=== PATIENT | female | born 1960 | race Caucasian/White ===

== ENCOUNTER → 2021-02-15 14:53 | Outpatient (BNVA) | payer MEDICARE, SELFPAY | PROVIDERS: Visit Provider Urology ==

== ENCOUNTER 2021-02-23 00:18 | Emergency (ER) | payer MEDICARE, MEDICAID, SELFPAY ==
--- NOTE | ~2021-02-23 | XR_ITS ---
EXAMINATION: XR ANKLE, LEFT CLINICAL INFORMATION: Pain, swelling COMPARISON: 08/26/2012 TECHNIQUE: AP, lateral, and mortise views of the left ankle. FINDINGS: Osseous alignment is anatomic. No acute fracture is seen. There is prominent soft tissue swelling about the ankle. There is mild degenerative change at the tibiotalar articulation. Plantar calcaneal spur is noted. XR/XR ankle LT min 3V IMPRESSION: Soft tissue swelling without acute osseous findings.
[2021-02-23 00:33] VITALS: BP 150/86; PULSE 94; PULSE 97; RESP 18; TEMP 36.7; O2SAT 100; O2SAT 97; BMI 43.4
[2021-02-23 00:37] VITALS: BP 139/63; PULSE 94; RESP 18; TEMP 36.7; O2SAT 100
--- NOTE | 2021-02-23 01:03 | ED_ITS ---
HPI - General Adult General Chief complaint: General Medical Stated complaint: LOWER LEG PAIN W/ CELLULITIS Time Seen by Provider: 02/23/21 00:25 Source: patient Mode of arrival: EMS History of Present Illness HPI narrative: 60-year-old female with history of bipolar and anxiety presents via EMS for increasing pain to her left ankle that has been ongoing for over a week. Patient states that she was seen by her primary care provider on Thursday and prescribed cephalexin which she states she his been taking inconsistently and that the redness, swelling worsened along with the pain to the point that is uncomfortable for her to walk. She denies any trauma to the ankle and states that an ultrasound was done to evaluate for DVT and that it was negative. Patient denies any associated fevers or chills. Related Data Previous Rx's Medication Instructions Recorded doxycycline hyclate 100 mg capsule 100 mg PO BID 5 Days #10 cap 02/23/21 Allergies Allergy/AdvReac Type Severity Reaction Status Date / Time No Known Drug Allergies Allergy Unknown NONE Verified 02/23/21 00:40 [NO KNOWN DRUG ALLERGIES] Review of Systems Review of Systems: Pertinent positives and negatives as stated in HPI 10 point review of systems is otherwise negative. PMFSH Past Medical History Source: nursing notes reviewed Social History Social History Alcohol intake: never Patient Tobacco Use Status: Never used Tobacco Use of substances other than those prescribed or required for medical reasons: No Advance Directives: No Physical Exam Vital Signs: Vital Signs: Last Vital Signs Temp 98.1 F 02/23/21 02:54 Pulse 94 02/23/21 02:54 Resp 18 02/23/21 02:54 BP 140/62 H 02/23/21 02:54 Pulse Ox 100 02/23/21 02:54 Body Mass Index 43.4 VITAL SIGNS: Reviewed. GENERAL: Well developed, well nourished, in no acute distress. HEAD: Normocephalic/atraumatic EYES: PERRLA, EOMI EARS: Ext canals without abnormality OROPHARYNX: no oral lesions noted, posterior pharynx clear LUNGS: Normal breath sounds. No adventitious sounds or accessory muscle use. SpO2<100> CARDIOVASCULAR: Regular rate and rhythm without noted murmurs, no JVD or lower extremity edema. ABDOMEN: Obesity, Soft, non-tender, non-distended with bowel sounds. LEFT LOWER EXTREMITY: Erythema, mild induration, no crepitus, pain on palpation, palpable DP/PT, good capillary refill SKIN: Inspection of the skin reveals no rashes NEUROLOGIC: Alert and oriented x 4. Strength and sensation to light touch were grossly intact x 4. Course Course Course Narrative: 60-year-old female with history and clinical presentation consistent with worsening cellulitis secondary to poor antibiotic adherence. Will evaluate with x-ray, provide analgesics, and then provided an Ran wrap and add additional doxycycline for antibiotic coverage. In addition, awaiting basic labs. Review of all investigations otherwise negative for acute findings, placed in Ran wrap to help reduce pressure into the lower extremity, administered initial doxycycline antibiotic and patient will be discharged on a 5 day course which should be taken with the cephalexin. Patient received all of these instructions and was recommended to follow-up with her primary care provider on Thursday morning. Medical Decision Making Lab Data Result diagrams: 02/23/21 01:23 02/23/21 01:23 Labs: Lab Results 02/23/21 02/23/21 Range/Units 01:23 01:23 WBC 7.5 (4.8-10.8) X10*3/uL RBC 3.98 L (4.20-5.50) X10*6/uL Hgb 11.7 L (12.0-16.0) g/dl Hct 36.3 L (37-47) % MCV 91.2 (80-98) fL MCH 29.4 (27.0-33.0) pg MCHC 32.2 (31.0-35.0) g/dl RDW 13.2 (11.0-16.0) % Plt Count 261 (160-400) X10*3/uL MPV 10.4 (9.4-12.3) fL Immature Gran % (Auto) 0.1 (0.0-0.4) % Neut % (Auto) 70.2 (45-73) % Lymph % (Auto) 22.6 (20-40) % [place] % (Auto) 6.2 (2-11) % Eos % (Auto) 0.5 (0-4) % Baso % (Auto) 0.4 (0-2) % Lymph # (Auto) 1.7 (1.2-4.9) X10*3/uL [place] # (Auto) 0.5 (0.1-1.2) X10*3/uL Eos # (Auto) 0.0 (0.0-0.4) X10*3/uL Baso # (Auto) 0.0 (0.0-0.2) X10*3/uL Abs Immat Gran (auto) 0.01 (0.00-0.03) X10*3/uL Absolute Neuts (auto) 5.3 (2.0-8.3) X10*3/uL Absolute Nucleated RBC 0.000 (0.0-0.012) X10*3/uL Nucleated RBC % (auto) 0.0 (0.0-0.2) /100WBC Sodium 142 (135-145) mmol/L Potassium 3.6 (3.3-5.1) mmol/L Chloride 106 (96-108) mmol/L Carbon Dioxide 29 (22-29) mmol/L Anion Gap 11 L (12-20) BUN 19 H (9-16) mg/dL Creatinine 0.77 (0.5-1.4) mg/dL Estim Creat Clear Calc 103.4 Estimated GFR > 60 Random Glucose 100 (60-115) mg/dL Calcium 8.8 (8.4-10.2) mg/dL Total Bilirubin 0.3 (0.0-1.0) mg/dL AST 28 (5-31) U/L ALT 37 H (0-31) U/L Alkaline Phosphatase 81 (39-117) U/L Total Protein 7.0 (6.5-8.0) g/dL Albumin 4.0 (3.5-5.0) g/dL Discharge Plan Discharge Clinical Impression: Cellulitis Patient Disposition: Home, Self-Care Instructions: Cellulitis (ED) Additional Instructions: 1. Recommend using [id number] Tylenol/ibuprofen as needed for pain control. Also recommend elevating extremity when possible, but when walking placing the Ran wrap will benefit and help to control the pain. 2. Strongly recommend completing the entire course of antibiotics that you have been provided. 3. Please follow-up with your primary care provider on Thursday for re-evaluation and further outpatient management. Return to the ER for acute worsening of your symptoms. Prescriptions: New doxycycline hyclate 100 mg capsule 100 mg PO BID 5 Days Qty: 10 RF: 0 Referrals: Toyb Gale MD [Primary Care Provider] - 2 days (Re-evaluation right lower extremity cellulitis. Started on doxycycline in conjunction with prescribed cephalexin.)
[2021-02-23 01:28] LABS: MANUAL DIFF FLAG NO
[2021-02-23 01:29] LABS: Basophils Percent Auto 0.4 % (0-2); Eosinophils Percent Auto 0.5 % (0-4); Hematocrit 36.3 % (37-47); Hemoglobin 11.7 g/dl (12.0-16.0); Imm Gran Abs Auto 0.01 X10*3/uL (0.00-0.03); Imm Gran Pct Auto 0.1 % (0.0-0.4); Lymphocytes Absolute Auto 1.7 X10*3/uL (1.2-4.9); Lymphocytes Percent Auto 22.6 % (20-40); Mean Corpuscular HGB Conc 32.2 g/dl (31.0-35.0); Mean Corpuscular Hemoglobin 29.4 pg (27.0-33.0); Mean Corpuscular Volume 91.2 fL (80-98); Mean Platelet Volume 10.4 fL (9.4-12.3); Monocytes Absolute Auto 0.5 X10*3/uL (0.1-1.2); Monocytes Percent Auto 6.2 % (2-11); Neutrophils Absolute Auto 5.3 X10*3/uL (2.0-8.3); Neutrophils Percent Auto 70.2 % (45-73); Platelet Count 261 X10*3/uL (160-400); Red Blood Count 3.98 X10*6/uL (4.20-5.50); Red Cell Distribution Width 13.2 % (11.0-16.0); White Blood Count 7.5 X10*3/uL (4.8-10.8)
[2021-02-23] MEDS: Acetaminophen 325 MG TABLET 975 MG PO (01:38)
[2021-02-23] MEDS: Ketorolac Tromethamine 15 MG/ML VIAL IM (01:38)
[2021-02-23 01:50] LABS: Alanine Aminotransferase 37 U/L (0-31); Alkaline Phosphatase 81 U/L (39-117); Anion Gap 11 (12-20); Aspartate Amino Transferase 28 U/L (5-31); Bilirubin Total 0.3 mg/dL (0.0-1.0); Blood Urea Nitrogen 19 mg/dL (9-16); Calcium 8.8 mg/dL (8.4-10.2); Carbon Dioxide 29 mmol/L (22-29); Chloride 106 mmol/L (96-108); Creatinine Clr Calc Pharmacy 103.4; Estimated Glomerular Filt Rate > 60; Glucose Random 100 mg/dL (60-115); Potassium 3.6 mmol/L (3.3-5.1); Sodium 142 mmol/L (135-145)
[2021-02-23 02:54] VITALS: BP 140/62; PULSE 94; RESP 18; TEMP 36.7; O2SAT 100
== END 2021-02-23 03:37 | disposition home or self-care (01) ==
PROVIDERS: Emergency Provider Student in an Organized Health Care Education/Training Program; PCP Internal Medicine
DX: L03.116 Cellulitis of left lower limb (principal); Z79.899 Other long term (current) drug therapy
CPT/HCPCS: 36415; 73610; 80053; 85025; 96372; 99284; J1885

== ENCOUNTER 2021-03-01 19:21 | Inpatient (IN) | payer MEDICARE, MEDICAID, SELFPAY ==
--- NOTE | ~2021-03-01 | US_ITS ---
EXAMINATION: US VENOUS ULTRASOUND WITH DOPPLER LOWER EXTREMITY, LEFT CLINICAL INFORMATION: Edema. Skin changes. COMPARISON: None TECHNIQUE: Ultrasound of the deep veins is performed from the hip to the calf with compression sonography and color and pulse Doppler assessment. Spectral analysis with color-flow imaging is performed. FINDINGS: There is normal venous compression and respiratory variation and augmented flow. The visualized common femoral vein, superficial femoral vein, profunda femoral vein, popliteal vein, and the trifurcation region shows no evidence of deep venous thrombosis. There is no significant popliteal fossa cyst. There are morphologically normal-appearing lymph nodes, fatty nicolas, in the left groin. If the patient's symptoms persist, followup ultrasound in 5 days 7 days might be of value to exclude proximal propagation from a non-visualized calf vein. US/US venous duplex LE IMPRESSION: No DVT demonstrated in the left lower extremity.
--- NOTE | ~2021-03-01 | US_ITS ---
EXAMINATION: US VENOUS ULTRASOUND WITH DOPPLER LOWER EXTREMITY, RIGHT CLINICAL INFORMATION: Right lower extremity edema and pain. COMPARISON: Left lower extremity ultrasound done earlier today at 8:40 PM. TECHNIQUE: Ultrasound of the deep veins is performed from the hip to the calf with compression sonography and color and pulse Doppler assessment. Spectral analysis with color-flow imaging is performed. FINDINGS: There is normal venous compression and respiratory variation and augmented flow. The visualized common femoral vein, superficial femoral vein, profunda femoral vein, popliteal vein, and the trifurcation region shows no evidence of deep venous thrombosis. There is no significant popliteal fossa cyst. Similar to the left side, there are prominent but benign-appearing inguinal lymph nodes measuring up to 1.1 cm in maximum short axis. If the patient's symptoms persist, followup ultrasound in 5 days 7 days might be of value to exclude proximal propagation from a non-visualized calf vein. US/US venous duplex LE RT IMPRESSION: No DVT demonstrated in the right lower extremity.
[2021-03-01 19:30] VITALS: BP 139/65; BP 162/78; PULSE 95; RESP 18; TEMP 36.6; O2SAT 100; O2SAT 99; BMI 36.6
--- NOTE | 2021-03-01 19:36 | ED.LOWEXIN ---
HPI - Extremity Injury (Lower) General Chief Complaint: Wound/Laceration Stated Complaint: cellulitis, not better with antibiotics Time Seen by Provider: 03/01/21 19:28 Source: patient and EMS Mode of arrival: EMS Limitations: no limitations History of Present Illness HPI Narrative: 60-year-old female came in by ambulance for evaluation of left leg cellulitis. Patient just finished a course of doxycycline for left lower leg cellulitis, patient returned today for persistent of the infection and increase the pain to the left lower extremities, patient was seen and evaluated full left lower extremities cellulitis 6 days ago and was prescribed doxycycline patient claimed that she has she has been compliant with her medication. Related Data Home Medications Medication Instructions Recorded Confirmed bupropion HCl 300 mg 24 hr tablet, 300 mg PO DAILY 03/01/21 03/01/21 extended release lisdexamfetamine 60 mg capsule 60 mg PO DAILY 03/01/21 03/01/21 (Vyvanse) multivitamin 1 tab PO DAILY 03/01/21 03/01/21 quetiapine 25 mg tablet 25 mg PO BEDTIME 03/01/21 03/01/21 topiramate 50 mg tablet 50 mg PO BID 03/01/21 03/01/21 Allergies Allergy/AdvReac Type Severity Reaction Status Date / Time No Known Drug Allergies Allergy Unknown NONE Verified 02/23/21 00:40 [NO KNOWN DRUG ALLERGIES] Review of Systems Review of Systems: All other systems are reviewed and are negative Constitutional: Reports as per HPI and Reports no additional constitutional complaints Eyes: Reports as per HPI and Reports no additional eye complaints Reports system reviewed and no additional complaints, except as documented Cardiovascular: Reports as per HPI and Reports no additional cardiovascular complaints Respiratory: Reports as per HPI and Reports no additional respiratory complaints Gastrointestinal: Reports as per HPI and Reports no additional gastrointestinal complaints Genitourinary: Reports no additional female genitourinary complaints Musculoskeletal: Reports no additional musculoskeletal complaints Skin/Breast: Reports system reviewed and no additional complaints, except as docu Psychiatric: Reports no additional psychiatric complaints Endocrine: Reports no additional endocrine complaints Hematologic/Lymphatic: Reports no additional hematologic/lymphatic complaints Allergic/Immunologic: Reports no additional allergic/immunologic complaints Reports system reviewed and no additional complaints, except as documented and Reports Abnormal speech present [facility] Social History Social History Alcohol intake: never Patient Tobacco Use Status: Never used Tobacco Advance Directives: No Advance Directives Information Provided: Yes Physical Exam Vital Signs: Vital Signs: Last Vital Signs Temp 98 F 03/01/21 19:30 Pulse 95 03/01/21 19:30 Resp 18 03/01/21 19:30 BP 139/65 03/01/21 19:30 Pulse Ox 99 03/01/21 19:30 Body Mass Index 36.6 Vital signs have been reviewed as appeared to be correct. Blood pressure normal. Heart rate normal. Respiration rate normal. Temperature normal. Oxygen saturation normal. Appearance: Alert. Oriented X3. No acute distress. Head: Normal external exam. Normocephalic. Atraumatic. No Khan signs noted. No raccoon eyes noted Eyes: PERRLA. EOMI. Conjunctiva and sclera normal. Eyelids normal. ENT: TM's Normal. Pharynx normal. Uvula midline. Moist mucous membranes. No trismus noted. No drooling noted. No muffled voice noted. Neck: Normal inspection. Neck supple. FROM. No adenopathy. Thyroid Normal. No meningeal signs. No neck mass noted. CVS: Normal heart rate and rhythm. Heart sound normal. No murmurs noted. Pulses normal throughout. Respiratory: No respiratory distress. Painless inspiration. Breath sounds normal. No wheezes/rales/rhonchi noted. Chest nontender. No accessory muscle usage noted or decreased air movement noted. Abdomen: Soft and nontender. Bowel sounds normal in all 4 quadrants. No distention noted. No organomegaly noted. No visible injury noted. Back: No CVA tenderness. Full range of motion noted. Skin: Skin warm and dry. 7 x 5 cm area of redness, hotness, tenderness in the anterior aspect of lower left leg, no fluctuation, no abscess is appreciated. Extremities: No lower extremity edema. Extremities exhibit normal range of motion. Extremities nontender. Neuro: Oriented X 3. Cranial nerve exam: II-XII are grossly intact No motor deficit. No sensory deficit. Reflexes normal. Course Course Course Narrative: Assessment and plan. Left lower extremity cellulitis that is not responding to p.o. doxycycline, will admit the patient for IV Zosyn/vancomycin and pain control. MDM - Extremity Injury (Lower) Medical Records Attestation: I reviewed the patient's medical records. Lab Data Attestation: I reviewed the patient's lab results. Result diagrams: 03/01/21 19:55 03/01/21 19:55 Labs: Lab Results 03/01/21 03/01/21 03/01/21 Range/Units 19:55 19:55 19:55 WBC 7.3 (4.8-10.8) X10*3/uL RBC 3.96 L (4.20-5.50) X10*6/uL Hgb 11.5 L (12.0-16.0) g/dl Hct 36.5 L (37.0-47.0) % MCV 92.2 (80.0-98.0) fL MCH 29.0 (27.0-33.0) pg MCHC 31.5 (31.0-35.0) g/dl RDW 13.2 (11.0-16.0) % Plt Count 226 (160-400) X10*3/uL MPV 10.7 (9.4-12.3) fL Immature Gran % (Auto) 0.3 (0.0-0.4) % Neut % (Auto) 63.8 (45-73) % Lymph % (Auto) 29.5 (20-40) % [place] % (Auto) 4.8 (2-11) % Eos % (Auto) 1.1 (0-4) % Baso % (Auto) 0.5 (0-2) % Lymph # (Auto) 2.2 (1.2-4.9) X10*3/uL [place] # (Auto) 0.4 (0.1-1.2) X10*3/uL Eos # (Auto) 0.1 (0.0-0.4) X10*3/uL Baso # (Auto) 0.0 (0.0-0.2) X10*3/uL Abs Immat Gran (auto) 0.02 (0.00-0.03) X10*3/uL Absolute Neuts (auto) 4.7 (2.0-8.3) x10*3/uL Absolute Nucleated RBC 0.000 (0.0-0.012) X10*3/uL Nucleated RBC % (auto) 0.0 (0.0-0.2) /100WBC Sodium 142 (135-145) mmol/L Potassium 4.1 (3.3-5.1) mmol/L Chloride 106 (96-108) mmol/L Carbon Dioxide 27 (22-29) mmol/L Anion Gap 13 (12-20) BUN 12 (9-16) mg/dL Creatinine 0.75 (0.5-1.4) mg/dL Estim Creat Clear Calc 93.3 Estimated GFR > 60 Random Glucose 110 (60-115) mg/dL Lactic Acid 1.3 (0.5-2.0) mmol/L Calcium 8.7 (8.4-10.2) mg/dL Total Bilirubin 0.2 (0.0-1.0) mg/dL Direct Bilirubin < 0.2 (0.0-0.5) mg/dL AST 29 (5-31) U/L ALT 34 H (0-31) U/L Alkaline Phosphatase 73 (39-117) U/L B-Natriuretic Peptide (<100) pg/mL Total Protein 7.1 (6.5-8.0) g/dL Albumin 4.0 (3.5-5.0) g/dL Lipase 30 (8-78) U/L Urine Color Urine Appearance Urine pH (5.0-8.0) Ur Specific [place] (1.005-1.025) Urine Protein (NEG-TRACE) MG/DL Urine Glucose (UA) (NEG) MG/DL Urine Ketones (NEG) MG/DL Urine Blood (NEG) Urine Nitrite (NEG) Ur Leukocyte Esterase (NEG) Urine RBC (0) /HPF Urine WBC (0-4) /HPF Ur Squamous Epith Cells /LPF Urine Bacteria /LPF COVID-19 (JAMIE) (Negative) COVID-19 Clin Com 03/01/21 03/01/21 03/01/21 Range/Units 19:55 19:55 20:34 WBC (4.8-10.8) X10*3/uL RBC (4.20-5.50) X10*6/uL Hgb (12.0-16.0) g/dl Hct (37.0-47.0) % MCV (80.0-98.0) fL MCH (27.0-33.0) pg MCHC (31.0-35.0) g/dl RDW (11.0-16.0) % Plt Count (160-400) X10*3/uL MPV (9.4-12.3) fL Immature Gran % (Auto) (0.0-0.4) % Neut % (Auto) (45-73) % Lymph % (Auto) (20-40) % [place] % (Auto) (2-11) % Eos % (Auto) (0-4) % Baso % (Auto) (0-2) % Lymph # (Auto) (1.2-4.9) X10*3/uL [place] # (Auto) (0.1-1.2) X10*3/uL Eos # (Auto) (0.0-0.4) X10*3/uL Baso # (Auto) (0.0-0.2) X10*3/uL Abs Immat Gran (auto) (0.00-0.03) X10*3/uL Absolute Neuts (auto) (2.0-8.3) x10*3/uL Absolute Nucleated RBC (0.0-0.012) X10*3/uL Nucleated RBC % (auto) (0.0-0.2) /100WBC Sodium (135-145) mmol/L Potassium (3.3-5.1) mmol/L Chloride (96-108) mmol/L Carbon Dioxide (22-29) mmol/L Anion Gap (12-20) BUN (9-16) mg/dL Creatinine (0.5-1.4) mg/dL Estim Creat Clear Calc Estimated GFR Random Glucose (60-115) mg/dL Lactic Acid (0.5-2.0) mmol/L Calcium (8.4-10.2) mg/dL Total Bilirubin (0.0-1.0) mg/dL Direct Bilirubin (0.0-0.5) mg/dL AST (5-31) U/L ALT (0-31) U/L Alkaline Phosphatase (39-117) U/L B-Natriuretic Peptide 40 (<100) pg/mL Total Protein (6.5-8.0) g/dL Albumin (3.5-5.0) g/dL Lipase (8-78) U/L Urine Color YELLOW Urine Appearance CLEAR Urine pH 7.0 (5.0-8.0) Ur Specific [place] <= 1.005 (1.005-1.025) Urine Protein NEG (NEG-TRACE) MG/DL Urine Glucose (UA) NEG (NEG) MG/DL Urine Ketones NEG (NEG) MG/DL Urine Blood NEG (NEG) Urine Nitrite NEG (NEG) Ur Leukocyte Esterase TRACE H (NEG) Urine RBC 0 (0) /HPF Urine WBC 5-9 H (0-4) /HPF Ur Squamous Epith Cells 1+ /LPF Urine Bacteria NONE /LPF COVID-19 (JAMIE) Negative (Negative) COVID-19 Clin Com See Note Imaging Data Left lower extremities ultrasound: Radiologist's impression: No DVT demonstrated in the left lower extremity. Discharge Plan Discharge Clinical Impression: Cellulitis of left leg Patient Disposition: Admitted As Inpatient Prescriptions: No Action quetiapine 25 mg tablet 25 mg PO BEDTIME RF: 0 bupropion HCl 300 mg tablet extended release 24 hr 300 mg PO DAILY RF: 0 topiramate 50 mg tablet 50 mg PO BID RF: 0 Vyvanse 60 mg capsule 60 mg PO DAILY RF: 0 multivitamin Tablet 1 tab PO DAILY RF: 0
--- NOTE | 2021-03-01 19:56 | PC.NURSE ---
IV established, all labs including Covid, BCX x 2 and lactic obtained and sent. Pt ambulating to the bathroom for urine sample.
[2021-03-01 20:01] LABS: MANUAL DIFF FLAG NO
[2021-03-01 20:05] LABS: Basophils Percent Auto 0.5 % (0-2); Eosinophils Absolute Auto 0.1 X10*3/uL (0.0-0.4); Eosinophils Percent Auto 1.1 % (0-4); Hematocrit 36.5 % (37.0-47.0); Hemoglobin 11.5 g/dl (12.0-16.0); Imm Gran Abs Auto 0.02 X10*3/uL (0.00-0.03); Imm Gran Pct Auto 0.3 % (0.0-0.4); Lymphocytes Absolute Auto 2.2 X10*3/uL (1.2-4.9); Lymphocytes Percent Auto 29.5 % (20-40); Mean Corpuscular HGB Conc 31.5 g/dl (31.0-35.0); Mean Corpuscular Volume 92.2 fL (80.0-98.0); Mean Platelet Volume 10.7 fL (9.4-12.3); Monocytes Absolute Auto 0.4 X10*3/uL (0.1-1.2); Monocytes Percent Auto 4.8 % (2-11); Neutrophils Absolute Auto 4.7 x10*3/uL (2.0-8.3); Neutrophils Percent Auto 63.8 % (45-73); Platelet Count 226 X10*3/uL (160-400); Red Blood Count 3.96 X10*6/uL (4.20-5.50); Red Cell Distribution Width 13.2 % (11.0-16.0); White Blood Count 7.3 X10*3/uL (4.8-10.8)
--- NOTE | 2021-03-01 20:11 | PC.NURSE ---
Pharm at bedside for Med Rec, pt aware of plan for admission. IVF infusing per MAR.
[2021-03-01 20:18] LABS: COVID-19 Test Negative (Negative)
[2021-03-01] MEDS: 0.9 % Sodium Chloride 1,000 ML 999 ML IVCONT (20:18)
[2021-03-01 20:24] LABS: B Type Natriuretic Peptide 40 pg/mL (<100)
[2021-03-01 20:26] LABS: Alanine Aminotransferase 34 U/L (0-31); Alkaline Phosphatase 73 U/L (39-117); Anion Gap 13 (12-20); Aspartate Amino Transferase 29 U/L (5-31); Bilirubin Direct < 0.2 mg/dL (0.0-0.5); Bilirubin Total 0.2 mg/dL (0.0-1.0); Blood Urea Nitrogen 12 mg/dL (9-16); Calcium 8.7 mg/dL (8.4-10.2); Carbon Dioxide 27 mmol/L (22-29); Chloride 106 mmol/L (96-108); Creatinine Clr Calc Pharmacy 93.3; Estimated Glomerular Filt Rate > 60; Glucose Random 110 mg/dL (60-115); Lipase 30 U/L (8-78); Potassium 4.1 mmol/L (3.3-5.1); Sodium 142 mmol/L (135-145); Total Protein 7.1 g/dL (6.5-8.0)
[2021-03-01 20:35] LABS: Lactic Acid 1.3 mmol/L (0.5-2.0)
[2021-03-01 20:39] LABS: Appearance Urine CLEAR; Color Urine YELLOW; Glucose Urine UA NEG (NEG); Leukocyte Esterase Urine TRACE (NEG); Nitrite Urine NEG (NEG); Specific Gravity - Urine <= 1.005 (1.005-1.025); UACC Culture Trigger YES; Urine Blood NEG (NEG); Urine Ketones NEG (NEG); Urine Protein NEG (NEG-TRACE)
[2021-03-01] MEDS: Piperacillin Sodium/Tazobactam 3.375 GM in 0.9 % Sodium Chloride 50 ML IV (20:41)
--- NOTE | 2021-03-01 20:45 | PHA.MEDREC ---
Pharmacy Consult ? Medication Reconciliation Pharmacy has completed the medication reconciliation. Patient has been so focus on taking her abx that she has not been adherent to other medications. She did report taking Tylenol Arthritis 4 tablet every 6 hours. This would be about 10,000 mg daily. Her liver enzymes test were WNL so what she is reporting may be incorrect. Jacquelin WiseD
[2021-03-01 20:48] LABS: RBC Urine 0 /HPF (0); Squamous Epithelial Cell Urine 1+ /LPF
[2021-03-01 21:29] VITALS: BP 136/62; PULSE 81; RESP 16; TEMP 36.6
--- NOTE | 2021-03-01 22:18 | P.HPHOSP_ITS ---
History of Present Illness Date of Service: 03/01/21 Chief Complaint: Cellulitis of left lower extremity 6-year-old female with past medical history of bipolar, depression, anxiety who presents to the hospital with complaints of worsening left lower extremity cellulitis. Patient reports that her symptoms started about 2 weeks ago, she was seen by her PCP, was given antibiotics but she did not complete the anti biotics and was not taking them appropriately therefore her symptoms did not improve, about 1 week ago she presented to ED and was started on doxycycline, but returns today stating that although she completed the 7 day course of doxycycline she continues to have swelling, significant pain, as well as worsening redness of her lower extremity. She denies any fever, reports chills, denies any chest pain, no shortness of breath, no abdominal pain nausea or vomiting, no diarrhea constipation, no urinary symptoms and no lower extremity edema except what is mentioned of the cellulitis On arrival to the ED patient hemodynamically stable with no significant abnormal vitals Labs are significant for WBC count of 7.3, hemoglobin of 11.5 which is around her baseline, labs otherwise unremarkable. Given failed outpatient therapy patient will be admitted for further management Review of Systems Review of Systems: Yes all other systems are reviewed and are negative [facility] Medical History (Updated 03/02/21 @ 06:36 by Yeison Anderson MD) Bipolar disorder Depression with anxiety Family History (Updated 03/02/21 @ 06:37 by Yeison Anderson MD) Mother Hypertension Diabetes CHF (congestive heart failure) Pertinent family history: CHF diabetes hypertension Surgical History (Updated 03/02/21 @ 06:37 by Yeison Anderson MD) History of Social History Alcohol intake: never Patient Tobacco Use Status: Never used Tobacco Use of substances other than those prescribed or required for medical reasons: No Advance Directives: No Advance Directives Information Provided: Yes Meds Allergies Allergy/AdvReac Type Severity Reaction Status Date / Time No Known Drug Allergies Allergy Unknown NONE Verified 02/23/21 00:40 [NO KNOWN DRUG ALLERGIES] Active Medications: Current Medications Pharmacy Consult (Consult Rx Perform Med Rec) 1 each MISCELLANE ONCE PRN PRN Reason: Consult order Home Medications Medication Instructions Recorded Confirmed Last Taken Type bupropion HCl 300 mg 24 hr tablet, 300 mg PO DAILY 03/01/21 03/01/21 Unknown History extended release lisdexamfetamine 60 mg capsule 60 mg PO DAILY 03/01/21 03/01/21 Unknown History ([place]) multivitamin 1 tab PO DAILY 03/01/21 03/01/21 Unknown History quetiapine 25 mg tablet 25 mg PO BEDTIME 03/01/21 03/01/21 Unknown History topiramate 50 mg tablet 50 mg PO BID 03/01/21 03/01/21 Unknown History Physical Exam Vital Signs and Narrative: Vital Signs: Last Vital Signs Temp 97.8 F 03/01/21 21:29 Pulse 81 03/01/21 21:29 Resp 16 03/01/21 21:29 BP 136/62 03/01/21 21:29 Pulse Ox 99 03/01/21 19:30 Body Mass Index 36.6 Const: General: cooperative and no acute distress Orientation/consciousness: patient oriented x3 Eyes: General: appearance normal, both eyes and all related structures Resp: Effort & Inspection: normal respiratory effort Auscultation: clear to auscultation bilaterally Cardio: Rate: regular rate Rhythm: regular rhythm GI: Palpation (GI): Soft to palpation Auscultation: normal bowel sounds Skin: Other: Left lower extremity erythema, warmth, tenderness, ED extending from the ankle to the mid kinney Neuro: General: patient oriented x3 Cognition (Neuro): normal cognition Extrem: Other: Edema, erythema, warmth, tenderness of left lower extremity General: Yes normal to inspection Results Labs CBC and Chem 7: 03/01/21 19:55 03/01/21 19:55 Labs: Laboratory Results - last 24 hr 03/01/21 03/01/21 03/01/21 19:55 19:55 19:55 MCV 92.2 MCH 29.0 MCHC 31.5 RDW 13.2 Plt Count 226 MPV 10.7 Immature Gran % (Auto) 0.3 Neut % (Auto) 63.8 Lymph % (Auto) 29.5 [place] % (Auto) 4.8 Eos % (Auto) 1.1 Baso % (Auto) 0.5 Lymph # (Auto) 2.2 [place] # (Auto) 0.4 Eos # (Auto) 0.1 Baso # (Auto) 0.0 Abs Immat Gran (auto) 0.02 Absolute Neuts (auto) 4.7 Absolute Nucleated RBC 0.000 Nucleated RBC % (auto) 0.0 Anion Gap 13 Estim Creat Clear Calc 93.3 Estimated GFR > 60 Random Glucose 110 Lactic Acid 1.3 Calcium 8.7 Total Bilirubin 0.2 Direct Bilirubin < 0.2 AST 29 ALT 34 H Alkaline Phosphatase 73 B-Natriuretic Peptide Total Protein 7.1 Albumin 4.0 Lipase 30 Urine Color Urine Appearance Urine pH Ur Specific [place] Urine Protein Urine Glucose (UA) Urine Ketones Urine Blood Urine Nitrite Ur Leukocyte Esterase Urine RBC Urine WBC Ur Squamous Epith Cells Urine Bacteria COVID-19 (JAMIE) COVID-19 Clin Com 03/01/21 03/01/21 03/01/21 19:55 19:55 20:34 MCV MCH MCHC RDW Plt Count MPV Immature Gran % (Auto) Neut % (Auto) Lymph % (Auto) [place] % (Auto) Eos % (Auto) Baso % (Auto) Lymph # (Auto) [place] # (Auto) Eos # (Auto) Baso # (Auto) Abs Immat Gran (auto) Absolute Neuts (auto) Absolute Nucleated RBC Nucleated RBC % (auto) Anion Gap Estim Creat Clear Calc Estimated GFR Random Glucose Lactic Acid Calcium Total Bilirubin Direct Bilirubin AST ALT Alkaline Phosphatase B-Natriuretic Peptide 40 Total Protein Albumin Lipase Urine Color YELLOW Urine Appearance CLEAR Urine pH 7.0 Ur Specific [place] <= 1.005 Urine Protein NEG Urine Glucose (UA) NEG Urine Ketones NEG Urine Blood NEG Urine Nitrite NEG Ur Leukocyte Esterase TRACE H Urine RBC 0 Urine WBC 5-9 H Ur Squamous Epith Cells 1+ Urine Bacteria NONE COVID-19 (JAMIE) Negative COVID-19 Clin Com See Note Imaging Radiologist's Impressions: Impressions Venous Duplex 03/01/21 19:32 IMPRESSION: No DVT demonstrated in the left lower extremity. Assessment and Plan (1) Cellulitis of left leg: Status: Acute 60-year-old female with past medical history of depression anxiety and bipolar d isorder presents to the hospital after failing outpatient therapy for cellulitis # cellulitis of left lower extremity - failed outpatient therapy - will start her on IV antibiotic - follow culture - no evidence of DVT # mood disorder - continue home medications DVT ppx: lovenox Quality Stroke Does the patient have a stroke diagnosis?: No VTE Prior VTE?: No VTE Risk Level:: Medical - moderate - high VTE Device Contraindication: Treatment Not Indicated VTE Drug Contraindication: N/A - Med Ordered
[2021-03-01 23:53] VITALS: BP 155/72; PULSE 82; TEMP 36.6
[2021-03-01] MEDS: Ketorolac Tromethamine 15 MG/ML VIAL 30 MG IVPUSH (23:55)
[2021-03-01] MEDS: Acetaminophen 325 MG TABLET PO (23:55)
[2021-03-02] MEDS: Enoxaparin Sodium 40 MG/0.4 ML SYRINGE SUBCUT ×2 (00:01→21:58)
[2021-03-02] MEDS: QUEtiapine Fumarate 25 MG TABLET PO ×3 (00:01→21:58)
--- NOTE | 2021-03-02 00:05 | PC.NURSE ---
medicated per Mar. left leg area marked and dated. positive pulses by Doppler.
[2021-03-02] MEDS: 0.9 % Sodium Chloride Flush 3 ML SYRINGE IVFLUSH ×3 (02:19→16:37)
--- NOTE | 2021-03-02 03:35 | PC.NURSE ---
medicated pt per jun. pt requested additional medication for bed time.
[2021-03-02 07:18] LABS: MANUAL DIFF FLAG NO
[2021-03-02 07:26] LABS: Basophils Percent Auto 0.5 % (0-2); Eosinophils Absolute Auto 0.1 X10*3/uL (0.0-0.4); Eosinophils Percent Auto 1.1 % (0-4); Hematocrit 34.4 % (37.0-47.0); Hemoglobin 10.8 g/dl (12.0-16.0); Imm Gran Abs Auto 0.02 X10*3/uL (0.00-0.03); Imm Gran Pct Auto 0.3 % (0.0-0.4); Lymphocytes Absolute Auto 1.7 X10*3/uL (1.2-4.9); Lymphocytes Percent Auto 26.8 % (20-40); Mean Corpuscular HGB Conc 31.4 g/dl (31.0-35.0); Mean Corpuscular Hemoglobin 28.8 pg (27.0-33.0); Mean Corpuscular Volume 91.7 fL (80.0-98.0); Mean Platelet Volume 10.9 fL (9.4-12.3); Monocytes Absolute Auto 0.4 X10*3/uL (0.1-1.2); Monocytes Percent Auto 6.5 % (2-11); Neutrophils Absolute Auto 4.1 x10*3/uL (2.0-8.3); Neutrophils Percent Auto 64.8 % (45-73); Platelet Count 212 X10*3/uL (160-400); Red Blood Count 3.75 X10*6/uL (4.20-5.50); Red Cell Distribution Width 13.2 % (11.0-16.0); White Blood Count 6.3 X10*3/uL (4.8-10.8)
[2021-03-02 07:38] LABS: Anion Gap 13 (12-20); Blood Urea Nitrogen 10 mg/dL (9-16); Carbon Dioxide 25 mmol/L (22-29); Chloride 109 mmol/L (96-108); Creatinine Clr Calc Pharmacy 104.5; Estimated Glomerular Filt Rate > 60; Glucose Random 92 mg/dL (60-115); Sodium 143 mmol/L (135-145)
[2021-03-02] MEDS: Multivitamin TABLET 1 TAB PO (08:27)
[2021-03-02] MEDS: oxyCODONE HCl Immed Release 5 MG TABLET PO ×2 (08:27→18:22)
[2021-03-02] MEDS: Topiramate 25 MG TABLET 50 MG PO ×2 (08:27→21:57)
[2021-03-02] MEDS: polyethylene glycoL 3350 17 GM POWD.PACK PO (08:27)
[2021-03-02 08:31] VITALS: BP 117/66; PULSE 94; RESP 18; TEMP 36.2; O2SAT 97
--- NOTE | 2021-03-02 08:35 | PC.NURSE ---
Pt awaiting room assignment. Medicated for 8/10 pain. She appears comfortable at this time. VSS.
--- NOTE | 2021-03-02 12:25 | PC.NURSE ---
patient a&ox3, sitting at side of the bed, pt has 4/10 pain which she states has decreased from earlier, pt awaiting inpt bed, will continue to monitor
--- NOTE | 2021-03-02 15:09 | HO.PM.IMPN ---
Subjective Subjective Date of Service: 03/02/21 Interval History: Note improvement since admission with IV antibiotics. Also notes lower extremity be itchy Review of Systems Denies chest pain Denies shortness of breath Denies nausea vomiting diarrhea Physical Exam Vital Signs: Vital Signs: Last Vital Signs Temp 97.1 F 03/02/21 08:31 Pulse 94 03/02/21 08:31 Resp 18 03/02/21 08:31 BP 117/66 03/02/21 08:31 Pulse Ox 97 03/02/21 08:31 Body Mass Index 36.6 Const: Other: Awake alert oriented x3 no acute distress HENMT: Other: Oropharynx moist Resp: Other: Clear to auscultation bilaterally no rales rhonchi or wheezes Cardio: Other: No S4 were; positive S1-S2; no S3 murmurs rubs or gallops GI: Other: Soft nontender nondistended with normoactive bowel sounds Neuro: Other: Cranial nerves 2-12 grossly intact as tested motor 5/5 all extremities sensation intact cognition appropriate Extrem: Other: Erythema and warmth left lower extremity mid tibia distally. Marked with skin marker. Mild improvement noted since initial marking Objective Data Active Medications Acetaminophen (Acetaminophen 325 Mg Tablet) 650 mg PO Q6H PRN PRN Reason: Pain, Mild (Pain Scale 1-3) Bupropion HCl (Bupropion Hcl Xl 300 Mg Tab.Er.24h) 300 mg PO DAILY [facility] Last Admin: 03/02/21 08:30 Dose: Not Given Documented by: MARY JO Non-Admin Reason: pt states she is not taking Docusate Sodium (Docusate Sodium 100 Mg Capsule) 100 mg PO DAILY PRN PRN Reason: Constipation Enoxaparin Sodium (Enoxaparin Sodium 40 Mg/0.4 Ml Syringe) 40 mg SUBCUT Q24H [facility] Last Admin: 03/02/21 00:01 Dose: 40 mg Documented by: RIVAS Ceftriaxone Sodium 1 gm/ (Sodium Chloride) 50 mls @ 100 mls/hr IV Q24H [facility] Last Admin: 03/01/21 23:59 Dose: Not Given Documented by: RIVAS Non-Admin Reason: See Note Multivitamins/Vitamin C (Multivitamin Tablet) 1 tab PO DAILY [facility] Last Admin: 03/02/21 08:27 Dose: 1 tab Documented by: MARY JO Non-Formulary Medication (Lisdexamfetamine [Vyvanse]) 60 mg PO DAILY [facility] Ondansetron HCl (Ondansetron Hcl 4 Mg/2 Ml Vial) 4 mg IVPUSH Q8H PRN PRN Reason: Nausea and Vomiting Oxycodone HCl (Oxycodone Hcl Immed Release 5 Mg Tablet) 5 mg PO Q6H PRN PRN Reason: Pain, Severe (Pain Scale 7-10) Last Admin: 03/02/21 08:27 Dose: 5 mg Documented by: MARY JO Pharmacy Consult (Consult Rx Perform Med Rec) 1 each MISCELLANE ONCE PRN PRN Reason: Consult order Polyethylene Glycol (Polyethylene Glycol 3350 17 Gm Powd.Pack) 17 gm PO DAILY [facility] Last Admin: 03/02/21 08:27 Dose: 17 gm Documented by: MARY JO Quetiapine Fumarate (Quetiapine Fumarate 25 Mg Tablet) 25 mg PO BEDTIME [facility] Last Admin: 03/02/21 00:01 Dose: 25 mg Documented by: RIVAS Sodium Chloride (0.9 % Sodium Chloride Flush 3 Ml Syringe) 3 ml IVFLUSH QSHIFT [facility] Last Admin: 03/02/21 08:29 Dose: 3 ml Documented by: MARY JO Topiramate (Topiramate 25 Mg Tablet) 50 mg PO BID [facility] Last Admin: 03/02/21 08:27 Dose: 50 mg Documented by: MARY JO Labs CBC & Chem 7: 03/02/21 07:02 03/02/21 07:02 Labs: Laboratory Results - last 24 hr 03/01/21 03/01/21 03/01/21 19:55 19:55 19:55 MCV 92.2 MCH 29.0 MCHC 31.5 RDW 13.2 Plt Count 226 MPV 10.7 Immature Gran % (Auto) 0.3 Neut % (Auto) 63.8 Lymph % (Auto) 29.5 [place] % (Auto) 4.8 Eos % (Auto) 1.1 Baso % (Auto) 0.5 Lymph # (Auto) 2.2 [place] # (Auto) 0.4 Eos # (Auto) 0.1 Baso # (Auto) 0.0 Abs Immat Gran (auto) 0.02 Absolute Neuts (auto) 4.7 Absolute Nucleated RBC 0.000 Nucleated RBC % (auto) 0.0 Anion Gap 13 Estim Creat Clear Calc 93.3 Estimated GFR > 60 Random Glucose 110 Lactic Acid 1.3 Calcium 8.7 Total Bilirubin 0.2 Direct Bilirubin < 0.2 AST 29 ALT 34 H Alkaline Phosphatase 73 B-Natriuretic Peptide Total Protein 7.1 Albumin 4.0 Lipase 30 Urine Color Urine Appearance Urine pH Ur Specific [place] Urine Protein Urine Glucose (UA) Urine Ketones Urine Blood Urine Nitrite Ur Leukocyte Esterase Urine RBC Urine WBC Ur Squamous Epith Cells Urine Bacteria COVID-19 (JAMIE) COVID-19 Clin Com 03/01/21 03/01/21 03/01/21 19:55 19:55 20:34 MCV MCH MCHC RDW Plt Count MPV Immature Gran % (Auto) Neut % (Auto) Lymph % (Auto) [place] % (Auto) Eos % (Auto) Baso % (Auto) Lymph # (Auto) [place] # (Auto) Eos # (Auto) Baso # (Auto) Abs Immat Gran (auto) Absolute Neuts (auto) Absolute Nucleated RBC Nucleated RBC % (auto) Anion Gap Estim Creat Clear Calc Estimated GFR Random Glucose Lactic Acid Calcium Total Bilirubin Direct Bilirubin AST ALT Alkaline Phosphatase B-Natriuretic Peptide 40 Total Protein Albumin Lipase Urine Color YELLOW Urine Appearance CLEAR Urine pH 7.0 Ur Specific [place] <= 1.005 Urine Protein NEG Urine Glucose (UA) NEG Urine Ketones NEG Urine Blood NEG Urine Nitrite NEG Ur Leukocyte Esterase TRACE H Urine RBC 0 Urine WBC 5-9 H Ur Squamous Epith Cells 1+ Urine Bacteria NONE COVID-19 (JAMIE) Negative COVID-19 Clin Com See Note 03/02/21 03/02/21 07:02 07:02 MCV 91.7 MCH 28.8 MCHC 31.4 RDW 13.2 Plt Count 212 MPV 10.9 Immature Gran % (Auto) 0.3 Neut % (Auto) 64.8 Lymph % (Auto) 26.8 [place] % (Auto) 6.5 Eos % (Auto) 1.1 Baso % (Auto) 0.5 Lymph # (Auto) 1.7 [place] # (Auto) 0.4 Eos # (Auto) 0.1 Baso # (Auto) 0.0 Abs Immat Gran (auto) 0.02 Absolute Neuts (auto) 4.1 Absolute Nucleated RBC 0.000 Nucleated RBC % (auto) 0.0 Anion Gap 13 Estim Creat Clear Calc 104.5 Estimated GFR > 60 Random Glucose 92 Lactic Acid Calcium 8.0 L D Total Bilirubin Direct Bilirubin AST ALT Alkaline Phosphatase B-Natriuretic Peptide Total Protein Albumin Lipase Urine Color Urine Appearance Urine pH Ur Specific [place] Urine Protein Urine Glucose (UA) Urine Ketones Urine Blood Urine Nitrite Ur Leukocyte Esterase Urine RBC Urine WBC Ur Squamous Epith Cells Urine Bacteria COVID-19 (JAMIE) COVID-19 Clin Com Microbiology Microbiology Results: Microbiology 03/01/21 20:44 Urine Culture - Preliminary Urine clean catch - Urine encarnacion top No growth to date. Assessment and Plan (1) Cellulitis of left leg: Status: Acute Assessment and Plan: 60-year-old female with past medical history of depression anxiety and bipolar disorder presents to the hospital after failing 7 day course of doxycycline for left leg cellulitis. Ultrasound negative for DVT 1. Left lower extremity cellulitis Given vancomycin and Zosyn in ER; notes improvement after dosing. Will switch back to vancomycin and Zosyn and follow clinically. Check routine labs in the morning 2.Mood disorder - continue home medications DVT ppx: lovenox Quality Stroke Does the patient have a stroke diagnosis?: No VTE Prior VTE?: No VTE Risk Level:: Medical - moderate - high VTE Device Contraindication: Treatment Not Indicated VTE Drug Contraindication: N/A - Med Ordered
[2021-03-02 18:08] VITALS: BP 139/92; PULSE 93; RESP 18; TEMP 37; O2SAT 99
[2021-03-02] MEDS: Piperacillin Sodium/Tazobactam 3.375 GM in 0.9 % Sodium Chloride 50 ML IV (18:13)
--- NOTE | 2021-03-02 18:27 | PC.NURSE ---
patient medicated per order, pt c/o pain- medicated for pain will continue to monitor.
--- NOTE | 2021-03-02 19:46 | PC.NURSE ---
awaiting for IV pumps to be brought from storage to administer vanco
[2021-03-02] MEDS: vancomycin HCL 750 MG in 0.9 % Sodium Chloride 250 ML 265 MG IV (19:51)
--- NOTE | 2021-03-02 19:54 | PC.NURSE ---
patient a&ox3, pt talking on the phone, c/o /10 pain but states its much better than earlier, pt ate 100% of dinner, iv antibiotics running per order in new iv site to rt arm, will continue to monitor.
--- NOTE | 2021-03-02 22:01 | PC.NURSE ---
patient medicated per order, pt moved to room 7, is in bathroom washing up
[2021-03-03] MEDS: Piperacillin Sodium/Tazobactam 3.375 GM in 0.9 % Sodium Chloride 50 ML IV ×5 (00:18→23:55)
[2021-03-03] MEDS: 0.9 % Sodium Chloride Flush 3 ML SYRINGE IVFLUSH ×3 (00:23→23:55)
--- NOTE | 2021-03-03 01:21 | PC.NURSE ---
pt is sleeping at this time. no sign of distress. medicated per MAR
--- NOTE | 2021-03-03 01:25 | PC.NURSE ---
left Iv removed. Iv infiltrated prior to my shift, Area is warm to touch and red. Will continue to monitor.
--- NOTE | 2021-03-03 01:33 | PC.NURSE ---
Called to give report, was placed on park for five minute Multiple calls to the unit with no answers. Third call spoke to Rn that is unable to locate nurse who is taking report. Will be transporting pt and will give beside report per charge nurse.
--- NOTE | 2021-03-03 01:40 | PC.NURSE ---
Report given and pt transferred by PCT
[2021-03-03 01:42] VITALS: BMI 45.8
[2021-03-03 01:55] VITALS: BP 115/56; PULSE 65; RESP 18; TEMP 36.3; O2SAT 98
[2021-03-03] MEDS: vancomycin HCL 750 MG in 0.9 % Sodium Chloride 250 ML 265 MG IV ×3 (02:08→18:50)
[2021-03-03] MEDS: oxyCODONE HCl Immed Release 5 MG TABLET PO ×3 (02:12→20:45)
[2021-03-03 05:40] LABS: MANUAL DIFF FLAG NO
[2021-03-03 05:50] LABS: Basophils Percent Auto 0.4 % (0-2); Eosinophils Percent Auto 0.3 % (0-4); Hematocrit 33.4 % (37.0-47.0); Hemoglobin 10.4 g/dl (12.0-16.0); Imm Gran Abs Auto 0.02 X10*3/uL (0.00-0.03); Imm Gran Pct Auto 0.3 % (0.0-0.4); Lymphocytes Absolute Auto 1.9 X10*3/uL (1.2-4.9); Lymphocytes Percent Auto 27.4 % (20-40); Mean Corpuscular HGB Conc 31.1 g/dl (31.0-35.0); Mean Corpuscular Hemoglobin 28.8 pg (27.0-33.0); Mean Corpuscular Volume 92.5 fL (80.0-98.0); Mean Platelet Volume 10.8 fL (9.4-12.3); Monocytes Absolute Auto 0.5 X10*3/uL (0.1-1.2); Monocytes Percent Auto 6.7 % (2-11); Neutrophils Absolute Auto 4.5 x10*3/uL (2.0-8.3); Neutrophils Percent Auto 64.9 % (45-73); Platelet Count 221 X10*3/uL (160-400); Red Blood Count 3.61 X10*6/uL (4.20-5.50); Red Cell Distribution Width 13.2 % (11.0-16.0); White Blood Count 6.9 X10*3/uL (4.8-10.8)
[2021-03-03 06:09] LABS: Alanine Aminotransferase 28 U/L (0-31); Albumin Level 3.3 g/dL (3.5-5.0); Alkaline Phosphatase 58 U/L (39-117); Anion Gap 12 (12-20); Aspartate Amino Transferase 21 U/L (5-31); Bilirubin Total 0.3 mg/dL (0.0-1.0); Blood Urea Nitrogen 15 mg/dL (9-16); Calcium 8.4 mg/dL (8.4-10.2); Carbon Dioxide 25 mmol/L (22-29); Chloride 107 mmol/L (96-108); Creatinine Clr Calc Pharmacy 113.5; Estimated Glomerular Filt Rate > 60; Glucose Fasting 97 mg/dL (60-99); Potassium 3.9 mmol/L (3.3-5.1); Sodium 140 mmol/L (135-145); Total Protein 5.9 g/dL (6.5-8.0)
[2021-03-03 07:18] VITALS: BP 168/72; PULSE 76; RESP 20; TEMP 36.2; O2SAT 100
[2021-03-03] MEDS: Multivitamin TABLET 1 TAB PO (08:01)
[2021-03-03] MEDS: polyethylene glycoL 3350 17 GM POWD.PACK PO (08:02)
[2021-03-03 12:00] VITALS: BP 195/84; PULSE 105; RESP 18; TEMP 36.6; O2SAT 100
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
[2021-03-03 16:00] VITALS: BP 180/90; PULSE 73; RESP 16; TEMP 36.6; O2SAT 94
--- NOTE | 2021-03-03 16:09 | HO.PM.IMPN ---
Subjective Subjective Date of Service: 03/03/21 Interval History: States legs improved overnight with antibiotics however remain significantly itchy. No fevers overnight Review of Systems Denies chest pain Denies shortness of breath Denies nausea vomiting diarrhea Physical Exam Vital Signs: Vital Signs: Last Vital Signs Temp 97.9 F 03/03/21 12:00 Pulse 105 H 03/03/21 12:00 Resp 18 03/03/21 12:00 BP 195/84 H 03/03/21 12:00 Pulse Ox 100 03/03/21 12:00 Body Mass Index 45.8 Const: Other: Awake alert oriented x3 no acute distress HENMT: Other: Oropharynx moist Resp: Other: Clear to auscultation bilaterally no rales rhonchi or wheezes Cardio: Other: No S4 were; positive S1-S2; no S3 murmurs rubs or gallops GI: Other: Soft nontender nondistended with normoactive bowel sounds Neuro: Other: Cranial nerves 2-12 grossly intact as tested motor 5/5 all extremities sensation intact cognition appropriate Extrem: Other: Erythema and warmth left lower extremity mid tibia distally. Marked with skin marker. Mild improvement noted since initial marking Objective Data Active Medications Acetaminophen (Acetaminophen 325 Mg Tablet) 650 mg PO Q6H PRN PRN Reason: Pain, Mild (Pain Scale 1-3) Bupropion HCl (Bupropion Hcl Xl 300 Mg Tab.Er.24h) 300 mg PO DAILY [facility] Last Admin: 03/03/21 08:01 Dose: Not Given Documented by: JACINTA Non-Admin Reason: Patient Refused Docusate Sodium (Docusate Sodium 100 Mg Capsule) 100 mg PO DAILY PRN PRN Reason: Constipation Enoxaparin Sodium (Enoxaparin Sodium 40 Mg/0.4 Ml Syringe) 40 mg SUBCUT Q24H [facility] Last Admin: 03/02/21 21:58 Dose: 40 mg Documented by: NOEMI Piperacillin Sod/Tazobactam (Sod 3.375 gm/ Sodium Chloride) 50 mls @ 100 mls/hr IV Q6H [facility] Last Infusion: 03/03/21 12:21 Dose: 100 mls/hr Documented by: JACINTA Vancomycin HCl 750 mg/ Sodium (Chloride) 265 mls @ 265 mls/hr IV Q8H [facility] Last Infusion: 03/03/21 11:48 Dose: 265 mls/hr Documented by: JACINTA Multivitamins/Vitamin C (Multivitamin Tablet) 1 tab PO DAILY [facility] Last Admin: 03/03/21 08:01 Dose: 1 tab Documented by: JACINTA Ondansetron HCl (Ondansetron Hcl 4 Mg/2 Ml Vial) 4 mg IVPUSH Q8H PRN PRN Reason: Nausea and Vomiting Oxycodone HCl (Oxycodone Hcl Immed Release 5 Mg Tablet) 5 mg PO Q6H PRN PRN Reason: Pain, Severe (Pain Scale 7-10) Last Admin: 03/03/21 10:47 Dose: 5 mg Documented by: JACINTA Pharmacy Consult (Consult Rx Perform Med Rec) 1 each MISCELLANE ONCE PRN PRN Reason: Consult order Pharmacy Consult (Consult Rx Vancomycin Dosing) 1 each MISCELLANE DAILY PRN PRN Reason: Consult order Polyethylene Glycol (Polyethylene Glycol 3350 17 Gm Powd.Pack) 17 gm PO DAILY [facility] Last Admin: 03/03/21 08:02 Dose: 17 gm Documented by: JACINTA Quetiapine Fumarate (Quetiapine Fumarate 25 Mg Tablet) 25 mg PO BEDTIME [facility] Last Admin: 03/02/21 21:58 Dose: 25 mg Documented by: RAZSOC Sodium Chloride (0.9 % Sodium Chloride Flush 3 Ml Syringe) 3 ml IVFLUSH QSHIFT [facility] Last Admin: 03/03/21 08:10 Dose: Not Given Documented by: JACINTA Non-Admin Reason: IV Running Topiramate (Topiramate 25 Mg Tablet) 50 mg PO BID [facility] Last Admin: 03/03/21 08:01 Dose: Not Given Documented by: JACINTA Non-Admin Reason: Patient Refused Labs CBC & Chem 7: 03/03/21 05:22 03/03/21 05:22 Labs: Laboratory Results - last 24 hr 03/03/21 03/03/21 05:22 05:22 MCV 92.5 MCH 28.8 MCHC 31.1 RDW 13.2 Plt Count 221 MPV 10.8 Immature Gran % (Auto) 0.3 Neut % (Auto) 64.9 Lymph % (Auto) 27.4 [place] % (Auto) 6.7 Eos % (Auto) 0.3 Baso % (Auto) 0.4 Lymph # (Auto) 1.9 [place] # (Auto) 0.5 Eos # (Auto) 0.0 Baso # (Auto) 0.0 Abs Immat Gran (auto) 0.02 Absolute Neuts (auto) 4.5 Absolute Nucleated RBC 0.000 Nucleated RBC % (auto) 0.0 Anion Gap 12 Estim Creat Clear Calc 113.5 Estimated GFR > 60 Fasting Glucose 97 Calcium 8.4 Total Bilirubin 0.3 AST 21 ALT 28 Alkaline Phosphatase 58 D Total Protein 5.9 L Albumin 3.3 L Microbiology Microbiology Results: Microbiology 03/01/21 20:44 Urine Culture - Final Urine clean catch - Urine encarnacion top No growth. 03/01/21 19:55 Blood Culture - Preliminary Blood - Venous No growth after 24 hours. 03/01/21 19:55 Blood Culture - Preliminary Blood - Venous No growth after 24 hours. Assessment and Plan (1) Cellulitis of left leg: Status: Acute Assessment and Plan: 60-year-old female with past medical history of depression anxiety and bipolar disorder presents to the hospital after failing 7 day course of doxycycline for left leg cellulitis. Ultrasound negative for DVT 1. Left lower extremity cellulitis On IV vancomycin/Zosyn with improving results; blood cultures and urine cultures negative Re-evaluate in a.m.; hopefully DC to home on oral therapies Check routine labs in the morning 2.Mood disorder - continue home medications DVT ppx: lovenox Quality Stroke Does the patient have a stroke diagnosis?: No VTE Prior VTE?: No VTE Risk Level:: Medical - moderate - high VTE Device Contraindication: Treatment Not Indicated VTE Drug Contraindication: N/A - Med Ordered
[2021-03-03 17:23] LABS: Vancomycin Random 10.6 mcg/mL (15-20)
[2021-03-03 19:37] VITALS: BP 136/68; PULSE 82; RESP 16; TEMP 36.6; O2SAT 100
[2021-03-03] MEDS: QUEtiapine Fumarate 25 MG TABLET PO (20:36)
[2021-03-03] MEDS: Topiramate 25 MG TABLET 50 MG PO (20:36)
[2021-03-03 23:18] VITALS: BP 114/55; PULSE 75; RESP 16; TEMP 35.8; O2SAT 95
[2021-03-03] MEDS: Enoxaparin Sodium 40 MG/0.4 ML SYRINGE SUBCUT (23:55)
[2021-03-04] MEDS: vancomycin HCL 750 MG in 0.9 % Sodium Chloride 250 ML 265 MG IV ×2 (01:48→10:15)
[2021-03-04 03:56] VITALS: BP 133/81; PULSE 74; RESP 16; TEMP 36.2; O2SAT 99
[2021-03-04] MEDS: Piperacillin Sodium/Tazobactam 3.375 GM in 0.9 % Sodium Chloride 50 ML IV ×3 (05:25→18:05)
[2021-03-04 06:09] LABS: MANUAL DIFF FLAG NO
[2021-03-04 06:14] LABS: Basophils Percent Auto 0.5 % (0-2); Eosinophils Percent Auto 0.5 % (0-4); Hematocrit 36.7 % (37.0-47.0); Hemoglobin 11.3 g/dl (12.0-16.0); Imm Gran Abs Auto 0.02 X10*3/uL (0.00-0.03); Imm Gran Pct Auto 0.2 % (0.0-0.4); Lymphocytes Absolute Auto 2.2 X10*3/uL (1.2-4.9); Lymphocytes Percent Auto 25.7 % (20-40); Mean Corpuscular HGB Conc 30.8 g/dl (31.0-35.0); Mean Corpuscular Hemoglobin 28.5 pg (27.0-33.0); Mean Corpuscular Volume 92.7 fL (80.0-98.0); Mean Platelet Volume 11.2 fL (9.4-12.3); Monocytes Absolute Auto 0.4 X10*3/uL (0.1-1.2); Monocytes Percent Auto 5.3 % (2-11); Neutrophils Absolute Auto 5.7 x10*3/uL (2.0-8.3); Neutrophils Percent Auto 67.8 % (45-73); Platelet Count 240 X10*3/uL (160-400); Red Blood Count 3.96 X10*6/uL (4.20-5.50); Red Cell Distribution Width 13.2 % (11.0-16.0); White Blood Count 8.4 X10*3/uL (4.8-10.8)
[2021-03-04 06:52] LABS: Alanine Aminotransferase 38 U/L (0-31); Albumin Level 3.9 g/dL (3.5-5.0); Alkaline Phosphatase 71 U/L (39-117); Anion Gap 11 (12-20); Aspartate Amino Transferase 29 U/L (5-31); Bilirubin Total 0.3 mg/dL (0.0-1.0); Blood Urea Nitrogen 14 mg/dL (9-16); Calcium 8.7 mg/dL (8.4-10.2); Carbon Dioxide 25 mmol/L (22-29); Chloride 106 mmol/L (96-108); Creatinine Clr Calc Pharmacy 107.4; Estimated Glomerular Filt Rate > 60; Glucose Fasting 99 mg/dL (60-99); Potassium 4.2 mmol/L (3.3-5.1); Sodium 138 mmol/L (135-145); Total Protein 6.7 g/dL (6.5-8.0)
[2021-03-04 07:19] VITALS: BP 133/72; PULSE 89; RESP 18; TEMP 36.6; O2SAT 100
[2021-03-04] MEDS: oxyCODONE HCl Immed Release 5 MG TABLET PO ×3 (07:25→20:51)
[2021-03-04] MEDS: 0.9 % Sodium Chloride Flush 3 ML SYRINGE IVFLUSH ×2 (07:25→17:06)
[2021-03-04] MEDS: polyethylene glycoL 3350 17 GM POWD.PACK PO (07:26)
[2021-03-04] MEDS: Topiramate 25 MG TABLET 50 MG PO ×2 (07:26→20:51)
[2021-03-04] MEDS: Multivitamin TABLET 1 TAB PO (07:26)
--- NOTE | 2021-03-04 09:56 | MHC.CM.PN ---
NURSE SAUSAGE CANNER NOTE EL;ECTRONIC MEDICAL RECORD REVIEWED. PATIENT PER DOCUMENTATION ADMITTED FOR WORSENING CELLULITIS (FAILED OUTPATIENT TREATMENT) IV PIPERCILIN AND IV VANCMYCIN CONTINUES WITH SC LOVENOX AND PO OXYCODONE FOR PAIN MANGEMENT DISCHARGE PLAN HOME NO SERVICES AT THIS TIME SAUSAGE CANNER TO CONTINUE TO FOLLOW FOR DISCHARGE NEEDS OR CHANGES
--- NOTE | 2021-03-04 11:18 | MHC.CM.PN ---
PLAN IS ONE MORE DAY OF IV ABX. DC HOME AT DISCHARGE.
[2021-03-04 11:37] VITALS: BP 152/88; PULSE 92; RESP 18; TEMP 36.2; O2SAT 100
[2021-03-04] MEDS: QUEtiapine Fumarate 25 MG TABLET PO ×2 (13:59→20:51)
--- NOTE | 2021-03-04 15:37 | HO.PM.IMPN ---
Subjective Subjective Date of Service: 03/04/21 Interval History: LLE redness and now skin peeling. No abscesses/drainage. Very painful. No fever. Has Interstim for OAB and needs lead changed C/o vaginal irritation/discharge similar to prior yeast infections. Review of Systems Review of Systems: Yes all other systems are reviewed and are negative Physical Exam Vital Signs: Vital Signs: Last Vital Signs Temp 97.2 F 03/04/21 11:37 Pulse 92 03/04/21 11:37 Resp 18 03/04/21 11:37 BP 152/88 H 03/04/21 11:37 Pulse Ox 100 03/04/21 11:37 Body Mass Index 45.8 Gen: in no acute distress HEENT: sclera anicteric, moist mucus membranes Neck: supple Lungs: clear to auscultation bilaterally Heart: regular rate and rhythm, no murmurs Abd: soft, non-tender, non-distended; obese Ext: no edema Skin: warm/well-perfused, extensive erythema and desquamation of LLE Neuro: alert and oriented x3, no focal findings Psych: appropriate affect Objective Data Active Medications Acetaminophen (Acetaminophen 325 Mg Tablet) 650 mg PO Q6H PRN PRN Reason: Pain, Mild (Pain Scale 1-3) Bupropion HCl (Bupropion Hcl Xl 300 Mg Tab.Er.24h) 300 mg PO DAILY [facility] Last Admin: 03/04/21 07:26 Dose: Not Given Documented by: JERRY Non-Admin Reason: Patient Refused Clotrimazole (Clotrimazole 1 % Vaginal Cream 45 Gm Tube) 1 appl VAGINAL BEDTIME [facility] Stop: 03/10/21 21:01 Docusate Sodium (Docusate Sodium 100 Mg Capsule) 100 mg PO DAILY PRN PRN Reason: Constipation Enoxaparin Sodium (Enoxaparin Sodium 40 Mg/0.4 Ml Syringe) 40 mg SUBCUT Q24H [facility] Last Admin: 03/03/21 23:55 Dose: 40 mg Documented by: UCHE Piperacillin Sod/Tazobactam (Sod 3.375 gm/ Sodium Chloride) 50 mls @ 100 mls/hr IV Q6H [facility] Last Infusion: 03/04/21 14:46 Dose: 100 mls/hr Documented by: JERRY Vancomycin HCl 750 mg/ Sodium (Chloride) 265 mls @ 265 mls/hr IV Q8H [facility] Last Infusion: 03/04/21 11:51 Dose: 265 mls/hr Documented by: JERRY Multivitamins/Vitamin C (Multivitamin Tablet) 1 tab PO DAILY [facility] Last Admin: 03/04/21 07:26 Dose: 1 tab Documented by: JERRY Ondansetron HCl (Ondansetron Hcl 4 Mg/2 Ml Vial) 4 mg IVPUSH Q8H PRN PRN Reason: Nausea and Vomiting Oxycodone HCl (Oxycodone Hcl Immed Release 5 Mg Tablet) 5 mg PO Q6H PRN PRN Reason: Pain, Severe (Pain Scale 7-10) Last Admin: 03/04/21 13:58 Dose: 5 mg Documented by: JERRY Pharmacy Consult (Consult Rx Perform Med Rec) 1 each MISCELLANE ONCE PRN PRN Reason: Consult order Pharmacy Consult (Consult Rx Vancomycin Dosing) 1 each MISCELLANE DAILY PRN PRN Reason: Consult order Polyethylene Glycol (Polyethylene Glycol 3350 17 Gm Powd.Pack) 17 gm PO DAILY [facility] Last Admin: 03/04/21 07:26 Dose: 17 gm Documented by: JERRY Quetiapine Fumarate (Quetiapine Fumarate 25 Mg Tablet) 25 mg PO BEDTIME [facility] Last Admin: 03/03/21 20:36 Dose: 25 mg Documented by: UCHE Quetiapine Fumarate (Quetiapine Fumarate 25 Mg Tablet) 25 mg PO Q12H PRN PRN Reason: anxiety Last Admin: 03/04/21 13:59 Dose: 25 mg Documented by: JERRY Sodium Chloride (0.9 % Sodium Chloride Flush 3 Ml Syringe) 3 ml IVFLUSH QSHIFT [facility] Last Admin: 03/04/21 07:25 Dose: 3 ml Documented by: JERRY Topiramate (Topiramate 25 Mg Tablet) 50 mg PO BID [facility] Last Admin: 03/04/21 07:26 Dose: 50 mg Documented by: JERRY Labs CBC & Chem 7: 03/04/21 05:25 03/04/21 05:25 Labs: Laboratory Results - last 24 hr 03/03/21 03/04/21 03/04/21 16:54 05:25 05:25 MCV 92.7 MCH 28.5 MCHC 30.8 L RDW 13.2 Plt Count 240 MPV 11.2 Immature Gran % (Auto) 0.2 Neut % (Auto) 67.8 Lymph % (Auto) 25.7 [place] % (Auto) 5.3 Eos % (Auto) 0.5 Baso % (Auto) 0.5 Lymph # (Auto) 2.2 [place] # (Auto) 0.4 Eos # (Auto) 0.0 Baso # (Auto) 0.0 Abs Immat Gran (auto) 0.02 Absolute Neuts (auto) 5.7 Absolute Nucleated RBC 0.000 Nucleated RBC % (auto) 0.0 Anion Gap 11 L Estim Creat Clear Calc 107.4 Estimated GFR > 60 Fasting Glucose 99 Calcium 8.7 Total Bilirubin 0.3 AST 29 ALT 38 H Alkaline Phosphatase 71 D Total Protein 6.7 Albumin 3.9 Random Vancomycin 10.6 L Microbiology Microbiology Results: Microbiology 03/01/21 19:55 Blood Culture - Preliminary Blood - Venous No growth after 48 hours. 03/01/21 19:55 Blood Culture - Preliminary Blood - Venous No growth after 48 hours. Assessment and Plan (1) Cellulitis of left leg: Status: Acute Assessment and Plan: hospital d#4 60yo F with bipolar depression and OAB admitted for cellulitis after failing outpt 7-day course of doxycycline # LLE cellulitis - d#4 IV vanco + pip/tony - BCx negative # vulvovaginal candidiasis - clotrimazole # overactive bladder - Urology consult for Interstim lead change # bipolar depression - continue bupropion, topiramate, quetiapine # VTE ppx - LMWH Quality Stroke Does the patient have a stroke diagnosis?: No VTE Prior VTE?: No VTE Risk Level:: Medical - moderate - high VTE Device Contraindication: Treatment Not Indicated VTE Drug Contraindication: N/A - Med Ordered
[2021-03-04 15:38] VITALS: BP 174/86; PULSE 100; RESP 16; TEMP 36.1; O2SAT 100
[2021-03-04 17:19] LABS: Vancomycin Trough 12.6 mcg/mL (10.0-20.0)
--- NOTE | 2021-03-04 17:33 | HE.PHANOTE ---
VANCOMYCIN DOSE ADJUSTMENT BASED ON TROUGH OF 12.6 ON 02/01 DOSE RECALC TO BE 1250 Q 12 WITH TARGET AUC OF 439 AND PREDICTED TROUGH OF 13.1
[2021-03-04] MEDS: vancomycin HCL 1,250 MG in 0.9 % Sodium Chloride 250 ML 166.67 MG IV (19:29)
[2021-03-04 20:00] VITALS: BP 142/58; PULSE 98; RESP 16; TEMP 36.3
[2021-03-04] MEDS: Clotrimazole 1 % Vaginal Cream 45 GM TUBE 1 APPL VAGINAL (20:52)
[2021-03-04] MEDS: Enoxaparin Sodium 40 MG/0.4 ML SYRINGE SUBCUT (22:24)
[2021-03-04 23:23] VITALS: BP 146/88; PULSE 104; RESP 18; TEMP 35.7; O2SAT 100
[2021-03-05] MEDS: 0.9 % Sodium Chloride Flush 3 ML SYRINGE IVFLUSH (00:19)
[2021-03-05] MEDS: Piperacillin Sodium/Tazobactam 3.375 GM in 0.9 % Sodium Chloride 50 ML IV ×2 (00:19→05:13)
[2021-03-05 04:00] VITALS: RESP 16
[2021-03-05] MEDS: oxyCODONE HCl Immed Release 5 MG TABLET PO (05:31)
[2021-03-05 06:15] LABS: MANUAL DIFF FLAG NO
[2021-03-05] MEDS: vancomycin HCL 1,250 MG in 0.9 % Sodium Chloride 250 ML 166.67 MG IV (06:17)
[2021-03-05 06:38] LABS: Alanine Aminotransferase 39 U/L (0-31); Albumin Level 3.9 g/dL (3.5-5.0); Alkaline Phosphatase 73 U/L (39-117); Anion Gap 11 (12-20); Aspartate Amino Transferase 25 U/L (5-31); Bilirubin Total 0.4 mg/dL (0.0-1.0); Blood Urea Nitrogen 14 mg/dL (9-16); Calcium 9.1 mg/dL (8.4-10.2); Carbon Dioxide 27 mmol/L (22-29); Chloride 107 mmol/L (96-108); Creatinine Clr Calc Pharmacy 103.2; Estimated Glomerular Filt Rate > 60; Glucose Fasting 102 mg/dL (60-99); Sodium 141 mmol/L (135-145); Total Protein 6.8 g/dL (6.5-8.0)
[2021-03-05 06:40] LABS: Basophils Percent Auto 0.4 % (0-2); Eosinophils Absolute Auto 0.1 X10*3/uL (0.0-0.4); Eosinophils Percent Auto 0.8 % (0-4); Hematocrit 36.1 % (37.0-47.0); Hemoglobin 11.2 g/dl (12.0-16.0); Imm Gran Abs Auto 0.04 X10*3/uL (0.00-0.03); Imm Gran Pct Auto 0.4 % (0.0-0.4); Lymphocytes Absolute Auto 1.9 X10*3/uL (1.2-4.9); Lymphocytes Percent Auto 20.3 % (20-40); Mean Corpuscular Hemoglobin 28.8 pg (27.0-33.0); Mean Corpuscular Volume 92.8 fL (80.0-98.0); Mean Platelet Volume 11.2 fL (9.4-12.3); Monocytes Absolute Auto 0.6 X10*3/uL (0.1-1.2); Monocytes Percent Auto 6.4 % (2-11); Neutrophils Absolute Auto 6.6 x10*3/uL (2.0-8.3); Neutrophils Percent Auto 71.7 % (45-73); Platelet Count 240 X10*3/uL (160-400); Red Blood Count 3.89 X10*6/uL (4.20-5.50); Red Cell Distribution Width 13.4 % (11.0-16.0); White Blood Count 9.2 X10*3/uL (4.8-10.8)
[2021-03-05 07:25] VITALS: BP 141/69; PULSE 87; RESP 18; TEMP 36.6; O2SAT 100
[2021-03-05] MEDS: Multivitamin TABLET 1 TAB PO (08:19)
[2021-03-05] MEDS: Topiramate 25 MG TABLET 50 MG PO (08:20)
[2021-03-05] MEDS: polyethylene glycoL 3350 17 GM POWD.PACK PO (08:22)
--- NOTE | 2021-03-05 11:09 | MHC.CM.PN ---
PLAN IS FOR PATIENT TO RETURN HOME TODAY - SELF CARE. FAMILY TO TACTICAL/MOBILE WATCH OFFICER AWARE OF PLAN.
--- NOTE | 2021-03-05 11:51 | PM.DS ---
DS: Providers Provider Date of Service: 03/05/21 Date of admission: 03/01/21 22:17 Primary care physician: Toby Gale MD Consults: 03/04/21 10:41 Consult to Urology Routine Consulting Provider: Karlos Davis Reason for consultation: Interstim- needs lead change DS: Diagnosis Discharge Diagnosis (1) Cellulitis of left leg: Status: Acute (2) Vulvovaginal candidiasis: Status: Acute DS: Summary Hospital Course Hospital Course: from admission H+P by hospitalist Yeison Anderson MD, 03/01/21: [age]]-year-old female with past medical history of bipolar, depression, anxiety who presents to the hospital with complaints of worsening left lower extremity cellulitis.? Patient reports that her symptoms started about 2 weeks ago, she was seen by her PCP, was given antibiotics but she did not complete the antibiotics and was not taking them appropriately therefore her symptoms did not improve, about 1 week ago she presented to ED and was started on doxycycline, but returns today stating that although she completed the 7 day course of doxycycline she continues to have swelling, significant pain, as well as worsening redness of her lower extremity.? She denies any fever, reports chills, denies any chest pain, no shortness of breath, no abdominal pain nausea or vomiting, no diarrhea constipation, no urinary symptoms and no lower extremity edema except what is mentioned of the cellulitis On arrival to the ED patient hemodynamically stable with no significant abnormal vitals Labs are significant for WBC count of 7.3, hemoglobin of 11.5 which is around her baseline, labs otherwise unremarkable. The patinet was admitted to the medical/surgical floor and treated with IV vancomycin and piperacillin/tazobactam. Blood cultures were negative. She was not septic. She improved clinically and was discharged home on a 7-day course of doxycycline plus amoxicillin/clavulanate. She was given clotrimazole for vulvovaginal candidiasis. She will follow up with her primary care doctor in 1 week. She also needs Urology follow up for Interstim device lead change. Time Spent with Patient Time attestation: Total time spent providing and/or coordinating discharge services: Discharge coordination time: Greater than 30 minutes Quality: Stroke Does the patient have a stroke diagnosis?: No Physical Exam Vital Signs: Vital Signs: Last Vital Signs Temp 97.8 F 03/05/21 07:25 Pulse 87 03/05/21 07:25 Resp 18 03/05/21 07:25 BP 141/69 H 03/05/21 07:25 Pulse Ox 100 03/05/21 07:25 Body Mass Index 45.8 Gen: in no acute distress HEENT: sclera anicteric, moist mucus membranes Neck: supple Lungs: clear to auscultation bilaterally Heart: regular rate and rhythm, no murmurs Abd: soft, non-tender, non-distended; obese Ext: no edema Skin: warm/well-perfused, improving erythema and desquamation of LLE without any fluid collections Neuro: alert and oriented x3, no focal findings Psych: appropriate affect DS: Data Data Completed and Pending Completed studies during hospitalization [Text1]: Laboratory Results WBC 9.2 X10*3/uL (4.8-10.8) 03/05/21 05:52 RBC 3.89 X10*6/uL (4.20-5.50) L 03/05/21 05:52 Hgb 11.2 g/dl (12.0-16.0) L 03/05/21 05:52 Hct 36.1 % (37.0-47.0) L 03/05/21 05:52 MCV 92.8 fL (80.0-98.0) 03/05/21 05:52 MCH 28.8 pg (27.0-33.0) 03/05/21 05:52 MCHC 31.0 g/dl (31.0-35.0) 03/05/21 05:52 RDW 13.4 % (11.0-16.0) 03/05/21 05:52 Plt Count 240 X10*3/uL (160-400) 03/05/21 05:52 MPV 11.2 fL (9.4-12.3) 03/05/21 05:52 Immature Gran % (Auto) 0.4 % (0.0-0.4) 03/05/21 05:52 Neut % (Auto) 71.7 % (45-73) 03/05/21 05:52 Lymph % (Auto) 20.3 % (20-40) 03/05/21 05:52 [place] % (Auto) 6.4 % (2-11) 03/05/21 05:52 Eos % (Auto) 0.8 % (0-4) 03/05/21 05:52 Baso % (Auto) 0.4 % (0-2) 03/05/21 05:52 Lymph # (Auto) 1.9 X10*3/uL (1.2-4.9) 03/05/21 05:52 [place] # (Auto) 0.6 X10*3/uL (0.1-1.2) 03/05/21 05:52 Eos # (Auto) 0.1 X10*3/uL (0.0-0.4) 03/05/21 05:52 Baso # (Auto) 0.0 X10*3/uL (0.0-0.2) 03/05/21 05:52 Abs Immat Gran (auto) 0.04 X10*3/uL (0.00-0.03) H 03/05/21 05:52 Absolute Neuts (auto) 6.6 x10*3/uL (2.0-8.3) 03/05/21 05:52 Absolute Nucleated RBC 0.000 X10*3/uL (0.0-0.012) 03/05/21 05:52 Nucleated RBC % (auto) 0.0 /100WBC (0.0-0.2) 03/05/21 05:52 Sodium 141 mmol/L (135-145) 03/05/21 05:52 Potassium 4.0 mmol/L (3.3-5.1) 03/05/21 05:52 Chloride 107 mmol/L (96-108) 03/05/21 05:52 Carbon Dioxide 27 mmol/L (22-29) 03/05/21 05:52 Anion Gap 11 (12-20) L 03/05/21 05:52 BUN 14 mg/dL (9-16) 03/05/21 05:52 Creatinine 0.77 mg/dL (0.5-1.4) 03/05/21 05:52 Estim Creat Clear Calc 103.2 03/05/21 05:52 Estimated GFR > 60 03/05/21 05:52 Random Glucose 92 mg/dL (60-115) 03/02/21 07:02 Fasting Glucose 102 mg/dL (60-99) H 03/05/21 05:52 Lactic Acid 1.3 mmol/L (0.5-2.0) 03/01/21 19:55 Calcium 9.1 mg/dL (8.4-10.2) 03/05/21 05:52 Total Bilirubin 0.4 mg/dL (0.0-1.0) 03/05/21 05:52 Direct Bilirubin < 0.2 mg/dL (0.0-0.5) 03/01/21 19:55 AST 25 U/L (5-31) 03/05/21 05:52 ALT 39 U/L (0-31) H 03/05/21 05:52 Alkaline Phosphatase 73 U/L (39-117) 03/05/21 05:52 B-Natriuretic Peptide 40 pg/mL (<100) 03/01/21 19:55 Total Protein 6.8 g/dL (6.5-8.0) 03/05/21 05:52 Albumin 3.9 g/dL (3.5-5.0) 03/05/21 05:52 Lipase 30 U/L (8-78) 03/01/21 19:55 Urine Color YELLOW 03/01/21 20:34 Urine Appearance CLEAR 03/01/21 20:34 Urine pH 7.0 (5.0-8.0) 03/01/21 20:34 Ur Specific [place] <= 1.005 (1.005-1.025) 03/01/21 20:34 Urine Protein NEG MG/DL (NEG-TRACE) 03/01/21 20:34 Urine Glucose (UA) NEG MG/DL (NEG) 03/01/21 20:34 Urine Ketones NEG MG/DL (NEG) 03/01/21 20:34 Urine Blood NEG (NEG) 03/01/21 20:34 Urine Nitrite NEG (NEG) 03/01/21 20:34 Ur Leukocyte Esterase TRACE (NEG) H 03/01/21 20:34 Urine RBC 0 /HPF (0) 03/01/21 20:34 Urine WBC 5-9 /HPF (0-4) H 03/01/21 20:34 Ur Squamous Epith Cells 1+ /LPF 03/01/21 20:34 Urine Bacteria NONE /LPF 03/01/21 20:34 Vancomycin Trough 12.6 mcg/mL (10.0-20.0) 03/04/21 16:46 Random Vancomycin 10.6 mcg/mL (15-20) L 03/03/21 16:54 COVID-19 (JAMIE) Negative (Negative) 03/01/21 19:55 COVID-19 Clin Com See Note 03/01/21 19:55 Impressions Venous Duplex 03/01/21 22:17 IMPRESSION: No DVT demonstrated in the right lower extremity. Discharge Plan Discharge Patient Disposition: Home, Self-Care Discharge Diagnosis: cellulitis of leg, yeast infection Referrals: Toby Gale MD [Primary Care Provider] - 1 Week Discharge Medications: New doxycycline monohydrate 100 mg tablet 100 mg PO BID Qty: 14 RF: 0 amoxicillin-pot clavulanate 875-125 mg tablet 1 tab PO BID Qty: 14 RF: 0 clotrimazole 1 % Cream 1 appl vaginal BEDTIME Qty: 5 RF: 0 Continued quetiapine 25 mg tablet 25 mg PO BEDTIME RF: 0 bupropion HCl 300 mg tablet extended release 24 hr 300 mg PO DAILY RF: 0 topiramate 50 mg tablet 50 mg PO BID RF: 0 Vyvanse 60 mg capsule 60 mg PO DAILY RF: 0 multivitamin Tablet 1 tab PO DAILY RF: 0 Discharge Orders: Discharge Order (Routine); Ordered 03/05/21 Ordered By: Robert Sandoval Diet: advance to usual diet Activity on Discharge: As tolerated Stand Alone Forms: Patient Portal Discharge page Care Plan Goals: resolution of cellulitis, yeast infection Health Concerns: cellulitis, yeast infection Plan of Treatment: take doxycycline 100 mg and amoxicillin/clavaulanate 875/125 mg, both twice daily for 7 days; use clotrimazole vaginal cream daily for 5 days; see your primary care doctor in 1 week Assessment: See Discharge Summary Patient Instructions: Cellulitis (DC)
[2021-03-05 12:00] VITALS: BP 163/73; PULSE 96; RESP 18; TEMP 36.6; O2SAT 100
== END 2021-03-05 16:06 | disposition home or self-care (01) | DRG 603 ==
LOC: HO.ED 21:32 → HO.EDOVER 22:31 → HO.S3 03-03 01:01
PROVIDERS: Hospitalist; Admitting Provider Internal Medicine; Emergency Provider Emergency Medicine; PCP Internal Medicine; Visit Provider Family Medicine
DX: L03.116 Cellulitis of left lower limb (principal); N32.81 Overactive bladder; B37.3 Candidiasis of vulva and vagina; F39 Unspecified mood [affective] disorder; Z20.822 Contact with and (suspected) exposure to COVID-19; Z79.899 Other long term (current) drug therapy
CPT/HCPCS: 36415; 80048; 80053; 80076; 80202; 81001; 83605; 83690; 83880; 85025; 87040; 87086; 87635; 93971; 96361; 96365; 96366; 96367; 96375; 99285; J1650; J1885; J2543; J3370

== ENCOUNTER 2021-03-08 04:47 | Observation (INO) | payer MEDICARE, MEDICAID, SELFPAY ==
[2021-03-08 05:09] VITALS: BP 129/52; BP 140/90; PULSE 91; PULSE 92; RESP 16; TEMP 36.8; O2SAT 100; O2SAT 99; BMI 42.3
[2021-03-08 05:49] LABS: MANUAL DIFF FLAG NO
[2021-03-08 05:50] LABS: Basophils Percent Auto 0.5 % (0-2); Eosinophils Percent Auto 0.1 % (0-4); Hematocrit 33.6 % (37.0-47.0); Hemoglobin 10.7 g/dl (12.0-16.0); Imm Gran Abs Auto 0.02 X10*3/uL (0.00-0.03); Imm Gran Pct Auto 0.3 % (0.0-0.4); Lymphocytes Absolute Auto 1.7 X10*3/uL (1.2-4.9); Lymphocytes Percent Auto 22.5 % (20-40); Mean Corpuscular HGB Conc 31.8 g/dl (31.0-35.0); Mean Corpuscular Hemoglobin 28.9 pg (27.0-33.0); Mean Corpuscular Volume 90.8 fL (80.0-98.0); Mean Platelet Volume 10.9 fL (9.4-12.3); Monocytes Absolute Auto 0.4 X10*3/uL (0.1-1.2); Neutrophils Absolute Auto 5.2 x10*3/uL (2.0-8.3); Neutrophils Percent Auto 70.6 % (45-73); Platelet Count 227 X10*3/uL (160-400); Red Cell Distribution Width 13.2 % (11.0-16.0); White Blood Count 7.4 X10*3/uL (4.8-10.8)
[2021-03-08 05:59] LABS: Lactic Acid 0.7 mmol/L (0.5-2.0)
[2021-03-08] MEDS: oxyCODONE HCl Immed Release 5 MG TABLET PO ×2 (06:02→14:48)
[2021-03-08 06:04] LABS: Alanine Aminotransferase 30 U/L (0-31); Albumin Level 3.8 g/dL (3.5-5.0); Alkaline Phosphatase 76 U/L (39-117); Anion Gap 11 (12-20); Aspartate Amino Transferase 21 U/L (5-31); Bilirubin Total 0.2 mg/dL (0.0-1.0); Blood Urea Nitrogen 20 mg/dL (9-16); C Reactive Protein 5.64 mg/dL (< or = 0.50); Carbon Dioxide 26 mmol/L (22-29); Chloride 105 mmol/L (96-108); Creatinine Clr Calc Pharmacy 111.2; Estimated Glomerular Filt Rate > 60; Glucose Random 105 mg/dL (60-115); Potassium 3.5 mmol/L (3.3-5.1); Sodium 138 mmol/L (135-145); Total Protein 6.8 g/dL (6.5-8.0)
--- NOTE | 2021-03-08 06:26 | ED.LOWEXIN ---
HPI - Extremity Injury (Lower) General Chief Complaint: Extremity Injury, Lower Stated Complaint: cellulitis Time Seen by Provider: 03/08/21 05:23 Source: patient Mode of arrival: EMS History of Present Illness HPI Narrative: 60-year-old female who presents via EMS with complaints that her left lower extremity has become worse and that now she is having problems with her right lower extremity. She describes this as worsening pain, erythema, and states that she has been taking her antibiotics as prescribed in that she was just discharged on Thursday. She states she is having chills but otherwise denies fevers, shortness of breath, nausea, vomiting. Related Data Home Medications Medication Instructions Recorded Confirmed bupropion HCl 300 mg 24 hr tablet, 300 mg PO DAILY 03/01/21 03/01/21 extended release lisdexamfetamine 60 mg capsule 60 mg PO DAILY 03/01/21 03/01/21 (Vyvanse) multivitamin 1 tab PO DAILY 03/01/21 03/01/21 quetiapine 25 mg tablet 25 mg PO BEDTIME 03/01/21 03/01/21 topiramate 50 mg tablet 50 mg PO BID 03/01/21 03/01/21 Previous Rx's Medication Instructions Recorded amoxicillin 875 mg-potassium 1 tab PO BID #14 tab 03/05/21 clavulanate 125 mg tablet clotrimazole 1 % vaginal cream 1 appl VAGINAL BEDTIME #5 ea 03/05/21 doxycycline monohydrate 100 mg 100 mg PO BID #14 tab 03/05/21 tablet Allergies Allergy/AdvReac Type Severity Reaction Status Date / Time No Known Drug Allergies Allergy Unknown NONE Verified 02/23/21 00:40 [NO KNOWN DRUG ALLERGIES] Review of Systems Review of Systems: Pertinent positives and negatives as stated in HPI 10 point review of systems is otherwise negative. [facility] Past Medical History Source: nursing notes reviewed Medical History Bipolar disorder Depression with anxiety Surgical History History of Family History Family History Mother Hypertension Diabetes CHF (congestive heart failure) Social History Social History Household Members: Family Housing: Apartment Alcohol intake: never Patient Tobacco Use Status: Never used Tobacco Use of substances other than those prescribed or required for medical reasons: No Advance Directives: No Advance Directives Information Provided: No service: No Current occupational status: unemployed Physical Exam Vital Signs: Vital Signs: Last Vital Signs Temp 98.2 F 03/08/21 05:09 Pulse 91 03/08/21 05:09 Resp 16 03/08/21 05:09 BP 129/52 L 03/08/21 05:09 Pulse Ox 100 03/08/21 05:09 Body Mass Index 42.3 VITAL SIGNS: Reviewed. GENERAL: Well developed, well nourished, in no acute distress. HEAD: Normocephalic/atraumatic EYES: PERRLA, EOMI OROPHARYNX: no oral lesions noted, posterior pharynx clear NECK: Supple, no adenopathy LUNGS: Normal breath sounds. SpO2<100> CARDIOVASCULAR: Regular rate and rhythm without noted murmurs ABDOMEN: Soft, non-tender, non-distended with bowel sounds. LEFT LOWER EXTREMITY: SWELLING THAT IS NONPITTING IN NATURE UP TO MID CALF WITH ERYTHEMA AND NOTED TO HAS SIGNIFICANT TACTILE PAIN Right lower extremity: Erythema, swelling up to ankle with significant pain on palpation dorsum of foot. NEUROLOGIC: Alert and oriented x 4. Strength and sensation to light touch were grossly intact x 4. Course Course Course Narrative: 60-year-old female with history and clinical presentation cellulitis with poor response to doxycycline and recently discharged on p.o. antibiotics without improvement and now is presenting with similar symptoms to the right lower extremity. Basic labs and antibiotics were provided and this case was discussed with the inpatient hospitalist team who accepts admission. Patient was also provided with p.o. pain medication. On review of all investigations once again patient has no leukocytosis but noted ESR/CRP elevation. Patient is otherwise stable for admission to inpatient hospice was. Patient has noted UTI and was given initial dose of levofloxacin. MDM - Extremity Injury (Lower) Lab Data Result diagrams: 03/08/21 05:36 03/08/21 05:36 Labs: Lab Results 03/08/21 03/08/21 03/08/21 Range/Units 05:36 05:36 05:36 WBC 7.4 (4.8-10.8) X10*3/uL RBC 3.70 L (4.20-5.50) X10*6/uL Hgb 10.7 L (12.0-16.0) g/dl Hct 33.6 L (37.0-47.0) % MCV 90.8 (80.0-98.0) fL MCH 28.9 (27.0-33.0) pg MCHC 31.8 (31.0-35.0) g/dl RDW 13.2 (11.0-16.0) % Plt Count 227 (160-400) X10*3/uL MPV 10.9 (9.4-12.3) fL Immature Gran % (Auto) 0.3 (0.0-0.4) % Neut % (Auto) 70.6 (45-73) % Lymph % (Auto) 22.5 (20-40) % [place] % (Auto) 6.0 (2-11) % Eos % (Auto) 0.1 (0-4) % Baso % (Auto) 0.5 (0-2) % Lymph # (Auto) 1.7 (1.2-4.9) X10*3/uL [place] # (Auto) 0.4 (0.1-1.2) X10*3/uL Eos # (Auto) 0.0 (0.0-0.4) X10*3/uL Baso # (Auto) 0.0 (0.0-0.2) X10*3/uL Abs Immat Gran (auto) 0.02 (0.00-0.03) X10*3/uL Absolute Neuts (auto) 5.2 (2.0-8.3) x10*3/uL Absolute Nucleated RBC 0.000 (0.0-0.012) X10*3/uL Nucleated RBC % (auto) 0.0 (0.0-0.2) /100WBC ESR 37 H (0-20) MM/HR Sodium 138 (135-145) mmol/L Potassium 3.5 (3.3-5.1) mmol/L Chloride 105 (96-108) mmol/L Carbon Dioxide 26 (22-29) mmol/L Anion Gap 11 L (12-20) BUN 20 H (9-16) mg/dL Creatinine 0.73 (0.5-1.4) mg/dL Estim Creat Clear Calc 111.2 Estimated GFR > 60 Random Glucose 105 (60-115) mg/dL Lactic Acid (0.5-2.0) mmol/L Calcium 9.0 (8.4-10.2) mg/dL Total Bilirubin 0.2 (0.0-1.0) mg/dL AST 21 (5-31) U/L ALT 30 (0-31) U/L Alkaline Phosphatase 76 (39-117) U/L C-Reactive Protein 5.64 H (< or = 0.50) mg/dL Total Protein 6.8 (6.5-8.0) g/dL Albumin 3.8 (3.5-5.0) g/dL 03/08/21 Range/Units 05:36 WBC (4.8-10.8) X10*3/uL RBC (4.20-5.50) X10*6/uL Hgb (12.0-16.0) g/dl Hct (37.0-47.0) % MCV (80.0-98.0) fL MCH (27.0-33.0) pg MCHC (31.0-35.0) g/dl RDW (11.0-16.0) % Plt Count (160-400) X10*3/uL MPV (9.4-12.3) fL Immature Gran % (Auto) (0.0-0.4) % Neut % (Auto) (45-73) % Lymph % (Auto) (20-40) % [place] % (Auto) (2-11) % Eos % (Auto) (0-4) % Baso % (Auto) (0-2) % Lymph # (Auto) (1.2-4.9) X10*3/uL [place] # (Auto) (0.1-1.2) X10*3/uL Eos # (Auto) (0.0-0.4) X10*3/uL Baso # (Auto) (0.0-0.2) X10*3/uL Abs Immat Gran (auto) (0.00-0.03) X10*3/uL Absolute Neuts (auto) (2.0-8.3) x10*3/uL Absolute Nucleated RBC (0.0-0.012) X10*3/uL Nucleated RBC % (auto) (0.0-0.2) /100WBC ESR (0-20) MM/HR Sodium (135-145) mmol/L Potassium (3.3-5.1) mmol/L Chloride (96-108) mmol/L Carbon Dioxide (22-29) mmol/L Anion Gap (12-20) BUN (9-16) mg/dL Creatinine (0.5-1.4) mg/dL Estim Creat Clear Calc Estimated GFR Random Glucose (60-115) mg/dL Lactic Acid 0.7 (0.5-2.0) mmol/L Calcium (8.4-10.2) mg/dL Total Bilirubin (0.0-1.0) mg/dL AST (5-31) U/L ALT (0-31) U/L Alkaline Phosphatase (39-117) U/L C-Reactive Protein (< or = 0.50) mg/dL Total Protein (6.5-8.0) g/dL Albumin (3.5-5.0) g/dL Discharge Plan Discharge Clinical Impression: Cellulitis of left leg, Intractable pain, UTI (urinary tract infection) Patient Disposition: Admitted As Inpatient Prescriptions: No Action quetiapine 25 mg tablet 25 mg PO BEDTIME RF: 0 bupropion HCl 300 mg tablet extended release 24 hr 300 mg PO DAILY RF: 0 topiramate 50 mg tablet 50 mg PO BID RF: 0 Vyvanse 60 mg capsule 60 mg PO DAILY RF: 0 multivitamin Tablet 1 tab PO DAILY RF: 0 doxycycline monohydrate 100 mg tablet 100 mg PO BID Qty: 14 RF: 0 amoxicillin-pot clavulanate 875-125 mg tablet 1 tab PO BID Qty: 14 RF: 0 clotrimazole 1 % Cream 1 appl vaginal BEDTIME Qty: 5 RF: 0
[2021-03-08 06:30] LABS: Erythrocyte Sedimentation Rate 37 MM/HR (0-20)
[2021-03-08] MEDS: vancomycin HCL 1,500 MG in 0.9 % Sodium Chloride 500 ML 333.33 MG IV (07:44)
[2021-03-08] MEDS: levoFLOXacin 250 MG TABLET PO (07:44)
[2021-03-08 08:54] LABS: Appearance Urine CLEAR; Color Urine STRAW; Glucose Urine UA NEG (NEG); Leukocyte Esterase Urine 1+ (NEG); Nitrite Urine NEG (NEG); Specific Gravity - Urine <= 1.005 (1.005-1.025); UACC Culture Trigger YES; Urine Blood NEG (NEG); Urine Ketones NEG (NEG); Urine Protein NEG (NEG-TRACE)
[2021-03-08 09:05] LABS: COVID-19 Test Negative (Negative); IDNOW Serial# 9DD0AD1C
--- NOTE | 2021-03-08 09:13 | PC.NURSE ---
Patient due for IV vanco. RN not aware that all blood cultures were not drawn on previous shift. IV vanco was started before cultures were drawn.
[2021-03-08 09:14] LABS: RBC Urine 0 /HPF (0); Squamous Epithelial Cell Urine TRACE /LPF; WBC Urine 0-2 /HPF (0-4)
--- NOTE | 2021-03-08 10:27 | PHA.MEDREC ---
Pharmacy Consult ? Medication Reconciliation Pharmacy has completed the medication reconciliation. Patient has no been taking so of her psych medications. She is working with her doctor to wean off them. Patient has prescritpion for but is not taking: - Bupropion XL 300 mg daily - Hydroxyzine BID - Vyvance 60 mg daily Pt reports being adherent to ABX prescribed last time she was here. Jacquelin Ingram, BillieD
--- NOTE | 2021-03-08 12:00 | P.HPHOSP_ITS ---
History of Present Illness Date of Service: 03/08/21 Chief Complaint: Chills, leg pain/burning/throbbing This is a 60 yo F with a PMH as outlined below who was admitted to [facility] from 03/01 to 03/05 where she was treated for LLE cellulitis with IV vancomyin/zosyn and transitioned to oral doxy/augmentin. The patient reported initial improvement at home but over the last 48 hours, she began having worsening pain in the LLE and chills, which is what prompted her to come to the ED. She reported no fevers. She reported compliant with her prescribed antibiotics at home. In regards to the history of his left lower extremity issue -- she reports that it has been on going for at least the last 1 month. She was prescribed antibiotics initially, but unclear if she completed the course. She was subsequently seen in the ED on 02/23/21 when she was prescribed doxycycline. She was finally admitted from 03/01 to 03/05. Upon arrival to the ED, she was found to have LLE erythem and warmth and tenderness. She had blood cultures drawn, was given IV vancomcyin and oral levaquin. She was admitted for further management. Review of Systems Review of Systems: negative except what is mentioned in the [facility] Medical History Bipolar disorder Depression with anxiety Family History Mother Hypertension Diabetes CHF (congestive heart failure) Surgical History History of Social History Household Members: Family Housing: Apartment Alcohol intake: never Patient Tobacco Use Status: Never used Tobacco Use of substances other than those prescribed or required for medical reasons: No Advance Directives: No Advance Directives Information Provided: No service: No Current occupational status: unemployed Meds Allergies Allergy/AdvReac Type Severity Reaction Status Date / Time No Known Drug Allergies Allergy Unknown NONE Verified 02/23/21 00:40 [NO KNOWN DRUG ALLERGIES] Active Medications: Current Medications Acetaminophen (Acetaminophen 325 Mg Tablet) 650 mg PO Q6H PRN PRN Reason: Pain, Mild (Pain Scale 1-3) Linezolid (Zyvox/D5w) 600 mg in 300 mls @ 300 mls/hr IV Q12H CHITO Ondansetron HCl (Ondansetron Hcl 4 Mg/2 Ml Vial) 4 mg IVPUSH Q8H PRN PRN Reason: Nausea and Vomiting Pharmacy Consult (Consult Rx Vancomycin Dosing) 1 each MISCELLANE DAILY PRN PRN Reason: Consult order Sodium Chloride (0.9 % Sodium Chloride Flush 3 Ml Syringe) 3 ml IVFLUSH QSHIFT [facility] Home Medications Medication Instructions Recorded Confirmed Last Taken Type multivitamin 1 tab PO DAILY 03/01/21 03/08/21 Unknown History quetiapine 25 mg tablet 25 mg PO DAILY PRN 03/01/21 03/08/21 Unknown History topiramate 50 mg tablet 50 mg PO BID 03/01/21 03/08/21 Unknown History naproxen sodium 220 mg capsule 220 mg PO Q12H PRN 03/08/21 03/08/21 Unknown History (Aleshaq) Physical Exam Vital Signs and Narrative: Vital Signs: Last Vital Signs Temp 98.2 F 03/08/21 05:09 Pulse 91 03/08/21 05:09 Resp 16 03/08/21 05:09 BP 129/52 L 03/08/21 05:09 Pulse Ox 100 03/08/21 05:09 Body Mass Index 42.3 Const: Other: Constitutional - Awake and Alert, No apparent distress Eyes - PERRLA, EOMI Cardiovascular - S1S2, RRR, No edema Respiratory - Normal lung expansion, Normal respiratory effort, No respiratory distress, CTA bilaterally Gastrointestinal - NT / ND; +BS; No rebound or guarding - No CVA tenderness Musculoskeletal - Normal inspection, normal ROM Skin - see pictures below Neurological - Alert & oriented x3, No focal deficit Psychological - Appropriate affect Skin: Other: LLE: Results Labs CBC and Chem 7: 03/08/21 05:36 03/08/21 05:36 Labs: Laboratory Results - last 24 hr 03/08/21 03/08/21 03/08/21 05:36 05:36 05:36 MCV 90.8 MCH 28.9 MCHC 31.8 RDW 13.2 Plt Count 227 MPV 10.9 Immature Gran % (Auto) 0.3 Neut % (Auto) 70.6 Lymph % (Auto) 22.5 [place] % (Auto) 6.0 Eos % (Auto) 0.1 Baso % (Auto) 0.5 Lymph # (Auto) 1.7 [place] # (Auto) 0.4 Eos # (Auto) 0.0 Baso # (Auto) 0.0 Abs Immat Gran (auto) 0.02 Absolute Neuts (auto) 5.2 Absolute Nucleated RBC 0.000 Nucleated RBC % (auto) 0.0 ESR 37 H Anion Gap 11 L Estim Creat Clear Calc 111.2 Estimated GFR > 60 Random Glucose 105 Lactic Acid Calcium 9.0 Total Bilirubin 0.2 AST 21 ALT 30 Alkaline Phosphatase 76 C-Reactive Protein 5.64 H Total Protein 6.8 Albumin 3.8 Urine Color Urine Appearance Urine pH Ur Specific [place] Urine Protein Urine Glucose (UA) Urine Ketones Urine Blood Urine Nitrite Ur Leukocyte Esterase Urine RBC Urine WBC Ur Squamous Epith Cells Urine Bacteria COVID-19 (JAMIE) COVID-19 Clin Com 03/08/21 03/08/21 03/08/21 05:36 08:42 08:42 MCV MCH MCHC RDW Plt Count MPV Immature Gran % (Auto) Neut % (Auto) Lymph % (Auto) [place] % (Auto) Eos % (Auto) Baso % (Auto) Lymph # (Auto) [place] # (Auto) Eos # (Auto) Baso # (Auto) Abs Immat Gran (auto) Absolute Neuts (auto) Absolute Nucleated RBC Nucleated RBC % (auto) ESR Anion Gap Estim Creat Clear Calc Estimated GFR Random Glucose Lactic Acid 0.7 Calcium Total Bilirubin AST ALT Alkaline Phosphatase C-Reactive Protein Total Protein Albumin Urine Color STRAW Urine Appearance CLEAR Urine pH 6.0 Ur Specific [place] <= 1.005 Urine Protein NEG Urine Glucose (UA) NEG Urine Ketones NEG Urine Blood NEG Urine Nitrite NEG Ur Leukocyte Esterase 1+ H Urine RBC 0 Urine WBC 0-2 Ur Squamous Epith Cells TRACE Urine Bacteria NONE COVID-19 (JAMIE) Negative COVID-19 Clin Com See Note Assessment and Plan (1) Cellulitis of left leg: Status: Acute This is a 60 yo F who was admitted to [facility] from 03/01-03/05 for the treatment of cellulitis (broad spec -- Vancomycin/Zoysn, d/c on Augmentin/Doxy) who now returns with complaints of chills and worsening LLE pain. She will be admitted for further treatment and evaluation. 1. Possible LLE cellulitis Has been treated with multiple oral and IV courses. Clinically her erythema appears stable since her discharge (per discussion with discharging provider). However, she reports chills and worsening pain. Question if this is toxin related. Will start IV Zyvox and consult infectious disease. Follow up cultures. 2. Bipolar depression continue baseline meds 3. Recent history of vulvovaginal candidiasis complete clotrimazole course Full Code DVT pptx, Lovenox Quality Stroke Does the patient have a stroke diagnosis?: No VTE Prior VTE?: No VTE Risk Level:: Medical - moderate - high VTE Device Contraindication: Treatment Not Indicated VTE Drug Contraindication: N/A - Med Ordered
[2021-03-08 14:46] VITALS: BP 140/54; PULSE 70; RESP 18; TEMP 36.7; O2SAT 98
[2021-03-08] MEDS: Enoxaparin Sodium 40 MG/0.4 ML SYRINGE SUBCUT (14:48)
[2021-03-08] MEDS: 0.9 % Sodium Chloride Flush 3 ML SYRINGE IVFLUSH (16:24)
--- NOTE | 2021-03-08 16:51 | MHC.CM.PN ---
CM met with patient in observation, with a bed assignment pending. SIEGEL reviewed and signed per protocol 03/08/2021@1630. HCP on file. HCP/spouse Manuel Lake ([phone]) and alternate HCP/sister Hedy Bartholomew ([phone]). , had a stroke in September. Is slowly improving, using cane and speech improved. Now with outpatient therapy at [place]. Pt is stressed about her medical issues and her husbands. Son, Thad is very helpful. She would like him as a contact. Thad Lake ([phone]). Pt is Jehovah Witness and will not accept blood transfusions, on medical record. PCP is Dr. Celestin. Pt has [facility]. Pt lives with and son. Uses no DME or services. Is fully vaccinated with Moderna. D/C plan is home without services. Son to provide transportation home. CM to follow for d/c needs.
--- NOTE | 2021-03-08 21:42 | P.CNID_ITS ---
History of Present Illness Data of Consult Service Date: 03/08/21 Requesting physician: Alejandro Bean Primary Care Provider: Unknown Physician HPI Reason for consult: reddened left leg She presents to hospital with left leg erythema and discomfort. She has had redness in leg and received antibiotics over last twelve days with no improvement. She was given po Doxycycline on 02/23. She presented to hospital and was admitted 03/01-03/05. She was started on po Augmentin and Doxycycline after and no better. She has some scaliness She has no fever or chills. Review of Systems Review of Systems: Yes all other systems are reviewed and are negative [facility] Past Medical History Medical History (Updated 03/08/21 @ 21:52 by Raven Hensley MD) Allergic arthritis of lower leg Bipolar disorder Depression with anxiety Family History Family History Mother Hypertension Diabetes CHF (congestive heart failure) Family history: reviewed and not pertinent Surgical History Surgical History History of Social History Social History Household Members: Family Housing: Apartment Alcohol intake: never Patient Tobacco Use Status: Never used Tobacco Use of substances other than those prescribed or required for medical reasons: No Advance Directives: No Advance Directives Information Provided: No service: No Current occupational status: unemployed Meds Allergies Allergy/AdvReac Type Severity Reaction Status Date / Time No Known Drug Allergies Allergy Unknown NONE Verified 02/23/21 00:40 [NO KNOWN DRUG ALLERGIES] Active Medications: Current Medications Acetaminophen (Acetaminophen 325 Mg Tablet) 650 mg PO Q6H PRN PRN Reason: Pain, Mild (Pain Scale 1-3) Clotrimazole (Clotrimazole 1 % Vaginal Cream 45 Gm Tube) 1 appl VAGINAL BEDTIME [facility] Enoxaparin Sodium (Enoxaparin Sodium 40 Mg/0.4 Ml Syringe) 40 mg SUBCUT Q24H [facility] Last Admin: 03/08/21 14:48 Dose: 40 mg Documented by: Linezolid (Zyvox/D5w) 600 mg in 300 mls @ 300 mls/hr IV Q12H [facility] Last Admin: 03/08/21 15:30 Dose: Not Given Documented by: Multivitamins/Vitamin C (Multivitamin Tablet) 1 tab PO DAILY [facility] Ondansetron HCl (Ondansetron Hcl 4 Mg/2 Ml Vial) 4 mg IVPUSH Q8H PRN PRN Reason: Nausea and Vomiting Oxycodone HCl (Oxycodone Hcl Immed Release 5 Mg Tablet) 5 mg PO Q6H PRN PRN Reason: Pain, Moderate (Pain Scale 4-6 Last Admin: 03/08/21 14:48 Dose: 5 mg Documented by: Quetiapine Fumarate (Quetiapine Fumarate 25 Mg Tablet) 25 mg PO BEDTIME PRN PRN Reason: Anxiety Sodium Chloride (0.9 % Sodium Chloride Flush 3 Ml Syringe) [address] [facility] Last Admin: 03/08/21 16:24 Dose: 3 ml Documented by: Topiramate (Topiramate 25 Mg Tablet) 50 mg PO BID [facility] Home Medications Medication Instructions Recorded Confirmed Last Taken Type multivitamin 1 tab PO DAILY 03/01/21 03/08/21 Unknown History quetiapine 25 mg tablet 25 mg PO BEDTIME PRN 03/01/21 03/08/21 Unknown History topiramate 50 mg tablet 50 mg PO BID 03/01/21 03/08/21 Unknown History naproxen sodium 220 mg capsule 220 mg PO Q12H PRN 03/08/21 03/08/21 Unknown History (Aleve) Physical Exam Vital Signs: Vital Signs: Last Vital Signs Temp 98.1 F 03/08/21 14:46 Pulse 70 03/08/21 14:46 Resp 18 03/08/21 14:46 BP 140/54 H 03/08/21 14:46 Pulse Ox 98 03/08/21 14:46 Body Mass Index 42.3 Const: General: cooperative Eyes: General: appearance normal, both eyes and all related structures Resp: Effort & Inspection: normal respiratory effort Cardio: Rate: regular rate Rhythm: regular rhythm GI: Palpation (GI): Soft to palpation and nontender : General: Yes no CVA tenderness Back/Spine/Pelvis: Back: no CVA tenderness Skin: General skin exam: no rashes or lesions noted Extrem: Other: left leg scaliness plus two edema maculopapular itching Results Labs CBC & Chem 7: 03/08/21 05:36 03/08/21 05:36 Labs: Short CBC 03/08/21 Range/Units 05:36 WBC 7.4 (4.8-10.8) X10*3/uL Hgb 10.7 L (12.0-16.0) g/dl Hct 33.6 L (37.0-47.0) % Plt Count 227 (160-400) X10*3/uL BMP 03/08/21 05:36 Sodium 138 Potassium 3.5 Chloride 105 Carbon Dioxide 26 BUN 20 H Creatinine 0.73 Calcium 9.0 Liver Function 03/08/21 Range/Units 05:36 Total Bilirubin 0.2 (0.0-1.0) mg/dL AST 21 (5-31) U/L ALT 30 (0-31) U/L Alkaline Phosphatase 76 (39-117) U/L Albumin 3.8 (3.5-5.0) g/dL Urine 03/08/21 Range/Units 08:42 Urine Color STRAW Urine Appearance CLEAR Urine pH 6.0 (5.0-8.0) Ur Specific [place] <= 1.005 (1.005-1.025) Urine Protein NEG (NEG-TRACE) MG/DL Urine Glucose (UA) NEG (NEG) MG/DL Assessment and Plan (1) Allergic arthritis of lower leg: Status: Acute She has no response to antibiotics all types She has itchy area leg and multiple applications of tea tree and essential oils She has venous stasis changes more than cellulitis She has had multiple vein procedures with Dr Castro in past Steroid cream to legs Hold antibiotics for now. Consider po linezolid if still no improvement day or two.
[2021-03-08] MEDS: Topiramate 25 MG TABLET 50 MG PO (23:02)
[2021-03-08] MEDS: QUEtiapine Fumarate 25 MG TABLET PO (23:43)
[2021-03-09] VITALS: BP 145/70; PULSE 90; RESP 16; TEMP 36.7; O2SAT 97
[2021-03-09] MEDS: 0.9 % Sodium Chloride Flush 3 ML SYRINGE IVFLUSH (02:57)
[2021-03-09 04:00] VITALS: BP 141/67; PULSE 86; RESP 16; TEMP 36.2; O2SAT 98
[2021-03-09 06:32] LABS: Hematocrit 36.5 % (37.0-47.0); Hemoglobin 11.4 g/dl (12.0-16.0); Mean Corpuscular HGB Conc 31.2 g/dl (31.0-35.0); Mean Corpuscular Hemoglobin 28.5 pg (27.0-33.0); Mean Corpuscular Volume 91.3 fL (80.0-98.0); Mean Platelet Volume 10.9 fL (9.4-12.3); Platelet Count 266 X10*3/uL (160-400); Red Cell Distribution Width 13.2 % (11.0-16.0); White Blood Count 7.1 X10*3/uL (4.8-10.8)
[2021-03-09 07:01] LABS: Anion Gap 14 (12-20); Blood Urea Nitrogen 13 mg/dL (9-16); Carbon Dioxide 23 mmol/L (22-29); Chloride 110 mmol/L (96-108); Creatinine Clr Calc Pharmacy 122.9; Estimated Glomerular Filt Rate > 60; Glucose Random 98 mg/dL (60-115); Potassium 4.1 mmol/L (3.3-5.1); Sodium 143 mmol/L (135-145)
[2021-03-09 07:33] VITALS: BP 167/107; PULSE 93; RESP 18; TEMP 36; O2SAT 100
[2021-03-09 08:45] LABS: Atypical Lymph Absolute Manual 0.1 x10*3/uL; Atypical Lymphs Percent Manual 2 % (0-6); Band Neutrophils Percent 1 % (3-5); Eosinophils Absolute Manual 0.1 X10*3/uL (0.0-0.4); Eosinophils Percent Manual 2 % (0-4); Lymphocytes Absolute Manual 1.5 X10*3/uL (1.2-4.9); Lymphocytes Percent Manual 21 % (20-40); Monocytes Absolute Manual 0.3 X10*3/uL (0.1-1.2); Monocytes Percent Manual 4 % (2-11); Neutrophils Percent Manual 70 % (45-73)
[2021-03-09 08:46] LABS: Platelet Estimate NORMAL (NORMAL); Platelet Morphology Comment NORMAL; RBC Morphology NORMAL
[2021-03-09] MEDS: Betamethasone Dip Aug 0.05% Cr 15 GM TUBE 1 APPL TOPICAL (10:31)
[2021-03-09] MEDS: Multivitamin TABLET 1 TAB PO (10:31)
[2021-03-09 11:33] VITALS: BP 178/81; PULSE 85; RESP 18; TEMP 36.1; O2SAT 95
--- NOTE | 2021-03-09 12:25 | P.DS_ITS ---
DS: Providers Provider Date of Service: 03/09/21 Date of admission: 03/08/21 11:52 Primary care physician: Unknown Physician Consults: 03/08/21 11:56 Consult to Infectious Diseases Routine Consulting Provider: Raven Hensley Reason for consultation: cellulitis, not improving DS: Diagnosis Discharge Diagnosis (1) Cellulitis of left leg: Status: Acute (2) Venous insufficiency: Status: Acute DS: Summary Hospital Course Hospital Course: from admission H+P by hospitalist Alejandro Bean MD, 03/08/21: This is a 60 yo F with a PMH as outlined below who was admitted to [facility] from 03/01 to 03/05 where she was treated for LLE cellulitis with IV vancomyin/zosyn and transitioned to oral doxy/augmentin. The patient reported initial improvement at home but over the last 48 hours, she began having worsening pain in the LLE and chills, which is what prompted her to come to the ED. She reported no fevers. She reported compliant with her prescribed antibiotics at [facility]. In regards to the history of his left lower extremity issue -- she reports that it has been on going for at least the last 1 month. She was prescribed antibiotics initially, but unclear if she completed the course. She was subsequently seen in the ED on 02/23/21 when she was prescribed doxycycline. She was finally admitted from 03/01 to 03/05. Upon arrival to the ED, she was found to have LLE erythem and warmth and tenderness. She had blood cultures drawn, was given IV vancomcyin and oral levaquin. She was admitted for further management. The patient was admitted to the medical/surgical floor and treated with IV linezolid. Infectious Diseases was consulted and thought that the changes in her legs were more likely due to venous stasis rather than cellultiis. She has had multiple vein procedures in the past. She was given steroid cream to the legs. The erythema and warmth and tenderness improved considerably and she was discharged home on hospital d#2. She was instructed to complete the previously prescribed doxycycline and amoxcillin/clavulanate, apply betamethasone cream, and follow up with her primary care doctor and vascular surgeon. Consideration may be given to compression stockings once the infection resolves. Escin [horsechestnut extract] was also prescribed for relief of venous insufficiency symptoms. Time Spent with Patient Time attestation: Total time spent providing and/or coordinating discharge services: Discharge coordination time: Greater than 30 minutes Quality: Stroke Does the patient have a stroke diagnosis?: No Physical Exam Vital Signs: Vital Signs: Last Vital Signs Temp 96.9 F 03/09/21 11:33 Pulse 85 03/09/21 11:33 Resp 18 03/09/21 11:33 BP 178/81 H 03/09/21 11:33 Pulse Ox 95 03/09/21 11:33 Body Mass Index 42.3 Gen: in no acute distress HEENT: sclera anicteric, moist mucus membranes Neck: supple Lungs: clear to auscultation bilaterally Heart: regular rate and rhythm, no murmurs Abd: soft, non-tender, non-distended; obese Ext: no edema Skin: warm/well-perfused, LLE>RLE hyperpigmentation, resolving scaling of LLE Neuro: alert and oriented x3, no focal findings Psych: appropriate affec DS: Data Data Completed and Pending Completed studies during hospitalization [Text1]: Laboratory Results WBC 7.1 X10*3/uL (4.8-10.8) 03/09/21 05:58 RBC 4.00 X10*6/uL (4.20-5.50) L 03/09/21 05:58 Hgb 11.4 g/dl (12.0-16.0) L 03/09/21 05:58 Hct 36.5 % (37.0-47.0) L 03/09/21 05:58 MCV 91.3 fL (80.0-98.0) 03/09/21 05:58 MCH 28.5 pg (27.0-33.0) 03/09/21 05:58 MCHC 31.2 g/dl (31.0-35.0) 03/09/21 05:58 RDW 13.2 % (11.0-16.0) 03/09/21 05:58 Plt Count 266 X10*3/uL (160-400) 03/09/21 05:58 MPV 10.9 fL (9.4-12.3) 03/09/21 05:58 Immature Gran % (Auto) 0.3 % (0.0-0.4) 03/08/21 05:36 Neut % (Auto) 70.6 % (45-73) 03/08/21 05:36 Lymph % (Auto) 22.5 % (20-40) 03/08/21 05:36 Garrett % (Auto) 6.0 % (2-11) 03/08/21 05:36 Eos % (Auto) 0.1 % (0-4) 03/08/21 05:36 Baso % (Auto) 0.5 % (0-2) 03/08/21 05:36 Lymph # (Auto) 1.7 X10*3/uL (1.2-4.9) 03/08/21 05:36 Garrett # (Auto) 0.4 X10*3/uL (0.1-1.2) 03/08/21 05:36 Eos # (Auto) 0.0 X10*3/uL (0.0-0.4) 03/08/21 05:36 Baso # (Auto) 0.0 X10*3/uL (0.0-0.2) 03/08/21 05:36 Abs Immat Gran (auto) 0.02 X10*3/uL (0.00-0.03) 03/08/21 05:36 Absolute Neuts (auto) 5.2 x10*3/uL (2.0-8.3) 03/08/21 05:36 Absolute Nucleated RBC 0.000 X10*3/uL (0.0-0.012) 03/09/21 05:58 Nucleated RBC % (auto) 0.0 /100WBC (0.0-0.2) 03/09/21 05:58 Neutrophils % (Manual) 70 % (45-73) 03/09/21 05:58 Band Neutrophils % 1 % (3-5) L 03/09/21 05:58 Lymphocytes % (Manual) 21 % (20-40) 03/09/21 05:58 Atypical Lymphs % (Man) 2 % (0-6) 03/09/21 05:58 Monocytes % (Manual) 4 % (2-11) 03/09/21 05:58 Eosinophils % (Manual) 2 % (0-4) 03/09/21 05:58 Abs Neuts (Manual) 5.0 X10*3/uL (2.0-8.3) 03/09/21 05:58 Lymphocytes # (Manual) 1.5 X10*3/uL (1.2-4.9) 03/09/21 05:58 Atyp Lymphs # (Manual) 0.1 x10*3/uL 03/09/21 05:58 Monocytes # (Manual) 0.3 X10*3/uL (0.1-1.2) 03/09/21 05:58 Eosinophils # (Manual) 0.1 X10*3/uL (0.0-0.4) 03/09/21 05:58 Platelet Estimate NORMAL (NORMAL) 03/09/21 05:58 Plt Morphology Comment NORMAL 03/09/21 05:58 RBC Morphology NORMAL 03/09/21 05:58 ESR 37 MM/HR (0-20) H 03/08/21 05:36 Sodium 143 mmol/L (135-145) 03/09/21 05:58 Potassium 4.1 mmol/L (3.3-5.1) 03/09/21 05:58 Chloride 110 mmol/L (96-108) H 03/09/21 05:58 Carbon Dioxide 23 mmol/L (22-29) 03/09/21 05:58 Anion Gap 14 (12-20) 03/09/21 05:58 BUN 13 mg/dL (9-16) 03/09/21 05:58 Creatinine 0.66 mg/dL (0.5-1.4) 03/09/21 05:58 Estim Creat Clear Calc 122.9 03/09/21 05:58 Estimated GFR > 60 03/09/21 05:58 Random Glucose 98 mg/dL (60-115) 03/09/21 05:58 Lactic Acid 0.7 mmol/L (0.5-2.0) 03/08/21 05:36 Calcium 9.0 mg/dL (8.4-10.2) 03/09/21 05:58 Total Bilirubin 0.2 mg/dL (0.0-1.0) 03/08/21 05:36 AST 21 U/L (5-31) 03/08/21 05:36 ALT 30 U/L (0-31) 03/08/21 05:36 Alkaline Phosphatase 76 U/L (39-117) 03/08/21 05:36 C-Reactive Protein 5.64 mg/dL (< or = 0.50) H 03/08/21 05:36 Total Protein 6.8 g/dL (6.5-8.0) 03/08/21 05:36 Albumin 3.8 g/dL (3.5-5.0) 03/08/21 05:36 Urine Color STRAW 03/08/21 08:42 Urine Appearance CLEAR 03/08/21 08:42 Urine pH 6.0 (5.0-8.0) 03/08/21 08:42 Ur Specific [place] <= 1.005 (1.005-1.025) 03/08/21 08:42 Urine Protein NEG MG/DL (NEG-TRACE) 03/08/21 08:42 Urine Glucose (UA) NEG MG/DL (NEG) 03/08/21 08:42 Urine Ketones NEG MG/DL (NEG) 03/08/21 08:42 Urine Blood NEG (NEG) 03/08/21 08:42 Urine Nitrite NEG (NEG) 03/08/21 08:42 Ur Leukocyte Esterase 1+ (NEG) H 03/08/21 08:42 Urine RBC 0 /HPF (0) 03/08/21 08:42 Urine WBC 0-2 /HPF (0-4) 03/08/21 08:42 Ur Squamous Epith Cells TRACE /LPF 03/08/21 08:42 Urine Bacteria NONE /LPF 03/08/21 08:42 COVID-19 (JAMIE) Negative (Negative) 03/08/21 08:42 COVID-19 Clin Com See Note 03/08/21 08:42 Discharge Plan Discharge Patient Disposition: Home, Self-Care Discharge Diagnosis: cellulitis, venous stasis Referrals: Leon Rubio MD [Physician] - 1 Week Toby Gale MD [Physician] - 1 Week Discharge Medications: New betamethasone, augmented 0.05 % Cream 1 appl topical BID Qty: 50 RF: 0 horse chestnut 300 mg capsule 300 mg PO BID Qty: 60 RF: 0 Continued naproxen sodium [Aleve] 220 mg Capsule 220 mg PO Q12H PRN (Reason: Pain) RF: 0 quetiapine 25 mg tablet 25 mg PO BEDTIME PRN (Reason: Anxiety) RF: 0 topiramate 50 mg tablet 50 mg PO BID RF: 0 multivitamin Tablet 1 tab PO DAILY RF: 0 doxycycline monohydrate 100 mg tablet 100 mg PO BID Qty: 14 RF: 0 amoxicillin-pot clavulanate 875-125 mg tablet 1 tab PO BID Qty: 14 RF: 0 clotrimazole 1 % Cream 1 appl vaginal BEDTIME Qty: 5 RF: 0 Discharge Orders: Discharge Order (Routine); Ordered 03/09/21 Ordered By: Robert Sandoval Diet: advance to usual diet Activity on Discharge: elevate le Stand Alone Forms: Patient Portal Discharge page Care Plan Goals: cure of cellultiis relief of venous stasis Health Concerns: cellulitis venous stasis Plan of Treatment: complete antibiotics as previously prescribed elevate legs follow up with primary care and Vascular Surgery, obtain compression stockings once infection healed, and consider horsechestnut extract at a dose of 300 mg (standardized to 50 mg of escin, the active compound) twice daily? Assessment: See Discharge Summary Patient Instructions: Venous Insufficiency (DC)
--- NOTE | 2021-03-09 13:13 | MHC.CM.PN ---
PATIENT IS DISCHARGED HOME - [facility] IS PROVIDING TRANSPORTATION. RN AWARE OF PLAN.
== END 2021-03-09 13:40 | disposition home or self-care (01) ==
LOC: HO.ED 07:14 → HO.EDOVER 13:55 → HO.S3 21:30
PROVIDERS: Admitting Provider Family Medicine; Emergency Provider Student in an Organized Health Care Education/Training Program; Visit Provider Family Medicine
DX: L03.116 Cellulitis of left lower limb (principal); N39.0 Urinary tract infection, site not specified; I87.2 Venous insufficiency (chronic) (peripheral); M13.869 Other specified arthritis, unspecified knee; M13.88 Other specified arthritis, other site; F31.9 Bipolar disorder, unspecified; F41.8 Other specified anxiety disorders; Z66 Do not resuscitate; Z53.1 Procedure and treatment not carried out because of patient's decision for reasons of belief and group pressure; Z20.822 Contact with and (suspected) exposure to COVID-19; Z83.3 Family history of diabetes mellitus; Z82.49 Family history of ischemic heart disease and other diseases of the circulatory system; Z79.891 Long term (current) use of opiate analgesic; Z79.899 Other long term (current) drug therapy
CPT/HCPCS: 36415; 80048; 80053; 81001; 83605; 85007; 85025; 85027; 85652; 86140; 87040; 87086; 87635; 96365; 99218; 99285; J1650; J3370

== ENCOUNTER → 2021-03-26 10:11 | Outpatient (BNVA) | payer MEDICARE, MEDICAID, SELFPAY | PROVIDERS: PCP Internal Medicine; Visit Provider Surgery Vascular Surgery | DX: I83.11 Varicose veins of right lower extremity with inflammation (principal) | CPT/HCPCS: 99202 ==

== ENCOUNTER 2021-04-11 13:09 | Outpatient (REF) | payer MEDICARE, MEDICAID, SELFPAY ==
--- NOTE | ~2021-04-11 | US_ITS ---
EXAMINATION: US LOWER EXTREMITY VENOUS (REFLUX EXAM), BILATERAL CLINICAL INDICATION: This is a 60-year-old female with varicose veins and venous insufficiency. COMPARISON: None. TECHNIQUE: Color flow triplex imaging and compression Doppler was performed to evaluate both the deep and the superficial systems bilaterally. To evaluate the superficial system, the examination was performed in the upright position. Color-flow Doppler ultrasound and compression ultrasound were utilized. In addition, maneuvers were utilized to demonstrate reflux. FINDINGS: 1. DEEP VENOUS ULTRASOUND OF THE RIGHT LOWER EXTREMITY: Common Femoral Vein: Compressible, normal respiratory variation and augmented flow. Femoral vein: Compressible, normal color flow and augmentation. Popliteal Vein: Compressible, normal augmentation. Deep Reflux: There is no evidence of reflux in the deep system in either the common femoral vein or the popliteal vein. There is no evidence of a Reed's cyst. 2. SUPERFICIAL ULTRASOUND WITH DOPPLER OF RIGHT LOWER EXTREMITY: GREAT SAPHENOUS VEIN: Saphenofemoral Junction: 0.8 cm Mid Thigh: 0.4 cm Above Knee: 0.2 cm Below Knee: Not seen Mid Calf: Not seen Ankle: Not seen GSV REFLUX: No evidence of reflux. DUPLICATED GREAT SAPHENOUS VEIN: There is a 0.2 cm lateral duplicated great saphenous vein without reflux. SMALL SAPHENOUS VEIN: Proximal: 0.2 cm Distal: 0.3 cm SSV REFLUX: No evidence of reflux. VEIN OF GIACOMINI: None Imaged. PERFORATORS: None Imaged VARICOSITIES: There are 0.5 cm and 0.4 cm thigh varicose veins without evidence of reflux. 3. DEEP VENOUS ULTRASOUND OF THE LEFT LOWER EXTREMITY: Common Femoral Vein: Compressible, normal respiratory variation and augmented flow. Femoral Vein: Compressible, normal color flow and augmentation. Popliteal Vein: Compressible, normal augmentation. Deep Reflux: There is no evidence of reflux in the deep system in either the common femoral vein or the popliteal vein. There is no evidence of a Reed's cyst. 4. SUPERFICIAL ULTRASOUND WITH DOPPLER OF LEFT LOWER EXTREMITY: GREAT SAPHENOUS VEIN: Saphenofemoral Junction: 1.1 cm Mid Thigh: 0.4 cm Above Knee: 0.3 cm Below Knee: 0.3 cm Mid Calf: 0.4 cm Ankle: 0.4 cm GSV REFLUX: No evidence of reflux. DUPLICATED GREAT SAPHENOUS VEIN: None SMALL SAPHENOUS VEIN: The small saphenous vein is not seen. SSV REFLUX: No evidence of reflux. VEIN OF GIACOMINI: None Imaged. PERFORATORS: None Imaged VARICOSITIES: There are 0.3 cm and 0.4 cm, respectively, mid thigh and distal calf varicose veins without reflux. US/US venous duplex LE BI IMPRESSION: 1. There are multiple lymph nodes in the groins. However, some of these lymph nodes lack a central fatty hilum and are enlarged and suspicious. On the right there is a 4.0 x 1.9 x 3.4 cm lymph node. On the left there is a 3.2 x 1.8 x 3.2 cm lymph node. Clinical correlation and possible biopsy is recommended. 2. There are bilateral patent great saphenous veins without evidence of reflux. 3. There is a patent right small saphenous vein without evidence of reflux. 4. There are bilateral varicose veins without evidence of reflux.
== END 2021-04-11 13:10 | disposition home or self-care (01) ==
LOC: HO.US 13:09
PROVIDERS: PCP Internal Medicine; Visit Provider Surgery Vascular Surgery
DX: I83.11 Varicose veins of right lower extremity with inflammation (principal)
CPT/HCPCS: 93970

== ENCOUNTER → 2021-04-16 10:33 | Outpatient (BNVA) | payer MEDICARE, MEDICAID, SELFPAY | PROVIDERS: PCP Internal Medicine; Visit Provider Surgery Vascular Surgery | DX: I89.0 Lymphedema, not elsewhere classified (principal); E66.01 Morbid (severe) obesity due to excess calories; Z68.41 Body mass index [BMI] 40.0-44.9, adult | CPT/HCPCS: 99212 ==

== ENCOUNTER 2021-05-24 10:06 | Outpatient (RCR) | payer MEDICARE, MEDICAID, SELFPAY | END 2021-06-27 09:16 | disposition home or self-care (01) | LOC: HO.WCC 10:06 | PROVIDERS: PCP Internal Medicine; Visit Provider Physician Assistant | DX: I87.312 Chronic venous hypertension (idiopathic) with ulcer of left lower extremity (principal); L97.322 Non-pressure chronic ulcer of left ankle with fat layer exposed; I89.0 Lymphedema, not elsewhere classified | CPT/HCPCS: 11042; 97597; 99212 ==

== ENCOUNTER 2021-06-10 10:33 | Day surgery (SDC) | payer MEDICARE, MEDICAID, SELFPAY ==
--- NOTE | 2021-06-07 10:07 | HO.ANESPROP2 ---
Documented by User: Shala De La Paz NP 06/07/21 10:13 HPI - Anesthesia Eval Consult details Narrative: 60yo F for Interstim Generator and Lead Change PMFSH Active Problems Active Problems: All Active Problems (Updated 04/18/21 @ 14:26 by Leon Rubio MD) Lymphedema (Acute) Varicose veins of right lower extremity with inflammation (Acute) Venous insufficiency (Acute) Vulvovaginal candidiasis (Acute) Past Medical History Medical History Allergic arthritis of lower leg Bipolar disorder Cellulitis of left leg Depression with anxiety History of urinary incontinence Intractable pain Lymphedema UTI (urinary tract infection) Family History Family History Mother Hypertension Diabetes CHF (congestive heart failure) Surgical History Surgical History (Updated 06/10/21 @ 10:47 by Marah Jacobson RN) History of Hx of cholecystectomy Social History Social History Household Members: Family Housing: Apartment Alcohol intake: never Patient Tobacco Use Status: Never used Tobacco service: No Current occupational status: unemployed Meds Allergies Allergy/AdvReac Type Severity Reaction Status Date / Time enoxaparin [From Lovenox] AdvReac Unknown headache, Verified 04/16/21 10:37 electric reaction, heat Home Medications Medication Instructions Recorded Confirmed Last Taken Type multivitamin 1 tab PO DAILY 03/01/21 03/08/21 Unknown History quetiapine 25 mg tablet 25 mg PO BEDTIME PRN 03/01/21 03/08/21 06/10/21 09:15 History topiramate 50 mg tablet 50 mg PO BID 03/01/21 03/08/21 Unknown History naproxen sodium 220 mg capsule 220 mg PO Q12H PRN 03/08/21 03/08/21 Unknown History (Aleve) furosemide 20 mg tablet 20 mg PO DAILY 04/16/21 Unknown History gabapentin 100 mg capsule 100 mg PO DAILY 04/16/21 Unknown History Exam Exam Date and Time: June 07, 2021 1007 Pertinent Lab Results Pertinent Lab Results: Laboratory Tests 03/09/21 03/09/21 05:58 05:58 WBC 7.1 Hgb 11.4 L Hct 36.5 L Plt Count 266 Sodium 143 Potassium 4.1 Chloride 110 H Carbon Dioxide 23 BUN 13 Creatinine 0.66 Assessment and Plan Assessment Anesthesia Assessment: Chart Reviewed Documented by User: Anastacio Crenshaw 06/10/21 17:05 [facility] Past Medical History Medical History Allergic arthritis of lower leg Bipolar disorder Cellulitis of left leg Depression with anxiety History of urinary incontinence Intractable pain Lymphedema UTI (urinary tract infection) Family History Family History Mother Hypertension Diabetes CHF (congestive heart failure) Family history of problems with anesthesia: No Surgical History Surgical History (Updated 06/10/21 @ 10:47 by Marah Jacobson RN) History of Hx of cholecystectomy History of Problems with Anesthesia: No Social History Social History Household Members: Family Housing: Apartment Alcohol intake: never Patient Tobacco Use Status: Never used Tobacco service: No Current occupational status: unemployed Meds Allergies Allergy/AdvReac Type Severity Reaction Status Date / Time enoxaparin [From Lovenox] AdvReac Unknown headache, Verified 04/16/21 10:37 electric reaction, heat Home Medications Medication Instructions Recorded Confirmed Last Taken Type multivitamin 1 tab PO DAILY 03/01/21 03/08/21 Unknown History quetiapine 25 mg tablet 25 mg PO BEDTIME PRN 03/01/21 03/08/21 06/10/21 09:15 History topiramate 50 mg tablet 50 mg PO BID 03/01/21 03/08/21 Unknown History naproxen sodium 220 mg capsule 220 mg PO Q12H PRN 03/08/21 03/08/21 Unknown History (Aleve) furosemide 20 mg tablet 20 mg PO DAILY 04/16/21 Unknown History gabapentin 100 mg capsule 100 mg PO DAILY 04/16/21 Unknown History Exam Airway Mallampati Class: III TM Dist: >3cm Neck ROM: Full Loose/Missing/Broken Teeth: Yes (Fillings ) Heart: rrr Lungs: bl breath sounds Assessment and Plan Assessment Anesthesia Assessment: Anesthesia Plan Discussed Final Anesthetic Review Family History of Problems with Anesthesia: No History of Problems with Anesthesia: No NPO: Yes ASA Class: III Final Preanesthetic Review: Meds/Allgs Chart Reviewed, Consent Obtained/Reviewed and Anes Risks/Benef Reviewed Patient Risk: High Procedure Risk: Intermediate Anesthetic Plan Anesthetic Plan: MAC: Disposition: Standard PACU
--- NOTE | ~2021-06-10 | FL_ITS ---
EXAMINATION: XR FLUOROSCOPY WITH IMAGES CLINICAL INFORMATION: Interstim generator change COMPARISON: AP pelvis 08/26/2012 TECHNIQUE: Fluoroscopy performed by Dr. Karlos Davis. Fluoroscopy time: 0.83 minutes Cumulative dose: 44.87 mGy Images: 2 FINDINGS: The stimulator lead previously overlying the right sacrum has been exchanged with lead now seen overlying left sacrum. There is threadlike density overlying left lumbosacral junction possibly sponge overlying the patient. Clinically correlate. FL/FL guidance in OR IMPRESSION: Fluoroscopy for urologic procedure.
[2021-06-10 10:49] VITALS: BMI 39.1
[2021-06-10 11:09] VITALS: BP 118/64; PULSE 72; RESP 16; TEMP 36.6; O2SAT 99
[2021-06-10] MEDS: Lactated Ringers 1,000 ML 100 ML IVCONT (11:14)
--- NOTE | 2021-06-10 12:45 | P.HPSUR_ITS ---
Pre-Procedural Eval Section A Date of Service: 06/10/21 The patient is an INPATIENT: No Changes since office visit: No Cold of Flu in the past 2 weeks, No New Medical Problems, No Changes in Medication and No Patient answered all questions The History & Physical has been completed within 30 days and I have reviewed it.: No Section B Chief Complaint: Urge Incontinence Details of Present Illness: nonfunctional InterStim device. Plan for replacement of InterStim lead and InterStim battery. Device was interrogated in office and found to be non operable by interstim merchandiser retail representative. Relevant Family History (Specify if Yes): No Relevant Social History: None Present Medications: None Medical History: No relevant PMH History of Previous Operations: Relevant previous surgery/procedure and date(s) Allergies: Allergies Allergy/AdvReac Type Severity Reaction Status Date / Time enoxaparin [From Lovenox] AdvReac Unknown headache, Verified 04/16/21 10:37 electric reaction, heat Review of Systems Sugical H&P ROS: Negative: Constitution, Cardiovascular, Respiratory, Neurological, Psychiatric, Hem-Onc, Allergic/Immunologic, Gastrointestinal, Gen itourinary, Musculoskeletal, Integumentary, Endocrine and Eyes/Ears/Nose/Throat Exam Surgical H&P Exam: Normal: HEENT, Normal: Heart, Normal: Lungs, Normal: Extremities, Normal: Abdomen, Normal: Skin and Normal: Neurological Plan Diagnosis/Plan: Unchanged ( Plan for removal and replacement of both InterStim lead and InterStim battery.) I have reviewed the history and physical and performed a pertinent physical examination on my patient. No changes have occurred unless specified.
--- NOTE | 2021-06-10 14:11 | W.PM.OPN ---
Operative Note Operative Note Date of Service: 06/10/21 Narrative: PreOperative Diagnosis: Overactive bladder with urinary urgency and frequency Post Operative Diagnosis: Overactive bladder with urinary urgency and frequency Procedure: 1.) Removal of InterStim lead 2.) Removal of InterStim battery 3.) Placement of InterStim lead 4.) Placement of InterStim battery Surgeon: Dr Karlos Davis Anesthesia: sedation Indications for procedure: this is a 60-year-old female who previously had an stim placed which had been successful. Subsequently had change of battery and generator which did not help although testing in office indicated lead may have had corruption. Presents today for removal of lead and replacement of lead and battery. Procedure: After informed consent was verified the patient was brought to the operating room. Sedation anesthesia was administered per protocol. the patient was placed in a prone position and prepped and draped in a sterile fashion. Safety pause time-out was performed. Local anesthetic was infiltrated around the initial battery pocket incision on her lateral superior buttock. Incision was made and taken down till the battery was encountered. The battery pocket was opened and a battery brought out to the skin. Using the C-arm and a snap the lead entering S3 on the left side was targeted. This was below the original sacral incision. Local anesthetic was infiltrated around the prior incision and incision made through the skin. Using blunt dissection the original lead was isolated and brought up through our skin incision. This was get disconnected from the battery to give us the full lead in the sacral position. The lead was dissected down until we could palpate the transition to the thickened plastic. Using a right angle clamp we were able to fully withdrawal the old lead from its position in the S3 foramen. Using the C-arm in an AP and lateral view the finding needle was introduced into the S3 foramen running from a caudad to chordal direction. This was done medial and superior to the prior lead placement. Initial position showed placement at S4. The needle was removed and repositioned showing placement into S3. Using the lead ingot molder we could confirm good toe movement and Jud response. The internal introducer from the needle was removed and the control lead placed. The finder needle was removed and the dilator sheath introduced. Under fluoroscopic guidance the dilator sheath was advanced till the marker was seen mid point through the sacral bone on the lateral image. The internal cannula from the dilator was removed. The guidewire was removed. The active lead was then introduced through the dilator sheath and advanced so that the 3rd and 4th marked electrodes crossed the internal boundary line of the sacrum. The testing electrode was then hooked up to each of the wire electrodes 0 through 3 and good Jud and toe response is was seen at low amplitude 2.0 amps. This confirmed the clinically relevant position of the live wire. Positions to and 3 had toe movement at 0.4 milliamps. Under live fluoroscopy the introducer sheath was removed deploying the tines of the wire ensuring that the live wire remained in the previously described position. The tunneling device was then used to bridge the distance between the sacral vertical incision and the desired location of the battery pocket. The live wire was placed through the tunneling device and brought out into the battery pocket. The sacral incision was washed with water. A new battery was connected to the live wire and placed into the subcutaneous pocket. The battery was tested and had positive cotton picking machine operator and displayed normal impedance on all 4 channels. The battery pocket had been washed with sterile water prior to placement of the battery. Interrupted 3-0 Vicryl sutures were used to close the defect spaces and bring skin edges together. Running 4-0 Monocryl sutures were used to appose skin edges. Incisions were dressed using skin glue followed by Tegaderm dressing. Patient tolerated procedure well was extubated in operating room transferred in stable condition to the recovery area. CPT full device replacement 38084, [id number], [id number]
[2021-06-10 14:18] VITALS: BP 108/88; PULSE 65; RESP 16; TEMP 36.2; O2SAT 100
[2021-06-10] MEDS: oxyCODONE HCl Immed Release 5 MG TABLET PO (14:28)
[2021-06-10] MEDS: Acetaminophen 325 MG TABLET 650 MG PO (14:28)
[2021-06-10 14:33] VITALS: BP 126/81; PULSE 69; RESP 16; O2SAT 100
[2021-06-10 14:50] VITALS: BP 135/74; PULSE 60; RESP 16; O2SAT 98
[2021-06-10 15:05] VITALS: BP 127/68; PULSE 58; RESP 16; O2SAT 98
[2021-06-10 15:40] VITALS: BP 128/58; PULSE 56; RESP 16; TEMP 36.2; O2SAT 98
== END 2021-06-10 16:16 | disposition home or self-care (01) ==
PROVIDERS: PCP Internal Medicine; Visit Provider Urology
PROC: (CPT 63685; principal; 2021-06-10 12:10)
DX: Z45.42 Encounter for adjustment and management of neurostimulator (principal); N39.41 Urge incontinence; N32.81 Overactive bladder; R35.0 Frequency of micturition; F31.9 Bipolar disorder, unspecified; I89.0 Lymphedema, not elsewhere classified; Z79.899 Other long term (current) drug therapy
CPT/HCPCS: 64561; 64590; C1767; C1778; C1787; J0690; J2370; J3010; J3370

== ENCOUNTER → 2021-06-26 10:53 | Outpatient (BNVA) | payer MEDICARE, MEDICAID, SELFPAY | PROVIDERS: PCP Internal Medicine; Visit Provider Urology | DX: N32.81 Overactive bladder (principal) | CPT/HCPCS: 99212 ==

== ENCOUNTER 2022-11-05 20:49 | Inpatient (IN) | payer MEDICARE, MEDICAID, SELFPAY ==
--- NOTE | ~2022-11-05 | CT_ITS ---
EXAMINATION: CT HEAD WITHOUT CONTRAST CLINICAL INFORMATION: New-onset confusion. COMPARISON: None available. TECHNIQUE: Contiguous axial imaging was performed from the skull base to vertex without intravenous administration of contrast. This CT examination was performed using dose optimization techniques as appropriate, variously including the following: *Automated exposure control. *Adjustment of mA and/or kV according to patient size (this includes techniques or standardized protocols for targeted exams where dose is matched to indication/reason for exam; i.e. extremities or head). *Use of iterative reconstruction technique. DLP: 777 mGy-cm FINDINGS: There is no evidence of acute intracranial hemorrhage or edematous territorial infarction. Mckeon-white matter differentiation is preserved. A few foci of hypoattenuation in the periventricular and deep white matter are consistent with mild microangiopathy. The ventricles are normal in morphology and size. No evidence for obstructive hydrocephalus. Moderate expansile of the sella turcica with flattening of the pituitary gland. No abnormal mass effect or midline shift. No extra-axial fluid collections. No acute soft tissue or osseous abnormalities. Mild mucosal thickening of the paranasal sinuses. The mastoid air cells and middle ear cavities are clear. CT/CT head/brain wo IV con IMPRESSION: 1. No evidence of acute intracranial hemorrhage or edematous territorial infarction. 2. Mild underlying microangiopathy.
[2022-11-05 21:01] VITALS: BP 170/90; BP 198/102; PULSE 80; PULSE 87; RESP 20; TEMP 36.4; O2SAT 100; O2SAT 98; BMI 45.2
[2022-11-05 21:13] VITALS: BP 198/102; PULSE 80; RESP 20; TEMP 36.4; O2SAT 98
[2022-11-05 21:26] LABS: MANUAL DIFF FLAG NO
[2022-11-05 21:27] LABS: Basophils Absolute Auto 0.1 X10*3/uL (0.0-0.2); Basophils Percent Auto 0.5 % (0-2); Eosinophils Absolute Auto 0.1 X10*3/uL (0.0-0.4); Eosinophils Percent Auto 0.5 % (0-4); Hematocrit 43.2 % (37.0-47.0); Hemoglobin 13.9 g/dl (12.0-16.0); Imm Gran Abs Auto 0.05 X10*3/uL (0.00-0.03); Imm Gran Pct Auto 0.5 % (0.0-0.4); Lymphocytes Absolute Auto 2.5 X10*3/uL (1.2-4.9); Lymphocytes Percent Auto 22.4 % (20-40); Mean Corpuscular HGB Conc 32.2 g/dl (31.0-35.0); Mean Corpuscular Hemoglobin 28.5 pg (27.0-33.0); Mean Corpuscular Volume 88.7 fL (80.0-98.0); Mean Platelet Volume 10.5 fL (9.4-12.3); Monocytes Absolute Auto 0.7 X10*3/uL (0.1-1.2); Monocytes Percent Auto 6.1 % (2-11); Neutrophils Absolute Auto 7.8 x10*3/uL (2.0-8.3); Platelet Count 286 X10*3/uL (160-400); Red Blood Count 4.87 X10*6/uL (4.20-5.50); Red Cell Distribution Width 14.6 % (11.0-16.0); White Blood Count 11.1 X10*3/uL (4.8-10.8)
--- NOTE | 2022-11-05 21:33 | PC.NURSE ---
patient was brought in from home patient son stated that the patient has started acting bizarre patient stop responding when approached patient has a psych medications and medical medications that was sent by the son patient vitals are elevated doctor will be notified patient son was called and made aware that mother was here safely patient will continue to be monitored for safety
--- NOTE | 2022-11-05 21:42 | ED_ITS ---
HPI - Psych General Chief Complaint: Psychiatric Symptoms Stated Complaint: PSYCH Time Seen by Provider: 11/05/22 21:18 Source: patient and family Mode of arrival: ambulatory Limitations: no limitations History of Present Illness HPI Narrative: Patient is a 62-year-old female with a past medical history of venous i nsufficiency presents to the emergency department after her son sent her due to her acting ?bizarre ?. Patient refusing to participate in conversation however when I asked with going on she says everything , denies SI and HI. Patient has flat affect. Patient is ambulating. Patient denied fever, chills, night sweats, nausea, vomiting, chest pain, shortness of breath, numbness, tingling. Related Data Home Medications Medication Instructions Recorded Confirmed multivitamin 1 tab PO DAILY 03/01/21 03/08/21 quetiapine 25 mg tablet 25 mg PO BEDTIME PRN Anxiety 03/01/21 03/08/21 topiramate 50 mg tablet 50 mg PO BID 03/01/21 03/08/21 naproxen sodium 220 mg capsule 220 mg PO Q12H PRN Pain 03/08/21 03/08/21 (Aleve) furosemide 20 mg tablet 20 mg PO DAILY 04/16/21 gabapentin 100 mg capsule 100 mg PO DAILY 04/16/21 ammonium lactate 12 % lotion topical 06/26/21 gabapentin 300 mg capsule 300 mg PO TID 06/26/21 lisdexamfetamine 60 mg capsule 60 mg PO QAM 06/26/21 (Vyvanse) quetiapine 50 mg tablet mg PO 06/26/21 Previous Rx's Medication Instructions Recorded amoxicillin 875 mg-potassium 1 tab PO BID #14 tabs 03/05/21 clavulanate 125 mg tablet clotrimazole 1 % vaginal cream 1 appl vaginal BEDTIME #5 ea 03/05/21 doxycycline monohydrate 100 mg 100 mg PO BID #14 tabs 03/05/21 tablet betamethasone, augmented 0.05 % 1 appl topical BID #50 grams 03/09/21 topical cream horse chestnut 300 mg capsule 300 mg PO BID #60 caps 03/09/21 sulfamethoxazole 400 1 tab PO DAILY 5 days #5 tabs 06/10/21 mg-trimethoprim 80 mg tablet (Bactrim) tramadol 50 mg tablet 50 mg PO Q6H PRN pain (scale score 06/10/21 1-3) 7 days #8 tabs Allergies Allergy/AdvReac Type Severity Reaction Status Date / Time enoxaparin [From Lovenox] AdvReac Unknown headache, Verified 12/27/21 08:23 electric reaction, heat Review of Systems Review of Systems: Constitutional : No Weight loss, No Fever, No Chills, No Fatigue, No Malaise ENT/Mouth : No sore throat, No Rhinorrhea Eyes: No Eye Pain, No Swelling, No Redness Cardiovascular : No Chest Pain, No SOB, No Dyspnea on Exertion, No Orthopnea, No Edema, No Palpitations Respiratory : No Cough, No Sputum, No Wheezing Gastrointestinal : No Nausea, No Vomiting, No Diarrhea, No Constipation, No abdominal Pain, No Hematochezia, No Melena Genitourinary : No Dysuria, No Urinary Frequency, No Hematuria, Musculoskeletal : No joint pain, No Myalgias, No Joint Swelling Skin : No Skin Lesions, No rash Neuro : No Weakness, No Numbness, No Dizziness, No Headache Psych : + Anxiety/Panic, + Depression All other systems reviewed and are negative Yes all other systems are reviewed and are negative [facility] Past Medical History Attestation statement: The following information was validated with the patient. Source: old records reviewed and nursing notes reviewed Medical History Allergic arthritis of lower leg Bipolar disorder Cellulitis of left leg Depression with anxiety History of urinary incontinence Intractable pain Lymphedema UTI (urinary tract infection) Surgical History History of Hx of cholecystectomy Family History Family History Mother Hypertension Diabetes CHF (congestive heart failure) Social History Social History Household Members: Family Housing: Apartment Alcohol intake: never Patient Tobacco Use Status: Never used Tobacco Smoked in Last 30 Days: No Use of substances other than those prescribed or required for medical reasons: No Advance Directives: Yes Advance Directives on File: Yes Advance Directives Date on File: 03/02/21 Patient : No service: No Current occupational status: unemployed Physical Exam Vital Signs: Vital Signs: Last Vital Signs Temp 97.6 F 11/05/22 21:13 Pulse 80 11/05/22 21:13 Resp 20 11/05/22 21:13 BP 198/102 H 11/05/22 21:13 Pulse Ox 98 11/05/22 21:13 O2 Del Method Room Air 11/05/22 21:13 BMI result Body Mass Index 45.2 vss Appearance: Alert.? Oriented X3.? No acute distress.? Head: Normocephalic, atraumatic, no step-offs or deformities Eyes: Pupils equal, round and reactive to light.? CVS: Normal heart rate and rhythm.? Pulses normal.? Respiratory: No respiratory distress.? Breath sounds normal.? Abdomen: Soft and nontender.? Skin: Skin warm and dry.? Normal skin color.? Normal skin turgor.? Extremities: No lower extremity edema.? No calf ttp. 5/5 strength to bilateral upper and lower extremities Neuro: Oriented X 3.? No motor deficit.? No sensory deficit. CN 2-12 intact Course Reevaluation(s) Reevaluation #1: CBC with slight leukoctosis likely reactive from aggitation. Chemistry unremarkable, appears to be at baseline. Transaminiases slightly elevated however I do not suspect an acute process at this time no abdominal tenderness to palpation. Patient well-appearing. Ethanol negative. Urine pending. At this time patient to be placed in observation to allow more time to be evaluated by behavioral health team. At time observation was started patient common cooperative no acute distress will continue to monitor Time: 22:36 Medical Decision Making Medical Decision Making [facility] Narrative: 2231 62 year old female presents w/ anxiety, depression and bizzare behavior at home. PE benign Likely anxiety, depression will rule out electrolyte abnormalities and UTI. Unlikely metabolic derangements. Plan- medical clearance evaluation by CARE team. Differential Diagnosis Differential Diagnoses: The differential diagnosis associated with the presentation includes Likely anxiety, depression will rule out electrolyte abnormalities and UTI. Unlikely metabolic derangements. Admission/Observation Consideration of admission/observation: Escalation of care including admission/observation considered likely Lab Data [facility] Lab Attestation statement: I reviewed the patient's lab results. 11/05/22 21:22 11/05/22 21:22 Labs: Lab Results 07/12/23 07/12/23 Range/Units 21:22 21:22 WBC 11.1 H (4.8-10.8) X10*3/uL RBC 4.87 D (4.20-5.50) X10*6/uL Hgb 13.9 D (12.0-16.0) g/dl Hct 43.2 (37.0-47.0) % MCV 88.7 (80.0-98.0) fL MCH 28.5 (27.0-33.0) pg MCHC 32.2 (31.0-35.0) g/dl RDW 14.6 (11.0-16.0) % Plt Count 286 (160-400) X10*3/uL MPV 10.5 (9.4-12.3) fL Immature Gran % (Auto) 0.5 H (0.0-0.4) % Neut % (Auto) 70.0 (45-73) % Lymph % (Auto) 22.4 (20-40) % [place] % (Auto) 6.1 (2-11) % Eos % (Auto) 0.5 (0-4) % Baso % (Auto) 0.5 (0-2) % Lymph # (Auto) 2.5 (1.2-4.9) X10*3/uL [place] # (Auto) 0.7 (0.1-1.2) X10*3/uL Eos # (Auto) 0.1 (0.0-0.4) X10*3/uL Baso # (Auto) 0.1 (0.0-0.2) X10*3/uL Abs Immat Gran (auto) 0.05 H (0.00-0.03) X10*3/uL Absolute Neuts (auto) 7.8 (2.0-8.3) x10*3/uL Absolute Nucleated RBC 0.000 (0.0-0.012) X10*3/uL Nucleated RBC % (auto) 0.0 (0.0-0.2) /100WBC Sodium 141 (135-145) mmol/L Potassium 4.1 (3.3-5.1) mmol/L Chloride 109 H (96-108) mmol/L Carbon Dioxide 17 L (22-29) mmol/L Anion Gap 19 (12-20) BUN 20 H (9-16) mg/dL Creatinine 0.78 (0.5-1.4) mg/dL Estim Creat Clear Calc 101.9 Estimated GFR > 60 Random Glucose 120 H (60-115) mg/dL Calcium 9.6 D (8.4-10.2) mg/dL Total Bilirubin 0.5 (0.0-1.0) mg/dL AST 60 H (5-31) U/L ALT 72 H (0-31) U/L Alkaline Phosphatase 74 (39-117) U/L Total Protein 8.2 H (6.5-8.0) g/dL Albumin 3.9 (3.5-5.0) g/dL Ethyl Alcohol < 10 mg/dL Core Measures AMI core measures followed: Yes Measure exclusions: not indicated Critical Care Time Critical Care Time Critical Care Time: No Discharge Plan Discharge Clinical Impression: Depression, Acute anxiety Patient Disposition: Still a Patient Prescriptions: No Action naproxen sodium [Aleve] 220 mg Capsule 220 mg PO Q12H PRN (Reason: Pain) betamethasone, augmented 0.05 % Cream 1 appl topical BID Qty: 50 0RF Protocol: Apply to: Apply to: left leg horse chestnut 300 mg capsule 300 mg PO BID Qty: 60 0RF quetiapine 25 mg tablet 25 mg PO BEDTIME PRN (Reason: Anxiety) topiramate 50 mg tablet 50 mg PO BID multivitamin Tablet 1 tab PO DAILY doxycycline monohydrate 100 mg tablet 100 mg PO BID Qty: 14 0RF amoxicillin-pot clavulanate 875-125 mg tablet 1 tab PO BID Qty: 14 0RF clotrimazole 1 % Cream 1 appl vaginal BEDTIME Qty: 5 0RF sulfamethoxazole-trimethoprim [Bactrim] 400-80 mg tablet 1 tab PO DAILY 5 Days Qty: 5 0RF tramadol 50 mg tablet 50 mg PO Q6H PRN (Reason: pain (scale score 1-3)) 7 Days Qty: 8 0RF gabapentin 100 mg capsule 100 mg PO DAILY furosemide 20 mg tablet 20 mg PO DAILY Vyvanse 60 mg capsule 60 mg PO QAM quetiapine 50 mg tablet PO ammonium lactate 12 % lotion topical gabapentin 300 mg capsule 300 mg PO TID Interventions: [place]-Suicide Risk Severity Scale Last Done: 11/05/22 21:13
[2022-11-05 21:46] LABS: Alanine Aminotransferase 72 U/L (0-31); Albumin Level 3.9 g/dL (3.5-5.0); Alkaline Phosphatase 74 U/L (39-117); Anion Gap 19 (12-20); Aspartate Amino Transferase 60 U/L (5-31); Bilirubin Total 0.5 mg/dL (0.0-1.0); Blood Urea Nitrogen 20 mg/dL (9-16); Calcium 9.6 mg/dL (8.4-10.2); Carbon Dioxide 17 mmol/L (22-29); Chloride 109 mmol/L (96-108); Creatinine Clr Calc Pharmacy 101.9; Estimated Glomerular Filt Rate > 60; Ethanol < 10 mg/dL; Glucose Random 120 mg/dL (60-115); Potassium 4.1 mmol/L (3.3-5.1); Sodium 141 mmol/L (135-145); Total Protein 8.2 g/dL (6.5-8.0)
--- NOTE | 2022-11-06 | ECG_ITS ---
Test Reason : PROLONG QT Blood Pressure : / mmHG Vent. Rate : 084 BPM Atrial Rate : 084 BPM P-R Int : 138 ms QRS Dur : 070 ms QT Int : 388 ms P-R-T Axes : 059 027 -06 degrees QTc Int : 458 ms Normal sinus rhythm Nonspecific ST abnormality Abnormal ECG No previous ECGs available Referred By: Eduin Barrios Electronically Signed By:MAURI HAN MD
[2022-11-06 00:20] LABS: Acetaminophen LAB < 17 mcg/mL (<30); Salicylate < 5.0 mg/dL (15-30)
--- NOTE | 2022-11-06 08:18 | PC.NURSE ---
pt received in bed, waking up. pt walking with steady gait, used BR. Provided urine sample, awaiting results. bed search in process.
[2022-11-06 08:22] LABS: Appearance Urine Clear; Color Urine Yellow; Glucose Urine UA >=1000 mg/dL (Negative); Leukocyte Esterase Urine Trace (Negative); Nitrite Urine Negative (Negative); PH 7.5 (5.0-9.0); Specific Gravity - Urine 1.025 (1.005-1.025); UMIC TRIGGER UACC YES; Urine Blood Negative (Negative); Urine Ketones 15 mg/dL (Negative); Urine Protein Trace mg/dL (Neg-Trace)
[2022-11-06 08:25] LABS: Bacteria Urine None Seen (None Seen); Hyaline Casts Urine 0-2 /LPF (0-2); UACC Culture Trigger YES
[2022-11-06 08:34] LABS: Amphetamine Screen Urine Not Detected (Not Detect); Barbiturates, Urine Not Detected (Not Detect); Benzodiazepines Screen Urine Not Detected (Not Detect); Cannabinoid Screen Urine Not Detected (Not Detect); Cocaine Screen Urine Not Detected (Not Detect); Fentanyl, urine Not Detected (Not Detect); Opiate Screen Urine Not Detected (Not Detect); Phencyclidine Screen Urine Not Detected (Not Detect)
[2022-11-06 08:52] LABS: Glucose, Whole Blood 116 mg/dL (60-115)
[2022-11-06 09:01] VITALS: BP 154/73; PULSE 100; RESP 17; TEMP 37.4; O2SAT 99
--- NOTE | 2022-11-06 09:44 | PC.NURSE ---
Pt is being seen by care team.
--- NOTE | 2022-11-06 10:22 | PC.NURSE ---
plan is to bring patient inpatient.
--- NOTE | 2022-11-06 10:47 | PHA.MEDREC ---
Pharmacy Consult ? Medication Reconciliation Pharmacy has completed the medication reconciliation. Pt refused to answer any questions about her medications. I asked if there was anyone that might know about her meds and she says no. She told me to just give her something so she can relax . Used claim history for med rec.
[2022-11-06 10:59] LABS: COVID-19 Test Negative (Negative); IDNOW Serial# 9DB6401D
[2022-11-06 12:00] VITALS: RESP 16
--- NOTE | 2022-11-06 15:10 | PC.NURSE ---
Dr. donovan at bedside for eval.
--- NOTE | 2022-11-06 15:49 | PC.NURSE ---
Addendum entered by Kathy Sweeney 11/06/22 15:54: m3. not m5 Original Note: rn to rn with klaudia on m5
--- NOTE | 2022-11-06 15:50 | PC.NURSE ---
pt was awake, speaking with RN at arrival to room. lunch tray was removed untouched. pt calm, flat affect. mult comments about i'm already , i'm sorry for everythign i've done
--- NOTE | 2022-11-06 15:57 | PC.NURSE ---
ambulatory in department, requesting PRNs and aware that routine meds are available at this time. nothing works for me. I'm med resistant to everything has a snack, has spoken with D[facility] in person. Pt was calm throughout conversation. states i'm not going up to the floors here. they didn't treat me well. i'll refuse .
[2022-11-06 16:00] VITALS: BP 153/86; PULSE 136; RESP 17; TEMP 36.8; O2SAT 98
[2022-11-06] MEDS: Gabapentin 300 MG CAPSULE PO ×2 (16:42→21:22)
--- NOTE | 2022-11-06 16:52 | PC.NURSE ---
pt took med easily, ambulated to BR with steady gait, was somewhat confused with ADLs of changing clothing. calm for transfer to M5.
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
[2022-11-06 21:15] VITALS: BP 144/87; PULSE 94; RESP 18; TEMP 36.1; O2SAT 91
[2022-11-06] MEDS: QUEtiapine Fumarate 50 MG TABLET PO (21:22)
[2022-11-06] MEDS: Nitrofurantoin Monohyd/M-Cryst 100 MG CAPSULE PO (21:22)
[2022-11-06] MEDS: traZODone HCL 50 MG TABLET PO (21:22)
[2022-11-07 06:00] VITALS: BP 136/72; PULSE 77; RESP 18; TEMP 36.6; O2SAT 95
--- NOTE | 2022-11-07 08:58 | HO.PSYADMNOT ---
HPI Chief Complaint: bizarre behavior COUNT INCLUDES THE [facility] Medical History Allergic arthritis of lower leg Bipolar disorder Cellulitis of left leg Depression with anxiety History of urinary incontinence Intractable pain Lymphedema UTI (urinary tract infection) Surgical History History of Hx of cholecystectomy Diagnostics Vital Signs (24Hr): Vital Signs - 24 hr 11/06/22 09:01 11/06/22 12:00 11/06/22 16:00 Temperature 99.4 F 98.2 F Pulse Rate 100 136 H Respiratory Rate 17 16 17 Blood Pressure 154/73 H 153/86 H Pulse Oximetry 99 98 Oxygen Delivery Method Room Air Room Air 11/06/22 21:15 11/07/22 06:00 Temperature 96.9 F 97.8 F Pulse Rate 94 77 Respiratory Rate 18 18 Blood Pressure 144/87 H 136/72 Pulse Oximetry 91 L 95 Oxygen Delivery Method Room Air Room Air BMI result Body Mass Index 45.2 Labs 11/05/22 21:22 11/05/22 21:22 Labs: Laboratory Results - last 48 hr 11/05/22 11/05/22 11/05/22 21:22 21:22 23:55 WBC 11.1 H RBC 4.87 D Hgb 13.9 D Hct 43.2 MCV 88.7 MCH 28.5 MCHC 32.2 RDW 14.6 Plt Count 286 MPV 10.5 Immature Gran % (Auto) 0.5 H Neut % (Auto) 70.0 Lymph % (Auto) 22.4 [place] % (Auto) 6.1 Eos % (Auto) 0.5 Baso % (Auto) 0.5 Lymph # (Auto) 2.5 [place] # (Auto) 0.7 Eos # (Auto) 0.1 Baso # (Auto) 0.1 Abs Immat Gran (auto) 0.05 H Absolute Neuts (auto) 7.8 Absolute Nucleated RBC 0.000 Nucleated RBC % (auto) 0.0 Sodium 141 Potassium 4.1 Chloride 109 H Carbon Dioxide 17 L Anion Gap 19 BUN 20 H Creatinine 0.78 Estim Creat Clear Calc 101.9 Estimated GFR > 60 POC Glucose Random Glucose 120 H Calcium 9.6 D Total Bilirubin 0.5 AST 60 H ALT 72 H Alkaline Phosphatase 74 Total Protein 8.2 H Albumin 3.9 Urine Color Urine Appearance Urine pH Ur Specific [place] Urine Protein Urine Glucose (UA) Urine Ketones Urine Blood Urine Nitrite Ur Leukocyte Esterase Urine RBC Urine WBC Ur Squamous Epith Cells Urine Bacteria Hyaline Casts Salicylates < 5.0 L Urine Opiates Screen Urine Fentanyl Screen Acetaminophen < 17 Ur Barbiturates Screen Ur Phencyclidine Scrn Ur Amphetamines Screen U Benzodiazepines Scrn Urine Cocaine Screen U Marijuana (THC) Screen Ethyl Alcohol < 10 COVID-19 (JAMIE) COVID-19 [facility]Channel 11/06/22 11/06/22 11/06/22 08:02 08:02 08:47 WBC RBC Hgb Hct MCV MCH MCHC RDW Plt Count MPV Immature Gran % (Auto) Neut % (Auto) Lymph % (Auto) [place] % (Auto) Eos % (Auto) Baso % (Auto) Lymph # (Auto) [place] # (Auto) Eos # (Auto) Baso # (Auto) Abs Immat Gran (auto) Absolute Neuts (auto) Absolute Nucleated RBC Nucleated RBC % (auto) Sodium Potassium Chloride Carbon Dioxide Anion Gap BUN Creatinine Estim Creat Clear Calc Estimated GFR POC Glucose 116 H Random Glucose Calcium Total Bilirubin AST ALT Alkaline Phosphatase Total Protein Albumin Urine Color Yellow Urine Appearance Clear Urine pH 7.5 Ur Specific [place] 1.025 Urine Protein Trace Urine Glucose (UA) >=1000 H Urine Ketones 15 Urine Blood Negative Urine Nitrite Negative Ur Leukocyte Esterase Trace H Urine RBC 3-5 H Urine WBC 6-10 H Ur Squamous Epith Cells 3-5 Urine Bacteria None Seen Hyaline Casts 0-2 Salicylates Urine Opiates Screen Not Detected Urine Fentanyl Screen Not Detected Acetaminophen Ur Barbiturates Screen Not Detected Ur Phencyclidine Scrn Not Detected Ur Amphetamines Screen Not Detected U Benzodiazepines Scrn Not Detected Urine Cocaine Screen Not Detected U Marijuana (THC) Screen Not Detected Ethyl Alcohol COVID-19 (JAMIE) COVID-19 nChannel 11/06/22 10:35 WBC RBC Hgb Hct MCV MCH MCHC RDW Plt Count MPV Immature Gran % (Auto) Neut % (Auto) Lymph % (Auto) [place] % (Auto) Eos % (Auto) Baso % (Auto) Lymph # (Auto) [place] # (Auto) Eos # (Auto) Baso # (Auto) Abs Immat Gran (auto) Absolute Neuts (auto) Absolute Nucleated RBC Nucleated RBC % (auto) Sodium Potassium Chloride Carbon Dioxide Anion Gap BUN Creatinine Estim Creat Clear Calc Estimated GFR POC Glucose Random Glucose Calcium Total Bilirubin AST ALT Alkaline Phosphatase Total Protein Albumin Urine Color Urine Appearance Urine pH Ur Specific [place] Urine Protein Urine Glucose (UA) Urine Ketones Urine Blood Urine Nitrite Ur Leukocyte Esterase Urine RBC Urine WBC Ur Squamous Epith Cells Urine Bacteria Hyaline Casts Salicylates Urine Opiates Screen Urine Fentanyl Screen Acetaminophen Ur Barbiturates Screen Ur Phencyclidine Scrn Ur Amphetamines Screen U Benzodiazepines Scrn Urine Cocaine Screen U Marijuana (THC) Screen Ethyl Alcohol COVID-19 (JAMIE) Negative COVID-19 Clin Com See Note Meds/Allergies Meds Home Medications Medication Instructions Recorded Confirmed Type furosemide 20 mg tablet 20 mg PO DAILY 04/16/21 11/06/22 History lisdexamfetamine 60 mg capsule 60 mg PO DAILY 06/26/21 11/06/22 History (Vyvanse) quetiapine 50 mg tablet 50 mg PO BEDTIME 06/26/21 11/06/22 History bupropion HCl 150 mg 24 hr tablet, 150 mg PO DAILY 11/06/22 11/06/22 History extended release bupropion HCl 300 mg 24 hr tablet, 300 mg PO DAILY 11/06/22 11/06/22 History extended release empagliflozin 25 mg tablet 25 mg PO DAILY 11/06/22 11/06/22 History (Jardiance) gabapentin 300 mg capsule 300 mg PO TID 11/06/22 11/06/22 History lisinopril 10 mg tablet 10 mg PO DAILY 11/06/22 11/06/22 History lumateperone 42 mg capsule 42 mg PO BEDTIME 11/06/22 11/06/22 History (Caplyta) Allergies Allergies Allergy/AdvReac Type Severity Reaction Status Date / Time enoxaparin [From Lovenox] AdvReac Unknown headache, Verified 12/27/21 08:23 electric reaction, heat Assessment & Plan Statement Statement: I have reviewed the history and physical and performed a pertinent examination on my patient. No changes have occurred unless specified. If the History and Physical was not performed prior to admission, the Hospitalist's service will be consulted for completing the admission physical. Time Spent With Patient Time: Total time managing care of this patient today ____ minutes.
[2022-11-07] MEDS: buPROPion HCl XL 150 MG TAB.ER.24H PO (09:09)
[2022-11-07] MEDS: Empagliflozin 25 MG TABLET PO (09:09)
[2022-11-07] MEDS: lisinopriL 10 MG TABLET PO (09:09)
[2022-11-07] MEDS: Gabapentin 300 MG CAPSULE PO ×3 (09:09→20:22)
[2022-11-07] MEDS: buPROPion HCl XL 300 MG TAB.ER.24H PO (09:09)
[2022-11-07] MEDS: Furosemide 20 MG TABLET PO (09:09)
[2022-11-07] MEDS: Nitrofurantoin Monohyd/M-Cryst 100 MG CAPSULE PO ×2 (09:09→20:22)
--- NOTE | 2022-11-07 10:39 | HO.PSYADMNOT ---
HPI Date of Service: 11/07/22 Chief Complaint: bizarre behavior Sources of Information: patient interviewed, chart reviewed and crisis/core team assessment reviewed HPI Subjective Notes: Section 12B Narrative: Patient is a 62 year old female with hx of bipolar d/o who presented to [facility] [place] [facility] via ambulance after her son called 911 reporting patient was being agitated and bizarre. Per crisis report, at baseline patient is social and engaging. During admission assessment, patient presents as guarded and paranoid. Patient oriented to self only. Patient believes the month is December and was unable to tell me the year. Patient presents with paranoid thought process. Patient stated, I know that there is no [facility]. I didn't want to come but my son made me. I'm and I've been before. You guys are doing this to make me go crazy. You guys already know everything. You've been tracking me. You know what I'm thinking. Please just let me sleep . Per crisis report, no hx of inpatient hospitalizations. Utox negative. Pt has outpatient providers through [facility]. Reviewed case with Dr. Hoyos. Past Psychiatric History: Dr. Dorothea Guevara @ [facility]. Dayton Gonzalez @ [facility]- therapist. Medical Evaluation Reviewed: Yes Pt has a device placed in her back 5-7 years ago due to being incontinent; device name unknown. Uses commode at home. [facility] Medical History Allergic arthritis of lower leg Bipolar disorder Cellulitis of left leg Depression with anxiety History of urinary incontinence Intractable pain Lymphedema UTI (urinary tract infection) Surgical History History of Hx of cholecystectomy Family History: unknown Social History: , lives with and son. Retired in 2005 d/t mental illness. Graduated highschool. Substance History: Utox negative. Trauma History: unknown Diagnostics Vital Signs (24Hr): Vital Signs - 24 hr 11/06/22 12:00 11/06/22 16:00 11/06/22 21:15 Temperature 98.2 F 96.9 F Pulse Rate 136 H 94 Respiratory Rate 16 17 18 Blood Pressure 153/86 H 144/87 H Pulse Oximetry 98 91 L Oxygen Delivery Method Room Air Room Air 11/07/22 06:00 Temperature 97.8 F Pulse Rate 77 Respiratory Rate 18 Blood Pressure 136/72 Pulse Oximetry 95 Oxygen Delivery Method Room Air BMI result Body Mass Index 45.2 Labs 11/05/22 21:22 11/05/22 21:22 Labs: Laboratory Results - last 48 hr 11/05/22 11/05/22 11/05/22 21:22 21:22 23:55 WBC 11.1 H RBC 4.87 D Hgb 13.9 D Hct 43.2 MCV 88.7 MCH 28.5 MCHC 32.2 RDW 14.6 Plt Count 286 MPV 10.5 Immature Gran % (Auto) 0.5 H Neut % (Auto) 70.0 Lymph % (Auto) 22.4 [place] % (Auto) 6.1 Eos % (Auto) 0.5 Baso % (Auto) 0.5 Lymph # (Auto) 2.5 [place] # (Auto) 0.7 Eos # (Auto) 0.1 Baso # (Auto) 0.1 Abs Immat Gran (auto) 0.05 H Absolute Neuts (auto) 7.8 Absolute Nucleated RBC 0.000 Nucleated RBC % (auto) 0.0 Sodium 141 Potassium 4.1 Chloride 109 H Carbon Dioxide 17 L Anion Gap 19 BUN 20 H Creatinine 0.78 Estim Creat Clear Calc 101.9 Estimated GFR > 60 POC Glucose Random Glucose 120 H Calcium 9.6 D Total Bilirubin 0.5 AST 60 H ALT 72 H Alkaline Phosphatase 74 Total Protein 8.2 H Albumin 3.9 Urine Color Urine Appearance Urine pH Ur Specific [place] Urine Protein Urine Glucose (UA) Urine Ketones Urine Blood Urine Nitrite Ur Leukocyte Esterase Urine RBC Urine WBC Ur Squamous Epith Cells Urine Bacteria Hyaline Casts Salicylates < 5.0 L Urine Opiates Screen Urine Fentanyl Screen Acetaminophen < 17 Ur Barbiturates Screen Ur Phencyclidine Scrn Ur Amphetamines Screen U Benzodiazepines Scrn Urine Cocaine Screen U Marijuana (THC) Screen Ethyl Alcohol < 10 COVID-19 (JAMIE) COVID-19 Clin Com 11/06/22 11/06/22 11/06/22 08:02 08:02 08:47 WBC RBC Hgb Hct MCV MCH MCHC RDW Plt Count MPV Immature Gran % (Auto) Neut % (Auto) Lymph % (Auto) [place] % (Auto) Eos % (Auto) Baso % (Auto) Lymph # (Auto) [place] # (Auto) Eos # (Auto) Baso # (Auto) Abs Immat Gran (auto) Absolute Neuts (auto) Absolute Nucleated RBC Nucleated RBC % (auto) Sodium Potassium Chloride Carbon Dioxide Anion Gap BUN Creatinine Estim Creat Clear Calc Estimated GFR POC Glucose 116 H Random Glucose Calcium Total Bilirubin AST ALT Alkaline Phosphatase Total Protein Albumin Urine Color Yellow Urine Appearance Clear Urine pH 7.5 Ur Specific [place] 1.025 Urine Protein Trace Urine Glucose (UA) >=1000 H Urine Ketones 15 Urine Blood Negative Urine Nitrite Negative Ur Leukocyte Esterase Trace H Urine RBC 3-5 H Urine WBC 6-10 H Ur Squamous Epith Cells 3-5 Urine Bacteria None Seen Hyaline Casts 0-2 Salicylates Urine Opiates Screen Not Detected Urine Fentanyl Screen Not Detected Acetaminophen Ur Barbiturates Screen Not Detected Ur Phencyclidine Scrn Not Detected Ur Amphetamines Screen Not Detected U Benzodiazepines Scrn Not Detected Urine Cocaine Screen Not Detected U Marijuana (THC) Screen Not Detected Ethyl Alcohol COVID-19 (JAMIE) COVID-FANCRU 11/06/22 10:35 WBC RBC Hgb Hct MCV MCH MCHC RDW Plt Count MPV Immature Gran % (Auto) Neut % (Auto) Lymph % (Auto) [place] % (Auto) Eos % (Auto) Baso % (Auto) Lymph # (Auto) [place] # (Auto) Eos # (Auto) Baso # (Auto) Abs Immat Gran (auto) Absolute Neuts (auto) Absolute Nucleated RBC Nucleated RBC % (auto) Sodium Potassium Chloride Carbon Dioxide Anion Gap BUN Creatinine Estim Creat Clear Calc Estimated GFR POC Glucose Random Glucose Calcium Total Bilirubin AST ALT Alkaline Phosphatase Total Protein Albumin Urine Color Urine Appearance Urine pH Ur Specific [place] Urine Protein Urine Glucose (UA) Urine Ketones Urine Blood Urine Nitrite Ur Leukocyte Esterase Urine RBC Urine WBC Ur Squamous Epith Cells Urine Bacteria Hyaline Casts Salicylates Urine Opiates Screen Urine Fentanyl Screen Acetaminophen Ur Barbiturates Screen Ur Phencyclidine Scrn Ur Amphetamines Screen U Benzodiazepines Scrn Urine Cocaine Screen U Marijuana (THC) Screen Ethyl Alcohol COVID-19 (JAMIE) Negative COVID-[place] Com See Note Meds/Allergies Meds Home Medications Medication Instructions Recorded Confirmed Type furosemide 20 mg tablet 20 mg PO DAILY 04/16/21 11/06/22 History lisdexamfetamine 60 mg capsule 60 mg PO DAILY 06/26/21 11/06/22 History (Vyvanse) quetiapine 50 mg tablet 50 mg PO BEDTIME 06/26/21 11/06/22 History bupropion HCl 150 mg 24 hr tablet, 150 mg PO DAILY 11/06/22 11/06/22 History extended release bupropion HCl 300 mg 24 hr tablet, 300 mg PO DAILY 11/06/22 11/06/22 History extended release empagliflozin 25 mg tablet 25 mg PO DAILY 11/06/22 11/06/22 History (Jardiance) gabapentin 300 mg capsule 300 mg PO TID 11/06/22 11/06/22 History lisinopril 10 mg tablet 10 mg PO DAILY 11/06/22 11/06/22 History lumateperone 42 mg capsule 42 mg PO BEDTIME 11/06/22 11/06/22 History (Caplyta) Allergies Allergies Allergy/AdvReac Type Severity Reaction Status Date / Time enoxaparin [From Lovenox] AdvReac Unknown headache, Verified 12/27/21 08:23 electric reaction, heat Mental Status Exam Mental Status Exam Narrative: Pt is oriented to self; behavior is guarded; patient is not in distress; dressed in hospital garb; mood is described as ; eye contact appropriate; Speech is slow, volume and prosody and not pressured; no psychomotor agitation/retardation present; thought process is disorganized; Thought content is paranoid; denies any SI/HI. There is no evidence of perceptual disturbance. Patients insight and judgment are poor. Assessment & Plan Assessment & Plan (1) Bipolar 1 disorder: Status: Acute Code(s): F31.9 - Bipolar disorder, unspecified Plan Patient is a 62 year old female with hx of bipolar d/o who presented to [facility] [place] [facility] via ambulance after her son called 911 reporting patient was being agitated and bizarre. Per crisis report, at baseline patient is social and engaging. Plan: 12B 15 minute safety checks Obtain collateral from family and outpatient providers. Patient was restarted on home medications. Pt medication compliant. VM left for patients psychiatrist, waiting for call back. Patient educated on: medication risk/benefits Informed Consent: further education needed Reason for continued inpatient stay Substantial Risk for: med/psych decompensation Statement Statement: I have reviewed the history and physical and performed a pertinent examination on my patient. No changes have occurred unless specified. If the History and Physical was not performed prior to admission, the Hospitalist's service will be consulted for completing the admission physical. Time Spent With Patient Time: Total time managing care of this patient today _60___ minutes.
[2022-11-07] MEDS: QUEtiapine Fumarate 25 MG TABLET PO (15:19)
[2022-11-07 20:19] VITALS: BP 125/98; PULSE 96; TEMP 36.1; O2SAT 98
[2022-11-07] MEDS: QUEtiapine Fumarate 100 MG TABLET PO (20:22)
[2022-11-08] MEDS: hydrOXYzine HCL 25 MG TABLET PO (04:12)
[2022-11-08 08:30] VITALS: BP 138/65; PULSE 78; TEMP 36.3; O2SAT 97
[2022-11-08] MEDS: Gabapentin 300 MG CAPSULE PO ×3 (08:34→21:05)
[2022-11-08] MEDS: Nitrofurantoin Monohyd/M-Cryst 100 MG CAPSULE PO ×2 (08:34→21:05)
[2022-11-08] MEDS: Empagliflozin 25 MG TABLET PO (08:35)
[2022-11-08] MEDS: lisinopriL 10 MG TABLET PO (08:35)
[2022-11-08] MEDS: Furosemide 20 MG TABLET PO (08:35)
[2022-11-08] MEDS: QUEtiapine Fumarate 25 MG TABLET PO ×2 (08:35→15:48)
[2022-11-08] MEDS: buPROPion HCl XL 300 MG TAB.ER.24H PO (08:35)
--- NOTE | 2022-11-08 09:21 | P.PNPSI_ITS ---
Subjective Subjective Date of Service: 11/08/22 Reason For Visit: bizarre behavior Subjective Notes: Estrada Warning and Section 12B Interim History: Was disorganized in behavior and speech. Needed help finding the bathroom. Was disrobing Medication Compliance: Yes Side effects from medications: No Attending Groups: No Review of Systems Acute medical concerns: Yes On antibiotic for UTI Medical Review of Systems: unchanged Mental Status Exam Mental Status Exam Patient Appearance: Unkempt Patient Orientation: Person, Place and Time (Knows it's October but cannot name the date or year) Level of Consciousness: Alert Patient Behavior: Wandering and Confused Mood Description: Anxious Affect Description: Anxious Patient Cognition Impaired: Yes Ability to Follow Directions: Fair Speech Pattern: Soft-Spoken Memory Description: Episodic Impaired Hallucinations: None Delusions: Not Present Thought Process: Distracted Thought Content: positive for Disorganized Abnormal Motor Activity Signs and Symptoms: Restlessness (shifts from foot to foot) Judgement: Fair Diagnostics Vital Signs (24Hr): Vital Signs - 24 hr 11/07/22 20:19 11/08/22 08:30 Temperature 97.0 F 97.4 F Pulse Rate 96 78 Blood Pressure 125/98 H 138/65 Pulse Oximetry 98 97 Oxygen Delivery Method Room Air Room Air BMI result Body Mass Index 45.2 Labs 11/05/22 21:22 11/05/22 21:22 Labs: Laboratory Results - last 48 hr 11/06/22 10:35 COVID-19 (JAMIE) Negative COVID-19 Clin Com See Note Medications Medications Current Medications Acetaminophen (Acetaminophen 325 Mg Tablet) 650 mg PO Q6H PRN PRN Reason: Headache/Pain Mild Scale (1-3) Al Hydroxide/Mg Hydroxide (Magnesium Hydrox/Alum Hydrox 30 Ml Oral.Susp) 30 ml PO Q6H PRN PRN Reason: Heartburn/Nausea Bupropion HCl (Bupropion Hcl Xl 300 Mg Tab.Er.24h) 300 mg PO DAILY CHITO Last Admin: 11/08/22 08:35 Dose: 300 mg Empagliflozin (Empagliflozin 25 Mg Tablet) 25 mg PO DAILY CHITO Last Admin: 11/08/22 08:35 Dose: 25 mg Furosemide (Furosemide 20 Mg Tablet) 20 mg PO DAILY [facility]; Protocol Last Admin: 11/08/22 08:35 Dose: 20 mg Gabapentin (Gabapentin 300 Mg Capsule) 300 mg PO TID CHITO Last Admin: 11/08/22 08:34 Dose: 300 mg Hydroxyzine HCl (Hydroxyzine Hcl 25 Mg Tablet) 25 mg PO Q6H PRN PRN Reason: Anxiety Last Admin: 11/08/22 04:12 Dose: 25 mg Lisinopril (Lisinopril 10 Mg Tablet) 10 mg PO DAILY [facility]; Protocol Last Admin: 11/08/22 08:35 Dose: 10 mg Magnesium Hydroxide (Milk Of Magnesia 30 Ml Oral.Susp) 30 ml PO DAILY PRN PRN Reason: Constipation Nitrofurantoin Macrocrystals (Nitrofurantoin Monohyd/M-Cryst 100 Mg Capsule) 100 mg PO BID [facility] Last Admin: 11/08/22 08:34 Dose: 100 mg Quetiapine Fumarate (Quetiapine Fumarate 100 Mg Tablet) 100 mg PO BEDTIME [facility] Last Admin: 11/07/22 20:22 Dose: 100 mg Quetiapine Fumarate (Quetiapine Fumarate 25 Mg Tablet) 25 mg PO BID@0800,1500 [facility] Last Admin: 11/08/22 08:35 Dose: 25 mg Allergies Allergies Allergy/AdvReac Type Severity Reaction Status Date / Time enoxaparin [From Lovenox] AdvReac Unknown headache, Verified 12/27/21 08:23 electric reaction, heat Assessment & Plan Assessment & Plan (1) Bipolar 1 disorder: Status: Acute Code(s): F31.9 - Bipolar disorder, unspecified Plan Patient is a 62 year old female with hx of bipolar d/o who presented to [facility] via ambulance after her son called 911 reporting patient was being agitated and bizarre. Per crisis report, at baseline patient is social and engaging. Plan: 12B 15 minute safety checks Obtain collateral from family and outpatient providers. Patient was restarted on home medications. Pt medication compliant. VM left for patients psychiatrist, waiting for call back. 11/08: Estrada warning given.continue seroquel, Wellbutrin at current doses. 5 day course of macrodantin for presumed UTI. Culture contaminated. Reason for continued inpatient stay Substantial Risk for: med/psych decompensation Time Spent With Patient Time: Total time managing care of this patient today _30___ minutes.
--- NOTE | 2022-11-08 09:41 | HO.PSYCHPN ---
Subjective Subjective Date of Service: 11/08/22 Reason For Visit: bizarre behavior Diagnostics Vital Signs (24Hr): Vital Signs - 24 hr 11/07/22 20:19 11/08/22 08:30 Temperature 97.0 F 97.4 F Pulse Rate 96 78 Blood Pressure 125/98 H 138/65 Pulse Oximetry 98 97 Oxygen Delivery Method Room Air Room Air BMI result Body Mass Index 45.2 Labs 11/05/22 21:22 11/05/22 21:22 Labs: Laboratory Results - last 48 hr 11/06/22 10:35 COVID-19 (JAMIE) Negative COVID-19 Clin Com See Note Medications Medications Current Medications Acetaminophen (Acetaminophen 325 Mg Tablet) 650 mg PO Q6H PRN PRN Reason: Headache/Pain Mild Scale (1-3) Al Hydroxide/Mg Hydroxide (Magnesium Hydrox/Alum Hydrox 30 Ml Oral.Susp) 30 ml PO Q6H PRN PRN Reason: Heartburn/Nausea Bupropion HCl (Bupropion Hcl Xl 300 Mg Tab.Er.24h) 300 mg PO DAILY [facility] Last Admin: 11/08/22 08:35 Dose: 300 mg Empagliflozin (Empagliflozin 25 Mg Tablet) 25 mg PO DAILY [facility] Last Admin: 11/08/22 08:35 Dose: 25 mg Furosemide (Furosemide 20 Mg Tablet) 20 mg PO DAILY [facility]; Protocol Last Admin: 11/08/22 08:35 Dose: 20 mg Gabapentin (Gabapentin 300 Mg Capsule) 300 mg PO TID [facility] Last Admin: 11/08/22 08:34 Dose: 300 mg Hydroxyzine HCl (Hydroxyzine Hcl 25 Mg Tablet) 25 mg PO Q6H PRN PRN Reason: Anxiety Last Admin: 11/08/22 04:12 Dose: 25 mg Lisinopril (Lisinopril 10 Mg Tablet) 10 mg PO DAILY [facility]; Protocol Last Admin: 11/08/22 08:35 Dose: 10 mg Magnesium Hydroxide (Milk Of Magnesia 30 Ml Oral.Susp) 30 ml PO DAILY PRN PRN Reason: Constipation Nitrofurantoin Macrocrystals (Nitrofurantoin Monohyd/M-Cryst 100 Mg Capsule) 100 mg PO BID [facility] Last Admin: 11/08/22 08:34 Dose: 100 mg Quetiapine Fumarate (Quetiapine Fumarate 100 Mg Tablet) 100 mg PO BEDTIME [facility] Last Admin: 11/07/22 20:22 Dose: 100 mg Quetiapine Fumarate (Quetiapine Fumarate 25 Mg Tablet) 25 mg PO BID@0800,1500 [facility] Last Admin: 11/08/22 08:35 Dose: 25 mg Allergies Allergies Allergy/AdvReac Type Severity Reaction Status Date / Time enoxaparin [From Lovenox] AdvReac Unknown headache, Verified 12/27/21 08:23 electric reaction, heat Assessment & Plan Assessment & Plan (1) Bipolar 1 disorder: Status: Acute Code(s): F31.9 - Bipolar disorder, unspecified Plan Patient is a 62 year old female with hx of bipolar d/o who presented to [facility] via ambulance after her son called 911 reporting patient was being agitated and bizarre. Per crisis report, at baseline patient is social and engaging. Plan: 12B 15 minute safety checks Obtain collateral from family and outpatient providers. Patient was restarted on home medications. Pt medication compliant. VM left for patients psychiatrist, waiting for call back. 11/08: continue seroquel, Wellbutrin at current doses. 5 day course of maacrodantin for UTI Reason for continued inpatient stay Substantial Risk for: inability to function Time Spent With Patient Time: Total time managing care of this patient today ____ minutes.
[2022-11-08] MEDS: QUEtiapine Fumarate 100 MG TABLET PO (21:05)
[2022-11-08 21:08] VITALS: BP 148/87; PULSE 76; TEMP 36.6; O2SAT 96
[2022-11-09] MEDS: hydrOXYzine HCL 25 MG TABLET PO (00:19)
--- NOTE | 2022-11-09 08:12 | PC.NURSE ---
Pt appears confused and disorganized. Pt peed on the floor in her room then sat on the floor in her bathroom. Pt's clothes were soaked with urine. When approached, pt was nonsensical and required redirection from staff to take a shower.
[2022-11-09 08:45] VITALS: BP 162/75; PULSE 75; TEMP 36.2; O2SAT 97
[2022-11-09] MEDS: Gabapentin 300 MG CAPSULE PO ×3 (08:47→21:22)
[2022-11-09] MEDS: Nitrofurantoin Monohyd/M-Cryst 100 MG CAPSULE PO ×2 (08:48→21:21)
[2022-11-09] MEDS: QUEtiapine Fumarate 25 MG TABLET PO ×2 (08:48→15:33)
[2022-11-09] MEDS: Empagliflozin 25 MG TABLET PO (08:48)
[2022-11-09] MEDS: Furosemide 20 MG TABLET PO (08:49)
[2022-11-09] MEDS: buPROPion HCl XL 300 MG TAB.ER.24H PO (08:49)
[2022-11-09] MEDS: lisinopriL 10 MG TABLET PO (08:50)
--- NOTE | 2022-11-09 09:26 | P.PNPSI_ITS ---
Subjective Subjective Date of Service: 11/09/22 Reason For Visit: bizarre behavior Subjective Notes: Section 12B (expires 11/11) Medical Problems Affecting Mental Status: Yes (UTI) Interim History: Slept better but was incontinent of urine last night. Walked down the [place] with wet linens and martha open in front. Appetite good this morning. Some self dialogue noted. Medication Compliance: Yes Side effects from medications: No Attending Groups: No Review of Systems Acute medical concerns: Yes BPs have been elevated. UTI and ankle edema (chronic) Medical Review of Systems: unchanged Mental Status Exam Mental Status Exam Patient Appearance: Disheveled Patient Orientation: Person, Place (states she is in a psych unit in [place]), Time (Knows it is October but cannot name the month or year) and Situation Level of Consciousness: Alert Patient Behavior: Anxious and Confused Mood Description: Anxious Affect Description: Fearful Ability to Follow Directions: Good Speech Pattern: Difficulty Finding Words and Soft-Spoken Memory Description: Working Impaired Hallucinations: Auditory Delusions: Bizarre (states she is already when asked about SI) Diagnostics Vital Signs (24Hr): Vital Signs - 24 hr 11/08/22 21:08 11/09/22 08:45 Temperature 97.8 F 97.1 F Pulse Rate 76 75 Blood Pressure 148/87 H 162/75 H Pulse Oximetry 96 97 Oxygen Delivery Method Room Air Room Air BMI result Body Mass Index 45.2 Labs 11/05/22 21:22 11/05/22 21:22 Medications Medications Current Medications Acetaminophen (Acetaminophen 325 Mg Tablet) 650 mg PO Q6H PRN PRN Reason: Headache/Pain Mild Scale (1-3) Al Hydroxide/Mg Hydroxide (Magnesium Hydrox/Alum Hydrox 30 Ml Oral.Susp) 30 ml PO Q6H PRN PRN Reason: Heartburn/Nausea Bupropion HCl (Bupropion Hcl Xl 300 Mg Tab.Er.24h) 300 mg PO DAILY [facility] Last Admin: 11/09/22 08:49 Dose: 300 mg Empagliflozin (Empagliflozin 25 Mg Tablet) 25 mg PO DAILY [facility] Last Admin: 11/09/22 08:48 Dose: 25 mg Furosemide (Furosemide 20 Mg Tablet) 20 mg PO DAILY [facility]; Protocol Last Admin: 11/09/22 08:49 Dose: 20 mg Gabapentin (Gabapentin 300 Mg Capsule) 300 mg PO TID [facility] Last Admin: 11/09/22 08:47 Dose: 300 mg Hydroxyzine HCl (Hydroxyzine Hcl 25 Mg Tablet) 25 mg PO Q6H PRN PRN Reason: Anxiety Last Admin: 11/09/22 00:19 Dose: 25 mg Lisinopril (Lisinopril 10 Mg Tablet) 10 mg PO DAILY [facility]; Protocol Last Admin: 11/09/22 08:50 Dose: 10 mg Magnesium Hydroxide (Milk Of Magnesia 30 Ml Oral.Susp) 30 ml PO DAILY PRN PRN Reason: Constipation Nitrofurantoin Macrocrystals (Nitrofurantoin Monohyd/M-Cryst 100 Mg Capsule) 100 mg PO BID [facility] Stop: 11/13/22 23:59 Last Admin: 11/09/22 08:48 Dose: 100 mg Quetiapine Fumarate (Quetiapine Fumarate 100 Mg Tablet) 100 mg PO BEDTIME [facility] Last Admin: 11/08/22 21:05 Dose: 100 mg Quetiapine Fumarate (Quetiapine Fumarate 25 Mg Tablet) 25 mg PO BID@0800,1500 [facility] Last Admin: 11/09/22 08:48 Dose: 25 mg Allergies Allergies Allergy/AdvReac Type Severity Reaction Status Date / Time enoxaparin [From Lovenox] AdvReac Unknown headache, Verified 12/27/21 08:23 electric reaction, heat Assessment & Plan Assessment & Plan (1) Bipolar 1 disorder: Status: Acute Code(s): F31.9 - Bipolar disorder, unspecified Plan Patient is a 62 year old female with hx of bipolar d/o who presented [place] [facility] [place] after her son called 911 reporting patient was being agitated and bizarre. Per crisis report, at baseline patient is social and engaging. Plan: 12B 15 minute safety checks Obtain collateral from family and outpatient providers. Patient was restarted on home medications. Pt medication compliant. VM left for patients psychiatrist, waiting for call back. 11/08: continue seroquel, Wellbutrin at current doses. 5 day course of maacrodantin for UTI 11/09: ankle edema and BP increased, will order one time extra dose of lasix Reason for continued inpatient stay Substantial Risk for: inability to function Time Spent With Patient Time: Total time managing care of this patient today _25___ minutes.
--- NOTE | 2022-11-09 17:07 | PC.NURSE ---
Pt had a second episode of urinary incontinence while standing up in her room. Pt then took off her clothes and tried to walk in the hallway without clothes on. Pt had to be redirected multiple times to get dressed before taking a shower. Pt was also trying to enter other patients' rooms. Pt has been placed on 1:1 for safety.
[2022-11-09 21:19] VITALS: BP 126/62; PULSE 84; TEMP 36.5; O2SAT 98
[2022-11-09] MEDS: QUEtiapine Fumarate 100 MG TABLET PO (21:21)
[2022-11-10] MEDS: Acetaminophen 325 MG TABLET 650 MG PO (04:30)
[2022-11-10 04:36] VITALS: BP 140/62; PULSE 78; O2SAT 98
[2022-11-10] MEDS: lisinopriL 10 MG TABLET PO (09:07)
[2022-11-10] MEDS: QUEtiapine Fumarate 25 MG TABLET PO (09:08)
[2022-11-10] MEDS: buPROPion HCl XL 300 MG TAB.ER.24H PO (09:08)
[2022-11-10] MEDS: Furosemide 20 MG TABLET PO (09:08)
[2022-11-10] MEDS: Empagliflozin 25 MG TABLET PO (09:08)
[2022-11-10] MEDS: Nitrofurantoin Monohyd/M-Cryst 100 MG CAPSULE PO ×2 (09:08→21:05)
[2022-11-10] MEDS: Gabapentin 300 MG CAPSULE PO ×3 (09:09→21:04)
[2022-11-10 09:16] VITALS: BP 193/63; PULSE 82; RESP 18; TEMP 36.2; O2SAT 99
--- NOTE | 2022-11-10 10:40 | HO.PSYCHPN ---
Subjective Subjective Date of Service: 11/10/22 Reason For Visit: bizarre behavior Subjective Notes: Conditional Voluntary Healthcare Proxy: Yes Interim History: Patient disorganized fearful with paranoid concerns mumbling his son states patient has been like this previously in the past does not know details approximately 15 years ago. CV sign by her healthcare proxy Medication Compliance: Yes Attending Groups: No Review of Systems No acute findings on head CT UA negative Mental Status Exam Mental Status Exam Patient Appearance: Disheveled Patient Orientation: Person, Place (states she is in a psych unit in [place]), Time (Knows it is October but cannot name the month or year) and Situation Level of Consciousness: Drowsy and Disoriented Patient Behavior: Anxious and Confused Mood Description: Depressed, Anxious and Apprehensive Affect Description: Fearful Ability to Follow Directions: Fair Speech Pattern: Difficulty Finding Words, Soft-Spoken and Poor Articulation Memory Description: Working Impaired Hallucinations: Auditory Delusions: Bizarre (states she is already when asked about SI) Thought Process: Confusion Thought Content: positive for Slowed Thinking, positive for Disorganized, negative for Suicidal Ideation or negative for Homicidal Ideation Depressive Symptoms: Feelings of Guilt Judgement: Fair Diagnostics Vital Signs (24Hr): Vital Signs - 24 hr 11/09/22 21:19 11/10/22 04:36 11/10/22 09:16 Temperature 97.7 F 97.1 F Pulse Rate 84 78 82 Respiratory Rate 18 Blood Pressure 126/62 140/62 H 193/63 H Pulse Oximetry 98 98 99 Oxygen Delivery Method Room Air Room Air Room Air BMI result Body Mass Index 45.2 Labs 11/05/22 21:22 11/05/22 21:22 Medications Medications Current Medications Acetaminophen (Acetaminophen 325 Mg Tablet) 650 mg PO Q6H PRN PRN Reason: Headache/Pain Mild Scale (1-3) Last Admin: 11/10/22 04:30 Dose: 650 mg Al Hydroxide/Mg Hydroxide (Magnesium Hydrox/Alum Hydrox 30 Ml Oral.Susp) 30 ml PO Q6H PRN PRN Reason: Heartburn/Nausea Bupropion HCl (Bupropion Hcl Xl 300 Mg Tab.Er.24h) 300 mg PO DAILY [facility] Last Admin: 11/10/22 09:08 Dose: 300 mg Empagliflozin (Empagliflozin 25 Mg Tablet) 25 mg PO DAILY [facility] Last Admin: 11/10/22 09:08 Dose: 25 mg Furosemide (Furosemide 20 Mg Tablet) 20 mg PO DAILY [facility]; Protocol Last Admin: 11/10/22 09:08 Dose: 20 mg Gabapentin (Gabapentin 300 Mg Capsule) 300 mg PO TID [facility] Last Admin: 11/10/22 09:09 Dose: 300 mg Lisinopril (Lisinopril 10 Mg Tablet) 10 mg PO DAILY [facility]; Protocol Last Admin: 11/10/22 09:07 Dose: 10 mg Magnesium Hydroxide (Milk Of Magnesia 30 Ml Oral.Susp) 30 ml PO DAILY PRN PRN Reason: Constipation Nitrofurantoin Macrocrystals (Nitrofurantoin Monohyd/M-Cryst 100 Mg Capsule) 100 mg PO BID [facility] Stop: 11/13/22 23:59 Last Admin: 11/10/22 09:08 Dose: 100 mg Allergies Allergies Allergy/AdvReac Type Severity Reaction Status Date / Time enoxaparin [From Lovenox] AdvReac Unknown headache, Verified 12/27/21 08:23 electric reaction, heat Assessment & Plan Assessment & Plan (1) Bipolar 1 disorder, depressed, severe: Status: Acute Code(s): F31.4 - Bipolar disorder, current episode depressed, severe, without psychotic features Plan Patient is a 62 year old female with hx of bipolar d/o who presented to [facility] via ambulance after her son called 911 reporting patient was being agitated and bizarre. Per crisis report, at baseline patient is social and engaging. Plan: 12B 15 minute safety checks Obtain collateral from family and outpatient providers. Patient was restarted on home medications. Pt medication compliant. VM left for patients psychiatrist, waiting for call back. 11/08: continue seroquel, Wellbutrin at current doses. 5 day course of maacrodantin for UTI 11/09: ankle edema and BP increased, will order one time extra dose of lasix 11/10/22 inc seroquel gradually monitor for any worsening edema Case has been reviewed with patient's outpatient psychiatrist Patient educated on: diagnosis and medication risk/benefits Informed Consent: further education needed Reason for continued inpatient stay Substantial Risk for: inability to function, rapid decompensation and med/psych decompensation Time Spent With Patient Time: Total time managing care of this patient today ____ minutes.
[2022-11-10 11:53] LABS: Ammonia 28 umol/L (13-55)
[2022-11-10 12:04] LABS: Alanine Aminotransferase 67 U/L (0-31); Albumin Level 4.3 g/dL (3.5-5.0); Alkaline Phosphatase 80 U/L (39-117); Anion Gap 13 (12-20); Aspartate Amino Transferase 47 U/L (5-31); Bilirubin Total 0.4 mg/dL (0.0-1.0); Blood Urea Nitrogen 20 mg/dL (9-16); Calcium 10.3 mg/dL (8.4-10.2); Carbon Dioxide 28 mmol/L (22-29); Chloride 104 mmol/L (96-108); Creatinine Clr Calc Pharmacy 93.5; Estimated Glomerular Filt Rate > 60; Glucose Random 116 mg/dL (60-115); Potassium 3.3 mmol/L (3.3-5.1); Sodium 142 mmol/L (135-145)
[2022-11-10 12:13] LABS: Appearance Urine Clear; Color Urine Yellow; Glucose Urine UA >=1000 mg/dL (Negative); Leukocyte Esterase Urine Negative (Negative); Nitrite Urine Negative (Negative); PH 5.5 (5.0-9.0); Specific Gravity - Urine 1.015 (1.005-1.025); UMIC TRIGGER UACC YES; Urine Blood Negative (Negative); Urine Ketones Negative (Negative); Urine Protein Negative (Neg-Trace)
[2022-11-10 12:18] LABS: HBS Num1 0.07 mIU/mL (0-7.99); HBsAGNum1 0.41 S/CO (0.00-0.99); Hepatitis A Antibody IgM 0.26 Index (0-0.79); Hepatitis B Core Antibody Nonreactive (Nonreactive); Hepatitis B Surface Antigen Negative (Negative); ~HepC Num1 0.07 S/CO (0.00-0.79); ~Hepatitis A Antibody IgM Nonreactive (Nonreactive); ~Hepatitis B Surface Antibody NONREACTIVE (Nonreactive); ~Hepatitis C Antibody Nonreactive (Nonreactive)
[2022-11-10 12:19] LABS: TSH reflex Free T4 2.04 uIU/mL (0.32-4.0)
[2022-11-10 12:20] LABS: Bacteria Urine None Seen (None Seen); Hyaline Casts Urine 0-2 /LPF (0-2); RBC Urine 0-2 /HPF (0-2); Squamous Epithelial Cell Urine 0-2 /HPF (0-2); WBC Urine 0-5 /HPF (0-5)
[2022-11-10 12:22] LABS: Erythrocyte Sedimentation Rate 12 MM/HR (0-20)
[2022-11-10 12:29] LABS: Folate 13.5 ng/mL (> or = 4.0); Vitamin B12 805 pg/mL (200-900)
[2022-11-10] MEDS: QUEtiapine Fumarate 50 MG TABLET PO (15:06)
[2022-11-10 20:05] VITALS: BP 128/58; PULSE 89; TEMP 36.6; O2SAT 97
[2022-11-10] MEDS: QUEtiapine Fumarate 50 MG TABLET 150 MG PO (21:05)
[2022-11-11] MEDS: Nitrofurantoin Monohyd/M-Cryst 100 MG CAPSULE PO ×2 (09:25→21:47)
[2022-11-11] MEDS: Furosemide 20 MG TABLET PO (09:25)
[2022-11-11] MEDS: buPROPion HCl XL 300 MG TAB.ER.24H PO (09:25)
[2022-11-11] MEDS: Gabapentin 300 MG CAPSULE PO ×3 (09:26→21:47)
[2022-11-11] MEDS: lisinopriL 10 MG TABLET PO (09:26)
[2022-11-11] MEDS: Empagliflozin 25 MG TABLET PO (09:26)
[2022-11-11] MEDS: QUEtiapine Fumarate 50 MG TABLET PO ×2 (09:26→14:29)
[2022-11-11 09:31] VITALS: BP 155/73; PULSE 81; RESP 18; TEMP 36.7; O2SAT 99
--- NOTE | 2022-11-11 11:08 | P.CNNE_ITS ---
History of Present Illness Data of Consult Service Date: 11/11/22 Primary Care Provider: Unknown Physician HPI Reason for consult: Bizarre behavior This is a 62 yr woman with h/o mental illness/ bipolar disorder for which she retired who is admitted with bizarre behavior and paranoia. Ct brain negative. Labs unremarkable. No fever or headache or neck stiffness Review of Systems Review of Systems: Constitutional : No Weight loss, No Fever, No Chills, No Fatigue, No Malaise ENT/Mouth : No sore throat, No Rhinorrhea Eyes: No Eye Pain, No Swelling, No Redness Cardiovascular : No Chest Pain, No SOB, No Dyspnea on Exertion, No Orthopnea, No Edema, No Palpitations Respiratory : No Cough, No Sputum, No Wheezing Gastrointestinal : No Nausea, No Vomiting, No Diarrhea, No Constipation, No abdominal Pain, No Hematochezia, No Melena Genitourinary : No Dysuria, No Urinary Frequency, No Hematuria, Musculoskeletal : No joint pain, No Myalgias, No Joint Swelling Skin : No Skin Lesions, No rash Neuro : No Weakness, No Numbness, No Dizziness, No Headache Psych : + Anxiety/Panic, + Depression All other systems reviewed and are negative Yes all other systems are reviewed and are negative Constitutional: Constitutional: Reports as per HPI Eyes: Eyes: Reports as per HPI ENT: Reports as per HPI Cardiovascular: Cardiovascular: Reports as per HPI Respiratory: Respiratory: Reports as per HPI Gastrointestinal: Gastrointestinal: Reports as per HPI Musculoskeletal: Musculoskeletal: Reports as per HPI Integumentary/Breasts: Skin/Breast: Reports as per HPI Neurologic: Reports as per HPI Psychiatric: Psychiatric: Reports as per HPI Endocrine: Endocrine: Reports as per HPI Hematologic/Lymphatic: Hematologic/Lymphatic: Reports as per HPI Allergic/Immunologic: Allergic/Immunologic: Reports as per HPI PMFSH Past Medical History Medical History Allergic arthritis of lower leg Bipolar disorder Cellulitis of left leg Depression with anxiety History of urinary incontinence Intractable pain Lymphedema UTI (urinary tract infection) Family History Family History Mother Hypertension Diabetes CHF (congestive heart failure) Surgical History Surgical History History of Hx of cholecystectomy Social History Social History Household Members: Spouse and Children Housing: Apartment Do you presently have visiting nurse or other home services: No Unable to assess alcohol history related to: Unable to respond and Refusing to respond Alcohol intake: never Patient Tobacco Use Status: Never used Tobacco Smoked in Last 30 Days: No Use of substances other than those prescribed or required for medical reasons: No Currently Displaying Signs/Symptoms of Drug Intoxication Withdrawal: No Spiritual Healthcare Practices: pt declined Yazidi Healthcare Practices: pt declined. Cultural Healthcare Practices: Pt declined. Advance Directives: Yes Advance Directives on File: Yes Advance Directives Date on File: 03/02/21 Healthcare Proxy: No Guardian: No Do you have thoughts of harming others: None Do you have a plan to hurt others: No Plan Recently lost weight without trying: Unsure How much weight loss: Unsure Eating poorly because of decreased appetite: No Nutrition screen score: 4 Nutrition Risks: No Nutritional Risk Patient : No : No Poor oral hygiene: No service: No Current occupational status: unemployed Sexual orientation: Straight/Heterosexual Meds Allergies Allergy/AdvReac Type Severity Reaction Status Date / Time enoxaparin [From Lovenox] AdvReac Unknown headache, Verified 12/27/21 08:23 electric reaction, heat Active Medications: Current Medications Acetaminophen (Acetaminophen 325 Mg Tablet) 650 mg PO Q6H PRN PRN Reason: Headache/Pain Mild Scale (1-3) Last Admin: 11/10/22 04:30 Dose: 650 mg Al Hydroxide/Mg Hydroxide (Magnesium Hydrox/Alum Hydrox 30 Ml Oral.Susp) 30 ml PO Q6H PRN PRN Reason: Heartburn/Nausea Bupropion HCl (Bupropion Hcl Xl 300 Mg Tab.Er.24h) 300 mg PO DAILY [facility] Last Admin: 11/11/22 09:25 Dose: 300 mg Empagliflozin (Empagliflozin 25 Mg Tablet) 25 mg PO DAILY [facility] Last Admin: 11/11/22 09:26 Dose: 25 mg Furosemide (Furosemide 20 Mg Tablet) 20 mg PO DAILY [facility]; Protocol Last Admin: 11/11/22 09:25 Dose: 20 mg Gabapentin (Gabapentin 300 Mg Capsule) 300 mg PO TID [facility] Last Admin: 11/11/22 09:26 Dose: 300 mg Lisinopril (Lisinopril 10 Mg Tablet) 10 mg PO DAILY [facility]; Protocol Last Admin: 11/11/22 09:26 Dose: 10 mg Magnesium Hydroxide (Milk Of Magnesia 30 Ml Oral.Susp) 30 ml PO DAILY PRN PRN Reason: Constipation Nitrofurantoin Macrocrystals (Nitrofurantoin Monohyd/M-Cryst 100 Mg Capsule) 100 mg PO BID [facility] Stop: 11/13/22 23:59 Last Admin: 11/11/22 09:25 Dose: 100 mg Quetiapine Fumarate (Quetiapine Fumarate 50 Mg Tablet) 150 mg PO BEDTIME [facility] Last Admin: 11/10/22 21:05 Dose: 150 mg Quetiapine Fumarate (Quetiapine Fumarate 50 Mg Tablet) 50 mg PO BID@0800,1500 [facility] Last Admin: 11/11/22 09:26 Dose: 50 mg Home Medications Medication Instructions Recorded Confirmed Last Taken Type furosemide 20 mg tablet 20 mg PO DAILY 04/16/21 11/06/22 Unknown History lisdexamfetamine 60 mg capsule 60 mg PO DAILY 06/26/21 11/06/22 Unknown History (Vyvanse) quetiapine 50 mg tablet 50 mg PO BEDTIME 06/26/21 11/06/22 Unknown History bupropion HCl 150 mg 24 hr tablet, 150 mg PO DAILY 11/06/22 11/06/22 Unknown History extended release bupropion HCl 300 mg 24 hr tablet, 300 mg PO DAILY 11/06/22 11/06/22 Unknown History extended release empagliflozin 25 mg tablet 25 mg PO DAILY 11/06/22 11/06/22 Unknown History (Jardiance) gabapentin 300 mg capsule 300 mg PO TID 11/06/22 11/06/22 Unknown History lisinopril 10 mg tablet 10 mg PO DAILY 11/06/22 11/06/22 Unknown History lumateperone 42 mg capsule 42 mg PO BEDTIME 11/06/22 11/06/22 Unknown History (Caplyta) Physical Exam Vital Signs: Vital Signs: Last Vital Signs Temp 98.0 F 11/11/22 09:31 Pulse 81 11/11/22 09:31 Resp 18 11/11/22 09:31 BP 155/73 H 11/11/22 09:31 Pulse Ox 99 11/11/22 09:31 O2 Del Method Room Air 11/11/22 09:31 BMI result Body Mass Index 45.2 Neuro: Other: She is alert and oriented to year, place, and person, but very slow in her responses and sometimes inappropriate and talkking about 2 random things in a slow measured manner. She will respond to specific questions with a long delay and hesitancy he had such as asking her age and date of . Ultimately, she will give the right answer. She has a flat affect. Cranial nerves II through XII are normal. Muscle tone and strength are normal in all 4 extremities Results Labs 11/05/22 21:22 11/10/22 11:11 Labs: BMP 11/10/22 11:11 Sodium 142 Potassium 3.3 Chloride 104 Carbon Dioxide 28 BUN 20 H Creatinine 0.85 Calcium 10.3 H D Cardiac Enzymes 11/10/22 Range/Units 11:11 Total Creatine Kinase 148 H (26-140) U/L Liver Function 11/10/22 Range/Units 11:11 Total Bilirubin 0.4 (0.0-1.0) mg/dL AST 47 H (5-31) U/L ALT 67 H (0-31) U/L Alkaline Phosphatase 80 (39-117) U/L Albumin 4.3 (3.5-5.0) g/dL Urine 11/10/22 Range/Units 11:55 Urine Color Yellow Urine Appearance Clear Urine pH 5.5 (5.0-9.0) Ur Specific Paulina 1.015 (1.005-1.025) Urine Protein Negative (Neg-Trace) mg/dL Urine Glucose (UA) >=1000 H (Negative) mg/dL Microbiology Microbiology Results: Microbiology 11/06/22 Unknown Urine clean catch - Urine encarnacion top Urine Culture - Final Assessment and Plan (1) Bipolar 1 disorder: Status: Acute (2) Encephalopathy: Status: Acute She has a flat affect and is very slow in her responses and sometimes inapp ropriate, which could be related to her mental health issues, however, organic neurological basis for her encephalopathy should be ruled out by obtaining an EEG and a lumbar puncture to rule out atypical forms of encephalitis. Plan Patient is a 62 year old female with hx of bipolar d/o who presented to [facility] via ambulance after her son called 911 reporting patient was being agitated and bizarre. Per crisis report, at baseline patient is social and engaging. Plan: 12B 15 minute safety checks Obtain collateral from family and outpatient providers. Patient was restarted on home medications. Pt medication compliant. VM left for patients psychiatrist, waiting for call back. 11/08: continue seroquel, Wellbutrin at current doses. 5 day course of maacrodantin for UTI 11/09: ankle edema and BP increased, will order one time extra dose of lasix Time Spent With Patient Time: Total time managing care of this patient today ____ minutes. Procedures Date of Service Date of Service: 11/11/22
[2022-11-11 19:20] VITALS: BP 140/86; PULSE 91; RESP 16; TEMP 36.2; O2SAT 99
[2022-11-11] MEDS: QUEtiapine Fumarate 50 MG TABLET 150 MG PO (21:47)
--- NOTE | 2022-11-11 22:29 | P.PNPSI_ITS ---
Subjective Subjective Date of Service: 11/11/22 Reason For Visit: bizarre behavior Subjective Notes: Conditional Voluntary Healthcare Proxy: Yes Interim History: Patient more verbal regarding guilty ruminations feels like she deserves to be punished something horrible will happen to her fatigue disorganized depressed Mental Status Exam Mental Status Exam Patient Appearance: Disheveled Patient Orientation: Person, Place (states she is in a psych unit in [place]), Time (Knows it is October but cannot name the month or year) and Situation Level of Consciousness: Drowsy and Disoriented Patient Behavior: Anxious and Confused Mood Description: Depressed, Anxious and Apprehensive Affect Description: Fearful Ability to Follow Directions: Fair Speech Pattern: Difficulty Finding Words, Soft-Spoken and Poor Articulation Memory Description: Working Impaired Hallucinations: Auditory Delusions: Bizarre (states she is already when asked about SI) Thought Process: Confusion Thought Content: positive for Slowed Thinking, positive for Disorganized, negative for Suicidal Ideation or negative for Homicidal Ideation Depressive Symptoms: Feelings of Guilt Judgement: Fair Judgement and Insight: Fearful thought she is going to be harmed Diagnostics Vital Signs (24Hr): Vital Signs - 24 hr 11/11/22 09:31 Temperature 98.0 F Pulse Rate 81 Respiratory Rate 18 Blood Pressure 155/73 H Pulse Oximetry 99 Oxygen Delivery Method Room Air BMI result Body Mass Index 45.2 Labs 11/05/22 21:22 11/10/22 11:11 Labs: Laboratory Results - last 48 hr 11/10/22 11/10/22 11/10/22 11:11 11:11 11:11 ESR Sodium 142 Potassium 3.3 Chloride 104 Carbon Dioxide 28 Anion Gap 13 BUN 20 H Creatinine 0.85 Estim Creat Clear Calc 93.5 Estimated GFR > 60 Random Glucose 116 H Calcium 10.3 H D Total Bilirubin 0.4 AST 47 H ALT 67 H Alkaline Phosphatase 80 Ammonia 28 Total Creatine Kinase Total Protein 8.0 Albumin 4.3 Vitamin B12 805 Folate 13.5 TSH 2.04 Urine Color Urine Appearance Urine pH Ur Specific [place] Urine Protein Urine Glucose (UA) Urine Ketones Urine Blood Urine Nitrite Ur Leukocyte Esterase Urine RBC Urine WBC Ur Squamous Epith Cells Urine Bacteria Hyaline Casts Hepatitis A IgM Ab Hep Bs Antigen Hep Bs Antibody Hep B Core Total Ab Hepatitis C Ab (EIA) 11/10/22 11/10/22 11/10/22 11:11 11:11 11:11 ESR 12 Sodium Potassium Chloride Carbon Dioxide Anion Gap BUN Creatinine Estim Creat Clear Calc Estimated GFR Random Glucose Calcium Total Bilirubin AST ALT Alkaline Phosphatase Ammonia Total Creatine Kinase 148 H Total Protein Albumin Vitamin B12 Folate TSH Urine Color Urine Appearance Urine pH Ur Specific [place] Urine Protein Urine Glucose (UA) Urine Ketones Urine Blood Urine Nitrite Ur Leukocyte Esterase Urine RBC Urine WBC Ur Squamous Epith Cells Urine Bacteria Hyaline Casts Hepatitis A IgM Ab Nonreactive Hep Bs Antigen Negative Hep Bs Antibody NONREACTIVE Hep B Core Total Ab Nonreactive Hepatitis C Ab (EIA) Nonreactive 11/10/22 11:55 ESR Sodium Potassium Chloride Carbon Dioxide Anion Gap BUN Creatinine Estim Creat Clear Calc Estimated GFR Random Glucose Calcium Total Bilirubin AST ALT Alkaline Phosphatase Ammonia Total Creatine Kinase Total Protein Albumin Vitamin B12 Folate TSH Urine Color Yellow Urine Appearance Clear Urine pH 5.5 Ur Specific [place] 1.015 Urine Protein Negative Urine Glucose (UA) >=1000 H Urine Ketones Negative Urine Blood Negative Urine Nitrite Negative Ur Leukocyte Esterase Negative Urine RBC 0-2 Urine WBC 0-5 Ur Squamous Epith Cells 0-2 Urine Bacteria None Seen Hyaline Casts 0-2 Hepatitis A IgM Ab Hep Bs Antigen Hep Bs Antibody Hep B Core Total Ab Hepatitis C Ab (EIA) Imaging Radiology Impressions: ITS Impressions Head CT 11/10/22 12:26 IMPRESSION: 1. No evidence of acute intracranial hemorrhage or edematous territorial infarction. 2. Mild underlying microangiopathy. Medications Medications Current Medications Acetaminophen (Acetaminophen 325 Mg Tablet) 650 mg PO Q6H PRN PRN Reason: Headache/Pain Mild Scale (1-3) Last Admin: 11/10/22 04:30 Dose: 650 mg Al Hydroxide/Mg Hydroxide (Magnesium Hydrox/Alum Hydrox 30 Ml Oral.Susp) 30 ml PO Q6H PRN PRN Reason: Heartburn/Nausea Bupropion HCl (Bupropion Hcl Xl 300 Mg Tab.Er.24h) 300 mg PO DAILY [facility] Last Admin: 11/11/22 09:25 Dose: 300 mg Empagliflozin (Empagliflozin 25 Mg Tablet) 25 mg PO DAILY [facility] Last Admin: 11/11/22 09:26 Dose: 25 mg Furosemide (Furosemide 20 Mg Tablet) 20 mg PO DAILY [facility]; Protocol Last Admin: 11/11/22 09:25 Dose: 20 mg Gabapentin (Gabapentin 300 Mg Capsule) 300 mg PO TID [facility] Last Admin: 11/11/22 21:47 Dose: 300 mg Lisinopril (Lisinopril 10 Mg Tablet) 10 mg PO DAILY [facility]; Protocol Last Admin: 11/11/22 09:26 Dose: 10 mg Magnesium Hydroxide (Milk Of Magnesia 30 Ml Oral.Susp) 30 ml PO DAILY PRN PRN Reason: Constipation Nitrofurantoin Macrocrystals (Nitrofurantoin Monohyd/M-Cryst 100 Mg Capsule) 100 mg PO BID [facility] Stop: 11/13/22 23:59 Last Admin: 11/11/22 21:47 Dose: 100 mg Quetiapine Fumarate (Quetiapine Fumarate 50 Mg Tablet) 50 mg PO BID@0800,1500 [facility] Last Admin: 11/11/22 14:29 Dose: 50 mg Quetiapine Fumarate (Quetiapine Fumarate 200 Mg Tablet) 200 mg PO BEDTIME [facility] Allergies Allergies Allergy/AdvReac Type Severity Reaction Status Date / Time enoxaparin [From Lovenox] AdvReac Unknown headache, Verified 12/27/21 08:23 electric reaction, heat Assessment & Plan Assessment & Plan (1) Bipolar 1 disorder, depressed, severe: Status: Acute Code(s): F31.4 - Bipolar disorder, current episode depressed, severe, without psychotic features Plan Patient is a 62 year old female with hx of bipolar d/o who presented to [facility] ER via ambulance after her son called 911 reporting patient was being agitated and bizarre. Per crisis report, at baseline patient is social and engaging. Plan: 12B 15 minute safety checks Obtain collateral from family and outpatient providers. Patient was restarted on home medications. Pt medication compliant. VM left for patients psychiatrist, waiting for call back. 11/08: continue seroquel, Wellbutrin at current doses. 5 day course of maacrodantin for UTI 11/09: ankle edema and BP increased, will order one time extra dose of lasix 11/10/22 inc seroquel gradually monitor for any worsening edema Case has been reviewed with patient's outpatient psychiatrist 11/11/2022 Increase Seroquel continued as tolerated consider higher potency antipsychotic patient depressed with guilty ruminations question delusional guilt Healthcare proxy invoked to patient having difficulty taking in information processing at the and making decisions Patient educated on: diagnosis and medication risk/benefits Informed Consent: does not understand and further education needed Reason for continued inpatient stay Substantial Risk for: harm to self Time Spent With Patient Time: Total time managing care of this patient today _30___ minutes.
[2022-11-12] MEDS: Empagliflozin 25 MG TABLET PO (08:15)
[2022-11-12] MEDS: QUEtiapine Fumarate 50 MG TABLET PO (08:15)
[2022-11-12] MEDS: Gabapentin 300 MG CAPSULE PO (08:15)
[2022-11-12] MEDS: Furosemide 20 MG TABLET PO (08:15)
[2022-11-12] MEDS: lisinopriL 10 MG TABLET PO (08:15)
[2022-11-12] MEDS: Nitrofurantoin Monohyd/M-Cryst 100 MG CAPSULE PO ×2 (08:15→20:37)
[2022-11-12] MEDS: buPROPion HCl XL 300 MG TAB.ER.24H PO (08:15)
[2022-11-12 08:30] VITALS: BP 147/66; PULSE 74; RESP 18; TEMP 36.4; O2SAT 99
[2022-11-12] MEDS: QUEtiapine Fumarate 100 MG TABLET PO (14:09)
[2022-11-12] MEDS: Gabapentin 100 MG CAPSULE 200 MG PO ×2 (14:09→20:37)
[2022-11-12] MEDS: risperiDONE 0.5 MG TABLET PO (17:18)
[2022-11-12 20:30] VITALS: BP 144/66; PULSE 97; RESP 18; TEMP 36.6; O2SAT 98
[2022-11-12] MEDS: QUEtiapine Fumarate 200 MG TABLET PO (20:37)
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
[2022-11-13 07:54] VITALS: BP 179/80; PULSE 97; TEMP 36.1; O2SAT 100
[2022-11-13] MEDS: Ondansetron ODT 4 MG TAB.RAPDIS TRANSLINGU (08:07)
[2022-11-13] MEDS: buPROPion HCl XL 300 MG TAB.ER.24H PO (10:46)
[2022-11-13] MEDS: Gabapentin 100 MG CAPSULE 200 MG PO ×2 (10:46→16:00)
[2022-11-13] MEDS: QUEtiapine Fumarate 100 MG TABLET PO ×2 (10:46→16:01)
[2022-11-13] MEDS: lisinopriL 10 MG TABLET PO (10:46)
[2022-11-13] MEDS: Furosemide 20 MG TABLET PO (10:47)
[2022-11-13] MEDS: Nitrofurantoin Monohyd/M-Cryst 100 MG CAPSULE PO (10:47)
[2022-11-13] MEDS: Empagliflozin 25 MG TABLET PO (10:47)
[2022-11-13 10:55] LABS: Glucose, Whole Blood 101 mg/dL (60-115)
[2022-11-13 13:13] LABS: MANUAL DIFF FLAG NO
[2022-11-13 13:17] LABS: Basophils Absolute Auto 0.1 X10*3/uL (0.0-0.2); Basophils Percent Auto 0.7 % (0-2); Eosinophils Percent Auto 0.1 % (0-4); Hematocrit 47.1 % (37.0-47.0); Hemoglobin 14.9 g/dl (12.0-16.0); Imm Gran Abs Auto 0.03 X10*3/uL (0.00-0.03); Imm Gran Pct Auto 0.3 % (0.0-0.4); Lymphocytes Absolute Auto 2.3 X10*3/uL (1.2-4.9); Lymphocytes Percent Auto 21.3 % (20-40); Mean Corpuscular HGB Conc 31.6 g/dl (31.0-35.0); Mean Corpuscular Hemoglobin 28.3 pg (27.0-33.0); Mean Corpuscular Volume 89.5 fL (80.0-98.0); Mean Platelet Volume 10.8 fL (9.4-12.3); Monocytes Absolute Auto 0.7 X10*3/uL (0.1-1.2); Monocytes Percent Auto 6.3 % (2-11); Neutrophils Absolute Auto 7.6 x10*3/uL (2.0-8.3); Neutrophils Percent Auto 71.3 % (45-73); Platelet Count 306 X10*3/uL (160-400); Red Blood Count 5.26 X10*6/uL (4.20-5.50); Red Cell Distribution Width 13.9 % (11.0-16.0); White Blood Count 10.7 X10*3/uL (4.8-10.8)
[2022-11-13 13:42] LABS: Alanine Aminotransferase 76 U/L (0-31); Albumin Level 4.3 g/dL (3.5-5.0); Alkaline Phosphatase 82 U/L (39-117); Amylase 60 U/L (28-100); Anion Gap 14 (12-20); Aspartate Amino Transferase 54 U/L (5-31); Bilirubin Total 0.5 mg/dL (0.0-1.0); Blood Urea Nitrogen 14 mg/dL (9-16); Calcium 9.8 mg/dL (8.4-10.2); Carbon Dioxide 29 mmol/L (22-29); Chloride 100 mmol/L (96-108); Creatinine Clr Calc Pharmacy 92.5; Estimated Glomerular Filt Rate > 60; Glucose Random 134 mg/dL (60-115); Lipase 19 U/L (8-78); Potassium 2.9 mmol/L (3.3-5.1); Sodium 140 mmol/L (135-145)
[2022-11-13] MEDS: Potassium Chloride Packet 20 MEQ PACKET 40 MEQ PO (17:32)
[2022-11-13 17:45] VITALS: BP 117/59; PULSE 92; TEMP 36.6; O2SAT 97
--- NOTE | 2022-11-13 18:28 | PM.EVENT ---
Event Note Date of Service: 11/13/22 Event Note: Pt with intermittent nausea and single episode nausea this morning. History obtained from nursing staff, patient not answering questions. She is noted to be belching repeatedly and just finished all of her dinner. Suspect there may be underling reflux. Etiology of nausea could be from the GERD. Will add omeprazole 20mg am. The hypokalemia was likely due to GI losses, though could also be medication related, and was appropriately repleted. Will recheck BMP now. Given ongoing confusion, which per nursing has been consistent since patient admission, will also check ammonia level. She has been intermittently incontinent of urine, standing up and urinating on her self. She has an abnormal UA in the ED and was started on macrobid. Unfortunately urine culture was contaminated with normal skin bacteria so unclear if UTI was actually present though she did complete 7 days of the macrobid. Will recheck UA as well. Head CT was checked given the encephalopathy and was negative for acute intracranial abnormality. Will continue to follow for results and further recommendation. Time Spent With Patient Time: Total time managing care of this patient today ____ minutes.
[2022-11-13 19:20] LABS: Ammonia 24 umol/L (13-55)
[2022-11-13 19:29] LABS: Anion Gap 12 (12-20); Blood Urea Nitrogen 15 mg/dL (9-16); Calcium 10.1 mg/dL (8.4-10.2); Carbon Dioxide 30 mmol/L (22-29); Chloride 103 mmol/L (96-108); Creatinine Clr Calc Pharmacy 93.5; Estimated Glomerular Filt Rate > 60; Glucose Random 200 mg/dL (60-115); Potassium 3.7 mmol/L (3.3-5.1); Sodium 141 mmol/L (135-145)
[2022-11-13 20:05] VITALS: BP 100/60; PULSE 88; RESP 18; TEMP 36.6; O2SAT 99
[2022-11-13] MEDS: QUEtiapine Fumarate 200 MG TABLET PO (21:23)
[2022-11-13] MEDS: Gabapentin 300 MG CAPSULE PO (21:24)
--- NOTE | 2022-11-13 22:49 | P.PNPSI_ITS ---
Subjective Subjective Date of Service: 11/13/22 Reason For Visit: bizarre behavior Subjective Notes: Conditional Voluntary Healthcare Proxy: Yes Interim History: Patient has been withdrawn mostly in bed had nausea developed some degree of hypokalemia. Worsening confusion of unclear etiology labs generally mostly unremarkable had repeat clean-catch few days ago which was negative patient disorganized psychotic anxious and depressed Medication Compliance: Intermittent Attending Groups: No Review of Systems Acute medical concerns: Yes Hypokalemia confusion Mental Status Exam Mental Status Exam Narrative: Unable to really assess cognitive status patient generally refusing to engage said I am sorry couple of times was mostly in bed had complaints of nausea Patient Appearance: Disheveled Level of Consciousness: Drowsy and Disoriented Patient Behavior: Anxious and Confused Mood Description: Depressed, Anxious and Apprehensive Affect Description: Fearful and Apprehensive Ability to Follow Directions: Poor Speech Pattern: Difficulty Finding Words Memory Description: Working Impaired Hallucinations: Auditory Delusions: Bizarre (states she is already when asked about SI) Thought Process: Confusion Thought Content: positive for Slowed Thinking, positive for Disorganized, negative for Suicidal Ideation or negative for Homicidal Ideation Judgement: Poor Judgement and Insight: Difficult to evaluate symptoms patient in bed generally refusing to engage answer questions Diagnostics Vital Signs (24Hr): Vital Signs - 24 hr 11/13/22 07:54 11/13/22 17:45 11/13/22 20:05 Temperature 97 F 97.8 F 97.8 F Pulse Rate 97 92 88 Respiratory Rate 18 Blood Pressure 179/80 H 117/59 L 100/60 Pulse Oximetry 100 97 99 Oxygen Delivery Method Room Air Room Air Room Air BMI result Body Mass Index 45.2 Labs 11/13/22 13:07 11/13/22 18:56 Labs: Laboratory Results - last 48 hr 11/13/22 11/13/22 11/13/22 10:50 13:07 13:07 WBC 10.7 RBC 5.26 Hgb 14.9 Hct 47.1 H MCV 89.5 MCH 28.3 MCHC 31.6 RDW 13.9 Plt Count 306 MPV 10.8 Immature Gran % (Auto) 0.3 Neut % (Auto) 71.3 Lymph % (Auto) 21.3 [place] % (Auto) 6.3 Eos % (Auto) 0.1 Baso % (Auto) 0.7 Lymph # (Auto) 2.3 [place] # (Auto) 0.7 Eos # (Auto) 0.0 Baso # (Auto) 0.1 Abs Immat Gran (auto) 0.03 Absolute Neuts (auto) 7.6 Absolute Nucleated RBC 0.000 Nucleated RBC % (auto) 0.0 Sodium 140 Potassium 2.9 L Chloride 100 Carbon Dioxide 29 Anion Gap 14 BUN 14 Creatinine 0.86 Estim Creat Clear Calc 92.5 Estimated GFR > 60 POC Glucose 101 Random Glucose 134 H Calcium 9.8 Total Bilirubin 0.5 AST 54 H ALT 76 H Alkaline Phosphatase 82 Ammonia Total Protein 8.0 Albumin 4.3 Amylase 60 Lipase 19 11/13/22 11/13/22 18:56 18:56 WBC RBC Hgb Hct MCV MCH MCHC RDW Plt Count MPV Immature Gran % (Auto) Neut % (Auto) Lymph % (Auto) [place] % (Auto) Eos % (Auto) Baso % (Auto) Lymph # (Auto) [place] # (Auto) Eos # (Auto) Baso # (Auto) Abs Immat Gran (auto) Absolute Neuts (auto) Absolute Nucleated RBC Nucleated RBC % (auto) Sodium 141 Potassium 3.7 D Chloride 103 Carbon Dioxide 30 H Anion Gap 12 BUN 15 Creatinine 0.85 Estim Creat Clear Calc 93.5 Estimated GFR > 60 POC Glucose Random Glucose 200 H Calcium 10.1 Total Bilirubin AST ALT Alkaline Phosphatase Ammonia 24 Total Protein Albumin Amylase Lipase Imaging Radiology Impressions: ITS Impressions Head CT 11/10/22 12:26 IMPRESSION: 1. No evidence of acute intracranial hemorrhage or edematous territorial infarction. 2. Mild underlying microangiopathy. Medications Medications Current Medications Acetaminophen (Acetaminophen 325 Mg Tablet) 650 mg PO Q6H PRN PRN Reason: Headache/Pain Mild Scale (1-3) Last Admin: 11/10/22 04:30 Dose: 650 mg Al Hydroxide/Mg Hydroxide (Magnesium Hydrox/Alum Hydrox 30 Ml Oral.Susp) 30 ml PO Q6H PRN PRN Reason: Heartburn/Nausea Bupropion HCl (Bupropion Hcl Xl 300 Mg Tab.Er.24h) 300 mg PO DAILY [facility] Last Admin: 11/13/22 10:46 Dose: 300 mg Empagliflozin (Empagliflozin 25 Mg Tablet) 25 mg PO DAILY [facility] Last Admin: 11/13/22 10:47 Dose: 25 mg Gabapentin (Gabapentin 300 Mg Capsule) 300 mg PO TID [facility] Last Admin: 11/13/22 21:24 Dose: 300 mg Lisinopril (Lisinopril 10 Mg Tablet) 10 mg PO DAILY [facility]; Protocol Last Admin: 11/13/22 10:46 Dose: 10 mg Magnesium Hydroxide (Milk Of Magnesia 30 Ml Oral.Susp) 30 ml PO DAILY PRN PRN Reason: Constipation Omeprazole (Omeprazole 20 Mg Capsule.Dr) 20 mg PO DAILY@0630 [facility] Ondansetron HCl (Ondansetron Odt 4 Mg Tab.Rapdis) 4 mg TRANSLINGU Q8H PRN PRN Reason: Nausea Quetiapine Fumarate (Quetiapine Fumarate 200 Mg Tablet) 200 mg PO BEDTIME [facility] Last Admin: 11/13/22 21:23 Dose: 200 mg Risperidone (Risperidone 0.5 Mg Tablet) 0.5 mg PO Q4H PRN PRN Reason: Psychosis Last Admin: 11/12/22 17:18 Dose: 0.5 mg Risperidone (Risperidone 0.5 Mg Tablet) 0.5 mg PO BID@0830,1330 [facility] Allergies Allergies Allergy/AdvReac Type Severity Reaction Status Date / Time enoxaparin [From Lovenox] AdvReac Unknown headache, Verified 12/27/21 08:23 electric reaction, heat Assessment & Plan Assessment & Plan (1) Bipolar 1 disorder, depressed, severe: Status: Acute Code(s): F31.4 - Bipolar disorder, current episode depressed, severe, without psychotic features Plan Patient is a 62 year old female with hx of bipolar d/o who presented to [facility] ER via ambulance after her son called 911 reporting patient was being agitated and bizarre. Per crisis report, at baseline patient is social and engaging. Plan: 12B 15 minute safety checks Obtain collateral from family and outpatient providers. Patient was restarted on home medications. Pt medication compliant. VM left for patients psychiatrist, waiting for call back. 11/08: continue seroquel, Wellbutrin at current doses. 5 day course of maacrodantin for UTI 11/09: ankle edema and BP increased, will order one time extra dose of lasix 11/10/22 inc seroquel gradually monitor for any worsening edema Case has been reviewed with patient's outpatient psychiatrist 11/11/2022 Increase Seroquel continued as tolerated consider higher potency antipsychotic patient depressed with guilty ruminations question delusional guilt Healthcare proxy invoked to patient having difficulty taking in information processing at the and making decisions 11/12/2022 Patient seen in psychiatric follow-up given much reassurance and education remains on one-to-one for safety. Increase Seroquel to 400 mg daily Risperdal 0.5 mg p.r.n.. Consider change to Risperdal or perhaps for a lower if unable to tolerate higher doses of Seroquel for ongoing depressive psychosis denies active SI 11/13/2022 Patient mostly in bed complain of nausea this morning lethargic still seems quite anxious mostly nonverbal initially refusing labs then agreed hyperkalemia noted given [facility] consult will lower Seroquel start low-dose Risperdal if hopefully will give better control of psychotic symptoms differential includes some encephalopathic process versus bipolar severe depression with psychotic features which she has had previously Informed Consent: does not understand Reason for continued inpatient stay Substantial Risk for: harm to self, rapid decompensation and med/psych decompensation Time Spent With Patient Time: Total time managing care of this patient today _35___ minutes.
[2022-11-14] MEDS: Omeprazole 20 MG CAPSULE.DR PO (06:38)
[2022-11-14 07:21] LABS: Appearance Urine Cloudy; Color Urine Dark Yellow; Glucose Urine UA >=1000 mg/dL (Negative); Leukocyte Esterase Urine Trace (Negative); Nitrite Urine Negative (Negative); PH 5.5 (5.0-9.0); Specific Gravity - Urine >= 1.030 (1.005-1.025); UMIC TRIGGER UACC YES; Urine Blood Negative (Negative); Urine Ketones Trace mg/dL (Negative); Urine Protein Trace mg/dL (Neg-Trace)
[2022-11-14 07:26] LABS: Bacteria Urine Trace (None Seen); RBC Urine 0-2 /HPF (0-2); UACC Culture Trigger YES
[2022-11-14 10:20] VITALS: BP 127/58; PULSE 77; TEMP 36.4; O2SAT 97
[2022-11-14] MEDS: risperiDONE 0.5 MG TABLET PO ×2 (10:30→14:16)
[2022-11-14] MEDS: lisinopriL 10 MG TABLET PO (10:30)
[2022-11-14] MEDS: buPROPion HCl XL 300 MG TAB.ER.24H PO (10:30)
[2022-11-14] MEDS: Empagliflozin 25 MG TABLET PO (10:30)
[2022-11-14] MEDS: Gabapentin 300 MG CAPSULE PO ×3 (10:30→22:15)
--- NOTE | 2022-11-14 10:46 | PC.NURSE ---
When RN was assessing pt's vitals, pt was making non-sensical statements to RN stating I know what you're doing, you're hiding stuff in your crotch acting like I won't know but everything smells. When RN tried to orient patient and clarify what she was saying, pt got agitated and didn't elaborate further.
[2022-11-14 13:00] VITALS: BP 119/64; PULSE 89; TEMP 36.2; O2SAT 100
[2022-11-14 21:55] VITALS: BP 130/59; PULSE 86; RESP 18; O2SAT 96
[2022-11-14] MEDS: QUEtiapine Fumarate 200 MG TABLET PO (22:15)
--- NOTE | 2022-11-15 00:18 | P.PNPSI_ITS ---
Subjective Subjective Date of Service: 11/14/22 Reason For Visit: bizarre behavior Subjective Notes: Conditional Voluntary Healthcare Proxy: Yes Interim History: pt floridly paranoid feels she is being fooled in purgatory not real deserving to be punished mostly in room on 1.1 no acute findings Mental Status Exam Mental Status Exam Patient Appearance: Disheveled Level of Consciousness: Awake Patient Behavior: Suspicious, Anxious and Confused Mood Description: Withdrawn, Depressed, Anxious, Blunted and Apprehensive Affect Description: Fearful and Apprehensive Ability to Follow Directions: Poor Speech Pattern: Difficulty Finding Words and Rambling Memory Description: Working Impaired Hallucinations: Auditory Delusions: Paranoid Ideation Thought Process: Confusion Thought Content: positive for Slowed Thinking, positive for Disorganized, negative for Suicidal Ideation or negative for Homicidal Ideation Depressive Symptoms: Increased Anxiety and Increased Irritability Judgement: Poor Diagnostics Vital Signs (24Hr): Vital Signs - 24 hr 11/14/22 10:20 11/14/22 13:00 Temperature 97.5 F 97.2 F Pulse Rate 77 89 Blood Pressure 127/58 L 119/64 Pulse Oximetry 97 100 Oxygen Delivery Method Room Air Room Air BMI result Body Mass Index 45.2 Labs 11/13/22 13:07 11/13/22 18:56 Labs: Laboratory Results - last 48 hr 11/13/22 11/13/22 11/13/22 10:50 13:07 13:07 WBC 10.7 RBC 5.26 Hgb 14.9 Hct 47.1 H MCV 89.5 MCH 28.3 MCHC 31.6 RDW 13.9 Plt Count 306 MPV 10.8 Immature Gran % (Auto) 0.3 Neut % (Auto) 71.3 Lymph % (Auto) 21.3 Boyd % (Auto) 6.3 Eos % (Auto) 0.1 Baso % (Auto) 0.7 Lymph # (Auto) 2.3 Boyd # (Auto) 0.7 Eos # (Auto) 0.0 Baso # (Auto) 0.1 Abs Immat Gran (auto) 0.03 Absolute Neuts (auto) 7.6 Absolute Nucleated RBC 0.000 Nucleated RBC % (auto) 0.0 Sodium 140 Potassium 2.9 L Chloride 100 Carbon Dioxide 29 Anion Gap 14 BUN 14 Creatinine 0.86 Estim Creat Clear Calc 92.5 Estimated GFR > 60 POC Glucose 101 Random Glucose 134 H Calcium 9.8 Total Bilirubin 0.5 AST 54 H ALT 76 H Alkaline Phosphatase 82 Ammonia Total Protein 8.0 Albumin 4.3 Amylase 60 Lipase 19 Urine Color Urine Appearance Urine pH Ur Specific [place] Urine Protein Urine Glucose (UA) Urine Ketones Urine Blood Urine Nitrite Ur Leukocyte Esterase Urine RBC Urine WBC Ur Squamous Epith Cells Urine Bacteria Hyaline Casts 11/13/22 11/13/22 11/14/22 18:56 18:56 06:45 WBC RBC Hgb Hct MCV MCH MCHC RDW Plt Count MPV Immature Gran % (Auto) Neut % (Auto) Lymph % (Auto) Boyd % (Auto) Eos % (Auto) Baso % (Auto) Lymph # (Auto) Boyd # (Auto) Eos # (Auto) Baso # (Auto) Abs Immat Gran (auto) Absolute Neuts (auto) Absolute Nucleated RBC Nucleated RBC % (auto) Sodium 141 Potassium 3.7 D Chloride 103 Carbon Dioxide 30 H Anion Gap 12 BUN 15 Creatinine 0.85 Estim Creat Clear Calc 93.5 Estimated GFR > 60 POC Glucose Random Glucose 200 H Calcium 10.1 Total Bilirubin AST ALT Alkaline Phosphatase Ammonia 24 Total Protein Albumin Amylase Lipase Urine Color Dark Yellow Urine Appearance Cloudy Urine pH 5.5 Ur Specific [place] >= 1.030 H Urine Protein Trace Urine Glucose (UA) >=1000 H Urine Ketones Trace Urine Blood Negative Urine Nitrite Negative Ur Leukocyte Esterase Trace H Urine RBC 0-2 Urine WBC 11-20 H Ur Squamous Epith Cells 11-20 Urine Bacteria Trace Hyaline Casts 3-5 Imaging Radiology Impressions: ITS Impressions Head CT 11/10/22 12:26 IMPRESSION: 1. No evidence of acute intracranial hemorrhage or edematous territorial infarction. 2. Mild underlying microangiopathy. Medications Medications Current Medications Acetaminophen (Acetaminophen 325 Mg Tablet) 650 mg PO Q6H PRN PRN Reason: Headache/Pain Mild Scale (1-3) Last Admin: 11/10/22 04:30 Dose: 650 mg Al Hydroxide/Mg Hydroxide (Magnesium Hydrox/Alum Hydrox 30 Ml Oral.Susp) 30 ml PO Q6H PRN PRN Reason: Heartburn/Nausea Bupropion HCl (Bupropion Hcl Xl 300 Mg Tab.Er.24h) 300 mg PO DAILY [facility] Last Admin: 11/14/22 10:30 Dose: 300 mg Empagliflozin (Empagliflozin 25 Mg Tablet) 25 mg PO DAILY [facility] Last Admin: 11/14/22 10:30 Dose: 25 mg Gabapentin (Gabapentin 300 Mg Capsule) 300 mg PO TID [facility] Last Admin: 11/14/22 22:15 Dose: 300 mg Lisinopril (Lisinopril 10 Mg Tablet) 10 mg PO DAILY [facility]; Protocol Last Admin: 11/14/22 10:30 Dose: 10 mg Magnesium Hydroxide (Milk Of Magnesia 30 Ml Oral.Susp) 30 ml PO DAILY PRN PRN Reason: Constipation Omeprazole (Omeprazole 20 Mg Capsule.Dr) 20 mg PO DAILY@0630 [facility] Last Admin: 11/14/22 06:38 Dose: 20 mg Ondansetron HCl (Ondansetron Odt 4 Mg Tab.Rapdis) 4 mg TRANSLINGU Q8H PRN PRN Reason: Nausea Quetiapine Fumarate (Quetiapine Fumarate 200 Mg Tablet) 200 mg PO BEDTIME [facility] Last Admin: 11/14/22 22:15 Dose: 200 mg Risperidone (Risperidone 0.5 Mg Tablet) 0.5 mg PO Q4H PRN PRN Reason: Psychosis Last Admin: 11/12/22 17:18 Dose: 0.5 mg Risperidone (Risperidone 0.5 Mg Tablet) 0.5 mg PO BID@0830,1330 [facility] Last Admin: 11/14/22 14:16 Dose: 0.5 mg Allergies Allergies Allergy/AdvReac Type Severity Reaction Status Date / Time enoxaparin [From Lovenox] AdvReac Unknown headache, Verified 12/27/21 08:23 electric reaction, heat Assessment & Plan Assessment & Plan (1) Bipolar 1 disorder, depressed, severe: Status: Acute Code(s): F31.4 - Bipolar disorder, current episode depressed, severe, without psychotic features Plan Patient is a 62 year old female with hx of bipolar d/o who presented to [facility] via ambulance after her son called 911 reporting patient was being agitated and bizarre. Per crisis report, at baseline patient is social and engaging. Plan: 12B 15 minute safety checks Obtain collateral from family and outpatient providers. Patient was restarted on home medications. Pt medication compliant. left for patients psychiatrist, waiting for call back. 11/08: continue seroquel, Wellbutrin at current doses. 5 day course of maacrodantin for UTI 11/09: ankle edema and BP increased, will order one time extra dose of lasix 7/17/23 inc seroquel gradually monitor for any worsening edema Case has been reviewed with patient's outpatient psychiatrist 11/11/2022 Increase Seroquel continued as tolerated consider higher potency antipsychotic patient depressed with guilty ruminations question delusional guilt Healthcare proxy invoked to patient having difficulty taking in information processing at the and making decisions 11/12/2022 Patient seen in psychiatric follow-up given much reassurance and education remains on one-to-one for safety. Increase Seroquel to 400 mg daily Risperdal 0.5 mg p.r.n.. Consider change to Risperdal or perhaps for a lower if unable to tolerate higher doses of Seroquel for ongoing depressive psychosis denies active SI 11/13/2022 Patient mostly in bed complain of nausea this morning lethargic still seems quite anxious mostly nonverbal initially refusing labs then agreed hyperkalemia noted given -[facility] consult will lower Seroquel start low-dose Risperdal if hopefully will give better control of psychotic symptoms differential includes some encephalopathic process versus bipolar severe depression with psychotic features which she has had previously 11/14/22 Pt psychotic depressive psychosis failed captla , seroquel start risp consider vraylar cont seroquel at hs Informed Consent: does not understand Reason for continued inpatient stay Substantial Risk for: harm to self, inability to function and med/psych decompensation Time Spent With Patient Time: Total time managing care of this patient today ____ minutes.
[2022-11-15 08:46] VITALS: BP 137/73; PULSE 95; RESP 18; TEMP 36.3; O2SAT 97
[2022-11-15] MEDS: buPROPion HCl XL 300 MG TAB.ER.24H PO (08:50)
[2022-11-15] MEDS: Gabapentin 300 MG CAPSULE PO ×3 (08:50→21:58)
[2022-11-15] MEDS: Empagliflozin 25 MG TABLET PO (08:50)
[2022-11-15] MEDS: risperiDONE 0.5 MG TABLET PO ×2 (08:50→12:50)
[2022-11-15] MEDS: Omeprazole 20 MG CAPSULE.DR PO (08:51)
[2022-11-15] MEDS: lisinopriL 10 MG TABLET PO (08:51)
[2022-11-15 13:00] VITALS: BP 110/57; PULSE 83; RESP 18; TEMP 36.6; O2SAT 98
[2022-11-15] MEDS: risperiDONE 1 MG TABLET PO ×2 (14:57→21:58)
[2022-11-15] MEDS: Magnesium Hydrox/Alum Hydrox 30 ML ORAL.SUSP PO (14:57)
--- NOTE | 2022-11-15 16:45 | HO.PSYCHPN ---
Subjective Subjective Date of Service: 11/15/22 Reason For Visit: bizarre behavior Subjective Notes: Conditional Voluntary Interim History: Pt mostly in bed. She reports she thinks she may be with twins as she can feel the babies heart beat. Speech is with delayed response rate, thought process that is with derailment. Per nursing, pt slept most of the night. Takes medications. No side effect. Review of Systems Review of Systems Constitutional : No Weight loss, No Fever, No Chills, No Fatigue, No Malaise ENT/Mouth : No sore throat, No Rhinorrhea Eyes: No Eye Pain, No Swelling, No Redness Cardiovascular : No Chest Pain, No SOB, No Dyspnea on Exertion, No Orthopnea, No Edema, No Palpitations Respiratory : No Cough, No Sputum, No Wheezing Gastrointestinal : No Nausea, No Vomiting, No Diarrhea, No Constipation, No abdominal Pain, No Hematochezia, No Melena Genitourinary : No Dysuria, No Urinary Frequency, No Hematuria, Musculoskeletal : No joint pain, No Myalgias, No Joint Swelling Skin : No Skin Lesions, No rash Neuro : No Weakness, No Numbness, No Dizziness, No Headache Psych : + Anxiety/Panic, + Depression All other systems reviewed and are negative Yes all other systems are reviewed and are negative Constitutional: Reports as per HPI Eyes: Reports as per HPI Reports as per HPI Cardiovascular: Reports as per HPI Respiratory: Reports as per HPI Gastrointestinal: Reports as per HPI Musculoskeletal: Reports as per HPI Skin/Breast: Reports as per HPI Reports as per HPI Psychiatric: Reports as per HPI Endocrine: Reports as per HPI Hematologic/Lymphatic: Reports as per HPI Allergic/Immunologic: Reports as per HPI Mental Status Exam Mental Status Exam Patient Appearance: Disheveled Patient Orientation: Person, Place and Situation Level of Consciousness: Awake Patient Behavior: Suspicious, Anxious and Confused Mood Description: Withdrawn, Depressed, Anxious, Blunted and Apprehensive Affect Description: Fearful and Apprehensive Patient Cognition Impaired: Yes Ability to Follow Directions: Poor Speech Pattern: Difficulty Finding Words and Rambling Memory Description: Working Impaired Diagnostics Vital Signs (24Hr): Vital Signs - 24 hr 11/14/22 21:55 11/15/22 08:46 11/15/22 13:00 Temperature 97.4 F 97.8 F Pulse Rate 86 95 83 Respiratory Rate 18 18 18 Blood Pressure 130/59 L 137/73 110/57 L Pulse Oximetry 96 97 98 Oxygen Delivery Method Room Air Room Air Room Air BMI result Body Mass Index 45.2 Labs 11/13/22 13:07 11/13/22 18:56 Labs: Laboratory Results - last 48 hr 11/13/22 11/13/22 11/14/22 18:56 18:56 06:45 Sodium 141 Potassium 3.7 D Chloride 103 Carbon Dioxide 30 H Anion Gap 12 BUN 15 Creatinine 0.85 Estim Creat Clear Calc 93.5 Estimated GFR > 60 Random Glucose 200 H Calcium 10.1 Ammonia 24 Urine Color Dark Yellow Urine Appearance Cloudy Urine pH 5.5 Ur Specific [place] >= 1.030 H Urine Protein Trace Urine Glucose (UA) >=1000 H Urine Ketones Trace Urine Blood Negative Urine Nitrite Negative Ur Leukocyte Esterase Trace H Urine RBC 0-2 Urine WBC 11-20 H Ur Squamous Epith Cells 11-20 Urine Bacteria Trace Hyaline Casts 3-5 Imaging Radiology Impressions: ITS Impressions Head CT 11/10/22 12:26 IMPRESSION: 1. No evidence of acute intracranial hemorrhage or edematous territorial infarction. 2. Mild underlying microangiopathy. Medications Medications Current Medications Acetaminophen (Acetaminophen 325 Mg Tablet) 650 mg PO Q6H PRN PRN Reason: Headache/Pain Mild Scale (1-3) Last Admin: 11/10/22 04:30 Dose: 650 mg Al Hydroxide/Mg Hydroxide (Magnesium Hydrox/Alum Hydrox 30 Ml Oral.Susp) 30 ml PO Q6H PRN PRN Reason: Heartburn/Nausea Last Admin: 11/15/22 14:57 Dose: 30 ml Bupropion HCl (Bupropion Hcl Xl 300 Mg Tab.Er.24h) 300 mg PO DAILY [facility] Last Admin: 11/15/22 08:50 Dose: 300 mg Empagliflozin (Empagliflozin 25 Mg Tablet) 25 mg PO DAILY [facility] Last Admin: 11/15/22 08:50 Dose: 25 mg Gabapentin (Gabapentin 300 Mg Capsule) 300 mg PO TID [facility] Last Admin: 11/15/22 14:57 Dose: 300 mg Lisinopril (Lisinopril 10 Mg Tablet) 10 mg PO DAILY [facility]; Protocol Last Admin: 11/15/22 08:51 Dose: 10 mg Magnesium Hydroxide (Milk Of Magnesia 30 Ml Oral.Susp) 30 ml PO DAILY PRN PRN Reason: Constipation Omeprazole (Omeprazole 20 Mg Capsule.Dr) 20 mg PO DAILY@0630 [facility] Last Admin: 11/15/22 08:51 Dose: 20 mg Ondansetron HCl (Ondansetron Odt 4 Mg Tab.Rapdis) 4 mg TRANSLINGU Q8H PRN PRN Reason: Nausea Quetiapine Fumarate (Quetiapine Fumarate 200 Mg Tablet) 200 mg PO BEDTIME [facility] Last Admin: 11/14/22 22:15 Dose: 200 mg Risperidone (Risperidone 0.5 Mg Tablet) 0.5 mg PO Q4H PRN PRN Reason: Psychosis Last Admin: 11/12/22 17:18 Dose: 0.5 mg Risperidone (Risperidone 1 Mg Tablet) 1 mg PO BID [facility] Last Admin: 11/15/22 14:57 Dose: 1 mg Allergies Allergies Allergy/AdvReac Type Severity Reaction Status Date / Time enoxaparin [From Lovenox] AdvReac Unknown headache, Verified 12/27/21 08:23 electric reaction, heat Assessment & Plan Assessment & Plan (1) Bipolar 1 disorder, depressed, severe: Status: Acute Code(s): F31.4 - Bipolar disorder, current episode depressed, severe, without psychotic features Plan Patient is a 62 year old female with hx of bipolar d/o who presented to [facility] via ambulance after her son called 911 reporting patient was being agitated and bizarre. Per crisis report, at baseline patient is social and engaging. Plan: 12B 15 minute safety checks Obtain collateral from family and outpatient providers. Patient was restarted on home medications. Pt medication compliant. VM left for patients psychiatrist, waiting for call back. 11/08: continue seroquel, Wellbutrin at current doses. 5 day course of maacrodantin for UTI 11/09: ankle edema and BP increased, will order one time extra dose of lasix 11/10/22 inc seroquel gradually monitor for any worsening edema Case has been reviewed with patient's outpatient psychiatrist 11/11/2022 Increase Seroquel continued as tolerated consider higher potency antipsychotic patient depressed with guilty ruminations question delusional guilt Healthcare proxy invoked to patient having difficulty taking in information processing at the and making decisions 11/12/2022 Patient seen in psychiatric follow-up given much reassurance and education remains on one-to-one for safety. Increase Seroquel to 400 mg daily Risperdal 0.5 mg p.r.n.. Consider change to Risperdal or perhaps for a lower if unable to tolerate higher doses of Seroquel for ongoing depressive psychosis denies active SI 11/13/2022 Patient mostly in bed complain of nausea this morning lethargic still seems quite anxious mostly nonverbal initially refusing labs then agreed hyperkalemia noted given [facility] consult will lower Seroquel start low-dose Risperdal if hopefully will give better control of psychotic symptoms differential includes some encephalopathic process versus bipolar severe depression with psychotic features which she has had previously 11/14/22 Pt psychotic depressive psychosis failed captla , seroquel start risp consider vraylar cont seroquel at hs 11/15 hold wellbutrin as it may worsen psychosis, increase risperidone to 1mg po BID. Reason for continued inpatient stay Substantial Risk for: inability to function Time Spent With Patient Time: Total time managing care of this patient today ____ minutes.
[2022-11-15 21:55] VITALS: BP 122/58; PULSE 84; RESP 18; TEMP 36.4; O2SAT 98
[2022-11-15] MEDS: QUEtiapine Fumarate 200 MG TABLET PO (21:58)
[2022-11-16 08:54] VITALS: BP 136/70; PULSE 92; RESP 18; TEMP 36.5; O2SAT 93
[2022-11-16] MEDS: Gabapentin 300 MG CAPSULE PO ×2 (08:55→15:45)
[2022-11-16] MEDS: risperiDONE 1 MG TABLET PO ×2 (08:55→22:32)
[2022-11-16] MEDS: Empagliflozin 25 MG TABLET PO (08:55)
[2022-11-16] MEDS: Omeprazole 20 MG CAPSULE.DR PO (08:55)
[2022-11-16] MEDS: lisinopriL 10 MG TABLET PO (08:55)
[2022-11-16 10:32] LABS: Alanine Aminotransferase 62 U/L (0-31); Albumin Level 3.4 g/dL (3.5-5.0); Alkaline Phosphatase 62 U/L (39-117); Anion Gap 11 (12-20); Aspartate Amino Transferase 42 U/L (5-31); Bilirubin Total 0.3 mg/dL (0.0-1.0); Blood Urea Nitrogen 16 mg/dL (9-16); Calcium 8.9 mg/dL (8.4-10.2); Carbon Dioxide 27 mmol/L (22-29); Chloride 107 mmol/L (96-108); Creatinine Clr Calc Pharmacy 108.9; Estimated Glomerular Filt Rate > 60; Glucose Random 106 mg/dL (60-115); Potassium 3.4 mmol/L (3.3-5.1); Sodium 142 mmol/L (135-145); Total Protein 6.5 g/dL (6.5-8.0)
[2022-11-16 13:00] VITALS: RESP 16
--- NOTE | 2022-11-16 15:58 | HO.PSYCHPN ---
Subjective Subjective Date of Service: 11/16/22 Reason For Visit: bizarre behavior Subjective Notes: Conditional Voluntary Interim History: Pt mostly in bed. Difficult to wake up at times. She open her eyes briefly but went back to sleep. She was up earlier in the morning and had some breakfast although mostly untouch. 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 will start penicillin v 250 mg po TID x 10 days. Review of Systems Review of Systems Constitutional : No Weight loss, No Fever, No Chills, No Fatigue, No Malaise ENT/Mouth : No sore throat, No Rhinorrhea Eyes: No Eye Pain, No Swelling, No Redness Cardiovascular : No Chest Pain, No SOB, No Dyspnea on Exertion, No Orthopnea, No Edema, No Palpitations Respiratory : No Cough, No Sputum, No Wheezing Gastrointestinal : No Nausea, No Vomiting, No Diarrhea, No Constipation, No abdominal Pain, No Hematochezia, No Melena Genitourinary : No Dysuria, No Urinary Frequency, No Hematuria, Musculoskeletal : No joint pain, No Myalgias, No Joint Swelling Skin : No Skin Lesions, No rash Neuro : No Weakness, No Numbness, No Dizziness, No Headache Psych : + Anxiety/Panic, + Depression All other systems reviewed and are negative Yes all other systems are reviewed and are negative Constitutional: Reports as per HPI Eyes: Reports as per HPI Reports as per HPI Cardiovascular: Reports as per HPI Respiratory: Reports as per HPI Gastrointestinal: Reports as per HPI Musculoskeletal: Reports as per HPI Skin/Breast: Reports as per HPI Reports as per HPI Psychiatric: Reports as per HPI Endocrine: Reports as per HPI Hematologic/Lymphatic: Reports as per HPI Allergic/Immunologic: Reports as per HPI Mental Status Exam Mental Status Exam Patient Appearance: Disheveled Patient Orientation: Person, Place and Situation Level of Consciousness: Awake Patient Behavior: Suspicious, Anxious and Confused Mood Description: Withdrawn, Depressed, Anxious, Blunted and Apprehensive Affect Description: Fearful and Apprehensive Patient Cognition Impaired: Yes Ability to Follow Directions: Poor Speech Pattern: Difficulty Finding Words and Rambling Memory Description: Working Impaired Diagnostics Vital Signs (24Hr): Vital Signs - 24 hr 11/15/22 21:55 11/16/22 08:54 11/16/22 13:00 Temperature 97.6 F 97.7 F Pulse Rate 84 92 Respiratory Rate 18 18 16 Blood Pressure 122/58 L 136/70 Pulse Oximetry 98 93 Oxygen Delivery Method Room Air Room Air BMI result Body Mass Index 45.2 Labs 11/13/22 13:07 11/16/22 10:00 Labs: Laboratory Results - last 48 hr 11/16/22 10:00 Sodium 142 Potassium 3.4 Chloride 107 Carbon Dioxide 27 Anion Gap 11 L BUN 16 Creatinine 0.73 Estim Creat Clear Calc 108.9 Estimated GFR > 60 Random Glucose 106 Calcium 8.9 D Total Bilirubin 0.3 AST 42 H ALT 62 H Alkaline Phosphatase 62 Total Protein 6.5 Albumin 3.4 L Imaging Radiology Impressions: ITS Impressions Head CT 11/10/22 12:26 IMPRESSION: 1. No evidence of acute intracranial hemorrhage or edematous territorial infarction. 2. Mild underlying microangiopathy. Medications Medications Current Medications Acetaminophen (Acetaminophen 325 Mg Tablet) 650 mg PO Q6H PRN PRN Reason: Headache/Pain Mild Scale (1-3) Last Admin: 11/10/22 04:30 Dose: 650 mg Al Hydroxide/Mg Hydroxide (Magnesium Hydrox/Alum Hydrox 30 Ml Oral.Susp) 30 ml PO Q6H PRN PRN Reason: Heartburn/Nausea Last Admin: 11/15/22 14:57 Dose: 30 ml Bupropion HCl (Bupropion Hcl Xl 300 Mg Tab.Er.24h) 300 mg PO DAILY [facility] Last Admin: 11/15/22 08:50 Dose: 300 mg Empagliflozin (Empagliflozin 25 Mg Tablet) 25 mg PO DAILY [facility] Last Admin: 11/16/22 08:55 Dose: 25 mg Gabapentin (Gabapentin 300 Mg Capsule) 300 mg PO TID [facility] Last Admin: 11/16/22 15:45 Dose: 300 mg Lisinopril (Lisinopril 10 Mg Tablet) 10 mg PO DAILY [facility]; Protocol Last Admin: 11/16/22 08:55 Dose: 10 mg Magnesium Hydroxide (Milk Of Magnesia 30 Ml Oral.Susp) 30 ml PO DAILY PRN PRN Reason: Constipation Omeprazole (Omeprazole 20 Mg Capsule.Dr) 20 mg PO DAILY@0630 [facility] Last Admin: 11/16/22 08:55 Dose: 20 mg Ondansetron HCl (Ondansetron Odt 4 Mg Tab.Rapdis) 4 mg TRANSLINGU Q8H PRN PRN Reason: Nausea Quetiapine Fumarate (Quetiapine Fumarate 200 Mg Tablet) 200 mg PO BEDTIME [facility] Last Admin: 11/15/22 21:58 Dose: 200 mg Risperidone (Risperidone 0.5 Mg Tablet) 0.5 mg PO Q4H PRN PRN Reason: Psychosis Last Admin: 11/12/22 17:18 Dose: 0.5 mg Risperidone (Risperidone 1 Mg Tablet) 1 mg PO BID [facility] Last Admin: 11/16/22 08:55 Dose: 1 mg Sodium Chloride (Sodium Chloride 0.65 % Nasal 44 Ml Sprbtl) 1 spray NOSTRIL-B Q1H PRN PRN Reason: Dry Nasal Passages Allergies Allergies Allergy/AdvReac Type Severity Reaction Status Date / Time enoxaparin [From Lovenox] AdvReac Unknown headache, Verified 12/27/21 08:23 electric reaction, heat Assessment & Plan Assessment & Plan (1) Bipolar 1 disorder, depressed, severe: Status: Acute Code(s): F31.4 - Bipolar disorder, current episode depressed, severe, without psychotic features Plan Patient is a 62 year old female with hx of bipolar d/o who presented [place] [facility] [place] after her son called 911 reporting patient was being agitated and bizarre. Per crisis report, at baseline patient is social and engaging. Plan: 12B 15 minute safety checks Obtain collateral from family and outpatient providers. Patient was restarted on home medications. Pt medication compliant. VM left for patients psychiatrist, waiting for call back. 11/08: continue seroquel, Wellbutrin at current doses. 5 day course of maacrodantin for UTI 11/09: ankle edema and BP increased, will order one time extra dose of lasix 11/10/22 inc seroquel gradually monitor for any worsening edema Case has been reviewed with patient's outpatient psychiatrist 11/11/2022 Increase Seroquel continued as tolerated consider higher potency antipsychotic patient depressed with guilty ruminations question delusional guilt Healthcare proxy invoked to patient having difficulty taking in information processing at the and making decisions 11/12/2022 Patient seen in psychiatric follow-up given much reassurance and education remains on one-to-one for safety. Increase Seroquel to 400 mg daily Risperdal 0.5 mg p.r.n.. Consider change to Risperdal or perhaps for a lower if unable to tolerate higher doses of Seroquel for ongoing depressive psychosis denies active SI 11/13/2022 Patient mostly in bed complain of nausea this morning lethargic still seems quite anxious mostly nonverbal initially refusing labs then agreed hyperkalemia noted given [facility] consult will lower Seroquel start low-dose Risperdal if hopefully will give better control of psychotic symptoms differential includes some encephalopathic process versus bipolar severe depression with psychotic features which she has had previously 11/14/22 Pt psychotic depressive psychosis failed captla , seroquel start risp consider vraylar cont seroquel at hs 11/15 hold wellbutrin as it may increase psychosis, increase risperidone 1mg po BID 11/16 pt more somnolent in bed, not talking much. urine culture positive for gram negative organism- started on penicillin v 250mg po TID x 10 days. Reason for continued inpatient stay Substantial Risk for: inability to function Time Spent With Patient Time: Total time managing care of this patient today ____ minutes.
[2022-11-16 17:46] LABS: Glucose, Whole Blood 101 mg/dL (60-115)
[2022-11-16 17:48] VITALS: BP 149/76; PULSE 81; RESP 17; TEMP 36.9; O2SAT 97
--- NOTE | 2022-11-16 18:17 | PC.NURSE ---
Addendum entered by Sophia Ellis RN 11/16/22 18:25: This RN called labs to see if we could add on labs to this mornings lab draw. Lab reported that it could not be done. train caller Linda Jovel [employer] ASSISTANT MANAGER notified. Addendum entered by Sophia Ellis RN 11/16/22 18:19: pt refused labs Original Note: At about 1730 this RN attempted to awaken the patient. Patient was difficult to arouse. Minimally responsive to sternal rub. Vitals were 97.4, 17 RR, pulse 81, BP 149/76, 97%RA. POC was 101. Patient was minimally responsive to verbal commands. Eyes manually opened by RN and pts eyes observed to be rolling backwards. train caller Linda Jovel notified. Cbc with diff and bmp ordered stat. Hospitalist saw the patient.? Pt making statements such as ?I have been since 1959?, and ?I want to ?. Stated when asked where she was pt responded ?I don?t know I could be in [place], I could be anywhere?. Reported ?I am just tired?.? No new orders given at this time.?Patient remains with 1:1 observer
[2022-11-16 18:38] VITALS: BP 137/63; PULSE 79; RESP 18; O2SAT 96
[2022-11-16 20:30] VITALS: BP 140/65; PULSE 88; RESP 16; TEMP 36.6; O2SAT 100
[2022-11-16] MEDS: Gabapentin 100 MG CAPSULE PO (22:31)
[2022-11-16] MEDS: LORazepam 1 MG TABLET PO (22:31)
[2022-11-16] MEDS: Penicillin V Potassium 250 MG TABLET 500 MG PO (22:31)
[2022-11-16] MEDS: QUEtiapine Fumarate 100 MG TABLET PO (22:32)
[2022-11-17] MEDS: Omeprazole 20 MG CAPSULE.DR PO (06:54)
[2022-11-17 08:30] VITALS: BP 113/60; PULSE 82; RESP 18; TEMP 36.6; O2SAT 97
[2022-11-17] MEDS: Penicillin V Potassium 250 MG TABLET 500 MG PO ×3 (09:07→21:30)
[2022-11-17] MEDS: Empagliflozin 25 MG TABLET PO (09:07)
[2022-11-17] MEDS: risperiDONE 1 MG TABLET PO ×2 (09:08→21:33)
[2022-11-17] MEDS: lisinopriL 10 MG TABLET PO (09:08)
[2022-11-17] MEDS: Gabapentin 100 MG CAPSULE PO ×3 (09:09→21:36)
[2022-11-17] MEDS: LORazepam 1 MG TABLET PO ×3 (10:56→21:36)
--- NOTE | 2022-11-17 13:24 | P.PNPSI_ITS ---
Documented by User: Shahida Ortiz NP 11/17/22 13:38 Subjective Subjective Date of Service: 11/17/22 Reason For Visit: bizarre behavior Subjective Notes: Conditional Voluntary Interim History: Reviewed in team and with Dr. Hoyos. During 1:1, pt presents confused, disorganized, and paranoid. Patient was oriented to person and month, not year or place. Patient stated, I know this isn't [facility] . Patient reports she believes something is being put into her food/water which is what is adding to her confusion. Patient stated, everyone out there looks like my son but at different ages . Patient continues to state she believes she was born in 1960 and then in 1960 . Patient denies SI/HI/AH at this time. Will increase Ativan to 1mg TID. Medication Compliance: Yes Side effects from medications: No Attending Groups: No Review of Systems Constitutional: Reports as per HPI Eyes: Reports as per HPI Reports as per HPI Cardiovascular: Reports as per HPI Respiratory: Reports as per HPI Gastrointestinal: Reports as per HPI Genitourinary: Reports as per HPI Musculoskeletal: Reports as per HPI Skin/Breast: Reports as per HPI Reports as per HPI Psychiatric: Reports as per HPI Endocrine: Reports as per HPI Hematologic/Lymphatic: Reports as per HPI Allergic/Immunologic: Reports as per HPI Mental Status Exam Mental Status Exam Narrative: Pt is alert and oriented; behavior is guarded; patient is not in distress; dressed in hospital garb with unkempt hair; mood is described as okay ; eye contact appropriate; Speech is normal rate, volume and prosody and not pressured; no psychomotor agitation/retardation present; thought process is confused; Thought content is delusional; pt presents with delusional and paranoid thought content; denies any SI/HI. Visual hallucinations of her son at different ages . Patients insight and judgment are poor. Diagnostics Vital Signs (24Hr): Vital Signs - 24 hr 11/16/22 17:48 11/16/22 18:38 11/16/22 20:30 Temperature 98.4 F 98 F Pulse Rate 81 79 88 Respiratory Rate 17 18 16 Blood Pressure 149/76 H 137/63 140/65 H Pulse Oximetry 97 96 100 Oxygen Delivery Method Room Air Room Air Room Air 11/17/22 08:30 Temperature 97.9 F Pulse Rate 82 Respiratory Rate 18 Blood Pressure 113/60 Pulse Oximetry 97 Oxygen Delivery Method Room Air BMI result Body Mass Index 45.2 Labs 11/13/22 13:07 11/16/22 10:00 Labs: Laboratory Results - last 48 hr 11/16/22 11/16/22 10:00 17:40 Sodium 142 Potassium 3.4 Chloride 107 Carbon Dioxide 27 Anion Gap 11 L BUN 16 Creatinine 0.73 Estim Creat Clear Calc 108.9 Estimated GFR > 60 POC Glucose 101 Random Glucose 106 Calcium 8.9 D Total Bilirubin 0.3 AST 42 H ALT 62 H Alkaline Phosphatase 62 Total Protein 6.5 Albumin 3.4 L Imaging Radiology Impressions: ITS Impressions Head CT 11/10/22 12:26 IMPRESSION: 1. No evidence of acute intracranial hemorrhage or edematous territorial infarction. 2. Mild underlying microangiopathy. Medications Medications Current Medications Acetaminophen (Acetaminophen 325 Mg Tablet) 650 mg PO Q6H PRN PRN Reason: Headache/Pain Mild Scale (1-3) Last Admin: 11/10/22 04:30 Dose: 650 mg Al Hydroxide/Mg Hydroxide (Magnesium Hydrox/Alum Hydrox 30 Ml Oral.Susp) 30 ml PO Q6H PRN PRN Reason: Heartburn/Nausea Last Admin: 11/15/22 14:57 Dose: 30 ml Bupropion HCl (Bupropion Hcl Xl 300 Mg Tab.Er.24h) 300 mg PO DAILY [facility] Last Admin: 11/15/22 08:50 Dose: 300 mg Empagliflozin (Empagliflozin 25 Mg Tablet) 25 mg PO DAILY [facility] Last Admin: 11/17/22 09:07 Dose: 25 mg Gabapentin (Gabapentin 100 Mg Capsule) 100 mg PO TID [facility] Last Admin: 11/17/22 09:09 Dose: 100 mg Lisinopril (Lisinopril 10 Mg Tablet) 10 mg PO DAILY [facility]; Protocol Last Admin: 11/17/22 09:08 Dose: 10 mg Lorazepam (Lorazepam 1 Mg Tablet) 1 mg PO TID [facility] Last Admin: 11/17/22 10:56 Dose: 1 mg Magnesium Hydroxide (Milk Of Magnesia 30 Ml Oral.Susp) 30 ml PO DAILY PRN PRN Reason: Constipation Omeprazole (Omeprazole 20 Mg Capsule.Dr) 20 mg PO DAILY@0630 [facility] Last Admin: 11/17/22 06:54 Dose: 20 mg Ondansetron HCl (Ondansetron Odt 4 Mg Tab.Rapdis) 4 mg TRANSLINGU Q8H PRN PRN Reason: Nausea Penicillin V Potassium (Penicillin V Potassium 250 Mg Tablet) 500 mg PO TID [facility] Stop: 11/26/22 09:01 Last Admin: 11/17/22 09:07 Dose: 500 mg Quetiapine Fumarate (Quetiapine Fumarate 100 Mg Tablet) 100 mg PO BEDTIME [facility] Last Admin: 11/16/22 22:32 Dose: 100 mg Risperidone (Risperidone 0.5 Mg Tablet) 0.5 mg PO Q4H PRN PRN Reason: Psychosis Last Admin: 11/12/22 17:18 Dose: 0.5 mg Risperidone (Risperidone 1 Mg Tablet) 1 mg PO BID [facility] Last Admin: 11/17/22 09:08 Dose: 1 mg Sodium Chloride (Sodium Chloride 0.65 % Nasal 44 Ml Sprbtl) 1 spray NOSTRIL-B Q1H PRN PRN Reason: Dry Nasal Passages Allergies Allergies Allergy/AdvReac Type Severity Reaction Status Date / Time enoxaparin [From Lovenox] AdvReac Unknown headache, Verified 12/27/21 08:23 electric reaction, heat Assessment & Plan Assessment & Plan (1) Bipolar 1 disorder, depressed, severe: Status: Acute Code(s): F31.4 - Bipolar disorder, current episode depressed, severe, without psychotic features Plan Patient is a 62 year old female with hx of bipolar d/o who presented [facility] via ambulance after her son called 911 reporting patient was being agitated and bizarre. Per crisis report, at baseline patient is social and engaging. Plan: 12B 15 minute safety checks Obtain collateral from family and outpatient providers. Patient was restarted on home medications. Pt medication compliant. VM left for patients psychiatrist, waiting for call back. 11/08: continue seroquel, Wellbutrin at current doses. 5 day course of maacrodantin for UTI 11/09: ankle edema and BP increased, will order one time extra dose of lasix 11/10: inc seroquel gradually monitor for any worsening edema Case has been reviewed with patient's outpatient psychiatrist 11/11: Increase Seroquel continued as tolerated consider higher potency antipsychotic patient depressed with guilty ruminations question delusional guilt Healthcare proxy invoked to patient having difficulty taking in information processing at the and making decisions 11/12: Patient seen in psychiatric follow-up given much reassurance and education remains on one-to-one for safety. Increase Seroquel to 400 mg daily Risperdal 0.5 mg p.r.n.. Consider change to Risperdal or perhaps for a lower if unable to tolerate higher doses of Seroquel for ongoing depressive psychosis denies active SI 11/13: Patient mostly in bed complain of nausea this morning lethargic still seems quite anxious mostly nonverbal initially refusing labs then agreed hyperkalemia noted given [facility] consult will lower Seroquel start low- dose Risperdal if hopefully will give better control of psychotic symptoms differential includes some encephalopathic process versus bipolar severe depression with psychotic features which she has had previously 11/14: Pt psychotic depressive psychosis failed captla , seroquel start risp consider vraylar cont seroquel at hs 11/15: hold wellbutrin as it may increase psychosis, increase risperidone 1mg po BID 11/16: pt more somnolent in bed, not talking much. urine culture positive for gram negative organism- started on penicillin v 250mg po TID x 10 days. 11/17: Pt presents confused, disorganized, paranoid. Oriented to person and month, not year or place. Believes something is being put into her food/water. Increased Ativan to 1mg TID. Will continue to monitor. Patient educated on: medication risk/benefits Informed Consent: further education needed Reason for continued inpatient stay Substantial Risk for: inability to function and med/psych decompensation Time Spent With Patient Time: Total time managing care of this patient today __30__ minutes. Documented by User: Jayy Hoyos MD 11/17/22 22:13 Subjective Subjective Reason For Visit: bizarre behavior Diagnostics Labs 11/13/22 13:07 11/16/22 10:00 Assessment & Plan Assessment & Plan (1) Bipolar 1 disorder, depressed, severe: Status: Acute Code(s): F31.4 - Bipolar disorder, current episode depressed, severe, without psychotic features Reason for continued inpatient stay Substantial Risk for: harm to self and rapid decompensation
[2022-11-17 20:15] VITALS: BP 133/72; PULSE 86; RESP 18; TEMP 36.3; O2SAT 98
[2022-11-17] MEDS: QUEtiapine Fumarate 100 MG TABLET PO (21:35)
[2022-11-17] MEDS: Sodium Chloride 0.65 % Nasal 44 ML SPRBTL 1 SPRAY NOSTRIL-B (21:44)
[2022-11-18] MEDS: Omeprazole 20 MG CAPSULE.DR PO (06:35)
[2022-11-18 08:50] VITALS: BP 135/65; PULSE 91; TEMP 36.3; O2SAT 98
[2022-11-18] MEDS: lisinopriL 10 MG TABLET PO (08:52)
[2022-11-18] MEDS: Empagliflozin 25 MG TABLET PO (08:52)
[2022-11-18] MEDS: Gabapentin 100 MG CAPSULE PO ×2 (08:52→20:34)
[2022-11-18] MEDS: Penicillin V Potassium 250 MG TABLET 500 MG PO ×3 (08:52→20:35)
[2022-11-18] MEDS: LORazepam 1 MG TABLET PO ×3 (08:53→20:34)
[2022-11-18] MEDS: risperiDONE 1 MG TABLET PO ×3 (08:53→20:35)
--- NOTE | 2022-11-18 09:21 | HO.PSYCHPN ---
Subjective Subjective Date of Service: 11/18/22 Reason For Visit: bizarre behavior Subjective Notes: Conditional Voluntary Interim History: Reviewed in team and with Dr. Hoyos. Patient continues to present confused, disorganized, and paranoid. Slightly improved from yesterday's presentation. Patient reports feeling anxious and depressed today. Patient is starting to question her delusions. Patient stated, I feel like my mind is racing. I know all of those people can't be my son because he can't be more than one person. I don't know if I'm in a nightmare or reality . Medication Compliance: Yes Side effects from medications: No Attending Groups: Intermittent Review of Systems Constitutional: Reports as per HPI Eyes: Reports as per HPI Reports as per HPI Cardiovascular: Reports as per HPI Respiratory: Reports as per HPI Gastrointestinal: Reports as per HPI Genitourinary: Reports as per HPI Musculoskeletal: Reports as per HPI Skin/Breast: Reports as per HPI Reports as per HPI Psychiatric: Reports as per HPI Endocrine: Reports as per HPI Hematologic/Lymphatic: Reports as per HPI Allergic/Immunologic: Reports as per HPI Mental Status Exam Mental Status Exam Narrative: Pt is alert and oriented; behavior is guarded; patient is not in distress; dressed in hospital garb; mood is described as anxious ; eye contact appropriate; Speech is normal rate, volume and prosody and not pressured; no psychomotor agitation/retardation present; thought process is confused; Thought content is delusional; pt presents with delusional and paranoid thought content; denies any SI/HI. Visual hallucinations of her son at different ages . Patients insight and judgment are poor. Diagnostics Vital Signs (24Hr): Vital Signs - 24 hr 11/17/22 20:15 11/18/22 08:50 Temperature 97.4 F 97.4 F Pulse Rate 86 91 Respiratory Rate 18 Blood Pressure 133/72 135/65 Pulse Oximetry 98 98 Oxygen Delivery Method Room Air Room Air BMI result Body Mass Index 45.2 Labs 11/13/22 13:07 11/16/22 10:00 Labs: Laboratory Results - last 48 hr 11/16/22 11/16/22 10:00 17:40 Sodium 142 Potassium 3.4 Chloride 107 Carbon Dioxide 27 Anion Gap 11 L BUN 16 Creatinine 0.73 Estim Creat Clear Calc 108.9 Estimated GFR > 60 POC Glucose 101 Random Glucose 106 Calcium 8.9 D Total Bilirubin 0.3 AST 42 H ALT 62 H Alkaline Phosphatase 62 Total Protein 6.5 Albumin 3.4 L Imaging Radiology Impressions: ITS Impressions Head CT 11/10/22 12:26 IMPRESSION: 1. No evidence of acute intracranial hemorrhage or edematous territorial infarction. 2. Mild underlying microangiopathy. Medications Medications Current Medications Acetaminophen (Acetaminophen 325 Mg Tablet) 650 mg PO Q6H PRN PRN Reason: Headache/Pain Mild Scale (1-3) Last Admin: 11/10/22 04:30 Dose: 650 mg Al Hydroxide/Mg Hydroxide (Magnesium Hydrox/Alum Hydrox 30 Ml Oral.Susp) 30 ml PO Q6H PRN PRN Reason: Heartburn/Nausea Last Admin: 11/15/22 14:57 Dose: 30 ml Bupropion HCl (Bupropion Hcl Xl 300 Mg Tab.Er.24h) 300 mg PO DAILY [facility] Last Admin: 11/15/22 08:50 Dose: 300 mg Empagliflozin (Empagliflozin 25 Mg Tablet) 25 mg PO DAILY [facility] Last Admin: 11/18/22 08:52 Dose: 25 mg Gabapentin (Gabapentin 100 Mg Capsule) 100 mg PO TID [facility] Last Admin: 11/18/22 08:52 Dose: 100 mg Lisinopril (Lisinopril 10 Mg Tablet) 10 mg PO DAILY [facility]; Protocol Last Admin: 11/18/22 08:52 Dose: 10 mg Lorazepam (Lorazepam 1 Mg Tablet) 1 mg PO TID [facility] Last Admin: 11/18/22 08:53 Dose: 1 mg Magnesium Hydroxide (Milk Of Magnesia 30 Ml Oral.Susp) 30 ml PO DAILY PRN PRN Reason: Constipation Omeprazole (Omeprazole 20 Mg Capsule.Dr) 20 mg PO DAILY@0630 [facility] Last Admin: 11/18/22 06:35 Dose: 20 mg Ondansetron HCl (Ondansetron Odt 4 Mg Tab.Rapdis) 4 mg TRANSLINGU Q8H PRN PRN Reason: Nausea Penicillin V Potassium (Penicillin V Potassium 250 Mg Tablet) 500 mg PO TID [facility] Stop: 11/26/22 09:01 Last Admin: 11/18/22 08:52 Dose: 500 mg Quetiapine Fumarate (Quetiapine Fumarate 100 Mg Tablet) 100 mg PO BEDTIME [facility] Last Admin: 11/17/22 21:35 Dose: 100 mg Risperidone (Risperidone 0.5 Mg Tablet) 0.5 mg PO Q4H PRN PRN Reason: Psychosis Last Admin: 11/12/22 17:18 Dose: 0.5 mg Risperidone (Risperidone 1 Mg Tablet) 1 mg PO BID [facility] Last Admin: 11/18/22 08:53 Dose: 1 mg Sodium Chloride (Sodium Chloride 0.65 % Nasal 44 Ml Sprbtl) 1 spray NOSTRIL-B Q1H PRN PRN Reason: Dry Nasal Passages Last Admin: 11/17/22 21:44 Dose: 1 spray Allergies Allergies Allergy/AdvReac Type Severity Reaction Status Date / Time enoxaparin [From Lovenox] AdvReac Unknown headache, Verified 12/27/21 08:23 electric reaction, heat Assessment & Plan Assessment & Plan (1) Bipolar 1 disorder, depressed, severe: Status: Acute Code(s): F31.4 - Bipolar disorder, current episode depressed, severe, without psychotic features Plan Patient is a 62 year old female with hx of bipolar d/o who presented to [facility] via ambulance after her son called 911 reporting patient was being agitated and bizarre. Per crisis report, at baseline patient is social and engaging. Plan: 12B 15 minute safety checks Obtain collateral from family and outpatient providers. Patient was restarted on home medications. Pt medication compliant. VM left for patients psychiatrist, waiting for call back. 11/08: continue seroquel, Wellbutrin at current doses. 5 day course of maacrodantin for UTI 11/09: ankle edema and BP increased, will order one time extra dose of lasix 11/10: inc seroquel gradually monitor for any worsening edema Case has been reviewed with patient's outpatient psychiatrist 11/11: Increase Seroquel continued as tolerated consider higher potency antipsychotic patient depressed with guilty ruminations question delusional guilt Healthcare proxy invoked to patient having difficulty taking in information processing at the and making decisions 11/12: Patient seen in psychiatric follow-up given much reassurance and education remains on one-to-one for safety. Increase Seroquel to 400 mg daily Risperdal 0.5 mg p.r.n.. Consider change to Risperdal or perhaps for a lower if unable to tolerate higher doses of Seroquel for ongoing depressive psychosis denies active SI 11/13: Patient mostly in bed complain of nausea this morning lethargic still seems quite anxious mostly nonverbal initially refusing labs then agreed hyperkalemia noted given [facility] hospital consult will lower Seroquel start low-dose Risperdal if hopefully will give better control of psychotic symptoms differential includes some encephalopathic process versus bipolar severe depression with psychotic features which she has had previously 11/14: Pt psychotic depressive psychosis failed captla , seroquel start risp consider vraylar cont seroquel at hs 11/15: hold wellbutrin as it may increase psychosis, increase risperidone 1mg po BID 11/16: pt more somnolent in bed, not talking much. urine culture positive for gram negative organism- started on penicillin v 250mg po TID x 10 days. 11/17: Pt presents confused, disorganized, paranoid. Oriented to person and month, not year or place. Believes something is being put into her food/water. Increased Ativan to 1mg TID. Will continue to monitor. 11/18: Slightly improved from yesterday's presentation. Patient reports feeling anxious and depressed today. Patient is starting to question her delusions. Patient stated, I feel like my mind is racing. I know all of those people can't be my son because he can't be more than one person. I don't know if I'm in a nightmare or reality . Increase risperidone 1mg TID. Patient educated on: medication risk/benefits and therapeutic strategies Informed Consent: understands and further education needed Reason for continued inpatient stay Substantial Risk for: med/psych decompensation Time Spent With Patient Time: Total time managing care of this patient today __30__ minutes.
[2022-11-18] MEDS: Sodium Chloride 0.65 % Nasal 44 ML SPRBTL 1 SPRAY NOSTRIL-B ×2 (14:17→20:35)
[2022-11-18 20:05] VITALS: BP 126/68; PULSE 92; RESP 16; TEMP 36.3; O2SAT 97
[2022-11-18] MEDS: QUEtiapine Fumarate 100 MG TABLET PO (20:34)
[2022-11-19 08:30] VITALS: BP 131/67; PULSE 83; TEMP 36.4; O2SAT 98
[2022-11-19] MEDS: Penicillin V Potassium 250 MG TABLET 500 MG PO ×3 (08:32→21:00)
[2022-11-19] MEDS: LORazepam 1 MG TABLET PO ×3 (08:33→21:00)
[2022-11-19] MEDS: Omeprazole 20 MG CAPSULE.DR PO (08:34)
[2022-11-19] MEDS: risperiDONE 1 MG TABLET PO (08:35)
[2022-11-19] MEDS: lisinopriL 10 MG TABLET PO (08:35)
[2022-11-19] MEDS: Empagliflozin 25 MG TABLET PO (08:35)
[2022-11-19] MEDS: Gabapentin 100 MG CAPSULE PO ×3 (08:35→21:00)
--- NOTE | 2022-11-19 16:04 | P.PNPSI_ITS ---
Subjective Subjective Date of Service: 11/19/22 Reason For Visit: bizarre behavior Subjective Notes: Conditional Voluntary Interim History: Reviewed in team and with Dr. Hoyos. Patient continues to present confused, disorganized, and paranoid. Patient was oriented x3 today. Patient reports feeling anxious and depressed today. Patient stated, everything is wrong. The visit with my son didn't go well . Patient would not elaborate on this. Patient reports she is feeling sleepy during the day with the medications . Medication Compliance: Yes Side effects from medications: No Attending Groups: Intermittent Review of Systems Review of Systems Constitutional : No Weight loss, No Fever, No Chills, No Fatigue, No Malaise ENT/Mouth : No sore throat, No Rhinorrhea Eyes: No Eye Pain, No Swelling, No Redness Cardiovascular : No Chest Pain, No SOB, No Dyspnea on Exertion, No Orthopnea, No Edema, No Palpitations Respiratory : No Cough, No Sputum, No Wheezing Gastrointestinal : No Nausea, No Vomiting, No Diarrhea, No Constipation, No abdominal Pain, No Hematochezia, No Melena Genitourinary : No Dysuria, No Urinary Frequency, No Hematuria, Musculoskeletal : No joint pain, No Myalgias, No Joint Swelling Skin : No Skin Lesions, No rash Neuro : No Weakness, No Numbness, No Dizziness, No Headache Psych : + Anxiety/Panic, + Depression All other systems reviewed and are negative Yes all other systems are reviewed and are negative Constitutional: Reports as per HPI Eyes: Reports as per HPI Reports as per HPI Cardiovascular: Reports as per HPI Respiratory: Reports as per HPI Gastrointestinal: Reports as per HPI Musculoskeletal: Reports as per HPI Skin/Breast: Reports as per HPI Reports as per HPI Psychiatric: Reports as per HPI Endocrine: Reports as per HPI Hematologic/Lymphatic: Reports as per HPI Allergic/Immunologic: Reports as per HPI Mental Status Exam Mental Status Exam Narrative: Pt is alert and oriented; behavior is guarded; patient is not in distress; dressed in hospital garb; mood is described as anxious ; eye contact stevan ropriate; Speech is normal rate, volume and prosody and not pressured; no psychomotor agitation/retardation present; thought process is confused; Thought content is delusional; pt presents with delusional and paranoid thought content; denies any SI/HI. Visual hallucinations of her son at different ages . Patients insight and judgment are poor. Diagnostics Vital Signs (24Hr): Vital Signs - 24 hr 11/18/22 20:05 11/19/22 08:30 Temperature 97.4 F 97.6 F Pulse Rate 92 83 Respiratory Rate 16 Blood Pressure 126/68 131/67 Pulse Oximetry 97 98 Oxygen Delivery Method Room Air Room Air BMI result Body Mass Index 45.2 Labs 11/13/22 13:07 11/16/22 10:00 Imaging Radiology Impressions: ITS Impressions Head CT 11/10/22 12:26 IMPRESSION: 1. No evidence of acute intracranial hemorrhage or edematous territorial infarction. 2. Mild underlying microangiopathy. Medications Medications Current Medications Acetaminophen (Acetaminophen 325 Mg Tablet) 650 mg PO Q6H PRN PRN Reason: Headache/Pain Mild Scale (1-3) Last Admin: 11/10/22 04:30 Dose: 650 mg Al Hydroxide/Mg Hydroxide (Magnesium Hydrox/Alum Hydrox 30 Ml Oral.Susp) 30 ml PO Q6H PRN PRN Reason: Heartburn/Nausea Last Admin: 11/15/22 14:57 Dose: 30 ml Bupropion HCl (Bupropion Hcl Xl 300 Mg Tab.Er.24h) 300 mg PO DAILY [facility] Last Admin: 11/15/22 08:50 Dose: 300 mg Empagliflozin (Empagliflozin 25 Mg Tablet) 25 mg PO DAILY [facility] Last Admin: 11/19/22 08:35 Dose: 25 mg Gabapentin (Gabapentin 100 Mg Capsule) 100 mg PO TID [facility] Last Admin: 11/19/22 08:35 Dose: 100 mg Lisinopril (Lisinopril 10 Mg Tablet) 10 mg PO DAILY [facility]; Protocol Last Admin: 11/19/22 08:35 Dose: 10 mg Lorazepam (Lorazepam 1 Mg Tablet) 1 mg PO TID [facility] Last Admin: 11/19/22 08:33 Dose: 1 mg Magnesium Hydroxide (Milk Of Magnesia 30 Ml Oral.Susp) 30 ml PO DAILY PRN PRN Reason: Constipation Omeprazole (Omeprazole 20 Mg Capsule.Dr) 20 mg PO DAILY@0630 [facility] Last Admin: 11/19/22 08:34 Dose: 20 mg Ondansetron HCl (Ondansetron Odt 4 Mg Tab.Rapdis) 4 mg TRANSLINGU Q8H PRN PRN Reason: Nausea Penicillin V Potassium (Penicillin V Potassium 250 Mg Tablet) 500 mg PO TID [facility] Stop: 11/26/22 09:01 Last Admin: 11/19/22 08:32 Dose: 500 mg Risperidone (Risperidone 1 Mg Tablet) 1 mg PO DAILY [facility] Last Admin: 11/19/22 15:27 Dose: Not Given Risperidone (Risperidone 2 Mg Tablet) 2 mg PO BEDTIME CHITO Sodium Chloride (Sodium Chloride 0.65 % Nasal 44 Ml Sprbtl) 1 spray NOSTRIL-B Q1H PRN PRN Reason: Dry Nasal Passages Last Admin: 11/18/22 20:35 Dose: 1 spray Allergies Allergies Allergy/AdvReac Type Severity Reaction Status Date / Time enoxaparin [From Lovenox] AdvReac Unknown headache, Verified 12/27/21 08:23 electric reaction, heat Assessment & Plan Assessment & Plan (1) Bipolar 1 disorder, depressed, severe: Status: Acute Code(s): F31.4 - Bipolar disorder, current episode depressed, severe, without psychotic features Plan Patient is a 62 year old female with hx of bipolar d/o who presented to [facility] via ambulance after her son called 911 reporting patient was being agitated and bizarre. Per crisis report, at baseline patient is social and engaging. Plan: 12B 15 minute safety checks Obtain collateral from family and outpatient providers. Patient was restarted on home medications. Pt medication compliant. VM left for patients psychiatrist, waiting for call back. 11/08: continue seroquel, Wellbutrin at current doses. 5 day course of maacrodantin for UTI 11/09: ankle edema and BP increased, will order one time extra dose of lasix 11/10: inc seroquel gradually monitor for any worsening edema Case has been reviewed with patient's outpatient psychiatrist 11/11: Increase Seroquel continued as tolerated consider higher potency antipsychotic patient depressed with guilty ruminations question delusional guilt Healthcare proxy invoked to patient having difficulty taking in information processing at the and making decisions 11/12: Patient seen in psychiatric follow-up given much reassurance and education remains on one-to-one for safety. Increase Seroquel to 400 mg daily Risperdal 0.5 mg p.r.n.. Consider change to Risperdal or perhaps for a lower if unable to tolerate higher doses of Seroquel for ongoing depressive psychosis denies active SI 11/13: Patient mostly in bed complain of nausea this morning lethargic still seems quite anxious mostly nonverbal initially refusing labs then agreed hyperkalemia noted given [facility] consult will lower Seroquel start low- dose Risperdal if hopefully will give better control of psychotic symptoms differential includes some encephalopathic process versus bipolar severe depression with psychotic features which she has had previously 11/14: Pt psychotic depressive psychosis failed captla , seroquel start risp co nsider vraylar cont seroquel at hs 11/15: hold wellbutrin as it may increase psychosis, increase risperidone 1mg po BID 11/16: pt more somnolent in bed, not talking much. urine culture positive for gra m negative organism- started on penicillin v 250mg po TID x 10 days. 11/17: Pt presents confused, disorganized, paranoid. Oriented to person and month, not year or place. Believes something is being put into her food/water. Increased Ativan to 1mg TID. Will continue to monitor. 11/18: Slightly improved from yesterday's presentation. Patient reports feeling anxious and depressed today. Patient is starting to question her delusions. Patient stated, I feel like my mind is racing. I know all of those people can't be my son because he can't be more than one person. I don't know if I'm in a nig htmare or reality . Increase risperidone 1mg TID. 11/19: Pt reports feeling tired during the day. Risperidone changed to 1mg PO daily and 2mg PO bedtime. DC'd Seroquel. Continues to report feeling anxious and depressed. Reports the visit with her son did not go well yesterday but would not elaborate. T/W spoke with son (Thad). Thad reports, since COVID happened my mom would isolate to her room and her depression increased.She normally talkative and has days of depression and anxiety. The last time she had an episode like this was 40 years ago. Nothing stressful occurred prior to her symptoms starting before the admission . T/W plans on contacting patient outpatient psychiatrist (Dr. Guevara) tomorrow to obtain more information on tx hx. Patient educated on: diagnosis, medication risk/benefits and therapeutic strategies Informed Consent: understands and further education needed Reason for continued inpatient stay Substantial Risk for: med/psych decompensation Time Spent With Patient Time: Total time managing care of this patient today _30___ minutes.
[2022-11-19 20:55] VITALS: BP 142/78; PULSE 93; RESP 18; TEMP 36.1; O2SAT 100
[2022-11-19] MEDS: risperiDONE 2 MG TABLET PO (21:00)
--- NOTE | 2022-11-20 | EEG_ITS ---
This is a 16 channel EEG with an EKG lead. The patient is reported awake and restless during the tracing. Background EEG rhythm is low to medium amplitude, mixed theta, beta with no obvious asymmetry or paroxysmal tendency. Photic stimulation is unremarkable. Hyperventilation is not performed. Cardiac lead does not reveal any significant abnormality. IMPRESSION: Mild slowing with no evidence of seizure disorder. MD LORETA Us/DEBBY / [phone]
[2022-11-20 09:22] VITALS: BP 143/69; PULSE 94; RESP 18; TEMP 36.7; O2SAT 96
[2022-11-20] MEDS: Penicillin V Potassium 250 MG TABLET 500 MG PO ×3 (09:26→20:30)
[2022-11-20] MEDS: Empagliflozin 25 MG TABLET PO (09:27)
[2022-11-20] MEDS: risperiDONE 1 MG TABLET PO (09:27)
[2022-11-20] MEDS: Omeprazole 20 MG CAPSULE.DR PO (09:27)
[2022-11-20] MEDS: LORazepam 1 MG TABLET PO ×3 (09:27→20:31)
[2022-11-20] MEDS: lisinopriL 10 MG TABLET PO (09:28)
[2022-11-20] MEDS: Gabapentin 100 MG CAPSULE PO ×3 (09:28→20:31)
--- NOTE | 2022-11-20 10:16 | P.PNPSI_ITS ---
Subjective Subjective Date of Service: 11/20/22 Reason For Visit: bizarre behavior Subjective Notes: Conditional Voluntary Interim History: Reviewed in team and with Dr. Hoyos. Patient continues to present confused, disorganized, and paranoid. Pt continues to c/o confusion. Will order EEG. Patient stated I can't seem to get my thoughts together . Continues to feel anxious and depressed. Reports having nightmares. Discussed Prazosin risks/benefits. Patient agreed to trial medication. Medication Compliance: Yes Attending Groups: No Review of Systems Review of Systems Constitutional : No Weight loss, No Fever, No Chills, No Fatigue, No Malaise ENT/Mouth : No sore throat, No Rhinorrhea Eyes: No Eye Pain, No Swelling, No Redness Cardiovascular : No Chest Pain, No SOB, No Dyspnea on Exertion, No Orthopnea, No Edema, No Palpitations Respiratory : No Cough, No Sputum, No Wheezing Gastrointestinal : No Nausea, No Vomiting, No Diarrhea, No Constipation, No abdominal Pain, No Hematochezia, No Melena Genitourinary : No Dysuria, No Urinary Frequency, No Hematuria, Musculoskeletal : No joint pain, No Myalgias, No Joint Swelling Skin : No Skin Lesions, No rash Neuro : No Weakness, No Numbness, No Dizziness, No Headache Psych : + Anxiety/Panic, + Depression All other systems reviewed and are negative Yes all other systems are reviewed and are negative Constitutional: Reports as per HPI Eyes: Reports as per HPI Reports as per HPI Cardiovascular: Reports as per HPI Respiratory: Reports as per HPI Gastrointestinal: Reports as per HPI Genitourinary: Reports as per HPI Musculoskeletal: Reports as per HPI Skin/Breast: Reports as per HPI Reports as per HPI Psychiatric: Reports as per HPI Endocrine: Reports as per HPI Hematologic/Lymphatic: Reports as per HPI Allergic/Immunologic: Reports as per HPI Mental Status Exam Mental Status Exam Narrative: Pt is alert and oriented; behavior is guarded; patient is not in distress; dressed in hospital garb; mood is described as anxious ; eye contact appropriate; Speech is normal rate, volume and prosody and not pressured; no psychomotor agitation/retardation present; thought process is confused; Thought content is delusional; pt presents with delusional and paranoid thought content; denies any SI/HI/AH/VH. Patients insight and judgment are poor. Diagnostics Vital Signs (24Hr): Vital Signs - 24 hr 11/19/22 20:55 11/20/22 09:22 Temperature 97.0 F 98.1 F Pulse Rate 93 94 Respiratory Rate 18 18 Blood Pressure 142/78 H 143/69 H Pulse Oximetry 100 96 Oxygen Delivery Method Room Air Room Air BMI result Body Mass Index 45.2 Labs 11/13/22 13:07 11/16/22 10:00 Imaging Radiology Impressions: ITS Impressions Head CT 11/10/22 12:26 IMPRESSION: 1. No evidence of acute intracranial hemorrhage or edematous territorial infarction. 2. Mild underlying microangiopathy. Medications Medications Current Medications Acetaminophen (Acetaminophen 325 Mg Tablet) 650 mg PO Q6H PRN PRN Reason: Headache/Pain Mild Scale (1-3) Last Admin: 11/10/22 04:30 Dose: 650 mg Al Hydroxide/Mg Hydroxide (Magnesium Hydrox/Alum Hydrox 30 Ml Oral.Susp) 30 ml PO Q6H PRN PRN Reason: Heartburn/Nausea Last Admin: 11/15/22 14:57 Dose: 30 ml Bupropion HCl (Bupropion Hcl Xl 300 Mg Tab.Er.24h) 300 mg PO DAILY [facility] Last Admin: 11/15/22 08:50 Dose: 300 mg Empagliflozin (Empagliflozin 25 Mg Tablet) 25 mg PO DAILY [facility] Last Admin: 11/20/22 09:27 Dose: 25 mg Gabapentin (Gabapentin 100 Mg Capsule) 100 mg PO TID [facility] Last Admin: 11/20/22 09:28 Dose: 100 mg Lisinopril (Lisinopril 10 Mg Tablet) 10 mg PO DAILY [facility]; Protocol Last Admin: 11/20/22 09:28 Dose: 10 mg Lorazepam (Lorazepam 1 Mg Tablet) 1 mg PO TID [facility] Last Admin: 11/20/22 09:27 Dose: 1 mg Magnesium Hydroxide (Milk Of Magnesia 30 Ml Oral.Susp) 30 ml PO DAILY PRN PRN Reason: Constipation Omeprazole (Omeprazole 20 Mg Capsule.Dr) 20 mg PO DAILY@0630 [facility] Last Admin: 11/20/22 09:27 Dose: 20 mg Ondansetron HCl (Ondansetron Odt 4 Mg Tab.Rapdis) 4 mg TRANSLINGU Q8H PRN PRN Reason: Nausea Penicillin V Potassium (Penicillin V Potassium 250 Mg Tablet) 500 mg PO TID [facility] Stop: 11/26/22 09:01 Last Admin: 11/20/22 09:26 Dose: 500 mg Risperidone (Risperidone 1 Mg Tablet) 1 mg PO DAILY [facility] Last Admin: 11/20/22 09:27 Dose: 1 mg Risperidone (Risperidone 2 Mg Tablet) 2 mg PO BEDTIME CHITO Last Admin: 11/19/22 21:00 Dose: 2 mg Sodium Chloride (Sodium Chloride 0.65 % Nasal 44 Ml Sprbtl) 1 spray NOSTRIL-B Q1H PRN PRN Reason: Dry Nasal Passages Last Admin: 11/18/22 20:35 Dose: 1 spray Allergies Allergies Allergy/AdvReac Type Severity Reaction Status Date / Time enoxaparin [From Lovenox] AdvReac Unknown headache, Verified 12/27/21 08:23 electric reaction, heat Assessment & Plan Assessment & Plan (1) Bipolar 1 disorder, depressed, severe: Status: Acute Code(s): F31.4 - Bipolar disorder, current episode depressed, severe, without psychotic features Plan Patient is a 62 year old female with hx of bipolar d/o who presented to [facility] via ambulance after her son called 911 reporting patient was being agitated and bizarre. Per crisis report, at baseline patient is social and engaging. Plan: 12B 15 minute safety checks Obtain collateral from family and outpatient providers. Patient was restarted on home medications. Pt medication compliant. VM left for patients psychiatrist, waiting for call back. 11/08: continue seroquel, Wellbutrin at current doses. 5 day course of maacrodantin for UTI 11/09: ankle edema and BP increased, will order one time extra dose of lasix 11/10: inc seroquel gradually monitor for any worsening edema Case has been reviewed with patient's outpatient psychiatrist 11/11: Increase Seroquel continued as tolerated consider higher potency antipsychotic patient depressed with guilty ruminations question delusional guilt Healthcare proxy invoked to patient having difficulty taking in information processing at the and making decisions 11/12: Patient seen in psychiatric follow-up given much reassurance and education remains on one-to-one for safety. Increase Seroquel to 400 mg daily Risperdal 0.5 mg p.r.n.. Consider change to Risperdal or perhaps for a lower if unable to tolerate higher doses of Seroquel for ongoing depressive psychosis denies active SI 11/13: Patient mostly in bed complain of nausea this morning lethargic still seems quite anxious mostly nonverbal initially refusing labs then agreed hyperkalemia noted given [facility] hospital consult will lower Seroquel start low- dose Risperdal if hopefully will give better control of psychotic symptoms differential includes some encephalopathic process versus bipolar severe depression with psychotic features which she has had previously 11/14: Pt psychotic depressive psychosis failed captla , seroquel start risp consider vraylar cont seroquel at hs 11/15: hold wellbutrin as it may increase psychosis, increase risperidone 1mg po BID 11/16: pt more somnolent in bed, not talking much. urine culture positive for gram negative organism- started on penicillin v 250mg po TID x 10 days. 11/17: Pt presents confused, disorganized, paranoid. Oriented to person and mo nth, not year or place. Believes something is being put into her food/water. Increased Ativan to 1mg TID. Will continue to monitor. 11/18: Slightly improved from yesterday's presentation. Patient reports feeling anxious and depressed today. Patient is starting to question her delusions. Patient stated, I feel like my mind is racing. I know all of those people can't be my son because he can't be more than one person. I don't know if I'm in a nightmare or reality . Increase risperidone 1mg TID. 11/19: Pt reports feeling tired during the day. Risperidone changed to 1mg PO daily and 2mg PO bedtime. DC'd Seroquel. Continues to report feeling anxious and depressed. Reports the visit with her son did not go well yesterday but would not elaborate. T/W spoke with son (Thad). Thad reports, since COVID happened my mom would isolate to her room and her depression increased.She normally talkative and has days of depression and anxiety. The last time she had an episode like this was 40 years ago. Nothing stressful occurred prior to her symptoms starting before the admission . T/W plans on contacting patient outpatient psychiatrist (Dr. Guevara) tomorrow to obtain more information on tx hx. 11/20: Pt continues to feel confused. Will order EEG. Patient stated I can't seem to get my thoughts together . Continues to feel anxious and depressed. Reports having nightmares. Discussed Minipress risks/benefits. Patient agreed to trial medication, will start prazosin 1mg PO bedtime. Ativan changed from 1mg PO TID to 1mg PO bedtime. Risperidal changed from 1mg PO daily and 2mg PO bedtime to 3mg PO bedtime. Patient educated on: diagnosis, medication risk/benefits and therapeutic strategies Informed Consent: understands and further education needed Reason for continued inpatient stay Substantial Risk for: med/psych decompensation Time Spent With Patient Time: Total time managing care of this patient today _30___ minutes.
[2022-11-20 20:24] VITALS: BP 134/65; PULSE 106; RESP 18; TEMP 36.3; O2SAT 100
[2022-11-20] MEDS: Prazosin HCL 1 MG CAPSULE PO (20:29)
[2022-11-20] MEDS: risperiDONE 3 MG TABLET PO (20:31)
[2022-11-21 08:31] VITALS: BP 134/61; PULSE 95; RESP 17; TEMP 36.3; O2SAT 96
[2022-11-21] MEDS: Omeprazole 20 MG CAPSULE.DR PO (08:42)
[2022-11-21] MEDS: Penicillin V Potassium 250 MG TABLET 500 MG PO ×3 (08:42→22:20)
[2022-11-21] MEDS: Gabapentin 100 MG CAPSULE PO ×3 (08:42→22:21)
[2022-11-21] MEDS: lisinopriL 10 MG TABLET PO (08:42)
[2022-11-21] MEDS: Empagliflozin 25 MG TABLET PO (08:42)
--- NOTE | 2022-11-21 10:03 | P.PNPSI_ITS ---
Subjective Subjective Date of Service: 11/21/22 Reason For Visit: bizarre behavior Subjective Notes: Conditional Voluntary Interim History: Reviewed in team and with Dr. Hoyos. Patient continues to present confused, disorganized, and paranoid. Waiting on EEG results. Patient stated, You guys are messing with the time. You guys are having fun playing with me . Patient reports feeling depressed. Risks/benefits discussed regarding [place]. Patient agreed to trial of medication. Medication Compliance: Yes Side effects from medications: No Attending Groups: Intermittent Review of Systems Review of Systems Constitutional : No Weight loss, No Fever, No Chills, No Fatigue, No Malaise ENT/Mouth : No sore throat, No Rhinorrhea Eyes: No Eye Pain, No Swelling, No Redness Cardiovascular : No Chest Pain, No SOB, No Dyspnea on Exertion, No Orthopnea, No Edema, No Palpitations Respiratory : No Cough, No Sputum, No Wheezing Gastrointestinal : No Nausea, No Vomiting, No Diarrhea, No Constipation, No abdominal Pain, No Hematochezia, No Melena Genitourinary : No Dysuria, No Urinary Frequency, No Hematuria, Musculoskeletal : No joint pain, No Myalgias, No Joint Swelling Skin : No Skin Lesions, No rash Neuro : No Weakness, No Numbness, No Dizziness, No Headache Psych : + Anxiety/Panic, + Depression All other systems reviewed and are negative Yes all other systems are reviewed and are negative Constitutional: Reports as per HPI Eyes: Reports as per HPI Reports as per HPI Cardiovascular: Reports as per HPI Respiratory: Reports as per HPI Gastrointestinal: Reports as per HPI Musculoskeletal: Reports as per HPI Skin/Breast: Reports as per HPI Reports as per HPI Psychiatric: Reports as per HPI Endocrine: Reports as per HPI Hematologic/Lymphatic: Reports as per HPI Allergic/Immunologic: Reports as per HPI Mental Status Exam Mental Status Exam Narrative: Pt is alert and oriented; behavior is guarded; patient is not in distress; dressed in hospital garb; mood is described as anxious ; eye contact appropriate; Speech is normal rate, volume and prosody and not pressured; no psychomotor agitation/retardation present; thought process is confused; Thought content is delusional; pt presents with delusional and paranoid thought content; denies any SI/HI/AH/VH. Patients insight and judgment are poor. Diagnostics Vital Signs (24Hr): Vital Signs - 24 hr 11/20/22 20:24 07/28/23 08:31 Temperature 97.4 F 97.4 F Pulse Rate 106 H 95 Respiratory Rate 18 17 Blood Pressure 134/65 134/61 Pulse Oximetry 100 96 Oxygen Delivery Method Room Air Room Air BMI result Body Mass Index 45.2 Labs 11/13/22 13:07 11/16/22 10:00 Imaging Radiology Impressions: ITS Impressions Head CT 11/10/22 12:26 IMPRESSION: 1. No evidence of acute intracranial hemorrhage or edematous territorial infarction. 2. Mild underlying microangiopathy. Medications Medications Current Medications Acetaminophen (Acetaminophen 325 Mg Tablet) 650 mg PO Q6H PRN PRN Reason: Headache/Pain Mild Scale (1-3) Last Admin: 11/10/22 04:30 Dose: 650 mg Al Hydroxide/Mg Hydroxide (Magnesium Hydrox/Alum Hydrox 30 Ml Oral.Susp) 30 ml PO Q6H PRN PRN Reason: Heartburn/Nausea Last Admin: 11/15/22 14:57 Dose: 30 ml Bupropion HCl (Bupropion Hcl Xl 300 Mg Tab.Er.24h) 300 mg PO DAILY [facility] Last Admin: 11/15/22 08:50 Dose: 300 mg Empagliflozin (Empagliflozin 25 Mg Tablet) 25 mg PO DAILY [facility] Last Admin: 11/21/22 08:42 Dose: 25 mg Gabapentin (Gabapentin 100 Mg Capsule) 100 mg PO TID [facility] Last Admin: 11/21/22 08:42 Dose: 100 mg Lisinopril (Lisinopril 10 Mg Tablet) 10 mg PO DAILY [facility]; Protocol Last Admin: 11/21/22 08:42 Dose: 10 mg Lorazepam (Lorazepam 1 Mg Tablet) 1 mg PO BEDTIME [facility] Last Admin: 11/20/22 20:31 Dose: 1 mg Magnesium Hydroxide (Milk Of Magnesia 30 Ml Oral.Susp) 30 ml PO DAILY PRN PRN Reason: Constipation Omeprazole (Omeprazole 20 Mg Capsule.Dr) 20 mg PO DAILY@0630 [facility] Last Admin: 11/21/22 08:42 Dose: 20 mg Ondansetron HCl (Ondansetron Odt 4 Mg Tab.Rapdis) 4 mg TRANSLINGU Q8H PRN PRN Reason: Nausea Penicillin V Potassium (Penicillin V Potassium 250 Mg Tablet) 500 mg PO TID [facility] Stop: 11/26/22 09:01 Last Admin: 11/21/22 08:42 Dose: 500 mg Prazosin HCl (Prazosin Hcl 1 Mg Capsule) 1 mg PO BEDTIME [facility]; Protocol Last Admin: 11/20/22 20:29 Dose: 1 mg Risperidone (Risperidone 3 Mg Tablet) 3 mg PO BEDTIME [facility] Last Admin: 11/20/22 20:31 Dose: 3 mg Sodium Chloride (Sodium Chloride 0.65 % Nasal 44 Ml Sprbtl) 1 spray NOSTRIL-B Q1H PRN PRN Reason: Dry Nasal Passages Last Admin: 11/18/22 20:35 Dose: 1 spray Allergies Allergies Allergy/AdvReac Type Severity Reaction Status Date / Time enoxaparin [From Lovenox] AdvReac Unknown headache, Verified 12/27/21 08:23 electric reaction, heat Assessment & Plan Assessment & Plan (1) Bipolar 1 disorder, depressed, severe: Status: Acute Code(s): F31.4 - Bipolar disorder, current episode depressed, severe, without psychotic features Plan Patient is a 62 year old female with hx of bipolar d/o who presented to [facility] via ambulance after her son called 911 reporting patient was being agitated and bizarre. Per crisis report, at baseline patient is social and engaging. Plan: 12B 15 minute safety checks Obtain collateral from family and outpatient providers. Patient was restarted on home medications. Pt medication compliant. VM left for patients psychiatrist, waiting for call back. 11/08: continue seroquel, Wellbutrin at current doses. 5 day course of maacrodantin for UTI 11/09: ankle edema and BP increased, will order one time extra dose of lasix 11/10: inc seroquel gradually monitor for any worsening edema Case has been reviewed with patient's outpatient psychiatrist 11/11: Increase Seroquel continued as tolerated consider higher potency antipsychotic patient depressed with guilty ruminations question delusional guilt Healthcare proxy invoked to patient having difficulty taking in information processing at the and making decisions 11/12: Patient seen in psychiatric follow-up given much reassurance and education remains on one-to-one for safety. Increase Seroquel to 400 mg daily Risperdal 0.5 mg p.r.n.. Consider change to Risperdal or perhaps for a lower if unable to tolerate higher doses of Seroquel for ongoing depressive psychosis denies active SI 11/13: Patient mostly in bed complain of nausea this morning lethargic still seems quite anxious mostly nonverbal initially refusing labs then agreed hyperkalemia noted given -[facility] hospital consult will lower Seroquel start low- dose Risperdal if hopefully will give better control of psychotic symptoms differential includes some encephalopathic process versus bipolar severe depression with psychotic features which she has had previously 11/14: Pt psychotic depressive psychosis failed captla , seroquel start risp consider vraylar cont seroquel at hs 11/15: hold wellbutrin as it may increase psychosis, increase risperidone 1mg po BID 11/16: pt more somnolent in bed, not talking much. urine culture positive for gram negative organism- started on penicillin v 250mg po TID x 10 days. 11/17: Pt presents confused, disorganized, paranoid. Oriented to person and month, not year or place. Believes something is being put into her food/water. Increased Ativan to 1mg TID. Will continue to monitor. 11/18: Slightly improved from yesterday's presentation. Patient reports feeling anxious and depressed today. Patient is starting to question her delusions. Patient stated, I feel like my mind is racing. I know all of those people can't be my son because he can't be more than one person. I don't know if I'm in a nightmare or reality . Increase risperidone 1mg TID. 11/19: Pt reports feeling tired during the day. Risperidone changed to 1mg PO daily and 2mg PO bedtime. DC'd Seroquel. Continues to report feeling anxious and depressed. Reports the visit with her son did not go well yesterday but would not elaborate. T/W spoke with son (Thad). Thad reports, since COVID happened my mom would isolate to her room and her depression increased.She normally talkative and has days of depression and anxiety. The last time she had an episode like this was 40 years ago. Nothing stressful occurred prior to her symptoms starting before the admission . T/W plans on contacting patient outpatient psychiatrist (Dr. Guevara) tomorrow to obtain more information on tx hx. 11/20: Pt continues to feel confused. Will order EEG. Patient stated I can't seem to get my thoughts together . Continues to feel anxious and depressed. Reports having nightmares. Discussed Minipress risks/benefits. Patient agreed to trial medication, will start prazosin 1mg PO bedtime. Ativan changed from 1mg PO TID to 1mg PO bedtime. Risperidal changed from 1mg PO daily and 2mg PO bedtime to 3mg PO bedtime. 11/21: Pt continues to report confusion and racing thoughts. Waiting on EEG results. Pt presents with paranoia. Patient stated, You guys are messing with the time. You guys are having fun playing with me . Patient reports feeling depressed. Risks/benefits discussed regarding [place]. Patient agreed to trial of medication. Will increase Risperidal to 4mg PO bedtime. Started: [place] ER 300mg PO BID Cogentin 0.5mg PO TID PRN for EPS Ativan 0.5mg PO Q6HR PRN anxiety Patient educated on: diagnosis, medication risk/benefits and therapeutic strategies Informed Consent: understands and further education needed Reason for continued inpatient stay Substantial Risk for: med/psych decompensation Time Spent With Patient Time: Total time managing care of this patient today _30___ minutes.
[2022-11-21] MEDS: Lithium Carbonate ER 300 MG TABLET.ER PO ×2 (15:11→22:20)
[2022-11-21] MEDS: Benztropine Mesylate 1 MG TABLET PO (15:12)
[2022-11-21] MEDS: HaloperidoL 5 MG TABLET PO (15:12)
[2022-11-21 19:50] VITALS: BP 124/58; PULSE 78; RESP 16; TEMP 36.3; O2SAT 97
[2022-11-21] MEDS: Prazosin HCL 1 MG CAPSULE PO (22:20)
[2022-11-21] MEDS: risperiDONE 2 MG TABLET 4 MG PO (22:21)
[2022-11-21] MEDS: LORazepam 1 MG TABLET PO (22:21)
[2022-11-22 08:00] VITALS: BP 129/69; PULSE 92; TEMP 36.3; O2SAT 94
[2022-11-22] MEDS: Penicillin V Potassium 250 MG TABLET 500 MG PO ×3 (08:03→20:41)
[2022-11-22] MEDS: Lithium Carbonate ER 300 MG TABLET.ER PO ×2 (08:04→20:41)
[2022-11-22] MEDS: Empagliflozin 25 MG TABLET PO (08:04)
[2022-11-22] MEDS: lisinopriL 10 MG TABLET PO (08:04)
[2022-11-22] MEDS: Omeprazole 20 MG CAPSULE.DR PO (08:05)
[2022-11-22] MEDS: Gabapentin 100 MG CAPSULE PO ×3 (08:05→20:40)
[2022-11-22] MEDS: Sodium Chloride 0.65 % Nasal 44 ML SPRBTL 1 SPRAY NOSTRIL-B ×2 (08:08→15:18)
--- NOTE | 2022-11-22 14:02 | P.PNPSI_ITS ---
Subjective Subjective Date of Service: 11/22/22 Reason For Visit: bizarre behavior Subjective Notes: Conditional Voluntary Healthcare Proxy: Yes Guardianship: No Medical Problems Affecting Mental Status: No Interim History: Patient was seen and discussed in rounds today. Records and plans were reviewed. She had several questions about her medications which we discussed. She is requesting a compression stocking which I have ordered. She talked about her incontinence and the use of available diapers here. She has been somewhat paranoid. Some increase in anxiety and depression. She was started on lithium and denies any side effects. No changes were made today Review of Systems Review of Systems Some incontinence Yes all other systems are reviewed and are negative Mental Status Exam Mental Status Exam Narrative: In today's visit she is alert, oriented and pleasant. Very soft-spoken speech which is hard to follow sometimes. Moderate eye contact. Affect is constricted. Some delusions reported. No indications of response to internal stimuli. Cognitively she has slow thought processes. Judgment is mostly intact Diagnostics Vital Signs (24Hr): Vital Signs - 24 hr 11/21/22 19:50 11/22/22 08:00 Temperature 97.3 F 97.3 F Pulse Rate 78 92 Respiratory Rate 16 Blood Pressure 124/58 L 129/69 Pulse Oximetry 97 94 Oxygen Delivery Method Room Air Room Air BMI result Body Mass Index 45.2 Labs 11/13/22 13:07 11/16/22 10:00 Imaging Radiology Impressions: ITS Impressions Head CT 11/10/22 12:26 IMPRESSION: 1. No evidence of acute intracranial hemorrhage or edematous territorial infarction. 2. Mild underlying microangiopathy. Medications Medications Current Medications Acetaminophen (Acetaminophen 325 Mg Tablet) 650 mg PO Q6H PRN PRN Reason: Headache/Pain Mild Scale (1-3) Last Admin: 11/10/22 04:30 Dose: 650 mg Al Hydroxide/Mg Hydroxide (Magnesium Hydrox/Alum Hydrox 30 Ml Oral.Susp) 30 ml PO Q6H PRN PRN Reason: Heartburn/Nausea Last Admin: 11/15/22 14:57 Dose: 30 ml Benzocaine (Throat Lozenge, Medicated Lozenge) 1 lozenge MUCOUS MEM Q2H PRN PRN Reason: Sore Throat Benztropine Mesylate (Benztropine Mesylate 0.5 Mg Tablet) 0.5 mg PO TID PRN PRN Reason: Extrapyramidal Effects Empagliflozin (Empagliflozin 25 Mg Tablet) 25 mg PO DAILY [facility] Last Admin: 11/22/22 08:04 Dose: 25 mg Gabapentin (Gabapentin 100 Mg Capsule) 100 mg PO TID [facility] Last Admin: 11/22/22 08:05 Dose: 100 mg Lisinopril (Lisinopril 10 Mg Tablet) 10 mg PO DAILY [facility]; Protocol Last Admin: 11/22/22 08:04 Dose: 10 mg [place] Carbonate ([place] Carbonate Er 300 Mg Tablet.Er) 300 mg PO BID [facility] Last Admin: 11/22/22 08:04 Dose: 300 mg Lorazepam (Lorazepam 1 Mg Tablet) 1 mg PO BEDTIME [facility] Last Admin: 11/21/22 22:21 Dose: 1 mg Lorazepam (Lorazepam 0.5 Mg Tablet) 0.5 mg PO Q6H PRN PRN Reason: Anxiety Magnesium Hydroxide (Milk Of Magnesia 30 Ml Oral.Susp) 30 ml PO DAILY PRN PRN Reason: Constipation Omeprazole (Omeprazole 20 Mg Capsule.Dr) 20 mg PO DAILY@0630 [facility] Last Admin: 11/22/22 08:05 Dose: 20 mg Ondansetron HCl (Ondansetron Odt 4 Mg Tab.Rapdis) 4 mg TRANSLINGU Q8H PRN PRN Reason: Nausea Penicillin V Potassium (Penicillin V Potassium 250 Mg Tablet) 500 mg PO TID [facility] Stop: 11/26/22 09:01 Last Admin: 11/22/22 08:03 Dose: 500 mg Prazosin HCl (Prazosin Hcl 1 Mg Capsule) 1 mg PO BEDTIME [facility]; Protocol Last Admin: 11/21/22 22:20 Dose: 1 mg Risperidone (Risperidone 2 Mg Tablet) 4 mg PO BEDTIME [facility] Last Admin: 11/21/22 22:21 Dose: 4 mg Sodium Chloride (Sodium Chloride 0.65 % Nasal 44 Ml Sprbtl) 1 spray NOSTRIL-B Q1H PRN PRN Reason: Dry Nasal Passages Last Admin: 11/22/22 08:08 Dose: 1 spray Allergies Allergies Allergy/AdvReac Type Severity Reaction Status Date / Time enoxaparin [From Lovenox] AdvReac Unknown headache, Verified 12/27/21 08:23 electric reaction, heat Assessment & Plan Assessment & Plan (1) Bipolar 1 disorder, depressed, severe: Status: Acute Code(s): F31.4 - Bipolar disorder, current episode depressed, severe, without psychotic features Plan Patient is a 62 year old female with hx of bipolar d/o who presented to [facility] via ambulance after her son called 911 reporting patient was being agitated and bizarre. Per crisis report, at baseline patient is social and engaging. Plan: 12B 15 minute safety checks Obtain collateral from family and outpatient providers. Patient was restarted on home medications. Pt medication compliant. left for patients psychiatrist, waiting for call back. 11/08: continue seroquel, Wellbutrin at current doses. 5 day course of maacrodantin for UTI 11/09: ankle edema and BP increased, will order one time extra dose of lasix 11/10: inc seroquel gradually monitor for any worsening edema Case has been reviewed with patient's outpatient psychiatrist 11/11: Increase Seroquel continued as tolerated consider higher potency antipsychotic patient depressed with guilty ruminations question delusional guil t Healthcare proxy invoked to patient having difficulty taking in information processing at the and making decisions 11/12: Patient seen in psychiatric follow-up given much reassurance and education remains on one-to-one for safety. Increase Seroquel to 400 mg daily Risperdal 0.5 mg p.r.n.. Consider change to Risperdal or perhaps for a lower if unable to tolerate higher doses of Seroquel for ongoing depressive psychosis denies active SI 11/13: Patient mostly in bed complain of nausea this morning lethargic still seems quite anxious mostly nonverbal initially refusing labs then agreed hyperkalemia noted given [facility] hospital consult will lower Seroquel start low- dose Risperdal if hopefully will give better control of psychotic symptoms differential includes some encephalopathic process versus bipolar severe depression with psychotic features which she has had previously 11/14: Pt psychotic depressive psychosis failed captla , seroquel start risp consider vraylar cont seroquel at hs 11/15: hold wellbutrin as it may increase psychosis, increase risperidone 1mg po BID 11/16: pt more somnolent in bed, not talking much. urine culture positive for gram negative organism- started on penicillin v 250mg po TID x 10 days. 11/17: Pt presents confused, disorganized, paranoid. Oriented to person and month, not year or place. Believes something is being put into her food/water. Increased Ativan to 1mg TID. Will continue to monitor. 11/18: Slightly improved from yesterday's presentation. Patient reports feeling anxious and depressed today. Patient is starting to question her delusions. Rodrigo pierce stated, I feel like my mind is racing. I know all of those people can't be my son because he can't be more than one person. I don't know if I'm in a nightmare or reality . Increase risperidone 1mg TID. 11/19: Pt reports feeling tired during the day. Risperidone changed to 1mg PO daily and 2mg PO bedtime. DC'd Seroquel. Continues to report feeling anxious and depressed. Reports the visit with her son did not go well yesterday but would not elaborate. T/W spoke with son (Thad). Thad reports, since COVID happened my mom would isolate to her room and her depression increased.She normally talkative and has days of depression and anxiety. The last time she had an episode like this was 4 0 years ago. Nothing stressful occurred prior to her symptoms starting before the admission . T/W plans on contacting patient outpatient psychiatrist (Dr. Guevara) tomorrow to obtain more information on tx hx. 11/20: Pt continues to feel confused. Will order EEG. Patient stated I can't seem to get my thoughts together . Continues to feel anxious and depressed. Reports having nightmares. Discussed Minipress risks/benefits. Patient agreed to trial medication, will start prazosin 1mg PO bedtime. Ativan changed from 1mg PO TID to 1mg PO bedtime. Risperidal changed from 1mg PO daily and 2mg PO bedtime to 3mg PO bedtime. 11/21: Pt continues to report confusion and racing thoughts. Waiting on EEG results. Pt presents with paranoia. Patient stated, You guys are messing with the time. You guys are having fun playing with me . Patient reports feeling depressed. Risks/benefits discussed regarding [place]. Patient agreed to trial of medication. Will increase Risperidal to 4mg PO bedtime. Started: [place] ER 300mg PO BID Cogentin 0.5mg PO TID PRN for EPS Ativan 0.5mg PO Q6HR PRN anxiety 11/22: Continue current regimen and plans. Compression stockings ordered. Reason for continued inpatient stay Substantial Risk for: med/psych decompensation Time Spent With Patient Time: Total time managing care of this patient today ____ minutes.
[2022-11-22 19:50] VITALS: BP 119/55; PULSE 84; RESP 18; TEMP 36.2; O2SAT 99
[2022-11-22] MEDS: risperiDONE 2 MG TABLET 4 MG PO (20:40)
[2022-11-22] MEDS: Prazosin HCL 1 MG CAPSULE PO (20:41)
[2022-11-22] MEDS: LORazepam 1 MG TABLET PO (20:41)
[2022-11-23] MEDS: Omeprazole 20 MG CAPSULE.DR PO (06:47)
[2022-11-23 08:25] VITALS: BP 108/65; PULSE 94; TEMP 36.3; O2SAT 96
[2022-11-23] MEDS: Penicillin V Potassium 250 MG TABLET 500 MG PO ×3 (08:27→21:41)
[2022-11-23] MEDS: Gabapentin 100 MG CAPSULE PO ×3 (08:28→21:40)
[2022-11-23] MEDS: Lithium Carbonate ER 300 MG TABLET.ER PO ×2 (08:28→21:40)
[2022-11-23] MEDS: Empagliflozin 25 MG TABLET PO (08:28)
[2022-11-23] MEDS: lisinopriL 10 MG TABLET PO (08:29)
--- NOTE | 2022-11-23 11:29 | HO.PSYCHPN ---
Subjective Subjective Date of Service: 11/23/22 Reason For Visit: bizarre behavior Subjective Notes: Conditional Voluntary Healthcare Proxy: Yes Guardianship: No Medical Problems Affecting Mental Status: No Interim History: Patient was seen and discussed in rounds today. Records and plans were reviewed. She is a little less somatic today but continues to be somewhat confused but looks better than yesterday. She is attending some groups. Still needing redirection. Were discontinuing the one-to-one observation for 5 minute checks. No other changes were made today Medication Compliance: Yes Side effects from medications: No Review of Systems Review of Systems Yes all other systems are reviewed and are negative Mental Status Exam Mental Status Exam Narrative: In today's visit she is alert, oriented and pleasant. Very soft-spoken speech which is hard to follow sometimes. Moderate eye contact. Affect is constricted. Some delusions reported. No indications of response to internal stimuli. Cognitively she has slow thought processes. Judgment is mostly intact Diagnostics Vital Signs (24Hr): Vital Signs - 24 hr 11/22/22 19:50 11/23/22 08:25 Temperature 97.2 F 97.3 F Pulse Rate 84 94 Respiratory Rate 18 Blood Pressure 119/55 L 108/65 Pulse Oximetry 99 96 Oxygen Delivery Method Room Air Room Air BMI result Body Mass Index 45.2 Labs 11/13/22 13:07 11/16/22 10:00 Imaging Radiology Impressions: ITS Impressions Head CT 11/10/22 12:26 IMPRESSION: 1. No evidence of acute intracranial hemorrhage or edematous territorial infarction. 2. Mild underlying microangiopathy. Medications Medications Current Medications Acetaminophen (Acetaminophen 325 Mg Tablet) 650 mg PO Q6H PRN PRN Reason: Headache/Pain Mild Scale (1-3) Last Admin: 11/10/22 04:30 Dose: 650 mg Al Hydroxide/Mg Hydroxide (Magnesium Hydrox/Alum Hydrox 30 Ml Oral.Susp) 30 ml PO Q6H PRN PRN Reason: Heartburn/Nausea Last Admin: 11/15/22 14:57 Dose: 30 ml Benzocaine (Throat Lozenge, Medicated Lozenge) 1 lozenge MUCOUS MEM Q2H PRN PRN Reason: Sore Throat Benztropine Mesylate (Benztropine Mesylate 0.5 Mg Tablet) 0.5 mg PO TID PRN PRN Reason: Extrapyramidal Effects Empagliflozin (Empagliflozin 25 Mg Tablet) 25 mg PO DAILY [facility] Last Admin: 11/23/22 08:28 Dose: 25 mg Gabapentin (Gabapentin 100 Mg Capsule) 100 mg PO TID [facility] Last Admin: 11/23/22 08:28 Dose: 100 mg Lisinopril (Lisinopril 10 Mg Tablet) 10 mg PO DAILY [facility]; Protocol Last Admin: 11/23/22 08:29 Dose: 10 mg [place] Carbonate ([place] Carbonate Er 300 Mg Tablet.Er) 300 mg PO BID [facility] Last Admin: 11/23/22 08:28 Dose: 300 mg Lorazepam (Lorazepam 1 Mg Tablet) 1 mg PO BEDTIME [facility] Last Admin: 11/22/22 20:41 Dose: 1 mg Lorazepam (Lorazepam 0.5 Mg Tablet) 0.5 mg PO Q6H PRN PRN Reason: Anxiety Magnesium Hydroxide (Milk Of Magnesia 30 Ml Oral.Susp) 30 ml PO DAILY PRN PRN Reason: Constipation Omeprazole (Omeprazole 20 Mg Capsule.Dr) 20 mg PO DAILY@0630 [facility] Last Admin: 11/23/22 06:47 Dose: 20 mg Ondansetron HCl (Ondansetron Odt 4 Mg Tab.Rapdis) 4 mg TRANSLINGU Q8H PRN PRN Reason: Nausea Penicillin V Potassium (Penicillin V Potassium 250 Mg Tablet) 500 mg PO TID [facility] Stop: 11/26/22 09:01 Last Admin: 11/23/22 08:27 Dose: 500 mg Prazosin HCl (Prazosin Hcl 1 Mg Capsule) 1 mg PO BEDTIME [facility]; Protocol Last Admin: 11/22/22 20:41 Dose: 1 mg Risperidone (Risperidone 2 Mg Tablet) 4 mg PO BEDTIME [facility] Last Admin: 11/22/22 20:40 Dose: 4 mg Sodium Chloride (Sodium Chloride 0.65 % Nasal 44 Ml Sprbtl) 1 spray NOSTRIL-B Q1H PRN PRN Reason: Dry Nasal Passages Last Admin: 11/22/22 15:18 Dose: 1 spray Allergies Allergies Allergy/AdvReac Type Severity Reaction Status Date / Time enoxaparin [From Lovenox] AdvReac Unknown headache, Verified 12/27/21 08:23 electric reaction, heat Assessment & Plan Assessment & Plan (1) Bipolar 1 disorder, depressed, severe: Status: Acute Code(s): F31.4 - Bipolar disorder, current episode depressed, severe, without psychotic features Plan Patient is a 62 year old female with hx of bipolar d/o who presented to [facility] [place] ambulance after her son called 911 reporting patient was being agitated and bizarre. Per crisis report, at baseline patient is social and engaging. Plan: 12B 15 minute safety checks Obtain collateral from family and outpatient providers. Patient was restarted on home medications. Pt medication compliant. VM left for patients psychiatrist, waiting for call back. 11/08: continue seroquel, Wellbutrin at current doses. 5 day course of maacrodantin for UTI 11/09: ankle edema and BP increased, will order one time extra dose of lasix 11/10: inc seroquel gradually monitor for any worsening edema Case has been reviewed with patient's outpatient psychiatrist 11/11: Increase Seroquel continued as tolerated consider higher potency antipsychotic patient depressed with guilty ruminations question delusional guilt Healthcare proxy invoked to patient having difficulty taking in information processing at the and making decisions 11/12: Patient seen in psychiatric follow-up given much reassurance and education remains on one-to-one for safety. Increase Seroquel to 400 mg daily Risperdal 0.5 mg p.r.n.. Consider change to Risperdal or perhaps for a lower if unable to tolerate higher doses of Seroquel for ongoing depressive psychosis denies active SI 11/13: Patient mostly in bed complain of nausea this morning lethargic still seems quite anxious mostly nonverbal initially refusing labs then agreed hyperkalemia noted given [facility] consult will lower Seroquel start low-dose Risperdal if hopefully will give better control of psychotic symptoms differential includes some encephalopathic process versus bipolar severe depression with psychotic features which she has had previously 11/14: Pt psychotic depressive psychosis failed captla , seroquel start risp consider vraylar cont seroquel at hs 11/15: hold wellbutrin as it may increase psychosis, increase risperidone 1mg po BID 11/16: pt more somnolent in bed, not talking much. urine culture positive for gram negative organism- started on penicillin v 250mg po TID x 10 days. 11/17: Pt presents confused, disorganized, paranoid. Oriented to person and month, not year or place. Believes something is being put into her food/water. Increased Ativan to 1mg TID. Will continue to monitor. 11/18: Slightly improved from yesterday's presentation. Patient reports feeling anxious and depressed today. Patient is starting to question her delusions. Patient stated, I feel like my mind is racing. I know all of those people can't be my son because he can't be more than one person. I don't know if I'm in a nightmare or reality . Increase risperidone 1mg TID. 11/19: Pt reports feeling tired during the day. Risperidone changed to 1mg PO daily and 2mg PO bedtime. DC'd Seroquel. Continues to report feeling anxious and depressed. Reports the visit with her son did not go well yesterday but would not elaborate. T/W spoke with son (Thad). Thad reports, since COVID happened my mom would isolate to her room and her depression increased.She normally talkative and has days of depression and anxiety. The last time she had an episode like this was 40 years ago. Nothing stressful occurred prior to her symptoms starting before the admission . T/W plans on contacting patient outpatient psychiatrist (Dr. Guevara) tomorrow to obtain more information on tx hx. 11/20: Pt continues to feel confused. Will order EEG. Patient stated I can't seem to get my thoughts together . Continues to feel anxious and depressed. Reports having nightmares. Discussed Minipress risks/benefits. Patient agreed to trial medication, will start prazosin 1mg PO bedtime. Ativan changed from 1mg PO TID to 1mg PO bedtime. Risperidal changed from 1mg PO daily and 2mg PO bedtime to 3mg PO bedtime. 11/21: Pt continues to report confusion and racing thoughts. Waiting on EEG results. Pt presents with paranoia. Patient stated, You guys are messing with the time. You guys are having fun playing with me . Patient reports feeling depressed. Risks/benefits discussed regarding [place]. Patient agreed to trial of medication. Will increase Risperidal to 4mg PO bedtime. Started: [place] ER 300mg PO BID Cogentin 0.5mg PO TID PRN for EPS Ativan 0.5mg PO Q6HR PRN anxiety 11/22: Continue current regimen and plans. Compression stockings ordered. 11/23: Continue current plans and regimen Reason for continued inpatient stay Substantial Risk for: inability to function and med/psych decompensation Time Spent With Patient Time: Total time managing care of this patient today ____ minutes.
[2022-11-23 21:35] VITALS: BP 136/73; PULSE 90; RESP 16; TEMP 36.3; O2SAT 96
[2022-11-23] MEDS: LORazepam 1 MG TABLET PO (21:40)
[2022-11-23] MEDS: Prazosin HCL 1 MG CAPSULE PO (21:40)
[2022-11-23] MEDS: risperiDONE 2 MG TABLET 4 MG PO (21:41)
[2022-11-24] MEDS: LORazepam 0.5 MG TABLET PO
--- NOTE | 2022-11-24 08:49 | HO.PSYCHPN ---
Subjective Subjective Date of Service: 11/24/22 Reason For Visit: bizarre behavior Subjective Notes: Conditional Voluntary Interim History: Reviewed in team and with Dr. Hoyos. Patient presents alert and oriented x3 today. She reports feeling anxious because of the yelling on the unit . Patient continues to report increased depression. Patient reports passive suicidal ideation; pt stated, I would never take my own life but I don't want to wake up because I feel like a burden to everyone . Medication Compliance: Yes Side effects from medications: No Attending Groups: Yes Review of Systems Constitutional: Reports as per HPI Eyes: Reports as per HPI Reports as per HPI Cardiovascular: Reports as per HPI Respiratory: Reports as per HPI Gastrointestinal: Reports as per HPI Genitourinary: Reports as per HPI Musculoskeletal: Reports as per HPI Skin/Breast: Reports as per HPI Reports as per HPI Psychiatric: Reports as per HPI Endocrine: Reports as per HPI Hematologic/Lymphatic: Reports as per HPI Allergic/Immunologic: Reports as per HPI Mental Status Exam Mental Status Exam Narrative: Pt is alert and oriented; behavior is cooperative and calm; patient is not in distress; dressed in casual attire; mood is described as depressed and anxious ; eye contact appropriate; Speech is normal rate, volume and prosody and not pressured; no psychomotor agitation/retardation present; thought process is confused; Thought content is on tx; otherwise pertinent to relevant topics and without any delusional content, paranoid ideations or grandiosity; denies HI. Reports passive suicidal ideation. There is no evidence of perceptual disturbance. Patients insight and judgment are poor. Diagnostics Vital Signs (24Hr): Vital Signs - 24 hr 11/23/22 21:35 Temperature 97.4 F Pulse Rate 90 Respiratory Rate 16 Blood Pressure 136/73 Pulse Oximetry 96 Oxygen Delivery Method Room Air BMI result Body Mass Index 45.2 Labs 11/13/22 13:07 11/16/22 10:00 Imaging Radiology Impressions: ITS Impressions Head CT 11/10/22 12:26 IMPRESSION: 1. No evidence of acute intracranial hemorrhage or edematous territorial infarction. 2. Mild underlying microangiopathy. Medications Medications Current Medications Acetaminophen (Acetaminophen 325 Mg Tablet) 650 mg PO Q6H PRN PRN Reason: Headache/Pain Mild Scale (1-3) Last Admin: 11/10/22 04:30 Dose: 650 mg Al Hydroxide/Mg Hydroxide (Magnesium Hydrox/Alum Hydrox 30 Ml Oral.Susp) 30 ml PO Q6H PRN PRN Reason: Heartburn/Nausea Last Admin: 11/15/22 14:57 Dose: 30 ml Benzocaine (Throat Lozenge, Medicated Lozenge) 1 lozenge MUCOUS MEM Q2H PRN PRN Reason: Sore Throat Benztropine Mesylate (Benztropine Mesylate 0.5 Mg Tablet) 0.5 mg PO TID PRN PRN Reason: Extrapyramidal Effects Empagliflozin (Empagliflozin 25 Mg Tablet) 25 mg PO DAILY [facility] Last Admin: 11/23/22 08:28 Dose: 25 mg Gabapentin (Gabapentin 100 Mg Capsule) 100 mg PO TID [facility] Last Admin: 11/23/22 21:40 Dose: 100 mg Lisinopril (Lisinopril 10 Mg Tablet) 10 mg PO DAILY [facility]; Protocol Last Admin: 11/23/22 08:29 Dose: 10 mg [place] Carbonate ([place] Carbonate Er 300 Mg Tablet.Er) 300 mg PO BID [facility] Last Admin: 11/23/22 21:40 Dose: 300 mg Lorazepam (Lorazepam 1 Mg Tablet) 1 mg PO BEDTIME [facility] Last Admin: 11/23/22 21:40 Dose: 1 mg Lorazepam (Lorazepam 0.5 Mg Tablet) 0.5 mg PO Q6H PRN PRN Reason: Anxiety Last Admin: 11/24/22 00:00 Dose: 0.5 mg Magnesium Hydroxide (Milk Of Magnesia 30 Ml Oral.Susp) 30 ml PO DAILY PRN PRN Reason: Constipation Omeprazole (Omeprazole 20 Mg Capsule.Dr) 20 mg PO DAILY@0630 [facility] Last Admin: 11/23/22 06:47 Dose: 20 mg Ondansetron HCl (Ondansetron Odt 4 Mg Tab.Rapdis) 4 mg TRANSLINGU Q8H PRN PRN Reason: Nausea Penicillin V Potassium (Penicillin V Potassium 250 Mg Tablet) 500 mg PO TID [facility] Stop: 11/26/22 09:01 Last Admin: 11/23/22 21:41 Dose: 500 mg Prazosin HCl (Prazosin Hcl 1 Mg Capsule) 1 mg PO BEDTIME [facility]; Protocol Last Admin: 11/23/22 21:40 Dose: 1 mg Risperidone (Risperidone 2 Mg Tablet) 4 mg PO BEDTIME [facility] Last Admin: 11/23/22 21:41 Dose: 4 mg Sodium Chloride (Sodium Chloride 0.65 % Nasal 44 Ml Sprbtl) 1 spray NOSTRIL-B Q1H PRN PRN Reason: Dry Nasal Passages Last Admin: 11/22/22 15:18 Dose: 1 spray Allergies Allergies Allergy/AdvReac Type Severity Reaction Status Date / Time enoxaparin [From Lovenox] AdvReac Unknown headache, Verified 12/27/21 08:23 electric reaction, heat Assessment & Plan Assessment & Plan (1) Bipolar 1 disorder, depressed, severe: Status: Acute Code(s): F31.4 - Bipolar disorder, current episode depressed, severe, without psychotic features Plan Patient is a 62 year old female with hx of bipolar d/o who presented to [facility] via ambulance after her son called 911 reporting patient was being agitated and bizarre. Per crisis report, at baseline patient is social and engaging. Plan: 12B 15 minute safety checks Obtain collateral from family and outpatient providers. Patient was restarted on home medications. Pt medication compliant. VM left for patients psychiatrist, waiting for call back. 11/08: continue seroquel, Wellbutrin at current doses. 5 day course of maacrodantin for UTI 11/09: ankle edema and BP increased, will order one time extra dose of lasix 11/10: inc seroquel gradually monitor for any worsening edema Case has been reviewed with patient's outpatient psychiatrist 11/11: Increase Seroquel continued as tolerated consider higher potency antipsychotic patient depressed with guilty ruminations question delusional guilt Healthcare proxy invoked to patient having difficulty taking in information processing at the and making decisions 11/12: Patient seen in psychiatric follow-up given much reassurance and education remains on one-to-one for safety. Increase Seroquel to 400 mg daily Risperdal 0.5 mg p.r.n.. Consider change to Risperdal or perhaps for a lower if unable to tolerate higher doses of Seroquel for ongoing depressive psychosis denies active SI 11/13: Patient mostly in bed complain of nausea this morning lethargic still seems quite anxious mostly nonverbal initially refusing labs then agreed hyperkalemia noted given [facility] consult will lower Seroquel start low-dose Risperdal if hopefully will give better control of psychotic symptoms differential includes some encephalopathic process versus bipolar severe depression with psychotic features which she has had previously 11/14: Pt psychotic depressive psychosis failed captla , seroquel start risp consider vraylar cont seroquel at hs 11/15: hold wellbutrin as it may increase psychosis, increase risperidone 1mg po BID 11/16: pt more somnolent in bed, not talking much. urine culture positive for gram negative organism- started on penicillin v 250mg po TID x 10 days. 11/17: Pt presents confused, disorganized, paranoid. Oriented to person and month, not year or place. Believes something is being put into her food/water. Increased Ativan to 1mg TID. Will continue to monitor. 11/18: Slightly improved from yesterday's presentation. Patient reports feeling anxious and depressed today. Patient is starting to question her delusions. Patient stated, I feel like my mind is racing. I know all of those people can't be my son because he can't be more than one person. I don't know if I'm in a nightmare or reality . Increase risperidone 1mg TID. 11/19: Pt reports feeling tired during the day. Risperidone changed to 1mg PO daily and 2mg PO bedtime. DC'd Seroquel. Continues to report feeling anxious and depressed. Reports the visit with her son did not go well yesterday but would not elaborate. T/W spoke with son (Thad). Thad reports, since COVID happened my mom would isolate to her room and her depression increased.She normally talkative and has days of depression and anxiety. The last time she had an episode like this was 40 years ago. Nothing stressful occurred prior to her symptoms starting before the admission . T/W plans on contacting patient outpatient psychiatrist (Dr. Guevara) tomorrow to obtain more information on tx hx. 11/20: Pt continues to feel confused. Will order EEG. Patient stated I can't seem to get my thoughts together . Continues to feel anxious and depressed. Reports having nightmares. Discussed Minipress risks/benefits. Patient agreed to trial medication, will start prazosin 1mg PO bedtime. Ativan changed from 1mg PO TID to 1mg PO bedtime. Risperidal changed from 1mg PO daily and 2mg PO bedtime to 3mg PO bedtime. 11/21: Pt continues to report confusion and racing thoughts. Waiting on EEG results. Pt presents with paranoia. Patient stated, You guys are messing with the time. You guys are having fun playing with me . Patient reports feeling depressed. Risks/benefits discussed regarding [place]. Patient agreed to trial of medication. Will increase Risperidal to 4mg PO bedtime. Started: [place] ER 300mg PO BID Cogentin 0.5mg PO TID PRN for EPS Ativan 0.5mg PO Q6HR PRN anxiety 11/22: Continue current regimen and plans. Compression stockings ordered. 11/23: Continue current plans and regimen 11/24: Pt presents less confused today. Reports ongoing depression and anxiety. Pt reports passive suicidal ideation; reports she feels like a burden . Does not present with any paranoid thinking today and states she does not recall making prior paranoid statments. Restarted Wellbutrin XL 150mg PO daily for depression. [place] level to be drawn Thursday. Patient educated on: diagnosis, medication risk/benefits and therapeutic strategies Informed Consent: understands and further education needed Reason for continued inpatient stay Substantial Risk for: harm to self and med/psych decompensation Time Spent With Patient Time: Total time managing care of this patient today _30___ minutes.
[2022-11-24 08:50] VITALS: BP 140/66; PULSE 100; RESP 18; TEMP 36.6; O2SAT 98
[2022-11-24] MEDS: Penicillin V Potassium 250 MG TABLET 500 MG PO ×3 (09:05→21:41)
[2022-11-24] MEDS: Gabapentin 100 MG CAPSULE PO ×3 (09:06→21:41)
[2022-11-24] MEDS: Omeprazole 20 MG CAPSULE.DR PO (09:06)
[2022-11-24] MEDS: lisinopriL 10 MG TABLET PO (09:06)
[2022-11-24] MEDS: Lithium Carbonate ER 300 MG TABLET.ER PO ×2 (09:06→21:42)
[2022-11-24] MEDS: Empagliflozin 25 MG TABLET PO (09:07)
[2022-11-24 21:40] VITALS: BP 118/53; PULSE 82; RESP 18; TEMP 36.1; O2SAT 98
[2022-11-24] MEDS: Prazosin HCL 1 MG CAPSULE PO (21:42)
[2022-11-24] MEDS: LORazepam 1 MG TABLET PO (21:42)
[2022-11-24] MEDS: risperiDONE 2 MG TABLET 4 MG PO (21:42)
[2022-11-24] MEDS: Sodium Chloride 0.65 % Nasal 44 ML SPRBTL 1 SPRAY NOSTRIL-B (21:56)
[2022-11-24] MEDS: Throat Lozenge, Medicated LOZENGE 1 LOZENGE MUCOUS MEM (21:56)
[2022-11-25] MEDS: Empagliflozin 25 MG TABLET PO (08:36)
[2022-11-25] MEDS: Penicillin V Potassium 250 MG TABLET 500 MG PO ×3 (08:36→21:31)
[2022-11-25] MEDS: buPROPion HCl XL 150 MG TAB.ER.24H PO (08:36)
[2022-11-25 08:37] LABS: Glucose, Whole Blood 113 mg/dL (60-115)
[2022-11-25] MEDS: lisinopriL 10 MG TABLET PO (08:37)
[2022-11-25] MEDS: Omeprazole 20 MG CAPSULE.DR PO (08:38)
[2022-11-25] MEDS: Gabapentin 100 MG CAPSULE PO ×3 (08:38→21:33)
[2022-11-25] MEDS: Lithium Carbonate ER 300 MG TABLET.ER PO ×2 (08:38→21:32)
[2022-11-25 08:49] VITALS: BP 122/58; PULSE 90; RESP 18; TEMP 36.4; O2SAT 95
--- NOTE | 2022-11-25 09:37 | P.PNPSI_ITS ---
Subjective Subjective Date of Service: 11/25/22 Reason For Visit: bizarre behavior Subjective Notes: Conditional Voluntary Interim History: Reviewed in team and with Dr. Hoyos. Patient reports feeling improved a little from yesterday . Patient stated, I'm still having some racing thoughts but not as bad. My son says he misses me and wants me home . Patient denies SI at this time. Patient stated, I do want to live. I just have my insecurities. I feel better than when I came in and less confused . Medication Compliance: Yes Side effects from medications: No Attending Groups: Yes Review of Systems Review of Systems Some incontinence Yes all other systems are reviewed and are negative Constitutional: Reports as per HPI Eyes: Reports as per HPI Reports as per HPI Cardiovascular: Reports as per HPI Respiratory: Reports as per HPI Gastrointestinal: Reports as per HPI Genitourinary: Reports as per HPI Musculoskeletal: Reports as per HPI Skin/Breast: Reports as per HPI Reports as per HPI Psychiatric: Reports as per HPI Endocrine: Reports as per HPI Hematologic/Lymphatic: Reports as per HPI Allergic/Immunologic: Reports as per HPI Mental Status Exam Mental Status Exam Narrative: Pt is alert and oriented; behavior is cooperative and calm; patient is not in distress; dressed in casual attire; mood is described as better ; eye contact appropriate; Speech is normal rate, volume and prosody and not pressured; no psychomotor agitation/retardation present; thought process is organized; Thought content is on tx; otherwise pertinent to relevant topics and without any delusional content, paranoid ideations or grandiosity; denies HI/SI. There is no evidence of perceptual disturbance. Patients insight and judgment are poor but improving. Diagnostics Vital Signs (24Hr): Vital Signs - 24 hr 11/24/22 21:40 11/25/22 08:49 Temperature 97.0 F 97.5 F Pulse Rate 82 90 Respiratory Rate 18 18 Blood Pressure 118/53 L 122/58 L Pulse Oximetry 98 95 Oxygen Delivery Method Room Air Room Air BMI result Body Mass Index 45.2 Labs 11/13/22 13:07 11/16/22 10:00 Labs: Laboratory Results - last 48 hr 11/25/22 08:30 POC Glucose 113 Imaging Radiology Impressions: ITS Impressions Head CT 11/10/22 12:26 IMPRESSION: 1. No evidence of acute intracranial hemorrhage or edematous territorial infarction. 2. Mild underlying microangiopathy. Medications Medications Current Medications Acetaminophen (Acetaminophen 325 Mg Tablet) 650 mg PO Q6H PRN PRN Reason: Headache/Pain Mild Scale (1-3) Last Admin: 11/10/22 04:30 Dose: 650 mg Al Hydroxide/Mg Hydroxide (Magnesium Hydrox/Alum Hydrox 30 Ml Oral.Susp) 30 ml PO Q6H PRN PRN Reason: Heartburn/Nausea Last Admin: 11/15/22 14:57 Dose: 30 ml Benzocaine (Throat Lozenge, Medicated Lozenge) 1 lozenge MUCOUS MEM Q2H PRN PRN Reason: Sore Throat Last Admin: 11/24/22 21:56 Dose: 1 lozenge Benztropine Mesylate (Benztropine Mesylate 0.5 Mg Tablet) 0.5 mg PO TID PRN PRN Reason: Extrapyramidal Effects Bupropion HCl (Bupropion Hcl Xl 150 Mg Tab.Er.24h) 150 mg PO DAILY [facility] Last Admin: 11/25/22 08:36 Dose: 150 mg Empagliflozin (Empagliflozin 25 Mg Tablet) 25 mg PO DAILY [facility] Last Admin: 11/25/22 08:36 Dose: 25 mg Gabapentin (Gabapentin 100 Mg Capsule) 100 mg PO TID [facility] Last Admin: 11/25/22 08:38 Dose: 100 mg Lisinopril (Lisinopril 10 Mg Tablet) 10 mg PO DAILY [facility]; Protocol Last Admin: 11/25/22 08:37 Dose: 10 mg [place] Carbonate ([place] Carbonate Er 300 Mg Tablet.Er) 300 mg PO BID [facility] Last Admin: 11/25/22 08:38 Dose: 300 mg Lorazepam (Lorazepam 1 Mg Tablet) 1 mg PO BEDTIME [facility] Last Admin: 11/24/22 21:42 Dose: 1 mg Lorazepam (Lorazepam 0.5 Mg Tablet) 0.5 mg PO Q6H PRN PRN Reason: Anxiety Last Admin: 11/24/22 00:00 Dose: 0.5 mg Magnesium Hydroxide (Milk Of Magnesia 30 Ml Oral.Susp) 30 ml PO DAILY PRN PRN Reason: Constipation Omeprazole (Omeprazole 20 Mg Capsule.Dr) 20 mg PO DAILY@0630 [facility] Last Admin: 11/25/22 08:38 Dose: 20 mg Ondansetron HCl (Ondansetron Odt 4 Mg Tab.Rapdis) 4 mg TRANSLINGU Q8H PRN PRN Reason: Nausea Penicillin V Potassium (Penicillin V Potassium 250 Mg Tablet) 500 mg PO TID [facility] Stop: 11/26/22 09:01 Last Admin: 11/25/22 08:36 Dose: 500 mg Prazosin HCl (Prazosin Hcl 1 Mg Capsule) 1 mg PO BEDTIME [facility]; Protocol Last Admin: 11/24/22 21:42 Dose: 1 mg Risperidone (Risperidone 2 Mg Tablet) 4 mg PO BEDTIME [facility] Last Admin: 11/24/22 21:42 Dose: 4 mg Sodium Chloride (Sodium Chloride 0.65 % Nasal 44 Ml Sprbtl) 1 spray NOSTRIL-B Q1H PRN PRN Reason: Dry Nasal Passages Last Admin: 11/24/22 21:56 Dose: 1 spray Allergies Allergies Allergy/AdvReac Type Severity Reaction Status Date / Time enoxaparin [From Lovenox] AdvReac Unknown headache, Verified 12/27/21 08:23 electric reaction, heat Assessment & Plan Assessment & Plan (1) Bipolar 1 disorder, depressed, severe: Status: Acute Code(s): F31.4 - Bipolar disorder, current episode depressed, severe, without psychotic features Plan Patient is a 62 year old female with hx of bipolar d/o who presented to [facility] via ambulance after her son called 911 reporting patient was being agitated and bizarre. Per crisis report, at baseline patient is social and engaging. Plan: 12B 15 minute safety checks Obtain collateral from family and outpatient providers. Patient was restarted on home medications. Pt medication compliant. VM left for patients psychiatrist, waiting for call back. 11/08: continue seroquel, Wellbutrin at current doses. 5 day course of maacrodantin for UTI 11/09: ankle edema and BP increased, will order one time extra dose of lasix 11/10: inc seroquel gradually monitor for any worsening edema Case has been reviewed with patient's outpatient psychiatrist 11/11: Increase Seroquel continued as tolerated consider higher potency anti psychotic patient depressed with guilty ruminations question delusional guilt Healthcare proxy invoked to patient having difficulty taking in information processing at the and making decisions 11/12: Patient seen in psychiatric follow-up given much reassurance and education remains on one-to-one for safety. Increase Seroquel to 400 mg daily Risperdal 0.5 mg p.r.n.. Consider change to Risperdal or perhaps for a lower if unable to tolerate higher doses of Seroquel for ongoing depressive psychosis denies active SI 11/13: Patient mostly in bed complain of nausea this morning lethargic still seems quite anxious mostly nonverbal initially refusing labs then agreed hyperkalemia noted given [facility] consult will lower Seroquel start low- dose Risperdal if hopefully will give better control of psychotic symptoms differential includes some encephalopathic process versus bipolar severe depress ion with psychotic features which she has had previously 11/14: Pt psychotic depressive psychosis failed captla , seroquel start risp consider vraylar cont seroquel at hs 11/15: hold wellbutrin as it may increase psychosis, increase risperidone 1mg po BID 11/16: pt more somnolent in bed, not talking much. urine culture positive for gram negative organism- started on penicillin v 250mg po TID x 10 days. 11/17: Pt presents confused, disorganized, paranoid. Oriented to person and month, not year or place. Believes something is being put into her food/water. Increased Ativan to 1mg TID. Will continue to monitor. 11/18: Slightly improved from yesterday's presentation. Patient reports feeling anxious and depressed today. Patient is starting to question her delusions. Patient stated, I feel like my mind is racing. I know all of those people can't be my son because he can't be more than one person. I don't know if I'm in a nightmare or reality . Increase risperidone 1mg TID. 11/19: Pt reports feeling tired during the day. Risperidone changed to 1mg PO daily and 2mg PO bedtime. DC'd Seroquel. Continues to report feeling anxious and depressed. Reports the visit with her son did not go well yesterday but would not elaborate. T/W spoke with son (Thad). Thad reports, since COVID happened my mom would isolate to her room and her depression increased.She normally talkative and has days of depression and anxiety. The last time she had an episode like this was 40 years ago. Nothing stressful occurred prior to her symptoms starting before the admission . T/W plans on contacting patient outpatient psychiatrist (Dr. Guevara) tomorrow to obtain more information on tx hx. 11/20: Pt continues to feel confused. Will order EEG. Patient stated I can't seem to get my thoughts together . Continues to feel anxious and depressed. Reports having nightmares. Discussed Minipress risks/benefits. Patient agreed to trial medication, will start prazosin 1mg PO bedtime. Ativan changed from 1mg PO TID to 1mg PO bedtime. Risperidal changed from 1mg PO daily and 2mg PO bedtime to 3mg PO bedtime. 11/21: Pt continues to report confusion and racing thoughts. Waiting on EEG results. Pt presents with paranoia. Patient stated, You guys are messing with the time. You guys are having fun playing with me . Patient reports feeling depressed. Risks/benefits discussed regarding [place]. Patient agreed to trial of medication. Will increase Risperidal to 4mg PO bedtime. Started: [place] ER 300mg PO BID Cogentin 0.5mg PO TID PRN for EPS Ativan 0.5mg PO Q6HR PRN anxiety 11/22: Continue current regimen and plans. Compression stockings ordered. 11/23: Continue current plans and regimen 11/24: Pt presents less confused today. Reports ongoing depression and anxiety. Pt reports passive suicidal ideation; reports she feels like a burden . Does not present with any paranoid thinking today and states she does not recall making prior paranoid statments. Restarted Wellbutrin XL 150mg PO daily for d epression. [place] level to be drawn Thursday. 11/25: Patient reports feeling improved a little from yesterday . Patient stated, I'm still having some racing thoughts but not as bad. My son says he misses me and wants me home . Patient denies SI at this time. Patient stated, I do want to live. I just have my insecurities. I feel better than when I came in and less confused . Continue current tx plan. Patient educated on: diagnosis, medication risk/benefits and therapeutic strategies Informed Consent: understands Reason for continued inpatient stay Substantial Risk for: med/psych decompensation Time Spent With Patient Time: Total time managing care of this patient today _30___ minutes.
[2022-11-25 20:00] VITALS: BP 143/59; PULSE 88; RESP 18; TEMP 36.3; O2SAT 97
[2022-11-25] MEDS: LORazepam 1 MG TABLET PO (21:31)
[2022-11-25] MEDS: risperiDONE 2 MG TABLET 4 MG PO (21:32)
[2022-11-25] MEDS: Prazosin HCL 1 MG CAPSULE PO (21:32)
[2022-11-26] MEDS: Omeprazole 20 MG CAPSULE.DR PO (06:51)
[2022-11-26 08:00] VITALS: BP 153/67; PULSE 93; RESP 18; TEMP 36.3; O2SAT 98
[2022-11-26] MEDS: Penicillin V Potassium 250 MG TABLET 500 MG PO (08:01)
[2022-11-26 08:02] LABS: Glucose, Whole Blood 124 mg/dL (60-115)
[2022-11-26] MEDS: Gabapentin 100 MG CAPSULE PO (08:02)
[2022-11-26] MEDS: Empagliflozin 25 MG TABLET PO (08:02)
[2022-11-26] MEDS: Lithium Carbonate ER 300 MG TABLET.ER PO ×2 (08:02→20:40)
[2022-11-26] MEDS: buPROPion HCl XL 150 MG TAB.ER.24H PO (08:02)
[2022-11-26] MEDS: lisinopriL 10 MG TABLET PO (08:02)
[2022-11-26 09:12] LABS: Lithium 0.36 mmol/L (0.60-1.20)
[2022-11-26 09:23] LABS: Anion Gap 14 (12-20); Blood Urea Nitrogen 9 mg/dL (9-16); Carbon Dioxide 24 mmol/L (22-29); Chloride 106 mmol/L (96-108); Estimated Glomerular Filt Rate > 60; Potassium 4.4 mmol/L (3.3-5.1); Sodium 140 mmol/L (135-145)
[2022-11-26 09:40] LABS: TSH reflex Free T4 2.77 uIU/mL (0.32-4.0)
--- NOTE | 2022-11-26 16:10 | P.PNPSI_ITS ---
Subjective Subjective Date of Service: 11/26/22 Reason For Visit: bizarre behavior Subjective Notes: Conditional Voluntary Interim History: Pt presents much more alert and fully oriented. She reports she would like to be discharged soon as the unit can get loud. She denied SI/HI. No signs of psychosis. Pt sleeping through the night. Pt visible on the unit and attends groups. No behavioral concerns. Review of Systems Review of Systems Some incontinence Yes all other systems are reviewed and are negative Constitutional: Reports as per HPI Eyes: Reports as per HPI Reports as per HPI Cardiovascular: Reports as per HPI Respiratory: Reports as per HPI Gastrointestinal: Reports as per HPI Musculoskeletal: Reports as per HPI Skin/Breast: Reports as per HPI Reports as per HPI Psychiatric: Reports as per HPI Endocrine: Reports as per HPI Hematologic/Lymphatic: Reports as per HPI Allergic/Immunologic: Reports as per HPI Mental Status Exam Mental Status Exam Patient Appearance: Disheveled Patient Orientation: Person, Place and Situation Level of Consciousness: Awake Patient Behavior: Suspicious, Anxious and Confused Mood Description: Withdrawn, Depressed, Anxious, Blunted and Apprehensive Affect Description: Nervous Patient Cognition Impaired: Yes Ability to Follow Directions: Poor Speech Pattern: Difficulty Finding Words and Rambling Memory Description: Working Impaired Diagnostics Vital Signs (24Hr): Vital Signs - 24 hr 11/25/22 20:00 11/26/22 08:00 Temperature 97.4 F 97.3 F Pulse Rate 88 93 Respiratory Rate 18 18 Blood Pressure 143/59 H 153/67 H Pulse Oximetry 97 98 Oxygen Delivery Method Room Air Room Air BMI result Body Mass Index 45.2 Labs 11/13/22 13:07 11/26/22 08:49 Labs: Laboratory Results - last 48 hr 11/25/22 11/26/22 11/26/22 08:30 07:59 08:49 Sodium 140 Potassium 4.4 D Chloride 106 Carbon Dioxide 24 Anion Gap 14 BUN 9 Creatinine 0.75 Estim Creat Clear Calc 106.0 Estimated GFR > 60 POC Glucose 113 124 H TSH 2.77 Proctor 11/26/22 08:49 Sodium Potassium Chloride Carbon Dioxide Anion Gap BUN Creatinine Estim Creat Clear Calc Estimated GFR POC Glucose TSH Proctor 0.36 L Imaging Radiology Impressions: ITS Impressions Head CT 11/10/22 12:26 IMPRESSION: 1. No evidence of acute intracranial hemorrhage or edematous territorial infarction. 2. Mild underlying microangiopathy. Medications Medications Current Medications Acetaminophen (Acetaminophen 325 Mg Tablet) 650 mg PO Q6H PRN PRN Reason: Headache/Pain Mild Scale (1-3) Last Admin: 11/10/22 04:30 Dose: 650 mg Al Hydroxide/Mg Hydroxide (Magnesium Hydrox/Alum Hydrox 30 Ml Oral.Susp) 30 ml PO Q6H PRN PRN Reason: Heartburn/Nausea Last Admin: 11/15/22 14:57 Dose: 30 ml Benzocaine (Throat Lozenge, Medicated Lozenge) 1 lozenge MUCOUS MEM Q2H PRN PRN Reason: Sore Throat Last Admin: 11/24/22 21:56 Dose: 1 lozenge Benztropine Mesylate (Benztropine Mesylate 0.5 Mg Tablet) 0.5 mg PO TID PRN PRN Reason: Extrapyramidal Effects Bupropion HCl (Bupropion Hcl Xl 150 Mg Tab.Er.24h) 150 mg PO DAILY [facility] Last Admin: 11/26/22 08:02 Dose: 150 mg Empagliflozin (Empagliflozin 25 Mg Tablet) 25 mg PO DAILY [facility] Last Admin: 11/26/22 08:02 Dose: 25 mg Gabapentin (Gabapentin 100 Mg Capsule) 100 mg PO DAILY [facility] Gabapentin (Gabapentin 100 Mg Capsule) 200 mg PO BEDTIME [facility] Lisinopril (Lisinopril 10 Mg Tablet) 10 mg PO DAILY [facility]; Protocol Last Admin: 11/26/22 08:02 Dose: 10 mg Proctor Carbonate (Proctor Carbonate Er 300 Mg Tablet.Er) 300 mg PO BID [facility] Last Admin: 11/26/22 08:02 Dose: 300 mg Lorazepam (Lorazepam 1 Mg Tablet) 1 mg PO BEDTIME [facility] Last Admin: 11/25/22 21:31 Dose: 1 mg Lorazepam (Lorazepam 0.5 Mg Tablet) 0.5 mg PO Q6H PRN PRN Reason: Anxiety Last Admin: 11/24/22 00:00 Dose: 0.5 mg Magnesium Hydroxide (Milk Of Magnesia 30 Ml Oral.Susp) 30 ml PO DAILY PRN PRN Reason: Constipation Omeprazole (Omeprazole 20 Mg Capsule.Dr) 20 mg PO DAILY@0630 [facility] Last Admin: 11/26/22 06:51 Dose: 20 mg Ondansetron HCl (Ondansetron Odt 4 Mg Tab.Rapdis) 4 mg TRANSLINGU Q8H PRN PRN Reason: Nausea Prazosin HCl (Prazosin Hcl 1 Mg Capsule) 1 mg PO BEDTIME [facility]; Protocol Last Admin: 11/25/22 21:32 Dose: 1 mg Risperidone (Risperidone 2 Mg Tablet) 4 mg PO BEDTIME [facility] Last Admin: 11/25/22 21:32 Dose: 4 mg Sodium Chloride (Sodium Chloride 0.65 % Nasal 44 Ml Sprbtl) 1 spray NOSTRIL-B Q1H PRN PRN Reason: Dry Nasal Passages Last Admin: 11/24/22 21:56 Dose: 1 spray Allergies Allergies Allergy/AdvReac Type Severity Reaction Status Date / Time enoxaparin [From Lovenox] AdvReac Unknown headache, Verified 12/27/21 08:23 electric reaction, heat Assessment & Plan Assessment & Plan (1) Bipolar 1 disorder, depressed, severe: Status: Acute Code(s): F31.4 - Bipolar disorder, current episode depressed, severe, without psychotic features Plan Patient is a 62 year old female with hx of bipolar d/o who presented to [facility] [place] [facility] via ambulance after her son called 911 reporting patient was being agitated and bizarre. Per crisis report, at baseline patient is social and engaging. Plan: 12B 15 minute safety checks Obtain collateral from family and outpatient providers. Patient was restarted on home medications. Pt medication compliant. VM left for patients psychiatrist, waiting for call back. 11/08: continue seroquel, Wellbutrin at current doses. 5 day course of maacrodantin for UTI 11/09: ankle edema and BP increased, will order one time extra dose of lasix 11/10: inc seroquel gradually monitor for any worsening edema Case has been reviewed with patient's outpatient psychiatrist 11/11: Increase Seroquel continued as tolerated consider higher potency antipsychotic patient depressed with guilty ruminations question delusional guilt Healthcare proxy invoked to patient having difficulty taking in information processing at the and making decisions 11/12: Patient seen in psychiatric follow-up given much reassurance and education remains on one-to-one for safety. Increase Seroquel to 400 mg daily Risperdal 0.5 mg p.r.n.. Consider change to Risperdal or perhaps for a lower if unable to tolerate higher doses of Seroquel for ongoing depressive psychosis denies active SI 11/13: Patient mostly in bed complain of nausea this morning lethargic still seems quite anxious mostly nonverbal initially refusing labs then agreed hyperkalemia noted given [facility] consult will lower Seroquel start low-do se Risperdal if hopefully will give better control of psychotic symptoms differential includes some encephalopathic process versus bipolar severe depression with psychotic features which she has had previously 11/14: Pt psychotic depressive psychosis failed captla , seroquel start risp consider vraylar cont seroquel at hs 11/15: hold wellbutrin as it may increase psychosis, increase risperidone 1mg po BID 11/16: pt more somnolent in bed, not talking much. urine culture positive for gram negative organism- started on penicillin v 250mg po TID x 10 days. 11/17: Pt presents confused, disorganized, paranoid. Oriented to person and month, not year or place. Believes something is being put into her food/water. Increased Ativan to 1mg TID. Will continue to monitor. 11/18: Slightly improved from yesterday's presentation. Patient reports feeling anxious and depressed today. Patient is starting to question her delusions. Patient stated, I feel like my mind is racing. I know all of those people can't be my son because he can't be more than one person. I don't know if I'm in a nightmare or reality . Increase risperidone 1mg TID. 11/19: Pt reports feeling tired during the day. Risperidone changed to 1mg PO daily and 2mg PO bedtime. DC'd Seroquel. Continues to report feeling anxious and depressed. Reports the visit with her son did not go well yesterday but would not elaborate. T/W spoke with son (Thad). Thad reports, since COVID happened my mom would isolate to her room and her depression increased.She normally talkative and has days of depression and anxiety. The last time she had an episode like this was 40 years ago. Nothing stressful occurred prior to her symptoms starting before the admission . T/W plans on contacting patient outpatient psychiatrist (Dr. Guevara) tomorrow to obtain more information on tx hx. 11/20: Pt continues to feel confused. Will order EEG. Patient stated I can't seem to get my thoughts together . Continues to feel anxious and depressed. Re ports having nightmares. Discussed Minipress risks/benefits. Patient agreed to trial medication, will start prazosin 1mg PO bedtime. Ativan changed from 1mg PO TID to 1mg PO bedtime. Risperidal changed from 1mg PO daily and 2mg PO bedtime to 3mg PO bedtime. 11/21: Pt continues to report confusion and racing thoughts. Waiting on EEG results. Pt presents with paranoia. Patient stated, You guys are messing with the time. You guys are having fun playing with me . Patient reports feeling depressed. Risks/benefits discussed regarding Pro[place]. Patient agreed to trial of medication. Will increase Risperidal to 4mg PO bedtime. Started: Pro[place] ER 300mg PO BID Cogentin 0.5mg PO TID PRN for EPS Ativan 0.5mg PO Q6HR PRN anxiety 11/22: Continue current regimen and plans. Compression stockings ordered. 11/23: Continue current plans and regimen 11/24: Pt presents less confused today. Reports ongoing depression and anxiety. Pt reports passive suicidal ideation; reports she feels like a burden . Does not present with any paranoid thinking today and states she does not recall making prior paranoid statments. Restarted Wellbutrin XL 150mg PO daily for depression. [place] level to be drawn Thursday. 11/25: Patient reports feeling improved a little from yesterday . Patient stated, I'm still having some racing thoughts but not as bad. My son says he misses me and wants me home . Patient denies SI at this time. Patient stated, I do want to live. I just have my insecurities. I feel better than when I came in and less confused . Continue current tx plan. 11/26 pt appears stable. No psychosis/ No SI/HI. continue tx. Reason for continued inpatient stay Substantial Risk for: inability to function Time Spent With Patient Time: Total time managing care of this patient today ____ minutes.
[2022-11-26 19:50] VITALS: BP 146/71; PULSE 94; RESP 18; TEMP 36.9; O2SAT 97
[2022-11-26] MEDS: LORazepam 1 MG TABLET PO (20:40)
[2022-11-26] MEDS: Gabapentin 100 MG CAPSULE 200 MG PO (20:40)
[2022-11-26] MEDS: risperiDONE 2 MG TABLET 4 MG PO (20:40)
[2022-11-26] MEDS: Prazosin HCL 1 MG CAPSULE PO (20:41)
[2022-11-27 07:00] VITALS: BMI 45.5
[2022-11-27 08:25] VITALS: BP 124/60; PULSE 85; RESP 18; TEMP 36.3; O2SAT 95
[2022-11-27] MEDS: Gabapentin 100 MG CAPSULE PO (08:38)
[2022-11-27] MEDS: Omeprazole 20 MG CAPSULE.DR PO (08:38)
[2022-11-27] MEDS: Empagliflozin 25 MG TABLET PO (08:38)
[2022-11-27] MEDS: Lithium Carbonate ER 300 MG TABLET.ER PO (08:38)
[2022-11-27] MEDS: buPROPion HCl XL 150 MG TAB.ER.24H PO (08:38)
[2022-11-27] MEDS: lisinopriL 10 MG TABLET PO (08:38)
--- NOTE | 2022-11-27 09:52 | HO.PSYCHPN ---
Subjective Subjective Date of Service: 11/27/22 Reason For Visit: bizarre behavior Subjective Notes: Conditional Voluntary Interim History: Reviewed in team and Dr. Hoyos. Patient reports doing better today. Patient stated, I'm not feeling so depressed or anxious. I'm having less confusion. I feel the meds are helping . Patient reports he is looking forward to taking a day trip somewhere with my and son while the weather is still warm . Patient denies SI/HI/VH/AH. Medication Compliance: Yes Side effects from medications: No Attending Groups: Yes Review of Systems Constitutional: Reports as per HPI Eyes: Reports as per HPI Reports as per HPI Cardiovascular: Reports as per HPI Respiratory: Reports as per HPI Gastrointestinal: Reports as per HPI Genitourinary: Reports as per HPI Musculoskeletal: Reports as per HPI Skin/Breast: Reports as per HPI Reports as per HPI Psychiatric: Reports as per HPI Endocrine: Reports as per HPI Hematologic/Lymphatic: Reports as per HPI Allergic/Immunologic: Reports as per HPI Mental Status Exam Mental Status Exam Narrative: Pt is alert and oriented; behavior is cooperative and calm; patient is not in distress; dressed in casual attire; mood is described as better ; eye contact appropriate; Speech is normal rate, volume and prosody and not pressured; no psychomotor agitation/retardation present; thought process is organized; Thought content is on discharge; otherwise pertinent to relevant topics and without any delusional content, paranoid ideations or grandiosity; denies any SI/HI. There is no evidence of perceptual disturbance. Patients insight and judgment are poor but improving. Diagnostics Vital Signs (24Hr): Vital Signs - 24 hr 11/26/22 19:50 11/27/22 08:25 Temperature 98.4 F 97.3 F Pulse Rate 94 85 Respiratory Rate 18 18 Blood Pressure 146/71 H 124/60 Pulse Oximetry 97 95 Oxygen Delivery Method Room Air Room Air BMI result Body Mass Index 45.5 Labs 11/13/22 13:07 11/26/22 08:49 Labs: Laboratory Results - last 48 hr 11/26/22 11/26/22 11/26/22 07:59 08:49 08:49 Sodium 140 Potassium 4.4 D Chloride 106 Carbon Dioxide 24 Anion Gap 14 BUN 9 Creatinine 0.75 Estim Creat Clear Calc 106.0 Estimated GFR > 60 POC Glucose 124 H TSH 2.77 [place] 0.36 L Imaging Radiology Impressions: ITS Impressions Head CT 11/10/22 12:26 IMPRESSION: 1. No evidence of acute intracranial hemorrhage or edematous territorial infarction. 2. Mild underlying microangiopathy. Medications Medications Current Medications Acetaminophen (Acetaminophen 325 Mg Tablet) 650 mg PO Q6H PRN PRN Reason: Headache/Pain Mild Scale (1-3) Last Admin: 11/10/22 04:30 Dose: 650 mg Al Hydroxide/Mg Hydroxide (Magnesium Hydrox/Alum Hydrox 30 Ml Oral.Susp) 30 ml PO Q6H PRN PRN Reason: Heartburn/Nausea Last Admin: 11/15/22 14:57 Dose: 30 ml Benzocaine (Throat Lozenge, Medicated Lozenge) 1 lozenge MUCOUS MEM Q2H PRN PRN Reason: Sore Throat Last Admin: 11/24/22 21:56 Dose: 1 lozenge Benztropine Mesylate (Benztropine Mesylate 0.5 Mg Tablet) 0.5 mg PO TID PRN PRN Reason: Extrapyramidal Effects Bupropion HCl (Bupropion Hcl Xl 150 Mg Tab.Er.24h) 150 mg PO DAILY [facility] Last Admin: 11/27/22 08:38 Dose: 150 mg Empagliflozin (Empagliflozin 25 Mg Tablet) 25 mg PO DAILY [facility] Last Admin: 11/27/22 08:38 Dose: 25 mg Gabapentin (Gabapentin 100 Mg Capsule) 100 mg PO DAILY [facility] Last Admin: 11/27/22 08:38 Dose: 100 mg Gabapentin (Gabapentin 100 Mg Capsule) 200 mg PO BEDTIME [facility] Last Admin: 11/26/22 20:40 Dose: 200 mg Lisinopril (Lisinopril 10 Mg Tablet) 10 mg PO DAILY [facility]; Protocol Last Admin: 11/27/22 08:38 Dose: 10 mg [place] Carbonate ([place] Carbonate Er 300 Mg Tablet.Er) 300 mg PO BID [facility] Last Admin: 11/27/22 08:38 Dose: 300 mg Lorazepam (Lorazepam 1 Mg Tablet) 1 mg PO BEDTIME [facility] Last Admin: 11/26/22 20:40 Dose: 1 mg Lorazepam (Lorazepam 0.5 Mg Tablet) 0.5 mg PO Q6H PRN PRN Reason: Anxiety Last Admin: 11/24/22 00:00 Dose: 0.5 mg Magnesium Hydroxide (Milk Of Magnesia 30 Ml Oral.Susp) 30 ml PO DAILY PRN PRN Reason: Constipation Omeprazole (Omeprazole 20 Mg Capsule.Dr) 20 mg PO DAILY@0630 [facility] Last Admin: 11/27/22 08:38 Dose: 20 mg Ondansetron HCl (Ondansetron Odt 4 Mg Tab.Rapdis) 4 mg TRANSLINGU Q8H PRN PRN Reason: Nausea Prazosin HCl (Prazosin Hcl 1 Mg Capsule) 1 mg PO BEDTIME [facility]; Protocol Last Admin: 11/26/22 20:41 Dose: 1 mg Risperidone (Risperidone 2 Mg Tablet) 4 mg PO BEDTIME [facility] Last Admin: 11/26/22 20:40 Dose: 4 mg Sodium Chloride (Sodium Chloride 0.65 % Nasal 44 Ml Sprbtl) 1 spray NOSTRIL-B Q1H PRN PRN Reason: Dry Nasal Passages Last Admin: 11/24/22 21:56 Dose: 1 spray Allergies Allergies Allergy/AdvReac Type Severity Reaction Status Date / Time enoxaparin [From Lovenox] AdvReac Unknown headache, Verified 12/27/21 08:23 electric reaction, heat Assessment & Plan Assessment & Plan (1) Bipolar 1 disorder, depressed, severe: Status: Acute Code(s): F31.4 - Bipolar disorder, current episode depressed, severe, without psychotic features Plan Patient is a 62 year old female with hx of bipolar d/o who presented to [facility] via ambulance after her son called 911 reporting patient was being agitated and bizarre. Per crisis report, at baseline patient is social and engaging. Plan: 12B 15 minute safety checks Obtain collateral from family and outpatient providers. Patient was restarted on home medications. Pt medication compliant. VM left for patients psychiatrist, waiting for call back. 11/08: continue seroquel, Wellbutrin at current doses. 5 day course of maacrodantin for UTI 11/09: ankle edema and BP increased, will order one time extra dose of lasix 11/10: inc seroquel gradually monitor for any worsening edema Case has been reviewed with patient's outpatient psychiatrist 11/11: Increase Seroquel continued as tolerated consider higher potency antipsychotic patient depressed with guilty ruminations question delusional guilt Healthcare proxy invoked to patient having difficulty taking in information processing at the and making decisions 11/12: Patient seen in psychiatric follow-up given much reassurance and education remains on one-to-one for safety. Increase Seroquel to 400 mg daily Risperdal 0.5 mg p.r.n.. Consider change to Risperdal or perhaps for a lower if unable to tolerate higher doses of Seroquel for ongoing depressive psychosis denies active SI 11/13: Patient mostly in bed complain of nausea this morning lethargic still seems quite anxious mostly nonverbal initially refusing labs then agreed hyperkalemia noted given [facility] consult will lower Seroquel start low-dose Risperdal if hopefully will give better control of psychotic symptoms differential includes some encephalopathic process versus bipolar severe depression with psychotic features which she has had previously 11/14: Pt psychotic depressive psychosis failed captla , seroquel start risp consider vraylar cont seroquel at hs 11/15: hold wellbutrin as it may increase psychosis, increase risperidone 1mg po BID 11/16: pt more somnolent in bed, not talking much. urine culture positive for gram negative organism- started on penicillin v 250mg po TID x 10 days. 11/17: Pt presents confused, disorganized, paranoid. Oriented to person and month, not year or place. Believes something is being put into her food/water. Increased Ativan to 1mg TID. Will continue to monitor. 11/18: Slightly improved from yesterday's presentation. Patient reports feeling anxious and depressed today. Patient is starting to question her delusions. Patient stated, I feel like my mind is racing. I know all of those people can't be my son because he can't be more than one person. I don't know if I'm in a nightmare or reality . Increase risperidone 1mg TID. 11/19: Pt reports feeling tired during the day. Risperidone changed to 1mg PO daily and 2mg PO bedtime. DC'd Seroquel. Continues to report feeling anxious and depressed. Reports the visit with her son did not go well yesterday but would not elaborate. T/W spoke with son (Thad). Thad reports, since COVID happened my mom would isolate to her room and her depression increased.She normally talkative and has days of depression and anxiety. The last time she had an episode like this was 40 years ago. Nothing stressful occurred prior to her symptoms starting before the admission . T/W plans on contacting patient outpatient psychiatrist (Dr. Guevara) tomorrow to obtain more information on tx hx. 11/20: Pt continues to feel confused. Will order EEG. Patient stated I can't seem to get my thoughts together . Continues to feel anxious and depressed. Reports having nightmares. Discussed Minipress risks/benefits. Patient agreed to trial medication, will start prazosin 1mg PO bedtime. Ativan changed from 1mg PO TID to 1mg PO bedtime. Risperidal changed from 1mg PO daily and 2mg PO bedtime to 3mg PO bedtime. 11/21: Pt continues to report confusion and racing thoughts. Waiting on EEG results. Pt presents with paranoia. Patient stated, You guys are messing with the time. You guys are having fun playing with me . Patient reports feeling depressed. Risks/benefits discussed regarding [place]. Patient agreed to trial of medication. Will increase Risperidal to 4mg PO bedtime. Started: [place] ER 300mg PO BID Cogentin 0.5mg PO TID PRN for EPS Ativan 0.5mg PO Q6HR PRN anxiety 11/22: Continue current regimen and plans. Compression stockings ordered. 11/23: Continue current plans and regimen 11/24: Pt presents less confused today. Reports ongoing depression and anxiety. Pt reports passive suicidal ideation; reports she feels like a burden . Does not present with any paranoid thinking today and states she does not recall making prior paranoid statments. Restarted Wellbutrin XL 150mg PO daily for depression. [place] level to be drawn Thursday. 11/25: Patient reports feeling improved a little from yesterday . Patient stated, I'm still having some racing thoughts but not as bad. My son says he misses me and wants me home . Patient denies SI at this time. Patient stated, I do want to live. I just have my insecurities. I feel better than when I came in and less confused . Continue current tx plan. 11/26 pt appears stable. No psychosis/ No SI/HI. continue tx. 11/27: Patient stated, I'm not feeling so depressed or anxious. I'm having less confusion. I feel the meds are helping . Patient denies SI/HI/VH/AH. [place] increased to 450mg PO BID. Patient educated on: diagnosis, medication risk/benefits and therapeutic strategies Informed Consent: understands Reason for continued inpatient stay Substantial Risk for: med/psych decompensation Time Spent With Patient Time: Total time managing care of this patient today _30___ minutes.
[2022-11-27 19:50] VITALS: BP 150/72; PULSE 93; RESP 18; TEMP 36.9; O2SAT 98
[2022-11-27] MEDS: risperiDONE 2 MG TABLET 4 MG PO (21:14)
[2022-11-27] MEDS: Gabapentin 100 MG CAPSULE 200 MG PO (21:14)
[2022-11-27] MEDS: Prazosin HCL 1 MG CAPSULE PO (21:14)
[2022-11-27] MEDS: LORazepam 1 MG TABLET PO (21:14)
[2022-11-27] MEDS: Lithium Carbonate ER 450 MG TABLET.ER PO (21:15)
[2022-11-28] MEDS: Omeprazole 20 MG CAPSULE.DR PO (05:47)
[2022-11-28 08:30] VITALS: BP 127/67; PULSE 86; TEMP 36.6; O2SAT 96
[2022-11-28] MEDS: lisinopriL 10 MG TABLET PO (08:52)
[2022-11-28] MEDS: Empagliflozin 25 MG TABLET PO (08:53)
[2022-11-28] MEDS: Gabapentin 100 MG CAPSULE PO (08:53)
[2022-11-28] MEDS: Lithium Carbonate ER 450 MG TABLET.ER PO ×2 (08:53→21:55)
[2022-11-28] MEDS: buPROPion HCl XL 150 MG TAB.ER.24H PO (08:53)
[2022-11-28 08:58] LABS: Glucose, Whole Blood 106 mg/dL (60-115)
[2022-11-28] MEDS: Acetaminophen 325 MG TABLET 650 MG PO ×2 (10:00→21:56)
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
[2022-11-28 21:30] VITALS: BP 113/53; PULSE 88; RESP 18; TEMP 36.3; O2SAT 96
[2022-11-28] MEDS: Prazosin HCL 1 MG CAPSULE PO (21:55)
[2022-11-28] MEDS: LORazepam 1 MG TABLET PO (21:55)
[2022-11-28] MEDS: Gabapentin 100 MG CAPSULE 200 MG PO (21:56)
[2022-11-28] MEDS: risperiDONE 2 MG TABLET 4 MG PO (21:56)
[2022-11-28] MEDS: Sodium Chloride 0.65 % Nasal 44 ML SPRBTL 1 SPRAY NOSTRIL-B (21:58)
[2022-11-29 06:00] VITALS: BP 134/60; PULSE 86; RESP 18; TEMP 36.6; O2SAT 95
[2022-11-29 07:13] LABS: Lithium 0.59 mmol/L (0.60-1.20)
[2022-11-29 07:17] LABS: Alanine Aminotransferase 36 U/L (0-31); Albumin Level 3.3 g/dL (3.5-5.0); Alkaline Phosphatase 55 U/L (39-117); Anion Gap 14 (12-20); Aspartate Amino Transferase 22 U/L (5-31); Bilirubin Total 0.3 mg/dL (0.0-1.0); Blood Urea Nitrogen 11 mg/dL (9-16); Calcium 8.7 mg/dL (8.4-10.2); Carbon Dioxide 22 mmol/L (22-29); Chloride 109 mmol/L (96-108); Creatinine Clr Calc Pharmacy 102.3; Estimated Glomerular Filt Rate > 60; Glucose Fasting 101 mg/dL (60-99); Potassium 4.1 mmol/L (3.3-5.1); Sodium 141 mmol/L (135-145); Total Protein 6.3 g/dL (6.5-8.0)
[2022-11-29] MEDS: Lithium Carbonate ER 450 MG TABLET.ER PO ×2 (08:40→20:50)
[2022-11-29] MEDS: Empagliflozin 25 MG TABLET PO (08:41)
[2022-11-29] MEDS: Gabapentin 100 MG CAPSULE PO (08:41)
[2022-11-29] MEDS: lisinopriL 10 MG TABLET PO (08:41)
[2022-11-29] MEDS: buPROPion HCl XL 150 MG TAB.ER.24H PO (08:41)
[2022-11-29] MEDS: Omeprazole 20 MG CAPSULE.DR PO (08:42)
--- NOTE | 2022-11-29 13:18 | P.PNPSI_ITS ---
Subjective Subjective Date of Service: 11/29/22 Reason For Visit: bizarre behavior Subjective Notes: Conditional Voluntary Interim History: Patient was seen and discussed in rounds today. Records and plans were reviewed. She has been doing much better she is clearer, more coherent, able to speak in longer sentences. She is isolative but comes out and the common areas. She is little more social and brighter. No complaints or side effects. Eating and sleeping well. No changes were made Medication Compliance: Yes Review of Systems Constitutional: Reports as per HPI Eyes: Reports as per HPI Reports as per HPI Cardiovascular: Reports as per HPI Respiratory: Reports as per HPI Gastrointestinal: Reports as per HPI Genitourinary: Reports as per HPI Musculoskeletal: Reports as per HPI Skin/Breast: Reports as per HPI Reports as per HPI Psychiatric: Reports as per HPI Endocrine: Reports as per HPI Hematologic/Lymphatic: Reports as per HPI Allergic/Immunologic: Reports as per HPI Mental Status Exam Mental Status Exam Narrative: In today's visit she is alert, pleasant and more interactive. Speech is much clearer. Better eye contact. Affect is brighter. No acute signs of psychosis. No SI. Cognitively she is much more coherent and clear her in her thought processes. Judgment is intact Diagnostics Vital Signs (24Hr): Vital Signs - 24 hr 11/28/22 21:30 11/29/22 06:00 Temperature 97.4 F 97.8 F Pulse Rate 88 86 Respiratory Rate 18 18 Blood Pressure 113/53 L 134/60 Pulse Oximetry 96 95 Oxygen Delivery Method Room Air Room Air BMI result Body Mass Index 45.5 Labs 11/13/22 13:07 11/29/22 06:44 Labs: Laboratory Results - last 48 hr 11/28/22 11/29/22 11/29/22 08:51 06:44 06:44 Sodium 141 Potassium 4.1 Chloride 109 H Carbon Dioxide 22 Anion Gap 14 BUN 11 Creatinine 0.78 Estim Creat Clear Calc 102.3 Estimated GFR > 60 POC Glucose 106 Fasting Glucose 101 H Calcium 8.7 Total Bilirubin 0.3 AST 22 ALT 36 H Alkaline Phosphatase 55 Total Protein 6.3 L Albumin 3.3 L [place] 0.59 L Imaging Radiology Impressions: ITS Impressions Head CT 11/10/22 12:26 IMPRESSION: 1. No evidence of acute intracranial hemorrhage or edematous territorial infarction. 2. Mild underlying microangiopathy. Medications Medications Current Medications Acetaminophen (Acetaminophen 325 Mg Tablet) 650 mg PO Q6H PRN PRN Reason: Headache/Pain Mild Scale (1-3) Last Admin: 11/28/22 21:56 Dose: 650 mg Al Hydroxide/Mg Hydroxide (Magnesium Hydrox/Alum Hydrox 30 Ml Oral.Susp) 30 ml PO Q6H PRN PRN Reason: Heartburn/Nausea Last Admin: 11/15/22 14:57 Dose: 30 ml Benzocaine (Throat Lozenge, Medicated Lozenge) 1 lozenge MUCOUS MEM Q2H PRN PRN Reason: Sore Throat Last Admin: 11/24/22 21:56 Dose: 1 lozenge Benztropine Mesylate (Benztropine Mesylate 0.5 Mg Tablet) 0.5 mg PO TID PRN PRN Reason: Extrapyramidal Effects Bupropion HCl (Bupropion Hcl Xl 150 Mg Tab.Er.24h) 150 mg PO DAILY [facility] Last Admin: 11/29/22 08:41 Dose: 150 mg Empagliflozin (Empagliflozin 25 Mg Tablet) 25 mg PO DAILY [facility] Last Admin: 11/29/22 08:41 Dose: 25 mg Gabapentin (Gabapentin 100 Mg Capsule) 100 mg PO DAILY [facility] Last Admin: 11/29/22 08:41 Dose: 100 mg Gabapentin (Gabapentin 100 Mg Capsule) 200 mg PO BEDTIME [facility] Last Admin: 11/28/22 21:56 Dose: 200 mg Lisinopril (Lisinopril 10 Mg Tablet) 10 mg PO DAILY [facility]; Protocol Last Admin: 11/29/22 08:41 Dose: 10 mg [place] Carbonate ([place] Carbonate Er 450 Mg Tablet.Er) 450 mg PO BID [facility] Last Admin: 11/29/22 08:40 Dose: 450 mg Lorazepam (Lorazepam 1 Mg Tablet) 1 mg PO BEDTIME [facility] Last Admin: 11/28/22 21:55 Dose: 1 mg Lorazepam (Lorazepam 0.5 Mg Tablet) 0.5 mg PO Q6H PRN PRN Reason: Anxiety Last Admin: 11/24/22 00:00 Dose: 0.5 mg Magnesium Hydroxide (Milk Of Magnesia 30 Ml Oral.Susp) 30 ml PO DAILY PRN PRN Reason: Constipation Omeprazole (Omeprazole 20 Mg Capsule.Dr) 20 mg PO DAILY@0630 [facility] Last Admin: 11/29/22 08:42 Dose: 20 mg Ondansetron HCl (Ondansetron Odt 4 Mg Tab.Rapdis) 4 mg TRANSLINGU Q8H PRN PRN Reason: Nausea Prazosin HCl (Prazosin Hcl 1 Mg Capsule) 1 mg PO BEDTIME [facility]; Protocol Last Admin: 11/28/22 21:55 Dose: 1 mg Risperidone (Risperidone 2 Mg Tablet) 4 mg PO BEDTIME [facility] Last Admin: 11/28/22 21:56 Dose: 4 mg Sodium Chloride (Sodium Chloride 0.65 % Nasal 44 Ml Sprbtl) 1 spray NOSTRIL-B Q1H PRN PRN Reason: Dry Nasal Passages Last Admin: 11/28/22 21:58 Dose: 1 spray Allergies Allergies Allergy/AdvReac Type Severity Reaction Status Date / Time enoxaparin [From Lovenox] AdvReac Unknown headache, Verified 12/27/21 08:23 electric reaction, heat Assessment & Plan Assessment & Plan (1) Bipolar 1 disorder, depressed, severe: Status: Acute Code(s): F31.4 - Bipolar disorder, current episode depressed, severe, without psychotic features Plan Patient is a 62 year old female with hx of bipolar d/o who presented to [facility] via ambulance after her son called 911 reporting patient was being agitated and bizarre. Per crisis report, at baseline patient is social and engaging. Plan: 12B 15 minute safety checks Obtain collateral from family and outpatient providers. Patient was restarted on home medications. Pt medication compliant. VM left for patients psychiatrist, waiting for call back. 11/08: continue seroquel, Wellbutrin at current doses. 5 day course of maacrodantin for UTI 11/09: ankle edema and BP increased, will order one time extra dose of lasix 11/10: inc seroquel gradually monitor for any worsening edema Case has been reviewed with patient's outpatient psychiatrist 11/11: Increase Seroquel continued as tolerated consider higher potency antipsychotic patient depressed with guilty ruminations question delusional guilt Healthcare proxy invoked to patient having difficulty taking in information processing at the and making decisions 11/12: Patient seen in psychiatric follow-up given much reassurance and education remains on one-to-one for safety. Increase Seroquel to 400 mg daily Risperdal 0.5 mg p.r.n.. Consider change to Risperdal or perhaps for a lower if unable to tolerate higher doses of Seroquel for ongoing depressive psychosis denies active SI 11/13: Patient mostly in bed complain of nausea this morning lethargic still seems quite anxious mostly nonverbal initially refusing labs then agreed hyperkalemia noted given [facility] consult will lower Seroquel start low- dose Risperdal if hopefully will give better control of psychotic symptoms differential includes some encephalopathic process versus bipolar severe depression with psychotic features which she has had previously 11/14: Pt psychotic depressive psychosis failed captla , seroquel start risp consider vraylar cont seroquel at hs 11/15: hold wellbutrin as it may increase psychosis, increase risperidone 1mg po BID 11/16: pt more somnolent in bed, not talking much. urine culture positive for gram negative organism- started on penicillin v 250mg po TID x 10 days. 11/17: Pt presents confused, disorganized, paranoid. Oriented to person and thu, not year or place. Believes something is being put into her food/water. Increased Ativan to 1mg TID. Will continue to monitor. 11/18: Slightly improved from yesterday's presentation. Patient reports feeling anxious and depressed today. Patient is starting to question her delusions. Patient stated, I feel like my mind is racing. I know all of those people can't be my son because he can't be more than one person. I don't know if I'm in a nightmare or reality . Increase risperidone 1mg TID. 11/19: Pt reports feeling tired during the day. Risperidone changed to 1mg PO daily and 2mg PO bedtime. DC'd Seroquel. Continues to report feeling anxious and depressed. Reports the visit with her son did not go well yesterday but would not elaborate. T/W spoke with son (Thad). Thad reports, since COVID happened my mom would isolate to her room and her depression increased.She normally talkative and has days of depression and anxiety. The last time she had an episode like this was 40 years ago. Nothing stressful occurred prior to her symptoms starting before the admission . T/W plans on contacting patient outpatient psychiatrist (Dr. Guevara) tomorrow to obtain more information on tx hx. 11/20: Pt continues to feel confused. Will order EEG. Patient stated I can't seem to get my thoughts together . Continues to feel anxious and depressed. Reports having nightmares. Discussed Minipress risks/benefits. Patient agreed to trial medication, will start prazosin 1mg PO bedtime. Ativan changed from 1mg PO TID to 1mg PO bedtime. Risperidal changed from 1mg PO daily and 2mg PO bedtime to 3mg PO bedtime. 11/21: Pt continues to report confusion and racing thoughts. Waiting on EEG r esults. Pt presents with paranoia. Patient stated, You guys are messing with the time. You guys are having fun playing with me . Patient reports feeling depressed. Risks/benefits discussed regarding [place]. Patient agreed to trial of medication. Will increase Risperidal to 4mg PO bedtime. Started: [place] ER 300mg PO BID Cogentin 0.5mg PO TID PRN for EPS Ativan 0.5mg PO Q6HR PRN anxiety 11/22: Continue current regimen and plans. Compression stockings ordered. 11/23: Continue current plans and regimen 11/24: Pt presents less confused today. Reports ongoing depression and anxiety. Pt reports passive suicidal ideation; reports she feels like a burden . Does not present with any paranoid thinking today and states she does not recall making prior paranoid statments. Restarted Wellbutrin XL 150mg PO daily for depression. [place] level to be drawn Thursday. 11/25: Patient reports feeling improved a little from yesterday . Patient stated, I'm still having some racing thoughts but not as bad. My son says he misses me and wants me home . Patient denies SI at this time. Patient stated, I do want to live. I just have my insecurities. I feel better than when I came in and less confused . Continue current tx plan. 11/26 pt appears stable. No psychosis/ No SI/HI. continue tx. 11/27: Patient stated, I'm not feeling so depressed or anxious. I'm having less confusion. I feel the meds are helping . Patient denies SI/HI/VH/AH. [place] increased to 450mg PO BID. 11/28/2022 Check lithium level patient future oriented eager to focus on self-care maintaining her health 11/29: Continue current plans and regimen Reason for continued inpatient stay Substantial Risk for: med/psych decompensation Time Spent With Patient Time: Total time managing care of this patient today ____ minutes.
[2022-11-29 20:44] VITALS: BP 146/68; PULSE 85; RESP 18; TEMP 36.3; O2SAT 98
[2022-11-29] MEDS: LORazepam 1 MG TABLET PO (20:49)
[2022-11-29] MEDS: Prazosin HCL 1 MG CAPSULE PO (20:50)
[2022-11-29] MEDS: risperiDONE 2 MG TABLET 4 MG PO (20:50)
[2022-11-29] MEDS: Gabapentin 100 MG CAPSULE 200 MG PO (20:50)
[2022-11-29] MEDS: Sodium Chloride 0.65 % Nasal 44 ML SPRBTL 1 SPRAY NOSTRIL-B (20:51)
[2022-11-30 06:00] VITALS: BP 142/65; PULSE 82; RESP 18; TEMP 36.4; O2SAT 98
[2022-11-30 08:16] LABS: Glucose, Whole Blood 120 mg/dL (60-115)
[2022-11-30] MEDS: Omeprazole 20 MG CAPSULE.DR PO (08:55)
[2022-11-30] MEDS: lisinopriL 10 MG TABLET PO (08:55)
[2022-11-30] MEDS: Lithium Carbonate ER 450 MG TABLET.ER PO ×2 (08:56→20:30)
[2022-11-30] MEDS: Empagliflozin 25 MG TABLET PO (08:56)
[2022-11-30] MEDS: Gabapentin 100 MG CAPSULE PO (08:56)
[2022-11-30] MEDS: buPROPion HCl XL 150 MG TAB.ER.24H PO (08:56)
--- NOTE | 2022-11-30 11:01 | HO.PSYCHPN ---
Subjective Subjective Date of Service: 11/30/22 Reason For Visit: bizarre behavior Subjective Notes: Conditional Voluntary Interim History: Patient was seen and discussed in rounds today. Records and plans were reviewed. She continues to be improving and has had a marked improvement since a week ago and I had seen her. She is more verbal, pleasant and interactive. No complaints or side effects. Eating and sleeping adequately. No changes were made today Medication Compliance: Yes Review of Systems Review of Systems Yes all other systems are reviewed and are negative Mental Status Exam Mental Status Exam Narrative: In today's visit she is alert, pleasant and more interactive. Speech is much clearer. Better eye contact. Affect is brighter. No acute signs of psychosis. No SI. Cognitively she is much more coherent and clear her in her thought processes. Judgment is intact Diagnostics Vital Signs (24Hr): Vital Signs - 24 hr 11/29/22 20:44 11/30/22 06:00 Temperature 97.4 F 97.6 F Pulse Rate 85 82 Respiratory Rate 18 18 Blood Pressure 146/68 H 142/65 H Pulse Oximetry 98 98 Oxygen Delivery Method Room Air Room Air BMI result Body Mass Index 45.5 Labs 11/13/22 13:07 11/29/22 06:44 Labs: Laboratory Results - last 48 hr 11/29/22 11/29/22 11/30/22 06:44 06:44 08:03 Sodium 141 Potassium 4.1 Chloride 109 H Carbon Dioxide 22 Anion Gap 14 BUN 11 Creatinine 0.78 Estim Creat Clear Calc 102.3 Estimated GFR > 60 POC Glucose 120 H Fasting Glucose 101 H Calcium 8.7 Total Bilirubin 0.3 AST 22 ALT 36 H Alkaline Phosphatase 55 Total Protein 6.3 L Albumin 3.3 L [place] 0.59 L Imaging Radiology Impressions: ITS Impressions Head CT 11/10/22 12:26 IMPRESSION: 1. No evidence of acute intracranial hemorrhage or edematous territorial infarction. 2. Mild underlying microangiopathy. Medications Medications Current Medications Acetaminophen (Acetaminophen 325 Mg Tablet) 650 mg PO Q6H PRN PRN Reason: Headache/Pain Mild Scale (1-3) Last Admin: 11/28/22 21:56 Dose: 650 mg Al Hydroxide/Mg Hydroxide (Magnesium Hydrox/Alum Hydrox 30 Ml Oral.Susp) 30 ml PO Q6H PRN PRN Reason: Heartburn/Nausea Last Admin: 11/15/22 14:57 Dose: 30 ml Benzocaine (Throat Lozenge, Medicated Lozenge) 1 lozenge MUCOUS MEM Q2H PRN PRN Reason: Sore Throat Last Admin: 11/24/22 21:56 Dose: 1 lozenge Benztropine Mesylate (Benztropine Mesylate 0.5 Mg Tablet) 0.5 mg PO TID PRN PRN Reason: Extrapyramidal Effects Bupropion HCl (Bupropion Hcl Xl 150 Mg Tab.Er.24h) 150 mg PO DAILY [facility] Last Admin: 11/30/22 08:56 Dose: 150 mg Empagliflozin (Empagliflozin 25 Mg Tablet) 25 mg PO DAILY [facility] Last Admin: 11/30/22 08:56 Dose: 25 mg Gabapentin (Gabapentin 100 Mg Capsule) 100 mg PO DAILY [facility] Last Admin: 11/30/22 08:56 Dose: 100 mg Gabapentin (Gabapentin 100 Mg Capsule) 200 mg PO BEDTIME [facility] Last Admin: 11/29/22 20:50 Dose: 200 mg Lisinopril (Lisinopril 10 Mg Tablet) 10 mg PO DAILY [facility]; Protocol Last Admin: 11/30/22 08:55 Dose: 10 mg [place] Carbonate ([place] Carbonate Er 450 Mg Tablet.Er) 450 mg PO BID [facility] Last Admin: 11/30/22 08:56 Dose: 450 mg Lorazepam (Lorazepam 1 Mg Tablet) 1 mg PO BEDTIME [facility] Last Admin: 11/29/22 20:49 Dose: 1 mg Lorazepam (Lorazepam 0.5 Mg Tablet) 0.5 mg PO Q6H PRN PRN Reason: Anxiety Last Admin: 11/24/22 00:00 Dose: 0.5 mg Magnesium Hydroxide (Milk Of Magnesia 30 Ml Oral.Susp) 30 ml PO DAILY PRN PRN Reason: Constipation Omeprazole (Omeprazole 20 Mg Capsule.Dr) 20 mg PO DAILY@0630 [facility] Last Admin: 11/30/22 08:55 Dose: 20 mg Ondansetron HCl (Ondansetron Odt 4 Mg Tab.Rapdis) 4 mg TRANSLINGU Q8H PRN PRN Reason: Nausea Prazosin HCl (Prazosin Hcl 1 Mg Capsule) 1 mg PO BEDTIME [facility]; Protocol Last Admin: 11/29/22 20:50 Dose: 1 mg Risperidone (Risperidone 2 Mg Tablet) 4 mg PO BEDTIME [facility] Last Admin: 11/29/22 20:50 Dose: 4 mg Sodium Chloride (Sodium Chloride 0.65 % Nasal 44 Ml Sprbtl) 1 spray NOSTRIL-B Q1H PRN PRN Reason: Dry Nasal Passages Last Admin: 11/29/22 20:51 Dose: 1 spray Allergies Allergies Allergy/AdvReac Type Severity Reaction Status Date / Time enoxaparin [From Lovenox] AdvReac Unknown headache, Verified 12/27/21 08:23 electric reaction, heat Assessment & Plan Assessment & Plan (1) Bipolar 1 disorder, depressed, severe: Status: Acute Code(s): F31.4 - Bipolar disorder, current episode depressed, severe, without psychotic features Plan Patient is a 62 year old female with hx of bipolar d/o who presented to [facility] via ambulance after her son called 911 reporting patient was being agitated and bizarre. Per crisis report, at baseline patient is social and engaging. Plan: 12B 15 minute safety checks Obtain collateral from family and outpatient providers. Patient was restarted on home medications. Pt medication compliant. VM left for patients psychiatrist, waiting for call back. 11/08: continue seroquel, Wellbutrin at current doses. 5 day course of maacrodantin for UTI 11/09: ankle edema and BP increased, will order one time extra dose of lasix 11/10: inc seroquel gradually monitor for any worsening edema Case has been reviewed with patient's outpatient psychiatrist 11/11: Increase Seroquel continued as tolerated consider higher potency antipsychotic patient depressed with guilty ruminations question delusional guilt Healthcare proxy invoked to patient having difficulty taking in information processing at the and making decisions 11/12: Patient seen in psychiatric follow-up given much reassurance and education remains on one-to-one for safety. Increase Seroquel to 400 mg daily Risperdal 0.5 mg p.r.n.. Consider change to Risperdal or perhaps for a lower if unable to tolerate higher doses of Seroquel for ongoing depressive psychosis denies active SI 11/13: Patient mostly in bed complain of nausea this morning lethargic still seems quite anxious mostly nonverbal initially refusing labs then agreed hyperkalemia noted given [facility] consult will lower Seroquel start low-dose Risperdal if hopefully will give better control of psychotic symptoms differential includes some encephalopathic process versus bipolar severe depression with psychotic features which she has had previously 11/14: Pt psychotic depressive psychosis failed captla , seroquel start risp consider vraylar cont seroquel at hs 11/15: hold wellbutrin as it may increase psychosis, increase risperidone 1mg po BID 11/16: pt more somnolent in bed, not talking much. urine culture positive for gram negative organism- started on penicillin v 250mg po TID x 10 days. 11/17: Pt presents confused, disorganized, paranoid. Oriented to person and month, not year or place. Believes something is being put into her food/water. Increased Ativan to 1mg TID. Will continue to monitor. 11/18: Slightly improved from yesterday's presentation. Patient reports feeling anxious and depressed today. Patient is starting to question her delusions. Patient stated, I feel like my mind is racing. I know all of those people can't be my son because he can't be more than one person. I don't know if I'm in a nightmare or reality . Increase risperidone 1mg TID. 11/19: Pt reports feeling tired during the day. Risperidone changed to 1mg PO daily and 2mg PO bedtime. DC'd Seroquel. Continues to report feeling anxious and depressed. Reports the visit with her son did not go well yesterday but would not elaborate. T/W spoke with son (Thad). Thad reports, since COVID happened my mom would isolate to her room and her depression increased.She normally talkative and has days of depression and anxiety. The last time she had an episode like this was 40 years ago. Nothing stressful occurred prior to her symptoms starting before the admission . T/W plans on contacting patient outpatient psychiatrist (Dr. Guevara) tomorrow to obtain more information on tx hx. 11/20: Pt continues to feel confused. Will order EEG. Patient stated I can't seem to get my thoughts together . Continues to feel anxious and depressed. Reports having nightmares. Discussed Minipress risks/benefits. Patient agreed to trial medication, will start prazosin 1mg PO bedtime. Ativan changed from 1mg PO TID to 1mg PO bedtime. Risperidal changed from 1mg PO daily and 2mg PO bedtime to 3mg PO bedtime. 11/21: Pt continues to report confusion and racing thoughts. Waiting on EEG results. Pt presents with paranoia. Patient stated, You guys are messing with the time. You guys are having fun playing with me . Patient reports feeling depressed. Risks/benefits discussed regarding [place]. Patient agreed to trial of medication. Will increase Risperidal to 4mg PO bedtime. Started: [place] ER 300mg PO BID Cogentin 0.5mg PO TID PRN for EPS Ativan 0.5mg PO Q6HR PRN anxiety 11/22: Continue current regimen and plans. Compression stockings ordered. 11/23: Continue current plans and regimen 11/24: Pt presents less confused today. Reports ongoing depression and anxiety. Pt reports passive suicidal ideation; reports she feels like a burden . Does not present with any paranoid thinking today and states she does not recall making prior paranoid statments. Restarted Wellbutrin XL 150mg PO daily for depression. [place] level to be drawn Thursday. 11/25: Patient reports feeling improved a little from yesterday . Patient stated, I'm still having some racing thoughts but not as bad. My son says he misses me and wants me home . Patient denies SI at this time. Patient stated, I do want to live. I just have my insecurities. I feel better than when I came in and less confused . Continue current tx plan. 11/26 pt appears stable. No psychosis/ No SI/HI. continue tx. 11/27: Patient stated, I'm not feeling so depressed or anxious. I'm having less confusion. I feel the meds are helping . Patient denies SI/HI/VH/AH. [place] increased to 450mg PO BID. 11/28/2022 Check lithium level patient future oriented eager to focus on self-care maintaining her health 11/29: Continue current plans and regimen 11/30: Continue current plans and regimen Reason for continued inpatient stay Substantial Risk for: med/psych decompensation Time Spent With Patient Time: Total time managing care of this patient today ____ minutes.
[2022-11-30 20:15] VITALS: BP 155/67; PULSE 85; RESP 18; TEMP 36.9; O2SAT 100
[2022-11-30] MEDS: Prazosin HCL 1 MG CAPSULE PO (20:30)
[2022-11-30] MEDS: risperiDONE 2 MG TABLET 4 MG PO (20:30)
[2022-11-30] MEDS: Gabapentin 100 MG CAPSULE 200 MG PO (20:30)
[2022-12-01] MEDS: Omeprazole 20 MG CAPSULE.DR PO (06:48)
[2022-12-01 08:02] LABS: Glucose, Whole Blood 101 mg/dL (60-115)
[2022-12-01 08:30] VITALS: BP 143/69; PULSE 84; RESP 18; TEMP 36.4; O2SAT 95
[2022-12-01] MEDS: Empagliflozin 25 MG TABLET PO (08:38)
[2022-12-01] MEDS: Lithium Carbonate ER 450 MG TABLET.ER PO ×2 (08:38→20:23)
[2022-12-01] MEDS: lisinopriL 10 MG TABLET PO (08:38)
[2022-12-01] MEDS: Gabapentin 100 MG CAPSULE PO (08:38)
[2022-12-01] MEDS: buPROPion HCl XL 150 MG TAB.ER.24H PO (08:38)
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
[2022-12-01 19:40] VITALS: BP 165/74; PULSE 82; RESP 18; TEMP 36.3; O2SAT 100
[2022-12-01] MEDS: Prazosin HCL 1 MG CAPSULE PO (20:23)
[2022-12-01] MEDS: risperiDONE 2 MG TABLET 4 MG PO (20:23)
[2022-12-01] MEDS: Gabapentin 100 MG CAPSULE 200 MG PO (20:23)
[2022-12-02] MEDS: Omeprazole 20 MG CAPSULE.DR PO (06:38)
[2022-12-02 08:20] VITALS: BP 112/55; PULSE 88; RESP 20; TEMP 36.6; O2SAT 94
[2022-12-02 08:20] LABS: Glucose, Whole Blood 105 mg/dL (60-115)
[2022-12-02] MEDS: Lithium Carbonate ER 450 MG TABLET.ER PO ×2 (08:22→20:46)
[2022-12-02] MEDS: lisinopriL 10 MG TABLET PO (08:22)
[2022-12-02] MEDS: Gabapentin 100 MG CAPSULE PO (08:22)
[2022-12-02] MEDS: buPROPion HCl XL 150 MG TAB.ER.24H PO (08:22)
[2022-12-02] MEDS: Empagliflozin 25 MG TABLET PO (08:22)
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
[2022-12-02] MEDS: Gabapentin 100 MG CAPSULE 200 MG PO (19:45)
[2022-12-02 20:05] VITALS: BP 138/64; PULSE 91; RESP 17; TEMP 36.3; O2SAT 99
[2022-12-02] MEDS: risperiDONE 2 MG TABLET 4 MG PO (20:44)
[2022-12-02] MEDS: Prazosin HCL 1 MG CAPSULE PO (22:09)
[2022-12-03] MEDS: Omeprazole 20 MG CAPSULE.DR PO (06:57)
[2022-12-03 08:38] VITALS: BP 137/62; PULSE 80; RESP 20; TEMP 36.3; O2SAT 97
[2022-12-03] MEDS: lisinopriL 10 MG TABLET PO (08:39)
[2022-12-03] MEDS: Gabapentin 100 MG CAPSULE PO (08:39)
[2022-12-03] MEDS: buPROPion HCl XL 150 MG TAB.ER.24H PO (08:39)
[2022-12-03] MEDS: Lithium Carbonate ER 450 MG TABLET.ER PO (08:39)
[2022-12-03] MEDS: Empagliflozin 25 MG TABLET PO (08:39)
[2022-12-03 09:42] LABS: Lithium 0.43 mmol/L (0.60-1.20)
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
[2022-12-03 09:59] LABS: Anion Gap 11 (12-20); Blood Urea Nitrogen 9 mg/dL (9-16); Carbon Dioxide 26 mmol/L (22-29); Chloride 107 mmol/L (96-108); Creatinine Clr Calc Pharmacy 96.2; Estimated Glomerular Filt Rate > 60; Potassium 4.3 mmol/L (3.3-5.1); Sodium 140 mmol/L (135-145)
[2022-12-03 10:10] LABS: TSH reflex Free T4 3.22 uIU/mL (0.32-4.0)
== END 2022-12-03 12:05 | disposition home or self-care (01) | DRG 885 ==
LOC: HO.ED 22:35 → HO.PADLT16 11-06 16:18
PROVIDERS: Physician Assistant; Social Worker; Student in an Organized Health Care Education/Training Program; Admitting Provider Psychiatry & Neurology Psychiatry; Emergency Provider Emergency Medicine Emergency Medical Services; Responsible Provider Registered Nurse; Visit Provider Psychiatry & Neurology Psychiatry
DX: F31.4 Bipolar disorder, current episode depressed, severe, without psychotic features (principal); N39.0 Urinary tract infection, site not specified; B95.1 Streptococcus, group B, as the cause of diseases classified elsewhere; Z20.822 Contact with and (suspected) exposure to COVID-19; Z79.899 Other long term (current) drug therapy
CPT/HCPCS: 36415; 70450; 80048; 80051; 80053; 80143; 80178; 80179; 80307; 81001; 82140; 82150; 82550; 82565; 82607; 82746; 82947; 83690; 84443; 84520; 85025; 85652; 86704; 86706; 86709; 86803; 87086; 87147; 87340; 87635; 93005; 95816; 99285

== ENCOUNTER → 2022-11-06 10:42 | Outpatient (BNV) | payer MEDICARE, MEDICAID, SELFPAY | PROVIDERS: Admitting Provider Psychiatry & Neurology Psychiatry; Emergency Provider Emergency Medicine Emergency Medical Services; Visit Provider Internal Medicine Cardiovascular Disease | DX: R94.31 Abnormal electrocardiogram [ECG] [EKG] (principal) | CPT/HCPCS: 93010 ==

== ENCOUNTER → 2022-11-06 16:16 | Outpatient (BNV) | payer MEDICARE, MEDICAID, SELFPAY | PROVIDERS: Admitting Provider Psychiatry & Neurology Psychiatry; Emergency Provider Emergency Medicine Emergency Medical Services; Responsible Provider Registered Nurse; Visit Provider Psychiatry & Neurology Psychiatry | DX: F31.4 Bipolar disorder, current episode depressed, severe, without psychotic features (principal) | CPT/HCPCS: 90792; 99231; 99232; 99238; 99499 ==

== ENCOUNTER → 2022-11-06 16:16 | Outpatient (BNV) | payer MEDICARE, MEDICAID, SELFPAY | PROVIDERS: Admitting Provider Psychiatry & Neurology Psychiatry; Emergency Provider Emergency Medicine Emergency Medical Services; Responsible Provider Registered Nurse; Visit Provider Psychiatry & Neurology Psychiatry | DX: F31.4 Bipolar disorder, current episode depressed, severe, without psychotic features (principal) | CPT/HCPCS: 99231; 99232 ==

== ENCOUNTER 2023-01-26 13:00 | Outpatient (RCR) | payer MEDICARE, MEDICAID, SELFPAY | END 2023-09-15 15:22 | disposition home or self-care (01) | LOC: HO.PT 13:00 | PROVIDERS: PCP Physician Assistant; Visit Provider Physician Assistant | DX: M54.50 Low back pain, unspecified (principal) | CPT/HCPCS: 97110; 97140; 97162 ==

== ENCOUNTER → 2024-05-24 10:57 | Outpatient (RCR) | payer MEDICARE, MEDICAID, SELFPAY | END | disposition home or self-care (01) | LOC: HO.OT 07-30 13:54 | PROVIDERS: PCP Internal Medicine; Visit Provider Physician Assistant | DX: I89.0 Lymphedema, not elsewhere classified (principal) | CPT/HCPCS: 97140 ==